=== PATIENT | female | born 1970 | race Hispanic/Latino ===

== ENCOUNTER 2025-07-04 19:08 | Emergency (ER) | payer SELFPAY, OTHER ==
--- OUTSIDE RECORDS SUMMARY | 2025-07-04 19:28 | XMS REPORT | Continuity of Care Document ---
Demographics Address [address] [facility] [address] [place] [address] Mobile Phone Email Address Preferred Language Nepali Marital Status Unknown Rastafari Affiliation Unknown Race Unknown Additional Race(s) Unavailable White Ethnic Group Unknown Author Name Unknown Address [address] [facility] [address] [place] [address] [facility] Address [address] [facility] [address] [place] [address] Care Team Providers Care Denture Waxer Name Role Phone [phone] Primary Care Physician Unavailab Luis Davies Attending Clinician Unavailab le SYSTEM, PROVIDER NOT IN Attending Clinician Unav ailable PHILL OSBORN Attending Clinician Unavailable GRAHAM MELARA Attending Clinician Unavail able PRINCESS GRADY Attending Clinician Un available PERFECTO MELTON Attending Clinician Unavailable VIRGINIA DAVE Attending Clinician Unavailable YUE JACKSON K.HLane Attending Clinician UnavailGil Costello Attending Clinician [phone] Luis Nash Attending Clinician [phone] Tenzin GARCIA, [place] Attending Clinician [phone] BENSON BEAVERS Attending Clinician Unavailable JULIA BENJAMIN Attending Clinician Unavailab le MARITA CALDERON Attending Clinician Unavail able MARITA CALDERON MY Attending Clinician Unavail able Doctor Unassigned, [place] Attending Clinician U navailable NORA CRUZ Attending Clinician Unavailable NORA CRUZ Attending Clinician Unavailable Nora Chawla Attending Clinician [phone] AVELINA GORDON Attending Clinician Unavailable BRIAN WEST Attending Clinician Unavail able HILARIO NELSON Attending Clinician UnavailJELANI Sy Attending Clinician Unavailab keny Melara MD, Sourav Fletcher Attending Clinician UnavailGRAHAM Hatch Attending Clinician Unavail able Kelotn GARCIA, Graham Pascual Attending Clinician [phone] Jelani Olivera MD Attending Clinician [phone] DIMA GUADARRAMA Attending Clinician Unavailable Dima Guadarrama DDS Attending Clinician [phone] [place] Dave MD Attending Clinician [phone] NADYA CRAIG. Attending Clinician Unavailable Nurse, [facility] Attending Clinician Unavailab keny Orosco, [facility] Attending Clinician Unavailabl e Doctor Unassigned, [place] Attending Clinician U navailable Kenroy_Antwan Attending Clinician Unavailable Yue Jackson MD K.HLane Attending Clinician + [phone] EDUARDO SAWYER Attending Clinician Unavailable CHIQUITA EDWARD Attending Clinician UnavailJoseph Wyatt MD Attending Clinician [phone] JOSEPH GARCIA Attending Clinician UnavailJOSEPH Wyatt Attending Clinician Unavailgordon Sierra Attending Clinician Unavailable Chiquita Edward MD Attending Clinician [phone] Deepali Hernandez RN Attending Clinician Unav ailable DONELL, QIANGJUN Attending Clinician Unavailable Mirtha Carrera MD Attending Clinician + [phone] 2, [facility] Attending Clinician Unavailable MIRTHA CARRERA Attending Clinician SONJA Carmen Attending Clinician Unavailable SONJA SINCLAIR Attending Clinician Unavailable KAVON MOREL Attending Clinician Unavailable Talha_Alma Attending Clinician Unavailable EFRAIN MADERA Attending Clinician Un available BILLIE WOOD Attending Clinician Unavailable DALILA BARRETO Attending Clinician Unavailab SANJANA Christie IV Attending Clinician Unavail able HOUSTON URENA Attending Clinician Unavailable IZABELA WALLACE Attending Clinician Unavailabl JAYY Traore Attending Clinician Unavailable NurseJoel Uroghazala Attending Clinician UnavailNIVIA Barraza Attending Clinician Unavail able Nivia Tafoya Attending Clinician [phone] DAMIEN STRONG Attending Clinician Unavailabl sorin Strong GNDamien Manrique Attending Clinician [phone] Clark Garces MD Attending Clinician [phone] Phill Osborn MD Attending Clinician +[phone] Only, [facility] Test Attending Clinician Unavailab le PATHOLOGY Attending Clinician Unavailable Pathology Attending Clinician Unavailable Irma Collins MD Attending Clinician +[phone] Call, [facility] Phone Attending Clinician Unavail able ABBEY Attending Clinician Unavailable Laine Ortega MD Attending Clinician [phone] VERONA NASH Attending Clinician Unavaila GIL Singh Attending Clinician UnavailBILLIE Salomon Attending Clinician Unavailable Perfecto Melton MD Attending Clinician +[phone] IRMA COLLINS Attending Clinician Unavailable Jericho Galaviz MD Attending Clinician +[phone] JERICHO GALAVIZ Attending Clinician Unavailable JORDON SOLANO Attending Clinician Unavail able Nurse, Don Pob Immunization Attending Clinician Unavailable Jordon Solano DO Attending Clinician [phone] Marianne Landis OD Attending Clinician [phone] MARIANNE LANDIS Attending Clinician Unavailable EN ENAMORADO Attending Clinician Unavailable Only, [facility] Test Attending Clinician Unavailable Pob, [facility] Lab Main Attending Clinician UnavailLay Winkler PA-C Attending Clinician [phone] LAY CASTELLANOS Attending Clinician Unavailable Sulma Conrad MD Attending Clinician [phone] HARRIS LEVY Attending Clinician Unavailable HERMINIA LOTT Attending Clinician Unavailable SULMA CONRAD Attending Clinician Unavail able Rebecca Attending Clinician Unavailable REINA JEAN-BAPTISTE Attending Clinician Unavailable Teresa Finley MD Attending Clinician + [phone] Lyle Clark CRNA Attending Clinician + [phone] [facility], [facility] Heart Attending Clinician Unavailab le 1, [facility] Lab Attending Clinician Unavailable Evie Galindo PT Attending Clinician Unavailab Keerthi Humphreys Attending Clinician +[phone] Ramakrishna Boone MD Attending Clinician [phone] Marissa Zambrano MD Attending Clinician +[phone] SEBASTIEN PADILLA Attending Clinician Unavailable MICHELLE MAYA Attending Clinician Unavailabl SHANNA Zarate Attending Clinician Unavailab JUANITA Mcpherson Attending Clinician Unavailable CHINTAN LIMON Attending Clinician Unavailable SIENNA ARBOLEDA Attending Clinician Unavaila ble PHILL OSBORN Admitting Clinician Unavailable GRAHAM MELARA Admitting Clinician Unavail able PERFECTO MELTON Admitting Clinician Unavailable Graham Melara MD Admitting Clinician [phone] Zuniga_F Admitting Clinician Unavailable MARITA CALDERON Admitting Clinician Unavail able Rigo Admitting Clinician Unavailable LUIS NASH Admitting Clinician Unavailab keny Alcantar Admitting Clinician Unavailable EFRAIN MADERA Admitting Clinician Un available Phill Osborn MD Admitting Clinician +[phone] ABBEY Admitting Clinician Unavailable Rebecca Admitting Clinician Unavailable Teresa Finley MD Admitting Clinician + [phone] SIENNA ARBOLEDA Admitting Clinician Unavaila ble Payers Payer Name Policy Type Policy Number Effective Date Expirati on Date Source [facility] STAR [id number] 2020 00:00:00 [employer] COMMUNITY MEDICAID STAR PLUS SSI [id number] [facility]LY [facility] PLAN STAR [id number] 2020 00:00:00 WELLMED/AARP MEDICARE ADVANTAGE HMO/POS [id number] 2024 00:00:00 WELLMED [facility] - DUAL ELIGIBLE (MEDICARE REPLACEMENT/ADVANTA GE - HMO) [id number] [facility] (MEDICAID REPLACEMENT - HMO) [id number] 2022 00:00:00 [place]: [employer] - [facility] [id number] 2021 00:00:00 MEDICARE PART A AND B [id number] 2021 00:00:00 [place] TRADITIONAL ST[place] SSI [id number] 2022 00:00:00 [place] Inspro [id number] 2021 00:00:00 [facility] [place] (MEDICA[place]) [id number] 2022 00:00:00 [facility] - DUAL COMPLETE - DUAL ELIGIBLE - SNP (MEDICARE-MEDICAID REPLACEMENT HMO) [id number] [facility]/ADVANTA GE - HMO) [id number] 2022 00:00:00 [facility] [id number] [id number] [place] - STAR (MEDICAID HMO) [id number] 2016 00:00:00 Problems Condition Name Condition Details Condition Category Status Onset Date Resolution Date Last Treatment Date Treating Clinician Comments Source Mixed hyperlipid emia Mixed Hyperlipid emia Problem Active 05-04 00:00: 00 [facility] Obesity Obesity Problem Active 05-04 00:00: 00 [facility] Overweight Overweight Problem Active 05-04 00:00: 00 [facility] Tobacco user Tobacco User Problem Active 05-04 00:00: 00 [facility] Menorrhagi a Menorrhagi a Problem Active 0 6 [facility] Rosacea Rosacea Problem Active 6 00:00: 00 [facility] Metabolic dysfunctio n-associat ed steatohepa titis Metabolic Dysfunctio n-associat ed Steatohepa titis Problem Active 6 00:00: 00 [facility] Candidiasi s Candidiasi s Problem Active 6 00:00: 00 [facility] Goiter Goiter Problem Active 6 00:00: 00 [facility] Abnormal urine odor Abnormal Urine Odor Problem Active 5 00:00: 00 [facility] Proteus urinary tract infection Proteus Urinary Tract Infection Problem Active 0 2-11 00:00: 00 [facility] Chronic cystitis Chronic Cystitis Problem Active 2-08 00:00: 00 [facility] Vaginal discomfort Vaginal Discomfort Problem Active 2-08 00:00: 00 [facility] Right lower quadrant pain Right Lower Quadrant Pain Problem Active 0 2-08 00:00: 00 [facility] Constipati on Constipati on Problem Active 0 2-06 00:00: 00 [facility] Spasm of back muscles Spasm of Back Muscles Problem Active 0 2-06 00:00: 00 [facility] Acute abdominal pain Acute Abdominal Pain Problem Active 0 2-06 00:00: 00 [facility] Right lower quadrant pain Right Lower Quadrant Pain Problem Active 0 2-06 00:00: 00 [facility] Vulval lesion Vulval lesion Disease Active 2023-11 0-25 00:00: 00 [facility] Lower abdominal pain Lower Abdominal Pain Problem Active 8- 00:00: 00 [facility] Strain of muscle of right groin region Strain of Muscle of Right Groin Region Problem Active 8- 00:00: 00 [facility] S/P laparoscop ic hysterecto my S/P laparoscop ic hysterecto my Disease Active 4-12 00:00: 00 [facility] Type II or unspecifie d type diabetes mellitus with ketoacidos is, uncontroll ed(250.12) Type II or unspecifie d type diabetes mellitus with ketoacidos is, uncontroll ed(250.12) Disease Active - 00:00: 00 [facility] H/O bilateral salpingo-o ophorectom y H/O bilateral salpingo-o ophorectom y Disease Active 01-27 00:00: 00 [facility] History of cholecyste ctomy History of cholecyste ctomy Disease Active 01-27 00:00: 00 [facility] Ocular rosacea Ocular Rosacea Problem Active 01-24 00:00: 00 [facility] Yeast vaginitis Yeast vaginitis Disease Active 2022-11 2- 00:00: 00 [facility] Postmenopa usal bleeding Postmenopa usal bleeding Disease Active 2022-11 2- 00:00: 00 [facility] Candidiasi s of vulva and vagina Candidiasi s of vulva and vagina Disease Active 2022-11 2- 00:00: 00 [facility] Acute urinary tract infection Acute Urinary Tract Infection Problem Active 2022-11- 00:00: 00 [facility] Cough Cough Problem Active 2022-11 00:00: 00 [facility] Dysuria Dysuria Problem Active 2022-11 00:00: 00 [facility] BRCA1 gene mutation positive BRCA1 gene mutation positive Disease Active - 00:00: 00 [facility] Pain pelvic Pain pelvic Disease Active 07-27 00:00: 00 [facility] Dysplasia of cervix, low grade (GEORGETTE 1) Dysplasia of cervix, low grade (GEORGETTE 1) Disease Active 2021-11 0-28 00:00: 00 Overview: Formattin g of this note might be different from the original. Added automatic ally from request for surgery [id number] [facility] Viral syndrome Viral Syndrome Problem Active 03-18 00:00: 00 [facility] Fever Fever Problem Active 03-18 00:00: 00 [facility] Tuberculos is screening Tuberculos is Screening Problem Active 3-29 00:00: 00 [facility] Abnormal vaginal bleeding Abnormal vaginal bleeding Disease Active 06-17 00:00: 00 Overview: Formattin g of this note might be different from the original. Added automatic ally from request for surgery [id number] [facility] Urinary incontinen ce, unspecifie d type Urinary incontinen ce, unspecifie d type Disease Active 06-17 00:00: 00 Overview: Formattin g of this note might be different from the original. Added automatic ally from request for surgery [id number] [facility] Mixed hyperlipid emia Mixed hyperlipid emia Disease Active 04-03 00:00: 00 [facility] Indigestio n Indigestio n Problem Active 06-09 00:00: 00 [facility] Personal history of colonic polyps Personal history of colonic polyps Disease Active 06-09 00:00: 00 Overview: Formattin g of this note might be different from the original. Added automatic ally from request for surgery [id number] [facility] Aaron hematuria Aaron Hematuria Problem Active 04-04 00:00: 00 [facility] Gastroesop hageal reflux disease Gastroesop hageal Reflux Disease Problem Active 12-02 00:00: 00 [facility] Flatulence , eructation and gas pain Flatulence , Eructation and Gas Pain Problem Active 12-02 00:00: 00 [facility] History of anemia History of Anemia Problem Active 12-02 00:00: 00 [facility] History of polyp of colon History of Polyp of Colon Problem Active 12-02 00:00: 00 [facility] Follow-up status Follow-up Status Problem Active 12-02 00:00: 00 [facility] Encounter for colonoscop y due to history of adenomatou s colonic polyps Encounter for colonoscop y due to history of adenomatou s colonic polyps Disease Active 12-02 00:00: 00 Overview: Formattin g of this note might be different from the original. Added automatic ally from request for surgery [id number] [facility] Morbid obesity Morbid Obesity Problem Active 03-08 00:00: 00 [facility] Morbid obesity with body mass index of 40.0-49.9 Morbid obesity with body mass index of 40.0-49.9 Disease Recurre nce 03-08 00:00: 00 [facility] Blood in urine Blood in Urine Problem Active 12-05 00:00: 00 [facility] Type 2 diabetes mellitus without complicati on Type 2 Diabetes Mellitus without Complicati on Problem Active 11-20 00:00: 00 [facility] Uncontroll ed type 2 diabetes mellitus with complicati on, with long-term current use of insulin Uncontroll ed type 2 diabetes mellitus with complicati on, with long-term current use of insulin Disease Active 11-20 00:00: 00 [facility] Type 2 diabetes mellitus Type 2 Diabetes Mellitus Problem Active [facility] Hyperlipid emia Hyperlipid emia Problem Active [facility] Essential hypertensi on Essential Hypertensi on Problem Active [facility] Allergies, Adverse Reactions, Alerts Allergy Name Allergy Type Status Severity Reaction(s) Onset Date Inactive Date Treating Clinician Comments Source DAPAGLIF LOZIN PROPANED IOL DRUG INGREDI Active Other-Cmnt 01-19 00:00: 00 [facility] Dapaglif lozin Propaned iol Drug Allergy Active Other - See comments 01-19 00:00: 00 Saira [facility] DAPAGLIF LOZIN DRUG INGREDI Active 02-18 00:00: 00 MD Fina barreto DAPAGLIF LOZIN DRUG INGREDI Active 02-18 00:00: 00 MD Fina barreto DAPAGLIF LOZIN DRUG INGREDI Active Other 02-18 00:00: 00 MD Fina barreto DAPAGLIF LOZIN DRUG INGREDI Active Other 0 413 00:00: 00 MD Fina barreto DAPAGLIF LOZIN DRUG INGREDI Active Other 0 413 00:00: 00 MD Fina barreto DAPAGLIF LOZIN DRUG INGREDI Active Other 0 413 00:00: 00 MD Fina barreto DAPAGLIF LOZIN DRUG INGREDI Active Other 0 413 00:00: 00 MD Fina barreto DAPAGLIF LOZIN DRUG INGREDI Active Other 0 413 00:00: 00 MD Fina barreto DAPAGLIF LOZIN DRUG INGREDI Active Other 0 413 00:00: 00 MD Fina barreto DAPAGLIF LOZIN DRUG INGREDI Active Other 0 413 00:00: 00 MD Fina barreto DAPAGLIF LOZIN DRUG INGREDI Active Other 0 13 00:00: 00 MD Fina barreto DAPAGLIF LOZIN DRUG INGREDI Active Other 0 13 00:00: 00 MD Fina barreto DAPAGLIF LOZIN DRUG INGREDI Active Other 0 413 00:00: 00 MD Fina barreto DAPAGLIF LOZIN DRUG INGREDI Active Other 0 13 00:00: 00 MD Fina barreto DAPAGLIF LOZIN DRUG INGREDI Active Other 0 413 00:00: 00 MD Fina barreto DAPAGLIF LOZIN DRUG INGREDI Active Other 0 413 00:00: 00 MD Fina barreto DAPAGLIF LOZIN DRUG INGREDI Active Other 0 413 00:00: 00 MD Fina barreto DAPAGLIF LOZIN DRUG INGREDI Active Other 0 413 00:00: 00 MD Fina barreto DAPAGLIF LOZIN DRUG INGREDI Active Other 0 413 00:00: 00 MD Fina barreto DAPAGLIF LOZIN DRUG INGREDI Active Other 0 413 00:00: 00 MD Fina barreto DAPAGLIF LOZIN DRUG INGREDI Active Other 0 413 00:00: 00 MD Fina barreto DAPAGLIF LOZIN DRUG INGREDI Active Other 2022-0 413 00:00: 00 Andemi barreto DAPAGLIF LOZIN DRUG INGREDI Active Other 0 413 00:00: 00 Andemi barreto DAPAGLIF LOZIN DRUG INGREDI Active Other 2022-0 413 00:00: 00 Andemi barreto DAPAGLIF LOZIN DRUG INGREDI Active Other 2022-0 413 00:00: 00 MD Fina barreto DAPAGLIF LOZIN DRUG INGREDI Active Other 2022-0 413 00:00: 00 Andemi barreto DAPAGLIF LOZIN DRUG INGREDI Active Other 0 413 00:00: 00 Andemi barreto DAPAGLIF LOZIN DRUG INGREDI Active Other 0 413 00:00: 00 Andemi barreto DAPAGLIF LOZIN DRUG INGREDI Active Other 0 413 00:00: 00 MD Fina barreto DAPAGLIF LOZIN DRUG INGREDI Active Other 2022-0 413 00:00: 00 MD Fina barreto DAPAGLIF LOZIN DRUG INGREDI Active Other 2022-0 413 00:00: 00 MD Fina barreto DAPAGLIF LOZIN DRUG INGREDI Active Other 0 413 00:00: 00 MD Fina barreto DAPAGLIF LOZIN DRUG INGREDI Active Other 2022-0 413 00:00: 00 MD Fina barreto DAPAGLIF LOZIN DRUG INGREDI Active Other 2022-0 413 00:00: 00 MD Fina barreto DAPAGLIF LOZIN DRUG INGREDI Active Other 2022-0 413 00:00: 00 MD Fina barreto DAPAGLIF LOZIN DRUG INGREDI Active Other 2022-0 413 00:00: 00 MD Fina barreto DAPAGLIF LOZIN DRUG INGREDI Active Other 2022-0 413 00:00: 00 MD Fina barreto DAPAGLIF LOZIN DRUG INGREDI Active Other 2022-0 413 00:00: 00 MD Fina barreto DAPAGLIF LOZIN DRUG INGREDI Active 2022-0 4-13 00:00: 00 MD Fina barreto DAPAGLIF LOZIN DRUG INGREDI Active 3-0 4-13 00:00: 00 MD Fina barreto DAPAGLIF LOZIN DRUG INGREDI Active 2022-0 4-13 00:00: 00 MD Fina barreto DAPAGLIF LOZIN DRUG INGREDI Active 3-0 4-13 00:00: 00 MD Fina barreto DAPAGLIF LOZIN DRUG INGREDI Active 2022-0 4-13 00:00: 00 MD Fina barreto DAPAGLIF LOZIN DRUG INGREDI Active 2022-0 4-13 00:00: 00 MD Fina barreto DAPAGLIF LOZIN DRUG INGREDI Active 2022-0 413 00:00: 00 MD Fina barreto DAPAGLIF LOZIN DRUG INGREDI Active 2022-0 413 00:00: 00 MD Fina barreto DAPAGLIF LOZIN DRUG INGREDI Active 2022-0 413 00:00: 00 MD Fina barreto DAPAGLIF LOZIN DRUG INGREDI Active 2022-0 413 00:00: 00 MD Fina barreto DAPAGLIF LOZIN DRUG INGREDI Active 3-0 413 00:00: 00 MD Fina barreto DAPAGLIF LOZIN DRUG INGREDI Active 2022-0 413 00:00: 00 MD Fina barreto DAPAGLIF LOZIN DRUG INGREDI Active 3-0 4-13 00:00: 00 MD Fina barreto DAPAGLIF LOZIN DRUG INGREDI Active 2022-0 4-13 00:00: 00 MD Fina barreto DAPAGLIF LOZIN DRUG INGREDI Active 3-0 4-13 00:00: 00 MD Fina barreto DAPAGLIF LOZIN DRUG INGREDI Active 3-0 4-13 00:00: 00 MD Fina barreto DAPAGLIF LOZIN DRUG INGREDI Active 3-0 4-13 00:00: 00 MD Fina barreto DAPAGLIF LOZIN DRUG INGREDI Active 3-0 4-13 00:00: 00 MD Fina barreto DAPAGLIF LOZIN DRUG INGREDI Active 2022-0 4-13 00:00: 00 MD Fina barreto DAPAGLIF LOZIN DRUG INGREDI Active Other-Cmnt 02-18 00:00: 00 [facility] Dapaglif lozin Drug Allergy Active Other - See comments 02-18 00:00: 00 Ketoacido sis and build up of yeast [facility] DAPAGLIF LOZIN DRUG INGREDI Active 02-18 00:00: 00 MD Fina barreto DAPAGLIF LOZIN DRUG INGREDI Active 02-18 00:00: 00 MD Fina barreto PIOGLITA ZONE DRUG INGREDI Active 2020-11 00:00: 00 MD Fina barreto PIOGLITA ZONE DRUG INGREDI Active 2020-11 00:00: 00 MD Fina barreto PIOGLITA ZONE DRUG INGREDI Active 2020-11 00:00: 00 MD Fina barreto PIOGLITA ZONE DRUG INGREDI Active 2020-11 00:00: 00 MD Fina barreto PIOGLITA ZONE DRUG INGREDI Active Other 2020-11 00:00: 00 MD Fina barreto PIOGLITA ZONE DRUG INGREDI Active Other 2020-11 00:00: 00 MD Fina barreto PIOGLITA ZONE DRUG INGREDI Active Other 2020-11 00:00: 00 MD Fina barreto PIOGLITA ZONE DRUG INGREDI Active Other 2020-11 00:00: 00 MD Fina barreto PIOGLITA ZONE DRUG INGREDI Active Other 2020-11 00:00: 00 MD Fina barreto PIOGLITA ZONE DRUG INGREDI Active Other 2020-11 00:00: 00 MD Fina barreto Pioglita zone Drug Allergy Active Other - See comments 2020-11 00:00: 00 Bleeding in bladder [facility] PIOGLITA ZONE DRUG INGREDI Active Unknown-Cmnt 2020-11 00:00: 00 [facility] PIOGLITA ZONE DRUG INGREDI Active Other 2020-11 00:00: 00 MD Fina barreto PIOGLITA ZONE DRUG INGREDI Active Other 2020-11 00:00: 00 MD Fina barreto PIOGLITA ZONE DRUG INGREDI Active Other 2020-11 00:00: 00 MD Fina barreto PIOGLITA ZONE DRUG INGREDI Active Other 2020-11 00:00: 00 MD Fina barreto PIOGLITA ZONE DRUG INGREDI Active Other 2020-11 00:00: 00 MD Fina barreto PIOGLITA ZONE DRUG INGREDI Active Other 2020-11 00:00: 00 MD Fina barreto PIOGLITA ZONE DRUG INGREDI Active Other 2020-11 00:00: 00 MD Fina barreto PIOGLITA ZONE DRUG INGREDI Active Other 2020-11 00:00: 00 MD Fina barreto PIOGLITA ZONE DRUG INGREDI Active Other 2020-11 00:00: 00 MD Fina barreto PIOGLITA ZONE DRUG INGREDI Active Other 2020-11 00:00: 00 MD Fina barreto PIOGLITA ZONE DRUG INGREDI Active Other 2020-11 00:00: 00 MD Fina barreto PIOGLITA ZONE DRUG INGREDI Active Other 2020-11 00:00: 00 MD Fina barreto PIOGLITA ZONE DRUG INGREDI Active Other 2020-11 00:00: 00 MD Fina barreto PIOGLITA ZONE DRUG INGREDI Active Other 2020-11 00:00: 00 MD Fina barreto PIOGLITA ZONE DRUG INGREDI Active Other 2020-11 00:00: 00 MD Fina barreto PIOGLITA ZONE DRUG INGREDI Active Other 2020-11 00:00: 00 MD Fina barreto PIOGLITA ZONE DRUG INGREDI Active Other 2020-11 00:00: 00 MD Fina barreto PIOGLITA ZONE DRUG INGREDI Active Other 2020-11 00:00: 00 MD Fina barreto PIOGLITA ZONE DRUG INGREDI Active Other 2020-11 00:00: 00 MD Fina barreto PIOGLITA ZONE DRUG INGREDI Active Other 2020-11 00:00: 00 MD Fina barreto PIOGLITA ZONE DRUG INGREDI Active Other 2020-11 00:00: 00 MD Fina barreto PIOGLITA ZONE DRUG INGREDI Active Other 2020-11 00:00: 00 MD Fina barreto PIOGLITA ZONE DRUG INGREDI Active Other 2020-11 00:00: 00 MD Fina barreto PIOGLITA ZONE DRUG INGREDI Active Other 2020-11 00:00: 00 MD Fina barreto PIOGLITA ZONE DRUG INGREDI Active Other 2020-11 00:00: 00 MD Fina barreto PIOGLITA ZONE DRUG INGREDI Active Other 2020-11 00:00: 00 MD Fina barreto PIOGLITA ZONE DRUG INGREDI Active Other 2020-11 00:00: 00 MD Fina barreto PIOGLITA ZONE DRUG INGREDI Active Other 2020-11 00:00: 00 MD Fina barreto PIOGLITA ZONE DRUG INGREDI Active Other 2020-11 00:00: 00 MD Fina barreto PIOGLITA ZONE DRUG INGREDI Active Other 2020-11 00:00: 00 MD Fina barreto PIOGLITA ZONE DRUG INGREDI Active 2020-11 00:00: 00 MD Fina barreto PIOGLITA ZONE DRUG INGREDI Active 2020-11 00:00: 00 MD Fina barreto PIOGLITA ZONE DRUG INGREDI Active 2020-11 00:00: 00 MD Fina barreto PIOGLITA ZONE DRUG INGREDI Active 2020-11 00:00: 00 MD Fina barreto [facility] Active 2020-11 00:00: 00 MD Fina barreto [facility] Active 2020-11 00:00: 00 MD Fina barreto [facility] Active 2020-11 00:00: 00 MD Fina barreto [facility] Active 2020-11 00:00: 00 MD Fina barreto [facility] Active 2020-11 00:00: 00 MD Fina barreto [facility] Active 2020-11 00:00: 00 MD Fina barreto [facility] Active 2020-11 00:00: 00 MD Fina barreto [facility] Active 2020-11 00:00: 00 MD Fina barreto [facility] Active 2020-11 00:00: 00 MD Fina barreto [facility] Active 2020-11 00:00: 00 MD Fina barreto [facility] Active 2020-11 00:00: 00 MD Fina barreto [facility] Active 2020-11 00:00: 00 MD Fina barreto [facility] Active 2020-11 00:00: 00 MD Fina barreto [facility] Active 2020-11 00:00: 00 MD Fina barreto [facility] Active 2020-11 00:00: 00 MD Fina barreto [place] [facility] INGREDI Active Low Rash 2018-11 00:00: 00 [facility] Lisinopr il Propensi ty to adverse reaction s Active Rash 2018-11 00:00: 00 [facility] [place] [facility] INGR[facility]I Active Low Rash 2018-11 00:00: 00 MD Fina barreto [facility] [place] [facility] Active Low Rash 2018-11 00:00: 00 MD Fina barreto [facility] [place] [facility] Active Low Rash 2018-11 00:00: 00 MD Fina barreto [facility] [place] [facility] Active Low Rash 2018-11 00:00: 00 MD Fina barreto [facility] [place] [facility] Active Low Rash 2018-11 00:00: 00 MD Fina barreto [facility] [place] [facility] Active Low Rash 2018-11 00:00: 00 MD Fina barreto [facility] [place] [facility] Active Low Rash 2018-11 00:00: 00 MD Fina barreto [facility] [place] [facility] Active Low Rash 2018-11 00:00: 00 MD Fina barreto [facility] [place] [facility] Active Low Rash 2018-11 00:00: 00 MD Fina barreto [facility] [place] [facility] Active Low Rash 2018-11 00:00: 00 MD Fina barreto [facility] [place] [facility] Active Low Rash 2018-11 00:00: 00 MD Fina barreto [facility] [place] [facility] Active Low Rash 2018-11 00:00: 00 MD Fina barreto [facility] [place] [facility] Active Low Rash 2018-11 00:00: 00 MD Fina barreto [facility] [place] [facility] Active Low Rash 2018-11 00:00: 00 MD Fina barreto [facility] [place] [facility] Active Low Rash 2018-11 00:00: 00 MD Fina barreto [facility] [place] [facility] Active Low Rash 2018-11 00:00: 00 MD Fina barreto [facility] [place] [facility] Active Low Rash 2018-11 00:00: 00 MD Fina barreto [facility] [place] [facility] Active Low Rash 2018-11 00:00: 00 MD Fina barreto [facility] [place] [facility] Active Low Rash 2018-11 00:00: 00 MD Fina barreto [facility] [place] [facility] Active Low Rash 2018-11 00:00: 00 MD Fina barreto [facility] [place] [facility] Active Low Rash 2018-11 00:00: 00 MD Fina barreto [facility] [place] [facility] Active Low Rash 2018-11 00:00: 00 MD Fina barreto [facility] [place] [facility] Active Low Rash 2018-11 00:00: 00 MD Fina barreto [facility] [place] [facility] Active Low Rash 2018-11 00:00: 00 MD Fina barreto [facility] [place] [facility] Active Low Rash 2018-11 00:00: 00 MD Fina brareto [facility] [place] [facility] Active Low Rash 2018-11 00:00: 00 MD Fina barreto [facility] [place] [facility] Active Low Rash 2018-11 00:00: 00 MD Fina barreto [facility] [place] [facility] Active Low Rash 2018-11 00:00: 00 MD Fina barreto [facility] [place] [facility] Active Low Rash 2018-11 00:00: 00 MD Fina barreto [facility] [place] [facility] Active Low Rash 2018-11 00:00: 00 MD Fina barreto [facility] [place] [facility] Active Low Rash 2018-11 00:00: 00 MD Fina barreto [facility] [place] [facility] Active Low Rash 2018-11 00:00: 00 MD Fina barreto [facility] [place] [facility] Active Low Rash 2018-11 00:00: 00 MD Fina barreto [facility] [place] [facility] Active Low Rash 2018-11 00:00: 00 MD Fina barreto [facility] [place] [facility] Active Low Rash 2018-11 00:00: 00 MD Fina barreto [facility] [place] [facility] Active Low Rash 2018-11 00:00: 00 MD Fina barreto [facility] [place] [facility] Active Low Rash 2018-11 00:00: 00 MD Fina barreto [place] [place] [facility] Active Low Rash 2018-11 00:00: 00 MD Fina barreto [facility] [place] [facility] Active Low Rash 2018-11 00:00: 00 MD Fina barreto [facility] [place] [facility] Active Low Rash 2018-11 00:00: 00 MD Fina barreto [facility] [place] [facility] Active Low Rash 2018-11 00:00: 00 MD Fina barreto [facility] [place] [facility] Active Low Rash 2018-11 00:00: 00 MD Fina barreto [facility] [place] [facility] Active Low Rash 2018-11 00:00: 00 MD Fina barreto [facility] [place] [facility] Active Low Rash 2018-11 00:00: 00 MD Fina barreto [facility] [place] [facility] Active Low Rash 2018-11 00:00: 00 MD Fina barreto [facility] [place] [facility] Active Low Rash 2018-11 00:00: 00 MD Fina barreto [facility] [place] [facility] Active Low Rash 2018-11 00:00: 00 MD Fina barreto [facility] [place] [facility] Active Low Rash 2018-11 00:00: 00 MD Fina barreto [facility] [place] [facility] Active Low Rash 2018-11 00:00: 00 MD Fina barreto [facility] [place] [facility] Active Low Rash 2018-11 00:00: 00 MD Fina barreto [facility] [place] [facility] Active Low Rash 2018-11 00:00: 00 MD Fina barreto [facility] [place] [facility] Active Low Rash 2018-11 00:00: 00 MD Fina barreto [facility] [place] [facility] Active Low Rash 2018-11 00:00: 00 MD Fina barreto [facility] [place] [facility] Active Low Rash 2018-11 00:00: 00 MD Fina barreto [facility] [place] [facility] Active Low Rash 2018-11 00:00: 00 MD Fina barreto [facility] [place] [facility] Active Low Rash 2018-11 00:00: 00 MD Fina barreto [facility] [place] [facility] Active Low Rash 2018-11 00:00: 00 MD Fina barreto [facility] [place] [facility] Active Low Rash 2018-11 00:00: 00 MD Fina barreto [facility] [place] [facility] Active Low Rash 2018-11 00:00: 00 MD Fina barreto Farxicheryl Allergy to substanc e Active [facility] Actos Allergy to substanc e Active [facility] Social History Social Habit Start Date Stop Date Quantity Comments Source History of tobacco use Cigarette Smoker [facility] Gender identity [facility] Sexual orientation [facility] ASSERTION Not [facility] Alcoholic beverage intake 2025-06-25 00:00:00 2025-06-25 00:00:00 0 /d [facility] History of Social function 2025-01-09 00:00:00 2025-01-09 00:00:00 [facility] Cigarettes smoked current (pack per day) - Reported 2024-09-01 00:00:00 2024-09-01 00:00:00 [facility] Cigarette pack-years 2024-09-01 00:00:00 2024-09-01 00:00:00 [facility] Tobacco use and exposure 2024-09-01 00:00:00 2024-09-01 00:00:00 Smokeless tobacco non-user [facility] Alcohol intake 2024-02-22 00:00:00 2024-02-22 00:00:00 0 /d [facility] Exposure to SARS-CoV-2 (event) 2022-11-15 00:00:00 2022-11-25 13:14:00 Not sure [facility] Tobacco Comment 2022-05-18 00:00:00 2022-05-18 00:00:00 Quit 2012 [facility] Sex assigned at 1970 00:00:00 1970 00:00:00 [facility] Smoking Status Start Date Stop Date Source Ex-smoker 2024-09-01 00:00:00 2024-09-01 00:00:00 [facility] Medications Ordered Medication Name Filled Medication Name Start Date Stop Date Current Medication? Ordering Clinician Indication Dosage Frequency Signature (SIG) Comments Components Source amoxicillin -pot clavulanate (AUGMENTIN) 500-125 mg tablet 07-04 00:00: 00 Yes [id number] 500mg Take 1 tablet by mouth in the morning and 1 tablet in the evening. [facility] amoxicillin -pot clavulanate (AUGMENTIN) 500-125 mg tablet 06-28 00:00: 00 07-04 00:00 :00 No [id number] 500mg Take 1 tablet by mouth in the morning and 1 tablet in the evening. [facility] amitriptyli ne 10 mg tablet 06-25 00:00: 00 Yes [id number] 10mg Take 1 tablet by mouth at bedtime. [facility] estradioL 0.01 % (0.1 mg/gram) vaginal cream 06-25 00:00: 00 Yes [id number] Apply 1g (pea sized) with finger vaginally qhs for 2 weeks, then apply 1g (pea sized) with finger vaginally twice weekly at night indefinite ly [facility] gabapentin 100 mg capsule 06-25 00:00: 06-25 00:00 :00 No [id number] 100mg Take 1 capsule by mouth in the morning and 1 capsule at noon and 1 capsule in the evening. [facility] mupirocin 2 % ointment 3-14 00:00: 00 Yes [id number] Apply to Surgical Site Three Times Daily [facility] solifenacin 10 mg tablet 2023-11 2 00:00: 00 Yes [id number] 10mg TAKE 1 TABLET BY MOUTH IN THE MORNING [facility] ketoconazol e 2 % cream 2023-11 00:00: 00 Yes [id number] Apply to area(s) daily. [facility] hydrocortis one 2.5 % cream 2023-11 00:00: 00 Yes [id number] Apply to affected area(s) 2 (two) times daily. Safe for the face. [facility] doxycycline monohydrate 100 mg capsule 2023-11 00:00: 00 Yes [id number] 100mg Take 1 capsule by mouth in the morning and 1 capsule in the evening. [facility] metroNIDAZO LE 0.75 % cream 2023-11 00:00: 00 Yes [id number] Apply to area(s) every morning. [facility] clotrimazol e 1 % topical cream 2023-11 0 00:00: 00 Yes [id number] Apply to area(s) 2 (two) times daily. [facility] nystatin 100,000 unit/gram powder 2023-11 0 00:00: 00 Yes [id number] Apply to area(s) 2 (two) times daily. [facility] SOLIFENACIN 10 mg tablet 2023-11 0-19 00:00: 00 10-12 00:00 :00 No [id number] 10mg TAKE 1 TABLET BY MOUTH IN THE MORNING [facility] sulfamethox azole-trime thoprim 800-160 mg per tablet 4-16 00:00: 00 03-24 04:59 :00 No [id number] 1{tbl} Take 1 tablet by mouth in the morning for 30 days. Start after finishing the Bactrim DS x 10 days [facility] solifenacin (VESICARE) 10 mg tablet 02-21 00:00: 00 03-24 04:59 :00 No [id number] 10mg Take 1 tablet by mouth in the morning for 30 days. [facility] cephALEXin 250 mg capsule 02-20 00:00: 00 02-21 00:00 :00 No [id number] 250mg Take 1 capsule by mouth 4 (four) times daily. [facility] insulin glargine (LANTUS U-100) injection 40 Units 02-04 02:00: 00 Yes 40U 40 Units, Subcutaneo us, QHS, First dose on Wed02/04/24 at 2100, Until Discontinu ed, Routine [facility] insulin regular human (HUMULIN R) injection 40 Units 02-03 17:00: 00 Yes 40U 40 Units, Subcutaneo us, QNOON, First dose on Wed02/04/24 at 1200, Until Discontinu ed, Routine
Indicatio n for insulin: Hyperglyce odilia [facility] insulin regular hum U-500 conc (HUMULIN R U-500, CONC, KWIKPEN) 500 unit/mL (3 mL) InPn 02-03 15:18: 27 Yes 65 units daily, 40 units at noon, 65 units at qPM [facility] glipiZIDE 5 mg tablet 02-03 15:18: 27 Yes 5mg Take 1 tablet by mouth 2 times daily before breakfast and dinner. [facility] traMADoL 50 mg tablet 02-03 15:18: 27 Yes [id number] 50mg Take 1 tablet by mouth every 6 hours as needed. [facility] gabapentin 100 mg capsule 02-03 15:18: 27 Yes [id number] 100mg Take 1 capsule by mouth as needed for Pain (scale 4-6). [facility] semaglutide (OZEMPIC) 0.25 mg or 0.5 mg (2 mg/3 mL) PnIj 02-03 15:18: 27 Yes [id number] .25mg Inject 0.25 mg under the skin weekly. [facility] tamsulosin 0.4 mg 24 hr capsule 02-03 15:18: 27 Yes [facility] lisinopriL (PRINIVIL,Z ESTRIL) tablet 5 mg 02-03 14:00: 00 Yes 5mg 5 mg, Oral, DAILY, First dose on Wed02/04/24 at 0900, Until Discontinu ed, Routine [facility] sennosides (SENOKOT) tablet 8.6 mg 02-03 14:00: 00 Yes 8.6mg 8.6 mg, Oral, DAILY, First dose on Wed02/04/24 at 0900, Until Discontinu ed, Routine [facility] insulin regular human (HUMULIN R) injection 65 Units 02-03 12:30: 00 Yes 65U 65 Units, Subcutaneo us, BIDAC, First dose on Wed02/04/24 at 0730, Until Discontinu ed, Routine
Indicatio n for insulin: Hyperglyce odilia [facility] glipiZIDE (GLUCOTROL) tablet 5 mg 02-03 12:30: 00 Yes 5mg 5 mg, Oral, BIDAC, First dose on Wed02/04/24 at 0730, Until Discontinu ed, Routine [facility] phenoL (SORE THROAT (PHENOL)) 1.4 % spray bottle 1 [place] 02-03 09:33: 00 Yes 1{spray } 1 [place], Oral, PRN, Starting on Wed02/04/24 at 0433, Until Discontinu ed, Routine, Sore throat [facility] ibuprofen (IBU) tablet 600 mg 02-03 05:15: 00 Yes 600mg 600 mg, Oral, Q6H, First dose (after last modificati on) on Wed02/04/24 at 0015, Until Discontinu ed, Routine [facility] acetaminoph en (TYLENOL) tablet 650 mg 02-03 05:00: 00 Yes 650mg 650 mg, Oral, Q6H, First dose on Wed02/04/24 at 0000, Until Discontinu ed, Routine [facility] insulin glargine (LANTUS U-100) injection 20 Units 02-03 05:00: 00 02-03 05:22 :00 No 20U 20 Units, Subcutaneo us, ONCE, 1 dose, On Wed02/04/24 at 0000, [facility]APRESOLINE ) tablet 10 mg 02-03 04:04: 53 Yes 10mg 10 mg, Oral, Q6HPRN, Starting on Wed02/03/24 at 2304, Until Discontinu ed, Routine, SBP>160, DBP>100 [facility] artificial tears(hypro mellose) (ISOPTO-TEA RS) 0.5 % ophthalmic drops 1 Drop 02-03 03:17: 03 Yes 1[drp] 1 Drop, Both Eyes, PRN, Starting on Wed02/03/24 at 2217, Until Discontinu ed, Routine, Dry eyes [facility] simethicone (GAS RELIEF (SIMETHICON E)) chewable tablet 160 mg 02-03 02:00: 00 Yes 160mg 160 mg, Oral, PC+HS, First dose on Wed02/03/24 at 2100, Until Discontinu ed, Routine [facility] docusate (COLACE) capsule 100 mg 02-03 01:00: 00 Yes 100mg 100 mg, Oral, Q12H, First dose on Wed02/03/24 at 2000, Until Discontinu ed, Routine [facility] lactated ringers IV infusion 1,000 mL 02-03 00:00: 00 Yes 1000mL at 75 mL/hr, 1,000 mL, IV Infusion, CONTINUOUS , Starting on Wed02/03/24 at 1900, Until Discontinu ed, Routine, PACU [facility] HYDROcodone -acetaminop hen (NORCO 5) 5-325 mg tablet 1 tablet 02-03 00:00: 00 02-03 00:40 :00 No 1{tbl} 1 tablet, Oral, ONCE, 1 dose, On [place] 02/03/24 at 1900, Routine, PACU [facility] FENTanyl PF (SUBLIMAZE (PF)) injection 25 mcg 02-02 23:52: 27 02-03 02:42 :40 No 25ug 25 mcg, Slow IV Push, Q5MIN PRN, 4 doses, Starting on [place] 02/03/24 at 185, Until [place] 02/03/24 at 2142, Routine, Pain (scale 4-6), PACU [facility] ondansetron (ZOFRAN (PF)) injection 4 mg 02-02 23:52: 27 02-03 02:11 :00 No 4mg 4 mg, Slow IV Push, PRN, 1 dose, Starting on [place] 02/03/24 at 1852, Until Discontinu ed, Routine, Nausea and Vomiting (N/V), PACU [facility] bupivacaine (preserv free) (SENSORCAIN E MPF) 0.25 % (2.5 mg/mL) injection 02-02 23:49: 00 02-02 23:52 :15 No PRN, Starting on Wed02/03/24 at 1849, Until [place] 02/03/24 at 185, Routine, Intra-op [facility] oxyCODONE immediate release tablet 5 mg 02-02 23:32: 30 Yes 5mg 5 mg, Oral, Q6HPRN, Starting on Wed02/03/24 at 1832, Until Discontinu ed, Routine, Pain (scale 7-10)
F aculty member approving Restricted medication : GRAHAM MELARA [facility] ondansetron (ZOFRAN (PF)) injection 4 mg 02-02 23:32: 29 Yes 4mg 4 mg, Slow IV Push, Q4HPRN, Starting on [place] 02/03/24 at 1832, Until Discontinu ed, Routine, Nausea and Vomiting (N/V) [facility] diphenhydrA MINE (BENADRYL) injection 25 mg 02-02 23:32: 29 Yes 25mg 25 mg, Slow IV Push, Q6HPRN, Starting on Wed02/03/24 at 1832, Until Discontinu ed, Routine, Itching [facility] Sliding Scale Insulin - Lispro (HumaLOG) 02-02 22:00: 00 Yes Subcutaneo us, TID MEALS+HS, First dose on Wed02/03/24 at 1700, Until Discontinu ed, Routine [facility] glucagon (GLUCAGEN DIAGNOSTIC KIT) injection 1 mg 02-02 21:43: 32 Yes 1mg 1 mg, Intramuscu lar, PRN, Starting on Wed02/03/24 at 1643, Until Discontinu ed, HUSSEIN, Blood Glucose < or = 70 mg/dL and patient is NPO, unable to swallow or has mental changes. [facility] dextrose 50 % in water (D50W) injection 25 mL 02-02 21:43: 32 Yes 25mL 25 mL, Slow IV Push, PRN, Starting on Wed02/03/24 at 1643, Until Discontinu ed, HUSSEIN, Blood Glucose < or = 70 mg/dL and patient is NPO, unable to swallow or has mental status changes. [facility] metroNIDAZO LE in NaCl (iso-os) (FLAGYL I.V.) RTU IV infusion 500 mg 02-02 16:41: 24 02-02 16:40 :24 No 500mg 500 mg, IV Piggyback, O.R. HOLDING ONCE, Starting on Wed02/03/24 at 1141, Until Wed02/02/25 at 1140, Administer over 75 Minutes, 100 mL
Reas on for Anti-Infec tive: Surgical Prophylaxi s
Streeter rgical Prophylaxi s: LEATHER COLORER
Duration of therapy: within 24 hours of surgery [facility] phenazopyri dine (PYRIDIUM) tablet 200 mg 02-02 16:41: 23 02-02 16:40 :23 No 200mg 200 mg, Oral, O.R. HOLDING ONCE, Starting on Wed02/03/24 at 1141, Until Wed02/02/25 at 1140, Routine, Surgery/Pr ocedure [facility] ceFAZolin (ANCEF) 2,000 mg in NaCl 0.9% (NS) 100 mL MINI-BAG 02-02 16:41: 23 02-02 16:40 :23 No 2000mg 2,000 mg, IV Piggyback, O.R. HOLDING ONCE, Starting on Wed02/03/24 at 1141, Until Wed02/02/25 at 1140, Administer over 30 Minutes, 100 mL
Reas on for Anti-Infec tive: Surgical Prophylaxi s
Surgi pelon Prophylaxi s: LEATHER COLORER
Duration of therapy: within 24 hours of surgery [facility] gentamicin injection 160 mg 02-01 17:15: 00 02-01 16:21 :00 [facility] [id number] [facility] 0.4 mg 24 hr capsule 01-27 11:13: 46 Yes [facility] scopolamine transdermal (TRANSDERM- SCOP) 1 mg over 3 days patch 01-27 00:00: 00 Yes [id number] 1.5mg Apply 1 Patch to area(s) every 72 (seventy-t wo) hours. [facility] chlorhexidi ne 4 % external liquid 01-27 00:00: 00 Yes [id number] Apply to area(s) once daily as needed for Wound care. [facility] docusate (COLACE) 100 mg capsule 01-27 00:00: 00 Yes [id number] 100mg Take 1 capsule by mouth in the morning and 1 capsule at noon and 1 capsule in the evening. [facility] ondansetron (ZOFRAN) 4 mg tablet 01-27 00:00: 00 Yes [id number] 4mg Take 1 tablet by mouth every 8 (eight) hours as needed for Nausea and Vomiting (N/V) or N/V unresponsi ve to Promethazi ne. [facility] HYDROcodone -acetaminop hen 5-325 mg tablet 01-27 00:00: 00 Yes [id number] 1{tbl} Take 1-2 tablets by mouth every 6 (six) hours as needed for Pain (scale 4-6). Indication s: acute pain [facility] ibuprofen 800 mg tablet 01-27 00:00: 00 Yes [id number] 800mg Take 1 tablet by mouth every 6 (six) hours as needed for Pain (scale 4-6). [facility] metroNIDAZO LE 500 mg tablet 01-27 00:00: 00 06-28 00:00 :00 No [id number] 500mg Take 1 tablet by mouth in the morning and 1 tablet in the evening. [facility] gentamicin injection 160 mg 01-11 18:15: 00 01-11 17:17 :00 No [id number] 160mg [facility] gentamicin injection 160 mg 12-29 17:30: 00 12-29 16:32 :00 No [id number] 160mg [facility] gentamicin injection 160 mg 12-22 17:15: 00 12-22 16:20 :00 No [id number] 160mg [facility] gentamicin injection 160 mg 12-15 18:00: 00 12-15 17:14 :00 No [id number] 160mg [facility] sulfamethox azole-trime thoprim (BACTRIM DS) 800-160 mg per tablet 12-09 00:00: 00 12-15 05:59 :00 No [id number] 1{tbl} Take 1 tablet by mouth in the morning and 1 tablet in the evening. Do all this for 5 days. [facility] gentamicin injection 160 mg - 17:30: 00 12-08 16:58 :00 No [id number] 160mg [facility] tamsulosin 0.4 mg 24 hr capsule 11-30 11:07: 23 Yes [facility] sulfur hexafluorid e microsphr (LUMASON) injection 5 mL 2022-11 20:30: 00 11-03 20:30 :00 No [id number] 5mL 5 mL, Intravenou s, ONCE, 1 dose, On Wed11/03/23 at 1430, Routine
catering staff member approving Restricted medication : YUE JACKSON [facility] traMADoL 50 mg tablet 2022-11 13:12: 50 Yes [id number] 50mg Take 1 tablet by mouth every 6 (six) hours as needed. [facility] gabapentin 100 mg capsule 2022-11 13:12: 50 Yes [id number] 100mg Take 1 capsule by mouth as needed for Pain (scale 4-6). [facility] semaglutide (OZEMPIC) 0.25 mg or 0.5 mg (2 mg/3 mL) PnIj 2022-11 13:12: 50 Yes [id number] .25mg inject 0.25 mg under the skin weekly. [facility] lisinopriL 2.5 mg tablet 2022-11 00:00: 00 Yes [id number] 5mg 2 tablets in the morning. [facility] gadobenate dimeglumine (MULTIHANCE -20 mL) injection 0.2 mL/kg 2022-11 19:00: 00 08-19 19:02 :00 No [id number] .2mL/kg 0.2 mL/kg, Intravenou s, ONCE, 1 dose, On Wed08/19/23 at 1400, Routine [facility] fluconazole (DIFLUCAN) 150 mg tablet - 00:00: 00 Yes [id number] 150mg Take 1 tablet by mouth every other day. [facility] SOLIFENACIN 10 mg tablet 9-08 00:00: 00 08-26 00:00 :00 No [id number] 10mg TAKE 1 TABLET BY MOUTH IN THE MORNING [facility] SOLIFENACIN 10 mg tablet 8-14 00:00: 00 07-22 04:59 :00 No [id number] 10mg TAKE 1 TABLET BY MOUTH IN THE MORNING FOR 30 DAYS [facility] gentamicin injection 240 mg 11-25 21:00: 00 11-25 20:07 :00 No [id number] 240mg [facility] fluconazole (DIFLUCAN) 150 mg tablet 11-25 00:00: 00 11-26 05:59 :00 No [id number] 150mg Take 1 tablet by mouth once now for 1 dose. [facility] gentamicin injection 240 mg 11-18 16:00: 00 11-18 15:18 :00 No [id number] 240mg [facility] gentamicin injection 240 mg 11-16 16:15: 00 11-16 15:23 :00 No [id number] 240mg [facility] sulfamethox azole-trime thoprim (BACTRIM DS) 800-160 mg per tablet 11-13 00:00: 00 12-14 05:59 :00 No [id number] 1{tbl} Take 1 tablet by mouth in the morning and 1 tablet in the evening. Do all this for 30 days. START THERAPEUTI C TWICE A DAY FOR 10 DAYS THEN ONCE A DAY AT BEDTIME FOR 8 WEEKS [facility] gentamicin injection 240 mg 11-11 16:15: 00 11-11 15:34 :00 No [id number] 240mg [facility] gentamicin injection 240 mg 11-09 16:00: 00 11-09 16:15 :00 No [id number] 240mg [facility] insulin regular hum U-500 conc (HUMULIN R U-500, CONC, KWIKPEN) 500 unit/mL (3 mL) In 11-09 10:21: 11 Yes Humulin R U-500 (Conc) Insulin Kwikpen 500 unit/mL (3 mL) subcutaneo us INJECT 85 UNITS SUBCUTANEO USLY WITH BREAKFAST 40 UNITS WITH LUNCH AND 65 UNITS WITH DINNER ADJUST UP TO 200 UNITS PER DAY [facility] glipiZIDE 5 mg tablet 11-09 10:21: 11 Yes glipizide 5 mg tablet [facility] traMADoL 50 mg tablet 2021-11 13:22: 48 09-21 00:00 :00 No tramadol 50 mg tablet Take 1 tablet every 8 hours by oral route as needed for 30 days. [facility] polyethylen e glycol 3350 (MIRALAX) 17 gram/dose powder 2021-11 00:00: 00 Yes [id number] 17g Take 17 g by mouth in the morning. [facility] oxyCODONE 5 mg immediate release tablet 2021-11 00:00: 00 09-23 05:59 :00 No [id number] 5mg Take 1 tablet by mouth every 6 (six) hours as needed for Pain (scale 7-10) for up to 1 day. Indication s: acute pain, post op pain [facility] HYDROcodone -acetaminop hen (NORCO 5) 5-325 mg tablet 1 tablet 2021-11 22:59: 27 Yes 1{tbl} 1 tablet, Oral, PRN, 1 dose, Starting on Wed09/18/22 at 1659, Until Discontinu ed, Routine, Pain (scale 7-10), DSU Recovery [facility] ibuprofen (IBU) tablet 800 mg 2021-11 22:59: 27 Yes 800mg 800 mg, Oral, PRN, 1 dose, Starting on Wed09/18/22 at 1659, Until Discontinu ed, Routine, Pain (scale 4-6), DSU Recovery [facility] acetaminoph en (TYLENOL) tablet 650 mg 2021-11 22:59: 27 Yes 650mg 650 mg, Oral, PRN, 1 dose, Starting on Wed09/18/22 at 1659, Until Discontinu ed, Routine, Pain (scale 1-3), DSU Recovery [facility] ferric subsulfate (MONSEL'S SOLUTION) solution 2021-11 20:55: 00 Yes PRN, Starting on Wed09/18/22 at 1455, Until Discontinu ed, Routine, Intra-op [facility] lactated ringers IV infusion 500 mL 2021-11 20:45: 00 Yes 500mL at 20 mL/hr, 500 mL, IV Infusion, CONTINUOUS , Starting on Wed09/18/22 at 1445, Until Discontinu ed, Routine, PACU [facility] FENTanyl PF (SUBLIMAZE (PF)) injection 25 mcg 2021-11 20:40: 57 Yes 25ug 25 mcg, Slow IV Push, Q5MIN PRN, 4 doses, Starting on Wed09/18/22 at 1440, Until Discontinu ed, Routine, Pain (scale 4-6), PACU [facility] ondansetron (ZOFRAN (PF)) injection 4 mg 2021-11 20:40: 57 Yes 4mg 4 mg, Slow IV Push, PRN, 1 dose, Starting on Wed09/18/22 at 1440, Until Discontinu ed, Routine, Nausea and Vomiting (N/V), PACU [facility] insulin regular hum U-500 conc (HUMULIN R U-500, CONC, KWIKPEN) 500 unit/mL (3 mL) InPn 2021-11 17:00: 10 Yes Humulin R U-500 (Conc) Insulin Kwikpen 500 unit/mL (3 mL) subcutaneo us INJECT 85 UNITS SUBCUTANEO USLY WITH BREAKFAST 40 UNITS WITH LUNCH AND 65 UNITS WITH DINNER ADJUST UP TO 200 UNITS PER DAY [facility] glipiZIDE 5 mg tablet 2021-11 17:00: 10 Yes glipizide 5 mg tablet [facility] traMADoL 50 mg tablet 2021-11 17:00: 10 Yes tramadol 50 mg tablet Take 1 tablet every 8 hours by oral route as needed for 30 days. [facility] HYDROcodone -acetaminop hen 5-325 mg tablet 2021-11 00:00: 00 09-21 00:00 :00 No [id number] 1{tbl} Take 1 tablet by mouth every 6 (six) hours as needed for Pain (scale 7-10). Indication s: acute pain [facility] insulin regular hum U-500 conc (HUMULIN R U-500, CONC, KWIKPEN) 500 unit/mL (3 mL) In 2021-11 13:38: 28 Yes Humulin R U-500 (Conc) Insulin Kwikpen 500 unit/mL (3 mL) subcutaneo us INJECT 85 UNITS SUBCUTANEO USLY WITH BREAKFAST 40 UNITS WITH LUNCH AND 65 UNITS WITH DINNER ADJUST UP TO 200 UNITS PER DAY [facility] glipiZIDE 5 mg tablet 2021-11 13:38: 28 Yes glipizide 5 mg tablet [facility] gadobenate dimeglumine (MULTIHANCE -20 mL) injection 18.4 mL 2021-11 15:00: 00 09-02 14:45 :00 No [id number] .2mL/kg 18.4 mL (0.2 mL/kg ?92 kg), Intravenou s, ONCE, 1 dose, On Wed09/02/22 at 1000, Routine [facility] solifenacin (VESICARE) 10 mg tablet 2021-11 00:00: 00 10-01 05:59 :00 No [id number] 10mg Take 1 tablet by mouth in the morning for 30 days. [facility] gadobenate dimeglumine (MULTIHANCE -20 mL) injection 0.2 mL/kg 2021-11 19:00: 00 08-29 18:59 :00 No [id number] .2mL/kg 0.2 mL/kg, Intravenou s, ONCE, 1 dose, On 08/29/22 at 1400, Routine [facility] insulin regular hum U-500 conc (HUMULIN R U-500, CONC, KWIKPEN) 500 unit/mL (3 mL) In 2021-11 14:32: 24 Yes Humulin R U-500 (Conc) Insulin Kwikpen 500 unit/mL (3 mL) subcutaneo us INJECT 85 UNITS SUBCUTANEO USLY WITH BREAKFAST 40 UNITS WITH LUNCH AND 65 UNITS WITH DINNER ADJUST UP TO 200 UNITS PER DAY [facility] glipiZIDE 5 mg tablet 2021-11 14:32: 24 Yes glipizide 5 mg tablet [facility] traMADoL 50 mg tablet 2021-11 0 14:32: 24 Yes tramadol 50 mg tablet Take 1 tablet every 8 hours by oral route as needed for 30 days. [facility] metFORMIN 1,000 mg tablet 2021-11 00:00: 00 Yes [facility] lisinopriL 2.5 mg tablet 2021-11 00:00: 00 10-06 00:00 :00 No 5mg 5 mg. [facility] ibuprofen 800 mg tablet 08-06 00:00: 00 Yes [id number] 800mg Take 1 tablet by mouth every 8 (eight) hours as needed for Pain (scale 4-6). [facility] LANTUS SOLOSTAR U-100 INSULIN 100 unit/mL (3 mL) injection 08-06 00:00: 00 Yes 40U Inject 40 units under the skin at bedtime. [facility] NaCl 0.9% (NS) IV infusion 1,000 mL 08-04 13:15: 00 Yes 1000mL at 75 mL/hr, IV Infusion, CONTINUOUS , Starting on Wed08/04/22 at 0815, Until Discontinu ed, Routine, PACU [facility] FENTanyl PF (SUBLIMAZE (PF)) injection 25 mcg 08-04 13:13: 03 Yes 25ug 25 mcg, Slow IV Push, Q5MIN PRN, 4 doses, Starting on Wed08/04/22 at 0813, Until Discontinu ed, Routine, Pain (scale 7-10), PACU [facility] morpHINE (2 mg/mL) injection 2 mg 08-04 13:13: 03 Yes 2mg 2 mg, Slow IV Push, Q5MIN PRN, 5 doses, Starting on Wed08/04/22 at 0813, Until Discontinu ed, Routine, Pain (scale 4-6), PACU [facility] ondansetron (ZOFRAN (PF)) injection 4 mg 08-04 13:13: 03 Yes 4mg 4 mg, Slow IV Push, PRN, 1 dose, Starting on Wed08/04/22 at 0813, Until Discontinu ed, Routine, Nausea and Vomiting (N/V), PACU [facility] ibuprofen (IBU) tablet 800 mg 08-04 13:11: 19 08-04 13:21 :00 No 800mg 800 mg, Oral, PRN, 1 dose, Starting on Wed08/04/22 at 0811, Until Discontinu ed, Routine, Pain (scale 4-6), [facility] acetaminoph en (TYLENOL) tablet 650 mg 08-04 13:11: 19 08-04 13:21 :00 No 650mg 650 mg, Oral, PRN, 1 dose, Starting on Wed08/04/22 at 0811, Until Discontinu ed, Routine, Pain (scale 1-3), [facility] ferric subsulfate (MONSEL'S) solution 08-04 12:45: 00 08-04 13:05 :10 No PRN, Starting on Wed08/04/22 at 0745, Until Wed08/04/22 at 0805, Routine, Intra-op [facility] lactulose 10 gram/15 mL (15 mL) Soln 08-04 09:12: 03 08-04 00:00 :00 No 15mL Take 15 mL by mouth as needed. [facility] Insulin Glargine (LANTUS SOLOSTAR U-100 INSULIN) 100 unit/mL (3 mL) injection 08-04 09:12: 03 08-04 00:00 :00 No Lantus Solostar U-100 Insulin 100 unit/mL (3 mL) subcutaneo us pen [facility] No known medications 08-04 07:00: 30 No No known medication s [facility] ibuprofen 800 mg tablet 08-04 00:00: 00 08-06 00:00 :00 No [id number] 800mg Take 1 tablet by mouth every 6 (six) hours as needed for Pain (scale 4-6) for up to 20 doses. [facility] glipiZIDE 5 mg tablet 04-04 00:00: 08-04 00:00 :00 No [facility] HUMULIN R U-500, CONC, KWIKPEN 500 unit/mL (3 mL) [facility] 2- 00:00: 00 08-04 00:00 :00 No [id number] INJECT 85 UNITS SUBCUTANEO USLY WITH BREAKFAST, 30 UNITS WITH LUNCH, AND 65 UNITS WITH DINNER ADJUST UP TO 200 UNITS PER DAY [facility] lactulose 10 gram/15 mL (15 mL) Soln 2020-11 11:45: 19 Yes 15mL Take 15 mL by mouth as needed. [facility] FENOFIBRATE 145 mg tablet 2020-11 00:00: 00 08-04 00:00 :00 No [id number] Take 1 tablet by mouth once daily [facility] Insulin Glargine (LANTUS SOLOSTAR U-100 INSULIN) 100 unit/mL (3 mL) injection 2020-11 1-18 08:45: 05 Yes Lantus Solostar U-100 Insulin 100 unit/mL (3 mL) subcutaneo us pen [facility] insulin regular hum U-500 conc (HUMULIN R U-500, CONC, KWIKPEN) 500 unit/mL (3 mL) [facility] 2020-11 0-05 00:00: 00 12-11 00:00 :00 No [id number] Inject 85 units subcutaneo usly with breakfast, 30 units with lunch, and 65 units with dinner. Adjust up to 200 units per day [facility] Insulin [place], Disposable, (PEN NEEDLE) 32 gauge x 5/32" Ndle 8- 00:00: 00 08-04 00:00 :00 No [id number] Use as directed E11.8 [facility] Insulin [place], Disposable, (PEN NEEDLE) 32 gauge x 5/32" Ndle 8- 00:00: 00 08-04 00:00 :00 No [id number] Use as directed E11.8 [facility] atorvastati n 40 mg tablet 5 00:00: 00 Yes atorvastat in 40 mg tablet TAKE 1 TABLET BY MOUTH AT BEDTIME [facility] lisinopriL 2.5 mg tablet 03-05 00:00: 00 08-04 00:00 :00 No [id number] 2.5mg Take 1 tablet by mouth daily. [facility] metFORMIN 1,000 mg tablet 03-05 00:00: 00 08-04 00:00 :00 No [id number] 1000mg Take 1 tablet by mouth 2 (two) times daily with meals. [facility] atorvastati n 40 mg tablet 03-05 00:00: 00 08-04 00:00 :00 No [id number] 40mg Take 1 tablet by mouth at bedtime. [facility] flash glucose sensor (FREESTYLE ASNDIP 14 DAY SENSOR) Kit 03-05 00:00: 00 08-04 00:00 :00 No [id number] 1{each} 1 Each every 14 (fourteen) days. [facility] flash glucose scanning reader (FREESTYLE SANDIP 14 DAY READER) Misc 03-05 00:00: 00 08-04 00:00 :00 No [id number] 1{each} 1 Each daily. [facility] doxycycline monohydrate 100 mg tablet 01-25 00:00: 00 08-04 00:00 :00 No [id number] 100mg Take 1 tablet by mouth daily. [facility] ketoconazol e 2 % cream 3 00:00: 00 08-04 00:00 :00 No Apply to area(s) daily. [facility] ketoconazol e 2 % shampoo 320 00:00: 00 08-04 00:00 :00 No Apply to area(s) once daily as needed for Itching. Apply daily to scalp and face, leave on for at least 5-10 minutes prior to washing off [facility] methocarbam ol 500 mg tablet 17 00:00: 00 08-04 00:00 :00 No [id number] 500mg Take 1 tablet by mouth 4 (four) times daily as needed for Pain (scale 7-10). [facility] metroNIDAZO LE 0.75 % cream 05-09 00:00: 00 08-04 00:00 :00 No [id number] Apply to area(s) 2 (two) times daily. [facility] phenazopyri dine (PYRIDIUM) 100 mg tablet 03-30 00:00: 00 08-04 00:00 :00 No 200mg Take 2 tablets by mouth 3 (three) times daily. [facility] gabapentin 100 mg capsule 03-30 00:00: 00 08-04 00:00 :00 No 100mg Take 1 capsule by mouth 3 (three) times daily as needed for Pain (scale 4-6). [facility] lisinopril (PRINIVIL,Z ESTRIL) 2.5 mg tablet 03-07 10:58: 15 03-07 00:00 :00 No [id number] 5mg Take 5 mg by mouth daily. [facility] metFORMIN 1,000 mg tablet 2017-11 0 00:00: 00 12-02 00:00 :00 No 1000mg Take 1 tablet by mouth 2 (two) times daily with meals. [facility] insulin lispro (HUMALOG KWIKPEN) 100 unit/mL pen injector 24 00:00: 00 03-29 00:00 :00 No 15U inject 15 Units under the skin 3 (three) times daily before meals. [facility] ELMIRON 100 mg capsule 3-14 00:00: 00 09-06 00:00 :00 No TAKE ONE CAPSULE BY MOUTH THREE TIMES DAILY BEFORE MEAL(S) [facility] ranitidine 150 mg tablet 1 00:00: 00 03-05 00:00 :00 No 150mg Take 1 tablet by mouth 2 (two) times daily as needed for Heartburn. [facility] atorvastati n 40 mg tablet 2016-11 00:00: 00 02-22 00:00 :00 No 40mg Take 1 tablet by mouth at bedtime. [facility] solifenacin 10 mg tablet 02-02 00:00: 00 08-04 00:00 :00 No 10mg Take 1 tablet by mouth daily. [facility] Mth-Me Blue-Sod Phos-PhSal- Hyo (URO-MP) 118-10-40.8 -36 mg capsule 2015-11 00:00: 00 08-04 00:00 :00 No 1{capsu le} Take 1 capsule by mouth 3 (three) times daily. [facility] insulin glargine (LANTUS) 100 unit/mL injection 05-06 00:00: 03-07 00:00 :00 No 40U inject 40 Units under the skin 2 (two) times daily. [facility] meloxicam 15 mg tablet TAKE 1 TABLET BY MOUTH ONCE DAILY NEEDED FOR MIGRAINE HEADACHE meloxicam 15 mg tablet TAKE 1 TABLET BY MOUTH ONCE DAILY NEEDED FOR MIGRAINE HEADACHE No meloxicam 15 mg tablet TAKE 1 TABLET BY MOUTH ONCE DAILY NEEDED FOR MIGRAINE HEADACHE [facility] albuterol sulfate HFA 90 mcg/actuati on aerosol inhaler INHALE 2 PUFFS BY MOUTH EVERY 4 TO 6 HOURS NEEDED albuterol sulfate HFA 90 mcg/actuati on aerosol inhaler INHALE 2 PUFFS BY MOUTH EVERY 4 TO 6 HOURS NEEDED No 2puff(s ) Q5H albuterol sulfate HFA 90 mcg/actuat ion aerosol inhaler INHALE 2 PUFFS BY MOUTH EVERY 4 TO 6 HOURS NEEDED [facility] Ozempic 2 mg/dose (8 mg/3 mL) subcutaneou s pen injector INJECT 2 MG SUBCUTANEOU SLY ONCE A WEEK Ozempic 2 mg/dose (8 mg/3 mL) subcutaneou s pen injector INJECT 2 MG SUBCUTANEOU SLY ONCE A WEEK No 2mg Q1W Ozempic 2 mg/dose (8 mg/3 mL) subcutaneo us pen injector INJECT 2 MG SUBCUTANEO USLY ONCE A WEEK [facility] Miralax 17 gram/dose oral powder Take 17 g every day by oral route as needed for 30 days. Miralax 17 gram/dose oral powder Take 17 g every day by oral route as needed for 30 days. No 17g Q1D Miralax 17 gram/dose oral powder Take 17 g every day by oral route as needed for 30 days. [facility] fluconazole 150 mg tablet Take 1 tablet every 72 hours by oral route for 10 days. fluconazole 150 mg tablet Take 1 tablet every 72 hours by oral route for 10 days. No 1 fluconazol e 150 mg tablet Take 1 tablet every 72 hours by oral route for 10 days. [facility] nitrofurant oin monohydrate /macrocryst als 100 mg capsule Take 1 capsule every 12 hours by oral route as directed for 10 days. nitrofurant oin monohydrate /macrocryst als 100 mg capsule Take 1 capsule every 12 hours by oral route as directed for 10 days. No 1capsul e(s) Q12H nitrofuran toin monohydrat e/macrocry stals 100 mg capsule Take 1 capsule every 12 hours by oral route as directed for 10 days. [facility] Immunizations Ordered Immunization Name Filled Immunization Name Date Status Comments Source Influenza Virus Vaccine 2023-07-07 00:00:00 Completed Influenza Virus Vaccine 2022-10-31 00:00:00 Completed SARS-COV-2 COVID-19 MODERNA 0.25ML BOOSTER VACCINE 2021-09-25 00:00:00 [facility] SARS-COV-2 COVID-19 MODERNA 0.25ML BOOSTER VACCINE 2021-09-25 00:00:00 Completed [facility] SARS-COV-2 COVID-19 MODERNA 0.25ML BOOSTER VACCINE 2021-09-25 00:00:00 Completed [facility] SARS-COV-2 COVID-19 MODERNA 0.25ML BOOSTER VACCINE 2021-09-25 00:00:00 Completed [facility] SARS-COV-2 COVID-19 MODERNA 0.25ML BOOSTER VACCINE 2021-09-25 00:00:00 Completed [facility] SARS-COV-2 COVID-19 MODERNA 0.25ML BOOSTER VACCINE 2021-09-25 00:00:00 Completed [facility] SARS-COV-2 COVID-19 MODERNA 0.25ML BOOSTER VACCINE 2021-09-25 00:00:00 Completed [facility] SARS-COV-2 COVID-19 MODERNA 0.25ML BOOSTER VACCINE 2021-09-25 00:00:00 Completed [facility] SARS-COV-2 COVID-19 MODERNA 0.25ML BOOSTER VACCINE 2021-09-25 00:00:00 Completed [facility] SARS-COV-2 COVID-19 MODERNA 0.25ML BOOSTER VACCINE 2021-09-25 00:00:00 Completed [facility] SARS-COV-2 COVID-19 MODERNA 0.25ML BOOSTER VACCINE 2021-09-25 00:00:00 Completed [facility] SARS-COV-2 COVID-19 MODERNA 0.25ML BOOSTER VACCINE 2021-09-25 00:00:00 Completed [facility] SARS-COV-2 COVID-19 MODERNA 0.25ML BOOSTER VACCINE 2021-09-25 00:00:00 Completed [facility] SARS-COV-2 COVID-19 MODERNA 0.25ML BOOSTER VACCINE 2021-09-25 00:00:00 Completed [facility] SARS-COV-2 COVID-19 MODERNA 0.25ML BOOSTER VACCINE 2021-09-25 00:00:00 Completed [facility] SARS-COV-2 COVID-19 MODERNA 0.25ML BOOSTER VACCINE 2021-09-25 00:00:00 Completed [facility] SARS-COV-2 COVID-19 MODERNA 0.25ML BOOSTER VACCINE 2021-09-25 00:00:00 Completed [facility] SARS-COV-2 COVID-19 MODERNA 0.25ML BOOSTER VACCINE 2021-09-25 00:00:00 Completed [facility] SARS-COV-2 COVID-19 MODERNA 0.25ML BOOSTER VACCINE 2021-09-25 00:00:00 Completed [facility] SARS-COV-2 COVID-19 MODERNA 0.25ML BOOSTER VACCINE 2021-09-25 00:00:00 Completed [facility] SARS-COV-2 COVID-19 MODERNA 0.25ML BOOSTER VACCINE 2021-09-25 00:00:00 Completed [facility] SARS-COV-2 COVID-19 MODERNA 0.25ML BOOSTER VACCINE 2021-09-25 00:00:00 Completed [facility] SARS-COV-2 COVID-19 MODERNA 0.25ML BOOSTER VACCINE 2021-09-25 00:00:00 Completed [facility] SARS-COV-2 COVID-19 MODERNA 0.25ML BOOSTER VACCINE 2021-09-25 00:00:00 Completed [facility] SARS-COV-2 COVID-19 MODERNA 0.25ML BOOSTER VACCINE 2021-09-25 00:00:00 Completed [facility] SARS-COV-2 COVID-19 MODERNA 0.25ML BOOSTER VACCINE 2021-09-25 00:00:00 Completed [facility] SARS-COV-2 COVID-19 MODERNA 0.25ML BOOSTER VACCINE 2021-09-25 00:00:00 Completed [facility] SARS-COV-2 COVID-19 MODERNA 0.25ML BOOSTER VACCINE 2021-09-25 00:00:00 Completed [facility] SARS-COV-2 COVID-19 MODERNA 0.25ML BOOSTER VACCINE 2021-09-25 00:00:00 Completed [facility] SARS-COV-2 COVID-19 MODERNA 0.25ML BOOSTER VACCINE 2021-09-25 00:00:00 Completed [facility] SARS-COV-2 COVID-19 MODERNA 0.25ML BOOSTER VACCINE 2021-09-25 00:00:00 Completed [facility] SARS-COV-2 COVID-19 MODERNA 0.25ML BOOSTER VACCINE 2021-09-25 00:00:00 Completed [facility] SARS-COV-2 COVID-19 MODERNA 0.25ML BOOSTER VACCINE 2021-09-25 00:00:00 Completed [facility] SARS-COV-2 COVID-19 MODERNA 0.25ML BOOSTER VACCINE 2021-09-25 00:00:00 Completed [facility] SARS-COV-2 COVID-19 MODERNA 0.25ML BOOSTER VACCINE 2021-09-25 00:00:00 Completed [facility] SARS-COV-2 COVID-19 MODERNA 0.25ML BOOSTER VACCINE 2021-09-25 00:00:00 Completed [facility] SARS-COV-2 COVID-19 MODERNA 0.25ML BOOSTER VACCINE 2021-09-25 00:00:00 Completed [facility] SARS-COV-2 COVID-19 MODERNA 0.25ML BOOSTER VACCINE 2021-09-25 00:00:00 Completed [facility] SARS-COV-2 COVID-19 MODERNA 0.25ML BOOSTER VACCINE 2021-09-25 00:00:00 Completed [facility] SARS-COV-2 COVID-19 MODERNA 0.25ML BOOSTER VACCINE 2021-09-25 00:00:00 Completed [facility] SARS-COV-2 COVID-19 MODERNA 0.25ML BOOSTER VACCINE 2021-09-25 00:00:00 Completed [facility] SARS-COV-2 COVID-19 MODERNA 0.25ML BOOSTER VACCINE 2021-09-25 00:00:00 Completed [facility] SARS-COV-2 COVID-19 MODERNA 0.25ML BOOSTER VACCINE 2021-09-25 00:00:00 Completed [facility] SARS-COV-2 COVID-19 MODERNA 0.25ML BOOSTER VACCINE 2021-09-25 00:00:00 Completed [facility] SARS-COV-2 COVID-19 MODERNA 0.25ML BOOSTER VACCINE 2021-09-25 00:00:00 Completed [facility] SARS-COV-2 COVID-19 MODERNA 0.25ML BOOSTER VACCINE 2021-09-25 00:00:00 Completed [facility] SARS-COV-2 COVID-19 MODERNA 0.25ML BOOSTER VACCINE 2021-09-25 00:00:00 Completed [facility] SARS-COV-2 COVID-19 MODERNA 0.25ML BOOSTER VACCINE 2021-09-25 00:00:00 Completed [facility] SARS-COV-2 COVID-19 MODERNA 0.25ML BOOSTER VACCINE 2021-09-25 00:00:00 Completed [facility] SARS-COV-2 COVID-19 MODERNA 0.25ML BOOSTER VACCINE 2021-09-25 00:00:00 Completed [facility] SARS-COV-2 COVID-19 MODERNA VACCINE 2020-12-12 00:00:00 Completed [facility] SARS-COV-2 COVID-19 MODERNA VACCINE 2020-12-12 00:00:00 Completed [facility] SARS-COV-2 COVID-19 MODERNA 12+ YRS VACCINE 2020-12-12 00:00:00 Completed [facility] SARS-COV-2 COVID-19 MODERNA 12+ YRS VACCINE 2020-12-12 00:00:00 Completed [facility] SARS-COV-2 COVID-19 MODERNA 12+ YRS VACCINE 2020-12-12 00:00:00 Completed [facility] SARS-COV-2 COVID-19 MODERNA 12+ YRS VACCINE 2020-12-12 00:00:00 Completed [facility] SARS-COV-2 COVID-19 MODERNA 12+ YRS VACCINE 2020-12-12 00:00:00 Completed [facility] SARS-COV-2 COVID-19 MODERNA 12+ YRS VACCINE 2020-12-12 00:00:00 Completed [facility] SARS-COV-2 COVID-19 MODERNA 12+ YRS VACCINE 2020-12-12 00:00:00 Completed [facility] SARS-COV-2 COVID-19 MODERNA 12+ YRS VACCINE 2020-12-12 00:00:00 Completed [facility] SARS-COV-2 COVID-19 MODERNA 12+ YRS VACCINE 2020-12-12 00:00:00 Completed [facility] SARS-COV-2 COVID-19 MODERNA 12+ YRS VACCINE 2020-12-12 00:00:00 Completed [facility] SARS-COV-2 COVID-19 MODERNA 12+ YRS VACCINE 2020-12-12 00:00:00 Completed [facility] SARS-COV-2 COVID-19 MODERNA 12+ YRS VACCINE 2020-12-12 00:00:00 Completed [facility] SARS-COV-2 COVID-19 MODERNA 12+ YRS VACCINE 2020-12-12 00:00:00 Completed [facility] SARS-COV-2 COVID-19 MODERNA 12+ YRS VACCINE 2020-12-12 00:00:00 Completed [facility] SARS-COV-2 COVID-19 MODERNA 12+ YRS VACCINE 2020-12-12 00:00:00 Completed [facility] SARS-COV-2 COVID-19 MODERNA 12+ YRS VACCINE 2020-12-12 00:00:00 Completed [facility] SARS-COV-2 COVID-19 MODERNA 12+ YRS VACCINE 2020-12-12 00:00:00 Completed [facility] SARS-COV-2 COVID-19 MODERNA 12+ YRS VACCINE 2020-12-12 00:00:00 Completed [facility] SARS-COV-2 COVID-19 MODERNA 12+ YRS VACCINE 2020-12-12 00:00:00 Completed [facility] SARS-COV-2 COVID-19 MODERNA 12+ YRS VACCINE 2020-12-12 00:00:00 Completed [facility] SARS-COV-2 COVID-19 MODERNA 12+ YRS VACCINE 2020-12-12 00:00:00 Completed [facility] SARS-COV-2 COVID-19 MODERNA 12+ YRS VACCINE 2020-12-12 00:00:00 Completed [facility] SARS-COV-2 COVID-19 MODERNA 12+ YRS VACCINE 2020-12-12 00:00:00 Completed [facility] SARS-COV-2 COVID-19 MODERNA 12+ YRS VACCINE 2020-12-12 00:00:00 Completed [facility] SARS-COV-2 COVID-19 MODERNA 12+ YRS VACCINE 2020-12-12 00:00:00 Completed [facility] SARS-COV-2 COVID-19 MODERNA 12+ YRS VACCINE 2020-12-12 00:00:00 Completed [facility] SARS-COV-2 COVID-19 MODERNA 12+ YRS VACCINE 2020-12-12 00:00:00 Completed [facility] SARS-COV-2 COVID-19 MODERNA 12+ YRS VACCINE 2020-12-12 00:00:00 Completed [facility] SARS-COV-2 COVID-19 MODERNA 12+ YRS VACCINE 2020-12-12 00:00:00 Completed [facility] SARS-COV-2 COVID-19 MODERNA 12+ YRS VACCINE 2020-12-12 00:00:00 Completed [facility] SARS-COV-2 COVID-19 MODERNA 12+ YRS VACCINE 2020-12-12 00:00:00 Completed [facility] SARS-COV-2 COVID-19 MODERNA 12+ YRS VACCINE 2020-12-12 00:00:00 Completed [facility] SARS-COV-2 COVID-19 MODERNA 12+ YRS VACCINE 2020-12-12 00:00:00 Completed [facility] SARS-COV-2 COVID-19 MODERNA 12+ YRS VACCINE 2020-12-12 00:00:00 Completed [facility] SARS-COV-2 COVID-19 MODERNA 12+ YRS VACCINE 2020-12-12 00:00:00 Completed [facility] SARS-COV-2 COVID-19 MODERNA 12+ YRS VACCINE 2020-12-12 00:00:00 Completed [facility] SARS-COV-2 COVID-19 MODERNA 12+ YRS VACCINE 2020-12-12 00:00:00 Completed [facility] SARS-COV-2 COVID-19 MODERNA 12+ YRS VACCINE 2020-12-12 00:00:00 Completed [facility] SARS-COV-2 COVID-19 MODERNA 12+ YRS VACCINE 2020-12-12 00:00:00 Completed [facility] SARS-COV-2 COVID-19 MODERNA 12+ YRS VACCINE 2020-12-12 00:00:00 Completed [facility] SARS-COV-2 COVID-19 MODERNA 12+ YRS VACCINE 2020-12-12 00:00:00 Completed [facility] SARS-COV-2 COVID-19 MODERNA 12+ YRS VACCINE 2020-12-12 00:00:00 Completed [facility] SARS-COV-2 COVID-19 MODERNA 12+ YRS VACCINE 2020-12-12 00:00:00 Completed [facility] SARS-COV-2 COVID-19 MODERNA 12+ YRS VACCINE 2020-12-12 00:00:00 Completed [facility] SARS-COV-2 COVID-19 MODERNA 12+ YRS VACCINE 2020-12-12 00:00:00 Completed [facility] SARS-COV-2 COVID-19 MODERNA 12+ YRS VACCINE 2020-12-12 00:00:00 Completed [facility] SARS-COV-2 COVID-19 MODERNA 12+ YRS VACCINE 2020-12-12 00:00:00 Completed [facility] SARS-COV-2 COVID-19 MODERNA 12+ YRS VACCINE 2020-12-12 00:00:00 Completed SARS-COV-2 COVID-19 MODERNA VACCINE 2020-11-14 00:00:00 Completed [facility] SARS-COV-2 COVID-19 MODERNA VACCINE 2020-11-14 00:00:00 Completed [facility] SARS-COV-2 COVID-19 MODERNA 12+ YRS VACCINE 2020-11-14 00:00:00 Completed [facility] SARS-COV-2 COVID-19 MODERNA 12+ YRS VACCINE 2020-11-14 00:00:00 Completed [facility] SARS-COV-2 COVID-19 MODERNA 12+ YRS VACCINE 2020-11-14 00:00:00 Completed [facility] SARS-COV-2 COVID-19 MODERNA 12+ YRS VACCINE 2020-11-14 00:00:00 Completed [facility] SARS-COV-2 COVID-19 MODERNA 12+ YRS VACCINE 2020-11-14 00:00:00 Completed [facility] SARS-COV-2 COVID-19 MODERNA 12+ YRS VACCINE 2020-11-14 00:00:00 Completed [facility] SARS-COV-2 COVID-19 MODERNA 12+ YRS VACCINE 2020-11-14 00:00:00 Completed [facility] SARS-COV-2 COVID-19 MODERNA 12+ YRS VACCINE 2020-11-14 00:00:00 Completed [facility] SARS-COV-2 COVID-19 MODERNA 12+ YRS VACCINE 2020-11-14 00:00:00 Completed [facility] SARS-COV-2 COVID-19 MODERNA 12+ YRS VACCINE 2020-11-14 00:00:00 Completed [facility] SARS-COV-2 COVID-19 MODERNA 12+ YRS VACCINE 2020-11-14 00:00:00 Completed [facility] SARS-COV-2 COVID-19 MODERNA 12+ YRS VACCINE 2020-11-14 00:00:00 Completed [facility] SARS-COV-2 COVID-19 MODERNA 12+ YRS VACCINE 2020-11-14 00:00:00 Completed [facility] SARS-COV-2 COVID-19 MODERNA 12+ YRS VACCINE 2020-11-14 00:00:00 Completed [facility] SARS-COV-2 COVID-19 MODERNA 12+ YRS VACCINE 2020-11-14 00:00:00 Completed [facility] SARS-COV-2 COVID-19 MODERNA 12+ YRS VACCINE 2020-11-14 00:00:00 Completed [facility] SARS-COV-2 COVID-19 MODERNA 12+ YRS VACCINE 2020-11-14 00:00:00 Completed [facility] SARS-COV-2 COVID-19 MODERNA 12+ YRS VACCINE 2020-11-14 00:00:00 [facility] SARS-COV-2 COVID-19 MODERNA 12+ YRS VACCINE 2020-11-14 00:00:00 [facility] SARS-COV-2 COVID-19 MODERNA 12+ YRS VACCINE 2020-11-14 00:00:00 Completed [facility] SARS-COV-2 COVID-19 MODERNA 12+ YRS VACCINE 2020-11-14 00:00:00 Completed [facility] SARS-COV-2 COVID-19 MODERNA 12+ YRS VACCINE 2020-11-14 00:00:00 Completed [facility] SARS-COV-2 COVID-19 MODERNA 12+ YRS VACCINE 2020-11-14 00:00:00 Completed [facility] SARS-COV-2 COVID-19 MODERNA 12+ YRS VACCINE 2020-11-14 00:00:00 Completed [facility] SARS-COV-2 COVID-19 MODERNA 12+ YRS VACCINE 2020-11-14 00:00:00 Completed [facility] SARS-COV-2 COVID-19 MODERNA 12+ YRS VACCINE 2020-11-14 00:00:00 Completed [facility] SARS-COV-2 COVID-19 MODERNA 12+ YRS VACCINE 2020-11-14 00:00:00 Completed [facility] SARS-COV-2 COVID-19 MODERNA 12+ YRS VACCINE 2020-11-14 00:00:00 Completed [facility] SARS-COV-2 COVID-19 MODERNA 12+ YRS VACCINE 2020-11-14 00:00:00 Completed [facility] SARS-COV-2 COVID-19 MODERNA 12+ YRS VACCINE 2020-11-14 00:00:00 Completed [facility] SARS-COV-2 COVID-19 MODERNA 12+ YRS VACCINE 2020-11-14 00:00:00 Completed [facility] SARS-COV-2 COVID-19 MODERNA 12+ YRS VACCINE 2020-11-14 00:00:00 Completed [facility] SARS-COV-2 COVID-19 MODERNA 12+ YRS VACCINE 2020-11-14 00:00:00 Completed [facility] SARS-COV-2 COVID-19 MODERNA 12+ YRS VACCINE 2020-11-14 00:00:00 Completed [facility] SARS-COV-2 COVID-19 MODERNA 12+ YRS VACCINE 2020-11-14 00:00:00 Completed [facility] SARS-COV-2 COVID-19 MODERNA 12+ YRS VACCINE 2020-11-14 00:00:00 Completed [facility] SARS-COV-2 COVID-19 MODERNA 12+ YRS VACCINE 2020-11-14 00:00:00 Completed [facility] SARS-COV-2 COVID-19 MODERNA 12+ YRS VACCINE 2020-11-14 00:00:00 Completed [facility] SARS-COV-2 COVID-19 MODERNA 12+ YRS VACCINE 2020-11-14 00:00:00 Completed [facility] SARS-COV-2 COVID-19 MODERNA 12+ YRS VACCINE 2020-11-14 00:00:00 Completed [facility] SARS-COV-2 COVID-19 MODERNA 12+ YRS VACCINE 2020-11-14 00:00:00 Completed [facility] SARS-COV-2 COVID-19 MODERNA 12+ YRS VACCINE 2020-11-14 00:00:00 Completed [facility] SARS-COV-2 COVID-19 MODERNA 12+ YRS VACCINE 2020-11-14 00:00:00 Completed [facility] SARS-COV-2 COVID-19 MODERNA 12+ YRS VACCINE 2020-11-14 00:00:00 Completed [facility] SARS-COV-2 COVID-19 MODERNA 12+ YRS VACCINE 2020-11-14 00:00:00 Completed [facility] SARS-COV-2 COVID-19 MODERNA 12+ YRS VACCINE 2020-11-14 00:00:00 Completed [facility] SARS-COV-2 COVID-19 MODERNA 12+ YRS VACCINE 2020-11-14 00:00:00 Completed [facility] SARS-COV-2 COVID-19 MODERNA 12+ YRS VACCINE 2020-11-14 00:00:00 Completed [facility] Influenza Virus Vaccine 2019-09-06 00:00:00 [facility]pleted [facility] Influenza Virus Vaccine 2019-09-06 00:00:00 [facility]pleted [facility] Influenza Virus Vaccine 2019-09-06 00:00:00 [facility]pleted [facility] Influenza Virus Vaccine 2019-09-06 00:00:00 [facility]pleted [facility] Influenza Virus Vaccine 2019-09-06 00:00:00 [facility]pleted [facility] Influenza Virus Vaccine 2019-09-06 00:00:00 [facility]pleted [facility] Influenza Virus Vaccine 2019-09-06 00:00:00 [facility]pleted [facility] Influenza Virus Vaccine 2019-09-06 00:00:00 Completed [facility] Influenza Virus Vaccine 2019-09-06 00:00:00 [facility]pleted [facility] Influenza Virus Vaccine 2019-09-06 00:00:00 Completed [facility] Influenza Virus Vaccine 2019-09-06 00:00:00 Completed [facility] Influenza Virus Vaccine 2019-09-06 00:00:00 [facility]pleted [facility] Influenza Virus Vaccine 2019-09-06 00:00:00 [facility]pleted [facility] Influenza Virus Vaccine 2019-09-06 00:00:00 [facility]pleted [facility] Influenza Virus Vaccine 2019-09-06 00:00:00 [facility]pleted [facility] Influenza Virus Vaccine 2019-09-06 00:00:00 [facility]pleted [facility] Influenza Virus Vaccine 2019-09-06 00:00:00 [facility]pleted [facility] Influenza Virus Vaccine 2019-09-06 00:00:00 [facility] Influenza Virus Vaccine 2019-09-06 00:00:00 [facility] Influenza Virus Vaccine 2019-09-06 00:00:00 [facility] Influenza Virus Vaccine 2019-09-06 00:00:00 [facility]pleted [facility] Influenza Virus Vaccine 2019-09-06 00:00:00 [facility]pleted [facility] Influenza Virus Vaccine 2019-09-06 00:00:00 [facility] Influenza Virus Vaccine 2019-09-06 00:00:00 [facility] Influenza Virus Vaccine 2019-09-06 00:00:00 [facility]pleted [facility] Influenza Virus Vaccine 2019-09-06 00:00:00 [facility]pleted [facility] Influenza Virus Vaccine 2019-09-06 00:00:00 [facility] Influenza Virus Vaccine 2019-09-06 00:00:00 [facility] Influenza Virus Vaccine 2019-09-06 00:00:00 [facility]pleted [facility] Influenza Virus Vaccine 2019-09-06 00:00:00 [facility] Influenza Virus Vaccine 2019-09-06 00:00:00 [facility] Influenza Virus Vaccine 2019-09-06 00:00:00 [facility] Influenza Virus Vaccine 2019-09-06 00:00:00 [facility] Influenza Virus Vaccine 2019-09-06 00:00:00 [facility]pleted [facility] Influenza Virus Vaccine 2019-09-06 00:00:00 Completed [facility] Influenza Virus Vaccine 2019-09-06 00:00:00 Completed [facility] Influenza Virus Vaccine 2019-09-06 00:00:00 Completed [facility] Influenza Virus Vaccine 2019-09-06 00:00:00 [facility]pleted [facility] Influenza Virus Vaccine 2019-09-06 00:00:00 Completed [facility] Influenza Virus Vaccine 2019-09-06 00:00:00 Completed [facility] Influenza Virus Vaccine 2019-09-06 00:00:00 [facility]pleted [facility] Influenza Virus Vaccine 2019-09-06 00:00:00 Completed [facility] Influenza Virus Vaccine 2019-09-06 00:00:00 Completed [facility] Influenza Virus Vaccine 2019-09-06 00:00:00 Completed [facility] Influenza Virus Vaccine 2019-09-06 00:00:00 Completed [facility] Influenza Virus Vaccine 2019-09-06 00:00:00 Completed [facility] Influenza Virus Vaccine 2019-09-06 00:00:00 [facility]pleted [facility] Influenza Virus Vaccine 2019-09-06 00:00:00 Completed [facility] Influenza Virus Vaccine 2019-09-06 00:00:00 Completed [facility] Influenza Virus Vaccine 2019-09-06 00:00:00 Completed [facility] Influenza Virus Vaccine 2018-10-05 00:00:00 Completed [facility] Influenza Virus Vaccine 2018-10-05 00:00:00 Completed [facility] Influenza Virus Vaccine 2018-10-05 00:00:00 [facility]pleted [facility] Influenza Virus Vaccine 2018-10-05 00:00:00 [facility]pleted [facility] Influenza Virus Vaccine 2018-10-05 00:00:00 [facility]pleted [facility] Influenza Virus Vaccine 2018-10-05 00:00:00 [facility] Influenza Virus Vaccine 2018-10-05 00:00:00 [facility] Influenza Virus Vaccine 2018-10-05 00:00:00 [facility] Influenza Virus Vaccine 2018-10-05 00:00:00 [facility] Influenza Virus Vaccine 2018-10-05 00:00:00 Completed [facility] Influenza Virus Vaccine 2018-10-05 00:00:00 Completed [facility] Influenza Virus Vaccine 2018-10-05 00:00:00 Completed [facility] Influenza Virus Vaccine 2018-10-05 00:00:00 [facility] Influenza Virus Vaccine 2018-10-05 00:00:00 [facility] Influenza Virus Vaccine 2018-10-05 00:00:00 [facility] Influenza Virus Vaccine 2018-10-05 00:00:00 [facility] Influenza Virus Vaccine 2018-10-05 00:00:00 [facility] Influenza Virus Vaccine 2018-10-05 00:00:00 Completed [facility] Influenza Virus Vaccine 2018-10-05 00:00:00 Completed [facility] Influenza Virus Vaccine 2018-10-05 00:00:00 Completed [facility] Influenza Virus Vaccine 2018-10-05 00:00:00 Completed [facility] Influenza Virus Vaccine 2018-10-05 00:00:00 Completed [facility] Influenza Virus Vaccine 2018-10-05 00:00:00 Completed [facility] Influenza Virus Vaccine 2018-10-05 00:00:00 Completed [facility] Influenza Virus Vaccine 2018-10-05 00:00:00 Completed [facility] Influenza Virus Vaccine 2018-10-05 00:00:00 [facility] Influenza Virus Vaccine 2018-10-05 00:00:00 [facility] Influenza Virus Vaccine 2018-10-05 00:00:00 [facility] Influenza Virus Vaccine 2018-10-05 00:00:00 [facility] Influenza Virus Vaccine 2018-10-05 00:00:00 [facility] Influenza Virus Vaccine 2018-10-05 00:00:00 Completed [facility] Influenza Virus Vaccine 2018-10-05 00:00:00 [facility] Influenza Virus Vaccine 2018-10-05 00:00:00 Completed [facility] Influenza Virus Vaccine 2018-10-05 00:00:00 Completed [facility] Influenza Virus Vaccine 2018-10-05 00:00:00 Completed [facility] Influenza Virus Vaccine 2018-10-05 00:00:00 Completed [facility] Influenza Virus Vaccine 2018-10-05 00:00:00 Completed [facility] Influenza Virus Vaccine 2018-10-05 00:00:00 Completed [facility] Influenza Virus Vaccine 2018-10-05 00:00:00 Completed [facility] Influenza Virus Vaccine 2018-10-05 00:00:00 Completed [facility] Influenza Virus Vaccine 2018-10-05 00:00:00 Completed [facility] Influenza Virus Vaccine 2018-10-05 00:00:00 Completed [facility] Influenza Virus Vaccine 2018-10-05 00:00:00 Completed [facility] Influenza Virus Vaccine 2018-10-05 00:00:00 [facility] Influenza Virus Vaccine 2018-10-05 00:00:00 [facility] Influenza Virus Vaccine 2018-10-05 00:00:00 [facility] Influenza Virus Vaccine 2018-10-05 00:00:00 [facility] Influenza Virus Vaccine 2018-10-05 00:00:00 [facility] Influenza Virus Vaccine 2018-10-05 00:00:00 [facility] Influenza Virus Vaccine 2018-10-05 00:00:00 Completed Influenza Virus Vaccine 2018-08-10 00:00:00 [facility] Influenza Virus Vaccine 2018-08-10 00:00:00 [facility] Influenza Virus Vaccine 2018-08-10 00:00:00 [facility] Influenza Virus Vaccine 2018-08-10 00:00:00 [facility] Influenza Virus Vaccine 2018-08-10 00:00:00 [facility] Influenza Virus Vaccine 2018-08-10 00:00:00 [facility] Influenza Virus Vaccine 2018-08-10 00:00:00 [facility] Influenza Virus Vaccine 2018-08-10 00:00:00 [facility] Influenza Virus Vaccine 2018-08-10 00:00:00 [facility] Influenza Virus Vaccine 2018-08-10 00:00:00 [facility] Influenza Virus Vaccine 2018-08-10 00:00:00 [facility] Influenza Virus Vaccine 2018-08-10 00:00:00 [facility] Influenza Virus Vaccine 2018-08-10 00:00:00 Completed [facility] Influenza Virus Vaccine 2018-08-10 00:00:00 Completed [facility] Influenza Virus Vaccine 2018-08-10 00:00:00 Completed [facility] Influenza Virus Vaccine 2018-08-10 00:00:00 [facility] Influenza Virus Vaccine 2018-08-10 00:00:00 Completed [facility] Influenza Virus Vaccine 2018-08-10 00:00:00 [facility] Influenza Virus Vaccine 2018-08-10 00:00:00 [facility] Influenza Virus Vaccine 2018-08-10 00:00:00 Completed [facility] Influenza Virus Vaccine 2018-08-10 00:00:00 Completed [facility] Influenza Virus Vaccine 2018-08-10 00:00:00 Completed [facility] Influenza Virus Vaccine 2018-08-10 00:00:00 Completed [facility] Influenza Virus Vaccine 2018-08-10 00:00:00 Completed [facility] Influenza Virus Vaccine 2018-08-10 00:00:00 Completed [facility] Influenza Virus Vaccine 2018-08-10 00:00:00 Completed [facility] Influenza Virus Vaccine 2018-08-10 00:00:00 Completed [facility] Influenza Virus Vaccine 2018-08-10 00:00:00 Completed [facility] Influenza Virus Vaccine 2018-08-10 00:00:00 [facility] Influenza Virus Vaccine 2018-08-10 00:00:00 [facility] Influenza Virus Vaccine 2018-08-10 00:00:00 [facility] Influenza Virus Vaccine 2018-08-10 00:00:00 [facility] Influenza Virus Vaccine 2018-08-10 00:00:00 Completed [facility] Influenza Virus Vaccine 2018-08-10 00:00:00 Completed [facility] Influenza Virus Vaccine 2018-08-10 00:00:00 Completed [facility] Influenza Virus Vaccine 2018-08-10 00:00:00 Completed [facility] Influenza Virus Vaccine 2018-08-10 00:00:00 Completed [facility] Influenza Virus Vaccine 2018-08-10 00:00:00 Completed [facility] Influenza Virus Vaccine 2018-08-10 00:00:00 Completed [facility] Influenza Virus Vaccine 2018-08-10 00:00:00 Completed [facility] Influenza Virus Vaccine 2018-08-10 00:00:00 Completed [facility] Influenza Virus Vaccine 2018-08-10 00:00:00 Completed [facility] Influenza Virus Vaccine 2018-08-10 00:00:00 Completed [facility] Influenza Virus Vaccine 2018-08-10 00:00:00 Completed [facility] Influenza Virus Vaccine 2018-08-10 00:00:00 Completed [facility] Influenza Virus Vaccine 2018-08-10 00:00:00 Completed [facility] Influenza Virus Vaccine 2018-08-10 00:00:00 [facility] Influenza Virus Vaccine 2018-08-10 00:00:00 [facility]pleted [facility] Influenza Virus Vaccine 2018-08-10 00:00:00 [facility]pleted [facility] Influenza Virus Vaccine 2018-08-10 00:00:00 Completed [facility] Influenza Virus Vaccine Recomb Quad IM, Preserv and ABX Free 18-64 YRS 2018-08-10 00:00:00 Completed [facility] (hep a/hep b) 2018-05-04 00:00:00 [facility]pleted [facility] (hep a/hep b) 2018-05-04 00:00:00 Completed [facility] (hep a/hep b) 2018-05-04 00:00:00 Completed [facility] (hep a/hep b) 2018-05-04 00:00:00 Completed [facility] (hep a/hep b) 2018-05-04 00:00:00 Completed [facility] (hep a/hep b) 2018-05-04 00:00:00 Completed [facility] (hep a/hep b) 2018-05-04 00:00:00 Completed [facility] (hep a/hep b) 2018-05-04 00:00:00 Completed [facility] (hep a/hep b) 2018-05-04 00:00:00 Completed [facility] (hep a/hep b) 2018-05-04 00:00:00 Completed [facility] (hep a/hep b) 2018-05-04 00:00:00 Completed [facility] (hep a/hep b) 2018-05-04 00:00:00 Completed [facility] (hep a/hep b) 2018-05-04 00:00:00 Completed [facility] (hep a/hep b) 2018-05-04 00:00:00 Completed [facility] (hep a/hep b) 2018-05-04 00:00:00 Completed [facility] (hep a/hep b) 2018-05-04 00:00:00 Completed [facility] (hep a/hep b) 2018-05-04 00:00:00 Completed [facility] (hep a/hep b) 2018-05-04 00:00:00 Completed [facility] (hep a/hep b) 2018-05-04 00:00:00 Completed [facility] (hep a/hep b) 2018-05-04 00:00:00 Completed [facility] (hep a/hep b) 2018-05-04 00:00:00 Completed [facility] (hep a/hep b) 2018-05-04 00:00:00 Completed [facility] (hep a/hep b) 2018-05-04 00:00:00 Completed [facility] (hep a/hep b) 2018-05-04 00:00:00 Completed [facility] (hep a/hep b) 2018-05-04 00:00:00 Completed [facility] (hep a/hep b) 2018-05-04 00:00:00 Completed [facility] (hep a/hep b) 2018-05-04 00:00:00 Completed [facility] (hep a/hep b) 2018-05-04 00:00:00 Completed [facility] (hep a/hep b) 2018-05-04 00:00:00 Completed [facility] (hep a/hep b) 2018-05-04 00:00:00 Completed [facility] (hep a/hep b) 2018-05-04 00:00:00 Completed [facility] (hep a/hep b) 2018-05-04 00:00:00 Completed [facility] (hep a/hep b) 2018-05-04 00:00:00 Completed [facility] (hep a/hep b) 2018-05-04 00:00:00 Completed [facility] (hep a/hep b) 2018-05-04 00:00:00 Completed [facility] (hep a/hep b) 2018-05-04 00:00:00 Completed [facility] (hep a/hep b) 2018-05-04 00:00:00 Completed [facility] (hep a/hep b) 2018-05-04 00:00:00 Completed [facility] (hep a/hep b) 2018-05-04 00:00:00 Completed [facility] (hep a/hep b) 2018-05-04 00:00:00 Completed [facility] (hep a/hep b) 2018-05-04 00:00:00 Completed [facility] (hep a/hep b) 2018-05-04 00:00:00 Completed [facility] (hep a/hep b) 2018-05-04 00:00:00 Completed [facility] (hep a/hep b) 2018-05-04 00:00:00 Completed [facility] (hep a/hep b) 2018-05-04 00:00:00 Completed [facility] (hep a/hep b) 2018-05-04 00:00:00 Completed [facility] (hep a/hep b) 2018-05-04 00:00:00 Completed [facility] (hep a/hep b) 2018-05-04 00:00:00 Completed [facility] (hep a/hep b) 2018-05-04 00:00:00 Completed [facility] (hep a/hep b) 2018-05-04 00:00:00 Completed Influenza Virus Vaccine (3+ yrs) 2016-09-16 00:00:00 Completed [facility] Influenza Virus Vaccine (3+ yrs) 2016-09-16 00:00:00 Completed [facility] Influenza Virus Vaccine (3+ yrs) 2016-09-16 00:00:00 Completed [facility] Influenza Virus Vaccine (3+ yrs) 2016-09-16 00:00:00 Completed [facility] Influenza Virus Vaccine (3+ yrs) 2016-09-16 00:00:00 Completed [facility] Influenza Virus Vaccine (3+ yrs) 2016-09-16 00:00:00 Completed [facility] Influenza Virus Vaccine (3+ yrs) 2016-09-16 00:00:00 Completed [facility] Influenza Virus Vaccine (3+ yrs) 2016-09-16 00:00:00 Completed [facility] Influenza Virus Vaccine (3+ yrs) 2016-09-16 00:00:00 Completed [facility] Influenza Virus Vaccine (3+ yrs) 2016-09-16 00:00:00 Completed [facility] Influenza Virus Vaccine (3+ yrs) 2016-09-16 00:00:00 Completed [facility] Influenza Virus Vaccine (3+ yrs) 2016-09-16 00:00:00 Completed [facility] Influenza Virus Vaccine (3+ yrs) 2016-09-16 00:00:00 Completed [facility] Influenza Virus Vaccine (3+ yrs) 2016-09-16 00:00:00 Completed [facility] Influenza Virus Vaccine (3+ yrs) 2016-09-16 00:00:00 Completed [facility] Influenza Virus Vaccine (3+ yrs) 2016-09-16 00:00:00 Completed [facility] Influenza Virus Vaccine (3+ yrs) 2016-09-16 00:00:00 Completed [facility] Influenza Virus Vaccine (3+ yrs) 2016-09-16 00:00:00 Completed [facility] Influenza Virus Vaccine (3+ yrs) 2016-09-16 00:00:00 Completed [facility] Influenza Virus Vaccine (3+ yrs) 2016-09-16 00:00:00 Completed [facility] Influenza Virus Vaccine (3+ yrs) 2016-09-16 00:00:00 Completed [facility] Influenza Virus Vaccine (3+ yrs) 2016-09-16 00:00:00 Com[facility] Influenza Virus Vaccine (3+ yrs) 2016-09-16 00:00:00 Com[facility] Influenza Virus Vaccine (3+ yrs) 2016-09-16 00:00:00 Com[facility] Influenza Virus Vaccine (3+ yrs) 2016-09-16 00:00:00 Com[facility] Influenza Virus Vaccine (3+ yrs) 2016-09-16 00:00:00 Com[facility] Influenza Virus Vaccine (3+ yrs) 2016-09-16 00:00:00 Com[facility] Influenza Virus Vaccine (3+ yrs) 2016-09-16 00:00:00 Com[facility] Influenza Virus Vaccine (3+ yrs) 2016-09-16 00:00:00 Com[facility] Influenza Virus Vaccine (3+ yrs) 2016-09-16 00:00:00 Com[facility] Influenza Virus Vaccine (3+ yrs) 2016-09-16 00:00:00 Com[facility] Influenza Virus Vaccine (3+ yrs) 2016-09-16 00:00:00 Com[facility] Influenza Virus Vaccine (3+ yrs) 2016-09-16 00:00:00 Com[facility] Influenza Virus Vaccine (3+ yrs) 2016-09-16 00:00:00 Com[facility] Influenza Virus Vaccine (3+ yrs) 2016-09-16 00:00:00 Com[facility] Influenza Virus Vaccine (3+ yrs) 2016-09-16 00:00:00 [facility] Influenza Virus Vaccine (3+ yrs) 2016-09-16 00:00:00 Com[facility] Influenza Virus Vaccine (3+ yrs) 2016-09-16 00:00:00 Com[facility] Influenza Virus Vaccine (3+ yrs) 2016-09-16 00:00:00 Com[facility] Influenza Virus Vaccine (3+ yrs) 2016-09-16 00:00:00 Com[facility] Influenza Virus Vaccine (3+ yrs) 2016-09-16 00:00:00 Com[facility] Influenza Virus Vaccine (3+ yrs) 2016-09-16 00:00:00 [facility] Influenza Virus Vaccine (3+ yrs) 2016-09-16 00:00:00 [facility] Influenza Virus Vaccine (3+ yrs) 2016-09-16 00:00:00 [facility] Influ[facility] Virus Vaccine (3+ yrs) 2016-09-16 00:00:00 Completed [facility] Influenza Virus Vaccine (3+ yrs) 2016-09-16 00:00:00 Completed [facility] Influenza Virus Vaccine (3+ yrs) 2016-09-16 00:00:00 Completed [facility] Influenza Virus Vaccine (3+ yrs) 2016-09-16 00:00:00 Completed [facility] Influenza Virus Vaccine (3+ yrs) 2016-09-16 00:00:00 Completed [facility] Influenza, split virus, trivalent, preservative (3+ Yrs) (Afluria) 2016-09-16 00:00:00 Completed Pneumococcal Polysaccharide, PPSV23 (PNEUMOVAX) 2016-09-15 00:00:00 Completed [facility] Influenza Virus Vaccine Quad IM 3+ YRS 2016-09-15 00:00:00 Completed [facility] Pneumococcal Polysaccharide, PPSV23 (PNEUMOVAX) 2016-09-15 00:00:00 Completed [facility] Influenza Virus Vaccine Quad IM 3+ YRS 2016-09-15 00:00:00 Completed [facility] Pneumococcal Polysaccharide, PPSV23 (PNEUMOVAX) 2016-09-15 00:00:00 Completed [facility] Influenza Virus Vaccine Quad IM 3+ YRS 2016-09-15 00:00:00 Completed [facility] Pneumococcal Polysaccharide, PPSV23 (PNEUMOVAX) 2016-09-15 00:00:00 Completed [facility] Influenza Virus Vaccine Quad IM 3+ YRS 2016-09-15 00:00:00 Completed [facility] Pneumococcal Polysaccharide, PPSV23 (PNEUMOVAX) 2016-09-15 00:00:00 Completed [facility] Influenza Virus Vaccine Quad IM 3+ YRS 2016-09-15 00:00:00 Completed [facility] Pneumococcal Polysaccharide, PPSV23 (PNEUMOVAX) 2016-09-15 00:00:00 Completed [facility] Influenza Virus Vaccine Quad IM 3+ YRS 2016-09-15 00:00:00 Completed [facility] Pneumococcal Polysaccharide, PPSV23 (PNEUMOVAX) 2016-09-15 00:00:00 Completed [facility] Influenza Virus Vaccine Quad IM 3+ YRS 2016-09-15 00:00:00 Completed [facility] Pneumococcal Polysaccharide, PPSV23 (PNEUMOVAX) 2016-09-15 00:00:00 Completed [facility] Influenza Virus Vaccine Quad IM 3+ YRS 2016-09-15 00:00:00 Completed [facility] Pneumococcal Polysaccharide, PPSV23 (PNEUMOVAX) 2016-09-15 00:00:00 Completed [facility] Influenza Virus Vaccine Quad IM 3+ YRS 2016-09-15 00:00:00 Completed [facility] Pneumococcal Polysaccharide, PPSV23 (PNEUMOVAX) 2016-09-15 00:00:00 Completed [facility] Influenza Virus Vaccine Quad IM 3+ YRS 2016-09-15 00:00:00 Completed [facility] Pneumococcal Polysaccharide, PPSV23 (PNEUMOVAX) 2016-09-15 00:00:00 Completed [facility] Influenza Virus Vaccine Quad IM 3+ YRS 2016-09-15 00:00:00 Completed [facility] Pneumococcal Polysaccharide, PPSV23 (PNEUMOVAX) 2016-09-15 00:00:00 Completed [facility] Influenza Virus Vaccine Quad IM 3+ YRS 2016-09-15 00:00:00 Completed [facility] Pneumococcal Polysaccharide, PPSV23 (PNEUMOVAX) 2016-09-15 00:00:00 Completed [facility] Influenza Virus Vaccine Quad IM 3+ YRS 2016-09-15 00:00:00 Completed [facility] Pneumococcal Polysaccharide, PPSV23 (PNEUMOVAX) 2016-09-15 00:00:00 Completed [facility] Influenza Virus Vaccine Quad IM 3+ YRS 2016-09-15 00:00:00 Completed [facility] Pneumococcal Polysaccharide, PPSV23 (PNEUMOVAX) 2016-09-15 00:00:00 Completed [facility] Influenza Virus Vaccine Quad IM 3+ YRS 2016-09-15 00:00:00 Completed [facility] Pneumococcal Polysaccharide, PPSV23 (PNEUMOVAX) 2016-09-15 00:00:00 Completed [facility] Influenza Virus Vaccine Quad IM 3+ YRS 2016-09-15 00:00:00 Completed [facility] Pneumococcal Polysaccharide, PPSV23 (PNEUMOVAX) 2016-09-15 00:00:00 Completed [facility] Influenza Virus Vaccine Quad IM 3+ YRS 2016-09-15 00:00:00 Completed [facility] Pneumococcal Polysaccharide, PPSV23 (PNEUMOVAX) 2016-09-15 00:00:00 Completed [facility] Influenza Virus Vaccine Quad IM 3+ YRS 2016-09-15 00:00:00 Completed [facility] Pneumococcal Polysaccharide, PPSV23 (PNEUMOVAX) 2016-09-15 00:00:00 Completed [facility] Influenza Virus Vaccine Quad IM 3+ YRS 2016-09-15 00:00:00 Completed [facility] Pneumococcal Polysaccharide, PPSV23 (PNEUMOVAX) 2016-09-15 00:00:00 Completed [facility] Influenza Virus Vaccine Quad IM 3+ YRS 2016-09-15 00:00:00 Completed [facility] Pneumococcal Polysaccharide, PPSV23 (PNEUMOVAX) 2016-09-15 00:00:00 Completed [facility] Influenza Virus Vaccine Quad IM 3+ YRS 2016-09-15 00:00:00 Completed [facility] Pneumococcal Polysaccharide, PPSV23 (PNEUMOVAX) 2016-09-15 00:00:00 Completed [facility] Influenza Virus Vaccine Quad IM 3+ YRS 2016-09-15 00:00:00 Completed [facility] Pneumococcal Polysaccharide, PPSV23 (PNEUMOVAX) 2016-09-15 00:00:00 Completed [facility] Influenza Virus Vaccine Quad IM 3+ YRS 2016-09-15 00:00:00 Completed [facility] Pneumococcal Polysaccharide, PPSV23 (PNEUMOVAX) 2016-09-15 00:00:00 Completed [facility] Influenza Virus Vaccine Quad IM 3+ YRS 2016-09-15 00:00:00 Completed [facility] Pneumococcal Polysaccharide, PPSV23 (PNEUMOVAX) 2016-09-15 00:00:00 Completed [facility] Influenza Virus Vaccine Quad IM 3+ YRS 2016-09-15 00:00:00 Completed [facility] Pneumococcal Polysaccharide, PPSV23 (PNEUMOVAX) 2016-09-15 00:00:00 Completed [facility] Influenza Virus Vaccine Quad IM 3+ YRS 2016-09-15 00:00:00 Completed [facility] Pneumococcal Polysaccharide, PPSV23 (PNEUMOVAX) 2016-09-15 00:00:00 Completed [facility] Influenza Virus Vaccine Quad IM 3+ YRS 2016-09-15 00:00:00 Completed [facility] Pneumococcal Polysaccharide, PPSV23 (PNEUMOVAX) 2016-09-15 00:00:00 Completed [facility] Influenza Virus Vaccine Quad IM 3+ YRS 2016-09-15 00:00:00 Completed [facility] Pneumococcal Polysaccharide, PPSV23 (PNEUMOVAX) 2016-09-15 00:00:00 Completed [facility] Influenza Virus Vaccine Quad IM 3+ YRS 2016-09-15 00:00:00 Completed [facility] Pneumococcal Polysaccharide, PPSV23 (PNEUMOVAX) 2016-09-15 00:00:00 Completed [facility] Influenza Virus Vaccine Quad IM 3+ YRS 2016-09-15 00:00:00 Completed [facility] Pneumococcal Polysaccharide, PPSV23 (PNEUMOVAX) 2016-09-15 00:00:00 Completed [facility] Influenza Virus Vaccine Quad IM 3+ YRS 2016-09-15 00:00:00 Completed [facility] Pneumococcal Polysaccharide, PPSV23 (PNEUMOVAX) 2016-09-15 00:00:00 Completed [facility] Influenza Virus Vaccine Quad IM 3+ YRS 2016-09-15 00:00:00 Completed [facility] Pneumococcal Polysaccharide, PPSV23 (PNEUMOVAX) 2016-09-15 00:00:00 Completed [facility] Influenza Virus Vaccine Quad IM 3+ YRS 2016-09-15 00:00:00 Completed [facility] Pneumococcal Polysaccharide, PPSV23 (PNEUMOVAX) 2016-09-15 00:00:00 Completed [facility] Influenza Virus Vaccine Quad IM 3+ YRS 2016-09-15 00:00:00 Completed [facility] Pneumococcal Polysaccharide, PPSV23 (PNEUMOVAX) 2016-09-15 00:00:00 Completed [facility] Influenza Virus Vaccine Quad IM 3+ YRS 2016-09-15 00:00:00 Completed [facility] Pneumococcal Polysaccharide, PPSV23 (PNEUMOVAX) 2016-09-15 00:00:00 Completed [facility] Influenza Virus Vaccine Quad IM 3+ YRS 2016-09-15 00:00:00 Completed [facility] Pneumococcal Polysaccharide, PPSV23 (PNEUMOVAX) 2016-09-15 00:00:00 Completed [facility] Influenza Virus Vaccine Quad IM 3+ YRS 2016-09-15 00:00:00 Completed [facility] Pneumococcal Polysaccharide, PPSV23 (PNEUMOVAX) 2016-09-15 00:00:00 Completed [facility] Influenza Virus Vaccine Quad IM 3+ YRS 2016-09-15 00:00:00 Completed [facility] Pneumococcal Polysaccharide, PPSV23 (PNEUMOVAX) 2016-09-15 00:00:00 Completed [facility] Influenza Virus Vaccine Quad IM 3+ YRS 2016-09-15 00:00:00 Completed [facility] Pneumococcal Polysaccharide, PPSV23 (PNEUMOVAX) 2016-09-15 00:00:00 Completed [facility] Influenza Virus Vaccine Quad IM 3+ YRS 2016-09-15 00:00:00 Completed [facility] Pneumococcal Polysaccharide, PPSV23 (PNEUMOVAX) 2016-09-15 00:00:00 Completed [facility] Influenza Virus Vaccine Quad IM 3+ YRS 2016-09-15 00:00:00 Completed [facility] Pneumococcal Polysaccharide, PPSV23 (PNEUMOVAX) 2016-09-15 00:00:00 Completed [facility] Influenza Virus Vaccine Quad IM 3+ YRS 2016-09-15 00:00:00 Completed [facility] Pneumococcal Polysaccharide, PPSV23 (PNEUMOVAX) 2016-09-15 00:00:00 Completed [facility] Influenza Virus Vaccine Quad IM 3+ YRS 2016-09-15 00:00:00 Completed [facility] Pneumococcal Polysaccharide, PPSV23 (PNEUMOVAX) 2016-09-15 00:00:00 Completed [facility] Influenza Virus Vaccine Quad IM 3+ YRS 2016-09-15 00:00:00 Completed [facility] Pneumococcal Polysaccharide, PPSV23 (PNEUMOVAX) 2016-09-15 00:00:00 Completed [facility] Influenza Virus Vaccine Quad IM 3+ YRS 2016-09-15 00:00:00 Completed [facility] Pneumococcal Polysaccharide, PPSV23 (PNEUMOVAX) 2016-09-15 00:00:00 Completed [facility] Influenza Virus Vaccine Quad IM 3+ YRS 2016-09-15 00:00:00 Completed [facility] Pneumococcal Polysaccharide, PPSV23 (PNEUMOVAX) 2016-09-15 00:00:00 Completed [facility] Influenza Virus Vaccine Quad IM 3+ YRS 2016-09-15 00:00:00 Completed [facility] Pneumococcal Polysaccharide, PPSV23 (PNEUMOVAX) 2016-09-15 00:00:00 Completed [facility] Influenza Virus Vaccine Quad IM 3+ YRS 2016-09-15 00:00:00 Completed [facility] Pneumococcal Polysaccharide, PPSV23 (PNEUMOVAX) 2016-09-15 00:00:00 Completed [facility] Influenza Virus Vaccine Quad IM 3+ YRS 2016-09-15 00:00:00 Completed [facility] Pneumococcal Polysaccharide, PPSV23 (PNEUMOVAX) 2016-09-15 00:00:00 Completed [facility] Influenza Virus Vaccine Quad IM 3+ YRS 2016-09-15 00:00:00 Completed influenza, recombinant, quadrIvalent,injecta ble, preservative free influenza, recombinant, quadrIvalent,inject able, preservative free Unknown Completed [facility] influenza, unspecified formulation influenza, unspecified formulation Unknown Completed [facility] COVID-19, mRNA, LNP-S, PF, 100 mcg/0.5 mL dose (Moderna) COVID-19, mRNA, LNP-S, PF, 100 mcg/0.5 mL dose (Moderna) Unknown Completed [facility] COVID-19 (SARS-COV-2) vaccine, unspecified COVID-19 (SARS-COV-2) vaccine, unspecified Unknown Completed [facility] Hep A-Hep B Hep A-Hep B Unknown Completed [facility] influenza, seasonal, injectable influenza, seasonal, injectable Unknown Completed [facility] pneumococcal polysaccharide PPV23 pneumococcal polysaccharide PPV23 Unknown Completed [facility] influenza, injectable, quadrivalent, preservative free influenza, injectable, quadrivalent, preservative free Unknown Completed [facility] COVID-19, mRNA, LNP-S, PF, 50 mcg/0.5 mL COVID-19, mRNA, LNP-S, PF, 50 mcg/0.5 mL Unknown Completed [facility] Pneumococcal Polysaccharide, PPSV23 (PNEUMOVAX) Unknown Completed [facility] Influenza Virus Vaccine Quad IM 3+ YRS Unknown Completed [facility] Influenza Virus Vaccine Unknown Completed [facility] Twinrix (hep a/hep b) Unknown Completed [facility] Influenza Virus Vaccine (3+ yrs) Unknown Completed [facility] SARS-COV-2 COVID-19 MODERNA 12+ YRS VACCINE Unknown Completed [facility] SARS-COV-2 COVID-19 MODERNA 0.25ML BOOSTER VACCINE Unknown Completed [facility] Pneumococcal Polysaccharide, PPSV23 (PNEUMOVAX) Unknown Completed [facility] Influenza Virus Vaccine Quad IM 3+ YRS Unknown Completed [facility] Influenza Virus Vaccine Unknown Completed [facility] Twinrix (hep a/hep b) Unknown Completed [facility] Influenza Virus Vaccine (3+ yrs) Unknown Completed [facility] SARS-COV-2 COVID-19 MODERNA 12+ YRS VACCINE Unknown Completed [facility] SARS-COV-2 COVID-19 MODERNA 0.25ML BOOSTER VACCINE Unknown Completed [facility] Pneumococcal Polysaccharide, PPSV23 (PNEUMOVAX) Unknown Completed [facility] Influenza Virus Vaccine Quad IM 3+ YRS Unknown Completed [facility] Influenza Virus Vaccine Unknown Completed [facility] (hep a/hep b) Unknown Completed [facility] Influenza Virus Vaccine (3+ yrs) Unknown Completed [facility] SARS-COV-2 COVID-19 MODERNA 12+ YRS VACCINE Unknown Completed [facility] SARS-COV-2 COVID-19 MODERNA 0.25ML BOOSTER VACCINE Unknown Completed [facility] Pneumococcal Polysaccharide, PPSV23 (PNEUMOVAX) Unknown Completed [facility] Influenza Virus Vaccine Quad IM 3+ YRS Unknown Completed [facility] Influenza Virus Vaccine Unknown Completed [facility] (hep a/hep b) Unknown Completed [facility] Influenza Virus Vaccine (3+ yrs) Unknown Completed [facility] SARS-COV-2 COVID-19 MODERNA 12+ YRS VACCINE Unknown Completed [facility] Pneumococcal Polysaccharide, PPSV23 (PNEUMOVAX) Unknown Completed [facility] Influenza Virus Vaccine Quad IM 3+ YRS Unknown Completed [facility] Influenza Virus Vaccine Unknown Completed [facility] (hep a/hep b) Unknown Completed [facility] Influenza Virus Vaccine (3+ yrs) Unknown Completed [facility] SARS-COV-2 COVID-19 MODERNA 12+ YRS VACCINE Unknown Completed [facility] SARS-COV-2 COVID-19 MODERNA 0.25ML BOOSTER VACCINE Unknown Completed [facility] Pneumococcal Polysaccharide, PPSV23 (PNEUMOVAX) Unknown Completed [facility] Influenza Virus Vaccine Quad IM 3+ YRS Unknown Completed [facility] (hep a/hep b) Unknown Completed [facility] Influenza Virus Vaccine (3+ yrs) Unknown Completed [facility] SARS-COV-2 COVID-19 MODERNA 0.25ML BOOSTER VACCINE Unknown Completed [facility] Influenza Virus Vaccine Recomb Quad IM, Preserv and ABX Free 18-64 YRS Unknown Completed [facility] Influenza Virus Vaccine Unknown Completed [facility] SARS-COV-2 COVID-19 MODERNA 12+ YRS VACCINE Unknown Completed [facility] Pneumococcal Polysaccharide, PPSV23 (PNEUMOVAX) Unknown Completed [facility] Influenza Virus Vaccine Quad IM 3+ YRS Unknown Completed [facility] (hep a/hep b) Unknown Completed [facility] Influenza Virus Vaccine (3+ yrs) Unknown Completed [facility] SARS-COV-2 COVID-19 MODERNA 0.25ML BOOSTER VACCINE Unknown Completed [facility] Influenza Virus Vaccine Recomb Quad IM, Preserv and ABX Free 18-64 YRS Unknown Completed [facility] Influenza Virus Vaccine Unknown Completed [facility] SARS-COV-2 COVID-19 MODERNA 12+ YRS VACCINE Unknown Completed [facility] Pneumococcal Polysaccharide, PPSV23 (PNEUMOVAX) Unknown Completed [facility] Influenza Virus Vaccine Quad IM 3+ YRS Unknown Completed [facility] (hep a/hep b) Unknown Completed [facility] Influenza Virus Vaccine (3+ yrs) Unknown Completed [facility] SARS-COV-2 COVID-19 MODERNA 0.25ML BOOSTER VACCINE Unknown Completed [facility] Influenza Virus Vaccine Recomb Quad IM, Preserv and ABX Free 18-64 YRS Unknown Completed [facility] Influenza Virus Vaccine Unknown Completed [facility] SARS-COV-2 COVID-19 MODERNA 12+ YRS VACCINE Unknown Completed [facility] Pneumococcal Polysaccharide, PPSV23 (PNEUMOVAX) Unknown Completed [facility] Influenza Virus Vaccine Quad IM 3+ YRS Unknown Completed [facility] Influenza Virus Vaccine Unknown Completed [facility] (hep a/hep b) Unknown Completed [facility] Influenza Virus Vaccine (3+ yrs) Unknown Completed [facility] SARS-COV-2 COVID-19 MODERNA 12+ YRS VACCINE Unknown Completed [facility] SARS-COV-2 COVID-19 MODERNA 0.25ML BOOSTER VACCINE Unknown Completed [facility] Influenza Virus Vaccine Recomb Quad IM, Preserv and ABX Free 18-64 YRS Unknown Completed [facility] Pneumococcal Polysaccharide, PPSV23 (PNEUMOVAX) Unknown Completed [facility] Influenza Virus Vaccine Quad IM 3+ YRS Unknown Completed [facility] Influenza Virus Vaccine Unknown Completed [facility] (hep a/hep b) Unknown Completed [facility] Influenza Virus Vaccine (3+ yrs) Unknown Completed [facility] SARS-COV-2 COVID-19 MODERNA 12+ YRS VACCINE Unknown Completed [facility] SARS-COV-2 COVID-19 MODERNA 0.25ML BOOSTER VACCINE Unknown Completed [facility] Influenza Virus Vaccine Recomb Quad IM, Preserv and ABX Free 18-64 YRS Unknown Completed [facility] Pneumococcal Polysaccharide, PPSV23 (PNEUMOVAX) Unknown Completed [facility] Influenza Virus Vaccine Quad IM 3+ YRS Unknown Completed [facility] Influenza Virus Vaccine Unknown Completed [facility] (hep a/hep b) Unknown Completed [facility] Influenza Virus Vaccine (3+ yrs) Unknown Completed [facility] SARS-COV-2 COVID-19 MODERNA 12+ YRS VACCINE Unknown Completed [facility] SARS-COV-2 COVID-19 MODERNA 0.25ML BOOSTER VACCINE Unknown Completed [facility] Influenza Virus Vaccine Recomb Quad IM, Preserv and ABX Free 18-64 YRS Unknown Completed [facility] Pneumococcal Polysaccharide, PPSV23 (PNEUMOVAX) Unknown Completed [facility] Influenza Virus Vaccine Quad IM 3+ YRS Unknown Completed [facility] (hep a/hep b) Unknown Completed [facility] Influenza Virus Vaccine (3+ yrs) Unknown Completed [facility] SARS-COV-2 COVID-19 MODERNA 0.25ML BOOSTER VACCINE Unknown Completed [facility] Influenza Virus Vaccine Recomb Quad IM, Preserv and ABX Free 18-64 YRS Unknown Completed [facility] Influenza Virus Vaccine Unknown Completed [facility] SARS-COV-2 COVID-19 MODERNA 12+ YRS VACCINE Unknown Completed [facility] Pneumococcal Polysaccharide, PPSV23 (PNEUMOVAX) Unknown Completed [facility] Influenza Virus Vaccine Quad IM 3+ YRS Unknown Completed [facility] Influenza Virus Vaccine Unknown Completed [facility] (hep a/hep b) Unknown Completed [facility] Influenza Virus Vaccine (3+ yrs) Unknown Completed [facility] SARS-COV-2 COVID-19 MODERNA 12+ YRS VACCINE Unknown Completed [facility] SARS-COV-2 COVID-19 MODERNA 0.25ML BOOSTER VACCINE Unknown Completed [facility] Influenza Virus Vaccine Recomb Quad IM, Preserv and ABX Free 18-64 YRS Unknown Completed [facility] Pneumococcal Polysaccharide, PPSV23 (PNEUMOVAX) Unknown Completed [facility] Influenza Virus Vaccine Quad IM 3+ YRS Unknown Completed [facility] Influenza Virus Vaccine Unknown Completed [facility] (hep a/hep b) Unknown Completed [facility] Influenza Virus Vaccine (3+ yrs) Unknown Completed [facility] SARS-COV-2 COVID-19 MODERNA 12+ YRS VACCINE Unknown Completed [facility] SARS-COV-2 COVID-19 MODERNA 0.25ML BOOSTER VACCINE Unknown Completed [facility] Influenza Virus Vaccine Recomb Quad IM, Preserv and ABX Free 18-64 YRS Unknown Completed [facility] Pneumococcal Polysaccharide, PPSV23 (PNEUMOVAX) Unknown Completed [facility] Influenza Virus Vaccine Quad IM 3+ YRS Unknown Completed [facility] Influenza Virus Vaccine Unknown Completed [facility] (hep a/hep b) Unknown Completed [facility] Influenza Virus Vaccine (3+ yrs) Unknown Completed [facility] SARS-COV-2 COVID-19 MODERNA 12+ YRS VACCINE Unknown Completed [facility] SARS-COV-2 COVID-19 MODERNA 0.25ML BOOSTER VACCINE Unknown Completed [facility] Influenza Virus Vaccine Recomb Quad IM, Preserv and ABX Free 18-64 YRS Unknown Completed [facility] Pneumococcal Polysaccharide, PPSV23 (PNEUMOVAX) Unknown Completed [facility] Influenza Virus Vaccine Quad IM 3+ YRS Unknown Completed [facility] Influenza Virus Vaccine Unknown Completed [facility] (hep a/hep b) Unknown Completed [facility] Influenza Virus Vaccine (3+ yrs) Unknown Completed [facility] SARS-COV-2 COVID-19 MODERNA 12+ YRS VACCINE Unknown Completed [facility] SARS-COV-2 COVID-19 MODERNA 0.25ML BOOSTER VACCINE Unknown Completed [facility] Influenza Virus Vaccine Recomb Quad IM, Preserv and ABX Free 18-64 YRS Unknown Completed [facility] Pneumococcal Polysaccharide, PPSV23 (PNEUMOVAX) Unknown Completed [facility] Influenza Virus Vaccine Quad IM 3+ YRS Unknown Completed [facility] Influenza Virus Vaccine Unknown Completed [facility] (hep a/hep b) Unknown Completed [facility] Influenza Virus Vaccine (3+ yrs) Unknown Completed [facility] SARS-COV-2 COVID-19 MODERNA 12+ YRS VACCINE Unknown Completed [facility] SARS-COV-2 COVID-19 MODERNA 0.25ML BOOSTER VACCINE Unknown Completed [facility] Influenza Virus Vaccine Recomb Quad IM, Preserv and ABX Free 18-64 YRS Unknown Completed [facility] Pneumococcal Polysaccharide, PPSV23 (PNEUMOVAX) Unknown Completed [facility] Influenza Virus Vaccine Quad IM 3+ YRS Unknown Completed [facility] Influenza Virus Vaccine Unknown Completed [facility] (hep a/hep b) Unknown Completed [facility] Influenza Virus Vaccine (3+ yrs) Unknown Completed [facility] SARS-COV-2 COVID-19 MODERNA 12+ YRS VACCINE Unknown Completed [facility] SARS-COV-2 COVID-19 MODERNA 0.25ML BOOSTER VACCINE Unknown Completed [facility] Influenza Virus Vaccine Recomb Quad IM, Preserv and ABX Free 18-64 YRS Unknown Completed [facility] Pneumococcal Polysaccharide, PPSV23 (PNEUMOVAX) Unknown Completed [facility] Influenza Virus Vaccine Quad IM 3+ YRS Unknown Completed [facility] Influenza Virus Vaccine Unknown Completed [facility] Twin[facility] (hep a/hep b) Unknown Completed [facility] Influenza Virus Vaccine (3+ yrs) Unknown Completed [facility] SARS-COV-2 COVID-19 MODERNA 12+ YRS VACCINE Unknown Completed [facility] SARS-COV-2 COVID-19 MODERNA 0.25ML BOOSTER VACCINE Unknown Completed [facility] Influenza Virus Vaccine Recomb Quad IM, Preserv and ABX Free 18-64 YRS Unknown Completed [facility] Pneumococcal Polysaccharide, PPSV23 (PNEUMOVAX) Unknown Completed [facility] Influenza Virus Vaccine Quad IM 3+ YRS Unknown Completed [facility] (hep a/hep b) Unknown Completed [facility] Influenza Virus Vaccine (3+ yrs) Unknown Completed [facility] SARS-COV-2 COVID-19 MODERNA 0.25ML BOOSTER VACCINE Unknown Completed [facility] Influenza Virus Vaccine Recomb Quad IM, Preserv and ABX Free 18-64 YRS Unknown Completed [facility] Influenza Virus Vaccine Unknown Completed [facility] SARS-COV-2 COVID-19 MODERNA 12+ YRS VACCINE Unknown Completed [facility] Pneumococcal Polysaccharide, PPSV23 (PNEUMOVAX) Unknown Completed [facility] Influenza Virus Vaccine Quad IM 3+ YRS Unknown Completed [facility] Influenza Virus Vaccine Unknown Completed [facility] (hep a/hep b) Unknown Completed [facility] Influenza Virus Vaccine (3+ yrs) Unknown Completed [facility] SARS-COV-2 COVID-19 MODERNA 12+ YRS VACCINE Unknown Completed [facility] SARS-COV-2 COVID-19 MODERNA 0.25ML BOOSTER VACCINE Unknown Completed [facility] Influenza Virus Vaccine Recomb Quad IM, Preserv and ABX Free 18-64 YRS Unknown Completed [facility] Pneumococcal Polysaccharide, PPSV23 (PNEUMOVAX) Unknown Completed [facility] Influenza Virus Vaccine Quad IM 3+ YRS Unknown Completed [facility] Influenza Virus Vaccine Unknown Completed [facility] Twinrix (hep a/hep b) Unknown Completed [facility] Influenza Virus Vaccine (3+ yrs) Unknown Completed [facility] SARS-COV-2 COVID-19 MODERNA 12+ YRS VACCINE Unknown Completed [facility] SARS-COV-2 COVID-19 MODERNA 0.25ML BOOSTER VACCINE Unknown Completed [facility] Influenza Virus Vaccine Recomb Quad IM, Preserv and ABX Free 18-64 YRS Unknown Completed [facility] Pneumococcal Polysaccharide, PPSV23 (PNEUMOVAX) Unknown Completed [facility] Influenza Virus Vaccine Quad IM 3+ YRS Unknown Completed [facility] Influenza Virus Vaccine Unknown Completed [facility] Twinrix (hep a/hep b) Unknown Completed [facility] Influenza Virus Vaccine (3+ yrs) Unknown Completed [facility] SARS-COV-2 COVID-19 MODERNA 12+ YRS VACCINE Unknown Completed [facility] SARS-COV-2 COVID-19 MODERNA 0.25ML BOOSTER VACCINE Unknown Completed [facility] Influenza Virus Vaccine Recomb Quad IM, Preserv and ABX Free 18-64 YRS Unknown Completed [facility] Pneumococcal Polysaccharide, PPSV23 (PNEUMOVAX) Unknown Completed [facility] Influenza Virus Vaccine Quad IM 3+ YRS Unknown Completed [facility] Influenza Virus Vaccine Unknown Completed [facility] Twinrix (hep a/hep b) Unknown Completed [facility] Influenza Virus Vaccine (3+ yrs) Unknown Completed [facility] SARS-COV-2 COVID-19 MODERNA 12+ YRS VACCINE Unknown Completed [facility] SARS-COV-2 COVID-19 MODERNA 0.25ML BOOSTER VACCINE Unknown Completed [facility] Influenza Virus Vaccine Recomb Quad IM, Preserv and ABX Free 18-64 YRS Unknown Completed [facility] Pneumococcal Polysaccharide, PPSV23 (PNEUMOVAX) Unknown Completed [facility] Influenza Virus Vaccine Quad IM 3+ YRS Unknown Completed [facility] Influenza Virus Vaccine Unknown Completed [facility] Twinrix (hep a/hep b) Unknown Completed [facility] Influenza Virus Vaccine (3+ yrs) Unknown Completed [facility] SARS-COV-2 COVID-19 MODERNA 12+ YRS VACCINE Unknown Completed [facility] SARS-COV-2 COVID-19 MODERNA 0.25ML BOOSTER VACCINE Unknown Completed [facility] Influenza Virus Vaccine Recomb Quad IM, Preserv and ABX Free 18-64 YRS Unknown Completed [facility] Pneumococcal Polysaccharide, PPSV23 (PNEUMOVAX) Unknown Completed [facility] Influenza Virus Vaccine Quad IM 3+ YRS Unknown Completed [facility] Influenza Virus Vaccine Unknown Completed [facility] Twinrix (hep a/hep b) Unknown Completed [facility] Influenza Virus Vaccine (3+ yrs) Unknown Completed [facility] SARS-COV-2 COVID-19 MODERNA 12+ YRS VACCINE Unknown Completed [facility] SARS-COV-2 COVID-19 MODERNA 0.25ML BOOSTER VACCINE Unknown Completed [facility] Influenza Virus Vaccine Recomb Quad IM, Preserv and ABX Free 18-64 YRS Unknown Completed [facility] Pneumococcal Polysaccharide, PPSV23 (PNEUMOVAX) Unknown Completed [facility] Influenza Virus Vaccine Quad IM 3+ YRS Unknown Completed [facility] Influenza Virus Vaccine Unknown Completed [facility] Twinrix (hep a/hep b) Unknown Completed [facility] Influenza Virus Vaccine (3+ yrs) Unknown Completed [facility] SARS-COV-2 COVID-19 MODERNA 12+ YRS VACCINE Unknown Completed [facility] SARS-COV-2 COVID-19 MODERNA 0.25ML BOOSTER VACCINE Unknown Completed [facility] Influenza Virus Vaccine Recomb Quad IM, Preserv and ABX Free 18-64 YRS Unknown Completed [facility] Pneumococcal Polysaccharide, PPSV23 (PNEUMOVAX) Unknown Completed [facility] Influenza Virus Vaccine Quad IM 3+ YRS Unknown Completed [facility] Influenza Virus Vaccine Unknown Completed [facility] Twinrix (hep a/hep b) Unknown Completed [facility] Influenza Virus Vaccine (3+ yrs) Unknown Completed [facility] SARS-COV-2 COVID-19 MODERNA 12+ YRS VACCINE Unknown Completed [facility] SARS-COV-2 COVID-19 MODERNA 0.25ML BOOSTER VACCINE Unknown Completed [facility] Influenza Virus Vaccine Recomb Quad IM, Preserv and ABX Free 18-64 YRS Unknown Completed [facility] Pneumococcal Polysaccharide, PPSV23 (PNEUMOVAX) Unknown Completed [facility] Influenza Virus Vaccine Quad IM 3+ YRS Unknown Completed [facility] Influenza Virus Vaccine Unknown Completed [facility] Twinrix (hep a/hep b) Unknown Completed [facility] Influenza Virus Vaccine (3+ yrs) Unknown Completed [facility] SARS-COV-2 COVID-19 MODERNA 12+ YRS VACCINE Unknown Completed [facility] SARS-COV-2 COVID-19 MODERNA 0.25ML BOOSTER VACCINE Unknown Completed [facility] Influenza Virus Vaccine Recomb Quad IM, Preserv and ABX Free 18-64 YRS Unknown Completed [facility] Pneumococcal Polysaccharide, PPSV23 (PNEUMOVAX) Unknown Completed [facility] Influenza Virus Vaccine Quad IM 3+ YRS Unknown Completed [facility] Influenza Virus Vaccine Unknown Completed [facility] Twinrix (hep a/hep b) Unknown Completed [facility] Influenza Virus Vaccine (3+ yrs) Unknown Completed [facility] SARS-COV-2 COVID-19 MODERNA 12+ YRS VACCINE Unknown Completed [facility] SARS-COV-2 COVID-19 MODERNA 0.25ML BOOSTER VACCINE Unknown Completed [facility] Influenza Virus Vaccine Recomb Quad IM, Preserv and ABX Free 18-64 YRS Unknown Completed [facility] Pneumococcal Polysaccharide, PPSV23 (PNEUMOVAX) Unknown Completed [facility] Influenza Virus Vaccine Quad IM 3+ YRS Unknown Completed [facility] Influenza Virus Vaccine Unknown Completed [facility] Twinrix (hep a/hep b) Unknown Completed [facility] Influenza Virus Vaccine (3+ yrs) Unknown Completed [facility] SARS-COV-2 COVID-19 MODERNA 12+ YRS VACCINE Unknown Completed [facility] SARS-COV-2 COVID-19 MODERNA 0.25ML BOOSTER VACCINE Unknown Completed [facility] Influenza Virus Vaccine Recomb Quad IM, Preserv and ABX Free 18-64 YRS Unknown Completed [facility] Pneumococcal Polysaccharide, PPSV23 (PNEUMOVAX) Unknown Completed [facility] Influenza Virus Vaccine Quad IM 3+ YRS Unknown Completed [facility] Influenza Virus Vaccine Unknown Completed [facility] Twinrix (hep a/hep b) Unknown Completed [facility] Influenza Virus Vaccine (3+ yrs) Unknown Completed [facility] SARS-COV-2 COVID-19 MODERNA 12+ YRS VACCINE Unknown Completed [facility] SARS-COV-2 COVID-19 MODERNA 0.25ML BOOSTER VACCINE Unknown Completed [facility] Influenza Virus Vaccine Recomb Quad IM, Preserv and ABX Free 18-64 YRS Unknown Completed [facility] Pneumococcal Polysaccharide, PPSV23 (PNEUMOVAX) Unknown Completed [facility] Influenza Virus Vaccine Quad IM 3+ YRS Unknown Completed [facility] Influenza Virus Vaccine Unknown Completed [facility] Twinrix (hep a/hep b) Unknown Completed [facility] Influenza Virus Vaccine (3+ yrs) Unknown Completed [facility] SARS-COV-2 COVID-19 MODERNA 12+ YRS VACCINE Unknown Completed [facility] SARS-COV-2 COVID-19 MODERNA 0.25ML BOOSTER VACCINE Unknown Completed [facility] Influenza Virus Vaccine Recomb Quad IM, Preserv and ABX Free 18-64 YRS Unknown Completed [facility] Pneumococcal Polysaccharide, PPSV23 (PNEUMOVAX) Unknown Completed [facility] Influenza Virus Vaccine Quad IM 3+ YRS Unknown Completed [facility] Influenza Virus Vaccine Unknown Completed [facility] Twinrix (hep a/hep b) Unknown Completed [facility] Influenza Virus Vaccine (3+ yrs) Unknown Completed [facility] SARS-COV-2 COVID-19 MODERNA 12+ YRS VACCINE Unknown Completed [facility] SARS-COV-2 COVID-19 MODERNA 0.25ML BOOSTER VACCINE Unknown Completed [facility] Influenza Virus Vaccine Recomb Quad IM, Preserv and ABX Free 18-64 YRS Unknown Completed [facility] Pneumococcal Polysaccharide, PPSV23 (PNEUMOVAX) Unknown Completed [facility] Influenza Virus Vaccine Quad IM 3+ YRS Unknown Completed [facility] Twinrix (hep a/hep b) Unknown Completed [facility] Influenza Virus Vaccine (3+ yrs) Unknown Completed [facility] SARS-COV-2 COVID-19 MODERNA 0.25ML BOOSTER VACCINE Unknown Completed [facility] Influenza Virus Vaccine Recomb Quad IM, Preserv and ABX Free 18-64 YRS Unknown Completed [facility] Influenza Virus Vaccine Unknown Completed [facility] SARS-COV-2 COVID-19 MODERNA 12+ YRS VACCINE Unknown Completed [facility] Pneumococcal Polysaccharide, PPSV23 (PNEUMOVAX) Unknown Completed [facility] Influenza Virus Vaccine Quad IM 3+ YRS Unknown Completed [facility] Influenza Virus Vaccine Unknown Completed [facility] Twinrix (hep a/hep b) Unknown Completed [facility] Influenza Virus Vaccine (3+ yrs) Unknown Completed [facility] SARS-COV-2 COVID-19 MODERNA 12+ YRS VACCINE Unknown Completed [facility] SARS-COV-2 COVID-19 MODERNA 0.25ML BOOSTER VACCINE Unknown Completed [facility] Influenza Virus Vaccine Recomb Quad IM, Preserv and ABX Free 18-64 YRS Unknown Completed [facility] Pneumococcal Polysaccharide, PPSV23 (PNEUMOVAX) Unknown Completed [facility] Influenza Virus Vaccine Quad IM 3+ YRS Unknown Completed [facility] Influenza Virus Vaccine Unknown Completed [facility] Twinrix (hep a/hep b) Unknown Completed [facility] Influenza Virus Vaccine (3+ yrs) Unknown Completed [facility] SARS-COV-2 COVID-19 MODERNA 12+ YRS VACCINE Unknown Completed [facility] SARS-COV-2 COVID-19 MODERNA 0.25ML BOOSTER VACCINE Unknown Completed [facility] Influenza Virus Vaccine Recomb Quad IM, Preserv and ABX Free 18-64 YRS Unknown Completed [facility] Pneumococcal Polysaccharide, PPSV23 (PNEUMOVAX) Unknown Completed [facility] Influenza Virus Vaccine Quad IM 3+ YRS Unknown Completed [facility] Twinrix (hep a/hep b) Unknown Completed [facility] Influenza Virus Vaccine (3+ yrs) Unknown Completed [facility] SARS-COV-2 COVID-19 MODERNA 0.25ML BOOSTER VACCINE Unknown Completed [facility] Influenza Virus Vaccine Recomb Quad IM, Preserv and ABX Free 18-64 YRS Unknown Completed [facility] Influenza Virus Vaccine Unknown Completed [facility] SARS-COV-2 COVID-19 MODERNA 12+ YRS VACCINE Unknown Completed [facility] Pneumococcal Polysaccharide, PPSV23 (PNEUMOVAX) Unknown Completed [facility] Influenza Virus Vaccine Quad IM 3+ YRS Unknown Completed [facility] Influenza Virus Vaccine Unknown Completed [facility] Twinrix (hep a/hep b) Unknown Completed [facility] Influenza Virus Vaccine (3+ yrs) Unknown Completed [facility] SARS-COV-2 COVID-19 MODERNA 12+ YRS VACCINE Unknown Completed [facility] SARS-COV-2 COVID-19 MODERNA 0.25ML BOOSTER VACCINE Unknown Completed [facility] Influenza Virus Vaccine Recomb Quad IM, Preserv and ABX Free 18-64 YRS Unknown Completed [facility] Pneumococcal Polysaccharide, PPSV23 (PNEUMOVAX) Unknown Completed [facility] Influenza Virus Vaccine Quad IM 3+ YRS Unknown Completed [facility] Influenza Virus Vaccine Unknown Completed [facility] Twinrix (hep a/hep b) Unknown Completed [facility] Influenza Virus Vaccine (3+ yrs) Unknown Completed [facility] SARS-COV-2 COVID-19 MODERNA 12+ YRS VACCINE Unknown Completed [facility] SARS-COV-2 COVID-19 MODERNA 0.25ML BOOSTER VACCINE Unknown Completed [facility] Influenza Virus Vaccine Recomb Quad IM, Preserv and ABX Free 18-64 YRS Unknown Completed [facility] Pneumococcal Polysaccharide, PPSV23 (PNEUMOVAX) Unknown Completed [facility] Influenza Virus Vaccine Quad IM 3+ YRS Unknown Completed [facility] Influenza Virus Vaccine Unknown Completed [facility] Twinrix (hep a/hep b) Unknown Completed [facility] Influenza Virus Vaccine (3+ yrs) Unknown Completed [facility] SARS-COV-2 COVID-19 MODERNA 12+ YRS VACCINE Unknown Completed [facility] SARS-COV-2 COVID-19 MODERNA 0.25ML BOOSTER VACCINE Unknown Completed [facility] Influenza Virus Vaccine Recomb Quad IM, Preserv and ABX Free 18-64 YRS Unknown Completed [facility] Pneumococcal Polysaccharide, PPSV23 (PNEUMOVAX) Unknown Completed [facility] Influenza Virus Vaccine Quad IM 3+ YRS Unknown Completed [facility] Twinrix (hep a/hep b) Unknown Completed [facility] Influenza Virus Vaccine (3+ yrs) Unknown Completed [facility] SARS-COV-2 COVID-19 MODERNA 0.25ML BOOSTER VACCINE Unknown Completed [facility] Influenza Virus Vaccine Recomb Quad IM, Preserv and ABX Free 18-64 YRS Unknown Completed [facility] Influenza Virus Vaccine Unknown Completed [facility] SARS-COV-2 COVID-19 MODERNA 12+ YRS VACCINE Unknown Completed [facility] Pneumococcal Polysaccharide, PPSV23 (PNEUMOVAX) Unknown Completed [facility] Influenza Virus Vaccine Quad IM 3+ YRS Unknown Completed [facility] Influenza Virus Vaccine Unknown Completed [facility] Twinrix (hep a/hep b) Unknown Completed [facility] Influenza Virus Vaccine (3+ yrs) Unknown Completed [facility] SARS-COV-2 COVID-19 MODERNA 12+ YRS VACCINE Unknown Completed [facility] SARS-COV-2 COVID-19 MODERNA 0.25ML BOOSTER VACCINE Unknown Completed [facility] Influenza Virus Vaccine Recomb Quad IM, Preserv and ABX Free 18-64 YRS Unknown Completed [facility] Vital Signs Vital Name Observation Time Observation Value Comments S ource Systolic blood pressure 2025-06-25 20:52:00 139 mm[Hg] [facility] Diastolic blood pressure 2025-06-25 20:52:00 83 mm[Hg] [facility] Heart rate 2025-06-25 20:50:00 90 /min [facility] Body temperature 2025-06-25 20:50:00 36.61 [facility] Respiratory rate 2025-06-25 20:50:00 16 /min [facility] Body height 2025-06-25 20:50:00 149.9 cm [facility] Body weight 2025-06-25 20:50:00 91.808 kg [facility] BMI 2025-06-25 20:50:00 40.88 kg/m2 [facility] Oxygen saturation in Arterial blood by Pulse oximetry 2025-06-25 20:50:00 95 /min [facility] BP Diastolic 2025-05-08 00:00:00 92 mm[Hg] [facility] Body Weight 2025-05-08 00:00:00 3360 [oz_av] [facility] BP Systolic 2025-05-08 00:00:00 123 mm[Hg] [facility] Height 2025-05-08 00:00:00 60 [in_i] [facility] BMI (Body Mass Index) 2025-05-08 00:00:00 41 kg/m2 [facility] Body Weight 2025-05-02 00:00:00 3248 [oz_av] [facility] BMI (Body Mass Index) 2025-05-02 00:00:00 39.6 kg/m2 [facility] Height 2025-05-02 00:00:00 60 [in_i] [facility] BP Systolic 2025-05-02 00:00:00 132 mm[Hg] [facility] BP Diastolic 2025-05-02 00:00:00 82 mm[Hg] [facility] BMI (Body Mass Index) 2025-04-24 00:00:00 39.2 kg/m2 [facility] Body Weight 2025-04-24 00:00:00 3209.6 [oz_av] [facility] Height 2025-04-24 00:00:00 60 [in_i] [facility] BP Systolic 2025-04-24 00:00:00 132 mm[Hg] [facility] BP Diastolic 2025-04-24 00:00:00 83 mm[Hg] [facility] Height 2025-04-07 00:00:00 60 [in_i] [facility] BMI (Body Mass Index) 2025-04-07 00:00:00 39.3 kg/m2 [facility] BP Diastolic 2025-04-07 00:00:00 78 mm[Hg] [facility] Body Weight 2025-04-07 00:00:00 3222.4 [oz_av] [facility] BP Systolic 2025-04-07 00:00:00 132 mm[Hg] [facility] BMI (Body Mass Index) 2025-03-01 00:00:00 40.1 kg/m2 [facility] Body Weight 2025-03-01 00:00:00 3284 [oz_av] [facility] Height 2025-03-01 00:00:00 60 [in_i] [facility] BP Diastolic 2025-03-01 00:00:00 79 mm[Hg] [facility] BP Systolic 2025-03-01 00:00:00 137 mm[Hg] [facility] Height 2025-02-05 00:00:00 60 [in_i] [facility] BMI (Body Mass Index) 2025-02-05 00:00:00 39.8 kg/m2 [facility] BP Diastolic 2025-02-05 00:00:00 82 mm[Hg] [facility] Body Weight 2025-02-05 00:00:00 3264 [oz_av] [facility] BP Systolic 2025-02-05 00:00:00 138 mm[Hg] [facility] BMI (Body Mass Index) 2025-01-25 00:00:00 39.8 kg/m2 [facility] Body Weight 2025-01-25 00:00:00 3264 [oz_av] [facility] Height 2025-01-25 00:00:00 60 [in_i] [facility] BP Diastolic 2025-01-25 00:00:00 80 mm[Hg] [facility] BP Systolic 2025-01-25 00:00:00 129 mm[Hg] [facility] Body Weight 2025-01-15 00:00:00 3225 [oz_av] [facility] BMI (Body Mass Index) 2025-01-15 00:00:00 39.4 kg/m2 [facility] BP Systolic 2025-01-15 00:00:00 128 mm[Hg] [facility] BP Diastolic 2025-01-15 00:00:00 79 mm[Hg] [facility] Height 2025-01-15 00:00:00 60 [in_i] [facility] Height 2025-01-04 00:00:00 60 [in_i] [facility] BMI (Body Mass Index) 2025-01-04 00:00:00 39.1 kg/m2 [facility] Body Weight 2025-01-04 00:00:00 3200 [oz_av] [facility] BP Diastolic 2025-01-04 00:00:00 83 mm[Hg] [facility] BP Systolic 2025-01-04 00:00:00 132 mm[Hg] [facility] BP Systolic 2024-12-26 00:00:00 120 mm[Hg] [facility] Height 2024-12-26 00:00:00 60 [in_i] [facility] BP Diastolic 2024-12-26 00:00:00 80 mm[Hg] [facility] BMI (Body Mass Index) 2024-12-26 00:00:00 39.6 kg/m2 [facility] Body Weight 2024-12-26 00:00:00 3248 [oz_av] [facility] BP Diastolic 2024-12-19 00:00:00 84 mm[Hg] [facility] BMI (Body Mass Index) 2024-12-19 00:00:00 39.7 kg/m2 [facility] Height 2024-12-19 00:00:00 60 [in_i] [facility] BP Systolic 2024-12-19 00:00:00 145 mm[Hg] [facility] Body Weight 2024-12-19 00:00:00 3249.6 [oz_av] [facility] BP Systolic 2024-12-16 00:00:00 144 mm[Hg] [facility] Body Weight 2024-12-16 00:00:00 3280 [oz_av] [facility] BMI (Body Mass Index) 2024-12-16 00:00:00 40 kg/m2 [facility] Height 2024-12-16 00:00:00 60 [in_i] [facility] BP Diastolic 2024-12-16 00:00:00 84 mm[Hg] [facility] BMI (Body Mass Index) 2024-12-14 00:00:00 39.4 kg/m2 [facility] BP Systolic 2024-12-14 00:00:00 128 mm[Hg] [facility] BP Diastolic 2024-12-14 00:00:00 70 mm[Hg] [facility] Height 2024-12-14 00:00:00 60 [in_i] [facility] Body Weight 2024-12-14 00:00:00 3230.4 [oz_av] [facility] BMI (Body Mass Index) 2024-11-23 00:00:00 40.6 kg/m2 [facility] Body Weight 2024-11-23 00:00:00 3328 [oz_av] [facility] BP Diastolic 2024-11-23 00:00:00 79 mm[Hg] [facility] Height 2024-11-23 00:00:00 60 [in_i] [facility] BP Systolic 2024-11-23 00:00:00 132 mm[Hg] [facility] Height 2024-10-26 00:00:00 60 [in_i] [facility] BP Systolic 2024-10-26 00:00:00 117 mm[Hg] [facility] Body Weight 2024-10-26 00:00:00 3303 [oz_av] [facility] BMI (Body Mass Index) 2024-10-26 00:00:00 40.3 kg/m2 [facility] BP Diastolic 2024-10-26 00:00:00 76 mm[Hg] [facility] Systolic blood pressure 2024-09-29 21:09:00 118 mm[Hg] [facility] Diastolic blood pressure 2024-09-29 21:09:00 75 mm[Hg] [facility] Heart rate 2024-09-29 21:09:00 83 /min [facility] Body weight 2024-09-29 21:09:00 92.08 kg [facility] BMI 2024-09-29 21:09:00 41.00 kg/m2 [facility] BP Systolic 2024-09-28 00:00:00 146 mm[Hg] [facility] BP Diastolic 2024-09-28 00:00:00 84 mm[Hg] [facility] Height 2024-09-28 00:00:00 60 [in_i] [facility] BMI (Body Mass Index) 2024-09-28 00:00:00 40.8 kg/m2 [facility] Body Weight 2024-09-28 00:00:00 3345 [oz_av] [facility] Systolic blood pressure 2024-09-01 18:14:00 121 mm[Hg] [facility] Diastolic blood pressure 2024-09-01 18:14:00 71 mm[Hg] [facility] Heart rate 2024-09-01 18:14:00 77 /min [facility] Body height 2024-09-01 18:14:00 149.9 cm [facility] Body weight 2024-09-01 18:14:00 94.348 kg [facility] BMI 2024-09-01 18:14:00 42.01 kg/m2 [facility] Body Weight 2024-08-28 00:00:00 3264 [oz_av] [facility] 2024-08-28 00:00:00 39.8 kg/m2 [facility] BP Systolic 2024-08-28 00:00:00 143 mm[Hg] [facility] BP Diastolic 2024-08-28 00:00:00 81 mm[Hg] [facility] Height 2024-08-28 00:00:00 60 [in_i] [facility] Systolic blood pressure 2024-08-25 19:33:00 130 mm[Hg] [facility] Diastolic blood pressure 2024-08-25 19:33:00 70 mm[Hg] [facility] Heart rate 2024-08-25 19:33:00 86 /min [facility] Body temperature 2024-08-25 19:33:00 36.11 [facility] Body height 2024-08-25 19:33:00 149.9 cm [facility] Body weight 2024-08-25 19:33:00 92.579 kg [facility] BMI 2024-08-25 19:33:00 41.22 kg/m2 [facility] Height 2024-07-08 00:00:00 60 [in_i] [facility] BP Systolic 2024-07-08 00:00:00 108 mm[Hg] [facility] Body Weight 2024-07-08 00:00:00 3280 [oz_av] [facility] BMI (Body Mass Index) 2024-07-08 00:00:00 40 kg/m2 [facility] BP Diastolic 2024-07-08 00:00:00 75 mm[Hg] [facility] Body Weight 2024-05-18 00:00:00 3255 [oz_av] [facility] BMI (Body Mass Index) 2024-05-18 00:00:00 39.7 kg/m2 [facility] BP Systolic 2024-05-18 00:00:00 117 mm[Hg] [facility] Height 2024-05-18 00:00:00 60 [in_i] [facility] BP Diastolic 2024-05-18 00:00:00 76 mm[Hg] [facility] Body Weight 2024-04-25 00:00:00 3408 [oz_av] [facility] BMI (Body Mass Index) 2024-04-25 00:00:00 41.6 kg/m2 [facility] BP Systolic 2024-04-25 00:00:00 132 mm[Hg] [facility] BP Diastolic 2024-04-25 00:00:00 84 mm[Hg] [facility] Height 2024-04-25 00:00:00 60 [in_i] [facility] Systolic blood pressure 2024-02-22 15:28:00 118 mm[Hg] [facility] Diastolic blood pressure 2024-02-22 15:28:00 77 mm[Hg] [facility] Heart rate 2024-02-22 15:28:00 82 /min [facility] Body height 2024-02-22 15:28:00 149.9 cm [facility] Body weight 2024-02-22 15:28:00 90.719 kg [facility] BMI 2024-02-22 15:28:00 40.40 kg/m2 [facility] Oxygen saturation in Arterial blood by Pulse oximetry 2024-02-22 15:28:00 98 /min [facility] Systolic blood pressure 2024-02-18 16:09:00 114 mm[Hg] [facility] Diastolic blood pressure 2024-02-18 16:09:00 77 mm[Hg] [facility] Heart rate 2024-02-18 16:09:00 80 /min [facility] Body weight 2024-02-18 16:09:00 91.173 kg [facility] BMI 2024-02-18 16:09:00 42.25 kg/m2 [facility] Systolic blood pressure 2024-02-04 17:23:00 117 mm[Hg] [facility] Diastolic blood pressure 2024-02-04 17:23:00 58 mm[Hg] [facility] Heart rate 2024-02-04 17:23:00 92 /min [facility] Body temperature 2024-02-04 17:23:00 36.11 [facility] Respiratory rate 2024-02-04 17:23:00 16 /min [facility] Oxygen saturation in Arterial blood by Pulse oximetry 2024-02-04 17:23:00 94 /min [facility] Body weight 2024-02-04 17:00:00 92.1 kg [facility] BMI 2024-02-04 17:00:00 42.68 kg/m2 [facility] Body height 2024-02-04 06:25:00 146.9 cm [facility] Systolic blood pressure 2024-02-03 23:50:00 111 mm[Hg] [facility] Diastolic blood pressure 2024-02-03 23:50:00 60 mm[Hg] [facility] Heart rate 2024-02-03 23:50:00 103 /min [facility] Body temperature 2024-02-03 23:50:00 36.5 [facility] Respiratory rate 2024-02-03 23:50:00 16 /min [facility] Oxygen saturation in Arterial blood by Pulse oximetry 2024-02-03 23:50:00 95 /min [facility] Body height 2024-02-03 17:50:00 149.9 cm [facility] Body weight 2024-02-03 17:50:00 92.1 kg [facility] BMI 2024-02-03 17:50:00 42.68 kg/m2 [facility] Systolic blood pressure 2024-01-28 16:12:00 119 mm[Hg] [facility] Diastolic blood pressure 2024-01-28 16:12:00 74 mm[Hg] [facility] Heart rate 2024-01-28 16:12:00 82 /min [facility] Body weight 2024-01-28 16:09:00 91.627 kg [facility] BMI 2024-01-28 16:09:00 40.80 kg/m2 [facility] Height 2024-01-24 00:00:00 60 [in_i] [facility] BMI (Body Mass Index) 2024-01-24 00:00:00 40.3 kg/m2 [facility] BP Systolic 2024-01-24 00:00:00 140 mm[Hg] [facility] BP Diastolic 2024-01-24 00:00:00 88 mm[Hg] [facility] Body Weight 2024-01-24 00:00:00 3300 [oz_av] [facility] Body weight 2024-01-12 17:15:00 91.627 kg [facility] BMI 2024-01-12 17:15:00 40.80 kg/m2 [facility] Systolic blood pressure 2024-01-10 15:44:00 126 mm[Hg] [facility] Diastolic blood pressure 2024-01-10 15:44:00 71 mm[Hg] [facility] Heart rate 2024-01-10 15:44:00 75 /min [facility] Body temperature 2024-01-10 15:44:00 36.89 [facility] Respiratory rate 2024-01-10 15:44:00 18 /min [facility] Body height 2024-01-10 15:44:00 149.9 cm [facility] Body weight 2024-01-10 15:44:00 91.944 kg [facility] BMI 2024-01-10 15:44:00 40.94 kg/m2 [facility] Oxygen saturation in Arterial blood by Pulse oximetry 2024-01-10 15:44:00 96 /min [facility] Respiratory rate 2023-12-29 15:51:00 12 /min [facility] Body height 2023-12-29 15:51:00 149.9 cm [facility] Body weight 2023-12-29 15:51:00 92.987 kg [facility] BMI 2023-12-29 15:51:00 41.40 kg/m2 [facility] Body Weight 2023-12-22 00:00:00 3254 [oz_av] [facility] BP Diastolic 2023-12-22 00:00:00 68 mm[Hg] [facility] BP Systolic 2023-12-22 00:00:00 113 mm[Hg] [facility] BMI (Body Mass Index) 2023-12-22 00:00:00 39.7 kg/m2 [facility] Height 2023-12-22 00:00:00 60 [in_i] [facility] Body weight 2023-12-15 17:12:00 92.987 kg [facility] BMI 2023-12-15 17:12:00 41.40 kg/m2 [facility] Body height 2023-12-08 16:49:00 149.9 cm [facility] Body weight 2023-12-08 16:49:00 92.987 kg [facility] BMI 2023-12-08 16:49:00 41.40 kg/m2 [facility] Systolic blood pressure 2023-11-30 17:08:00 138 mm[Hg] bp meds not taken per pt [facility] Diastolic blood pressure 2023-11-30 17:08:00 83 mm[Hg] bp meds not taken per pt [facility] Heart rate 2023-11-30 17:08:00 87 /min [facility] Body temperature 2023-11-30 17:08:00 36.72 [facility] Body height 2023-11-30 17:08:00 149.9 cm [facility] Body weight 2023-11-30 17:08:00 93.123 kg [facility] BMI 2023-11-30 17:08:00 41.47 kg/m2 [facility] Oxygen saturation in Arterial blood by Pulse oximetry 2023-11-30 17:08:00 96 /min [facility] Systolic blood pressure 2023-11-03 20:39:00 130 mm[Hg] [facility] Diastolic blood pressure 2023-11-03 20:39:00 79 mm[Hg] [facility] Heart rate 2023-11-03 20:39:00 82 /min [facility] Respiratory rate 2023-11-03 20:39:00 20 /min [facility] Body height 2023-11-03 20:39:00 149.9 cm [facility] Body weight 2023-11-03 20:39:00 91.627 kg [facility] BMI 2023-11-03 20:39:00 40.80 kg/m2 [facility] Oxygen saturation in Arterial blood by Pulse oximetry 2023-11-03 20:39:00 99 /min [facility] Systolic blood pressure 2023-10-21 15:18:00 126 mm[Hg] [facility] Diastolic blood pressure 2023-10-21 15:18:00 83 mm[Hg] [facility] Heart rate 2023-10-21 15:18:00 80 /min [facility] Body height 2023-10-21 15:18:00 149.9 cm [facility] Body weight 2023-10-21 15:18:00 92.035 kg [facility] BMI 2023-10-21 15:18:00 40.98 kg/m2 [facility] Systolic blood pressure 2023-10-08 19:49:00 132 mm[Hg] [facility] Diastolic blood pressure 2023-10-08 19:49:00 68 mm[Hg] [facility] Heart rate 2023-10-08 19:49:00 87 /min [facility] Body temperature 2023-10-08 19:49:00 36.78 [facility] Respiratory rate 2023-10-08 19:49:00 18 /min [facility] Body height 2023-10-08 19:49:00 149.9 cm [facility] Body weight 2023-10-08 19:49:00 93.033 kg [facility] BMI 2023-10-08 19:49:00 41.43 kg/m2 [facility] Oxygen saturation in Arterial blood by Pulse oximetry 2023-10-08 19:49:00 96 /min [facility] Systolic blood pressure 2023-10-06 19:16:00 141 mm[Hg] [facility] Diastolic blood pressure 2023-10-06 19:16:00 77 mm[Hg] [facility] Heart rate 2023-10-06 19:05:00 78 /min [facility] Respiratory rate 2023-10-06 19:05:00 20 /min [facility] Body height 2023-10-06 19:05:00 149.9 cm [facility] Body weight 2023-10-06 19:05:00 94.076 kg [facility] BMI 2023-10-06 19:05:00 41.89 kg/m2 [facility] Oxygen saturation in Arterial blood by Pulse oximetry 2023-10-06 19:05:00 95 /min [facility] BP Systolic 2023-10-04 00:00:00 116 mm[Hg] [facility] BP Diastolic 2023-10-04 00:00:00 74 mm[Hg] [facility] Body Weight 2023-10-04 00:00:00 3298 [oz_av] [facility] BMI (Body Mass Index) 2023-10-04 00:00:00 40.3 kg/m2 [facility] Height 2023-10-04 00:00:00 60 [in_i] [facility] Height 2023-09-16 00:00:00 60 [in_i] [facility] BP Diastolic 2023-09-16 00:00:00 71 mm[Hg] [facility] BP Systolic 2023-09-16 00:00:00 129 mm[Hg] [facility] Body Weight 2023-09-16 00:00:00 3384 [oz_av] [facility] BMI (Body Mass Index) 2023-09-16 00:00:00 41.3 kg/m2 [facility] Systolic blood pressure 2023-07-27 15:59:00 124 mm[Hg] [facility] Diastolic blood pressure 2023-07-27 15:59:00 73 mm[Hg] [facility] Heart rate 2023-07-27 15:59:00 84 /min [facility] Respiratory rate 2023-07-27 15:59:00 18 /min [facility] Body height 2023-07-27 15:59:00 149.9 cm [facility] Body weight 2023-07-27 15:59:00 92.806 kg [facility] BMI 2023-07-27 15:59:00 41.32 kg/m2 [facility] Oxygen saturation in Arterial blood by Pulse oximetry 2023-07-27 15:59:00 98 /min [facility] Systolic blood pressure 2023-07-26 16:53:00 118 mm[Hg] [facility] Diastolic blood pressure 2023-07-26 16:53:00 76 mm[Hg] [facility] Heart rate 2023-07-26 16:53:00 84 /min [facility] Body temperature 2023-07-26 16:53:00 36.67 [facility] Respiratory rate 2023-07-26 16:53:00 18 /min [facility] Body height 2023-07-26 16:53:00 149.9 cm [facility] Body weight 2023-07-26 16:53:00 93.622 kg [facility] BMI 2023-07-26 16:53:00 41.69 kg/m2 [facility] Height 2023-07-14 00:00:00 60 [in_i] [facility] BP Diastolic 2023-07-14 00:00:00 84 mm[Hg] [facility] BP Systolic 2023-07-14 00:00:00 127 mm[Hg] [facility] BMI (Body Mass Index) 2023-07-14 00:00:00 39.6 kg/m2 [facility] Body Weight 2023-07-14 00:00:00 3248 [oz_av] [facility] BP Diastolic 2023-06-16 00:00:00 84 mm[Hg] [facility] BP Systolic 2023-06-16 00:00:00 129 mm[Hg] [facility] Height 2023-06-16 00:00:00 60 [in_i] [facility] Body Weight 2023-06-16 00:00:00 3331 [oz_av] [facility] BMI (Body Mass Index) 2023-06-16 00:00:00 40.7 kg/m2 [facility] BP Diastolic 2023-06-07 00:00:00 78 mm[Hg] [facility] Height 2023-06-07 00:00:00 60 [in_i] [facility] BMI (Body Mass Index) 2023-06-07 00:00:00 40.4 kg/m2 [facility] BP Systolic 2023-06-07 00:00:00 119 mm[Hg] [facility] Body Weight 2023-06-07 00:00:00 3312 [oz_av] [facility] Systolic blood pressure 2023-06-04 16:57:00 123 mm[Hg] [facility] Diastolic blood pressure 2023-06-04 16:57:00 75 mm[Hg] [facility] Heart rate 2023-06-04 16:57:00 81 /min [facility] Body temperature 2023-06-04 16:57:00 35.89 [facility] Respiratory rate 2023-06-04 16:57:00 16 /min [facility] Body height 2023-06-04 16:57:00 149.9 cm [facility] Body weight 2023-06-04 16:57:00 93.486 kg [facility] BMI 2023-06-04 16:57:00 41.63 kg/m2 [facility] Oxygen saturation in Arterial blood by Pulse oximetry 2023-06-04 16:57:00 96 /min [facility] BP Diastolic 2023-05-06 00:00:00 85 mm[Hg] [facility] Height 2023-05-06 00:00:00 60 [in_i] [facility] BMI (Body Mass Index) 2023-05-06 00:00:00 40 kg/m2 [facility] BP Systolic 2023-05-06 00:00:00 134 mm[Hg] [facility] Body Weight 2023-05-06 00:00:00 3280 [oz_av] [facility] BP Diastolic 2023-02-23 00:00:00 84 mm[Hg] [facility] Height 2023-02-23 00:00:00 60 [in_i] [facility] BMI (Body Mass Index) 2023-02-23 00:00:00 38.9 kg/m2 [facility] BP Systolic 2023-02-23 00:00:00 144 mm[Hg] [facility] Body Weight 2023-02-23 00:00:00 3191 [oz_av] [facility] BP Diastolic 2023-02-02 00:00:00 84 mm[Hg] [facility] Height 2023-02-02 00:00:00 60 [in_i] [facility] BMI (Body Mass Index) 2023-02-02 00:00:00 39.1 kg/m2 [facility] BP Systolic 2023-02-02 00:00:00 126 mm[Hg] [facility] Body Weight 2023-02-02 00:00:00 3200 [oz_av] [facility] Height 2022-12-30 00:00:00 60 [in_i] [facility] BMI (Body Mass Index) 2022-12-30 00:00:00 40.8 kg/m2 [facility] Body Weight 2022-12-30 00:00:00 3344 [oz_av] [facility] BP Diastolic 2022-12-29 00:00:00 93 mm[Hg] [facility] Height 2022-12-29 00:00:00 60 [in_i] [facility] BMI (Body Mass Index) 2022-12-29 00:00:00 40.8 kg/m2 [facility] BP Systolic 2022-12-29 00:00:00 143 mm[Hg] [facility] Body Weight 2022-12-29 00:00:00 3344 [oz_av] [facility] BP Diastolic 2022-12-21 00:00:00 93 mm[Hg] [facility] Height 2022-12-21 00:00:00 60 [in_i] [facility] BMI (Body Mass Index) 2022-12-21 00:00:00 40.8 kg/m2 [facility] BP Systolic 2022-12-21 00:00:00 147 mm[Hg] [facility] Body Weight 2022-12-21 00:00:00 3344 [oz_av] [facility] BP Diastolic 2022-12-09 00:00:00 68 mm[Hg] [facility] Height 2022-12-09 00:00:00 60 [in_i] [facility] BMI (Body Mass Index) 2022-12-09 00:00:00 40.8 kg/m2 [facility] BP Systolic 2022-12-09 00:00:00 118 mm[Hg] [facility] Body Weight 2022-12-09 00:00:00 3345 [oz_av] [facility] Systolic blood pressure 2022-11-25 19:20:00 121 mm[Hg] [facility] Diastolic blood pressure 2022-11-25 19:20:00 79 mm[Hg] [facility] Heart rate 2022-11-25 19:20:00 86 /min [facility] Body temperature 2022-11-25 19:20:00 36.78 [facility] Respiratory rate 2022-11-25 19:20:00 18 /min [facility] Body height 2022-11-25 19:20:00 149.9 cm [facility] Body weight 2022-11-25 19:20:00 92.715 kg [facility] BMI 2022-11-25 19:20:00 41.28 kg/m2 [facility] Oxygen saturation in Arterial blood by Pulse oximetry 2022-11-25 19:20:00 96 /min [facility] Systolic blood pressure 2022-11-19 16:07:00 121 mm[Hg] [facility] Diastolic blood pressure 2022-11-19 16:07:00 77 mm[Hg] [facility] Heart rate 2022-11-19 16:07:00 85 /min [facility] Body temperature 2022-11-19 16:07:00 36.44 [facility] Respiratory rate 2022-11-19 16:07:00 18 /min [facility] Body height 2022-11-19 16:07:00 155.5 cm Verified height and weight with nurse [facility] Body weight 2022-11-19 16:07:00 91.808 kg Verified height and weight with nurse [facility] BMI 2022-11-19 16:07:00 37.97 kg/m2 [facility] Oxygen saturation in Arterial blood by Pulse oximetry 2022-11-19 16:07:00 98 /min [facility] Systolic blood pressure 2022-11-18 14:32:00 131 mm[Hg] [facility] Diastolic blood pressure 2022-11-18 14:32:00 85 mm[Hg] [facility] Heart rate 2022-11-18 14:32:00 84 /min [facility] Body temperature 2022-11-18 14:32:00 36.83 [facility] Respiratory rate 2022-11-18 14:32:00 18 /min [facility] Body height 2022-11-18 14:32:00 149.9 cm [facility] Body weight 2022-11-18 14:32:00 93.849 kg [facility] BMI 2022-11-18 14:32:00 41.79 kg/m2 [facility] Oxygen saturation in Arterial blood by Pulse oximetry 2022-11-18 14:32:00 96 /min [facility] Systolic blood pressure 2022-11-16 14:46:00 127 mm[Hg] [facility] Diastolic blood pressure 2022-11-16 14:46:00 76 mm[Hg] [facility] Heart rate 2022-11-16 14:46:00 88 /min [facility] Respiratory rate 2022-11-16 14:46:00 18 /min [facility] Body height 2022-11-16 14:46:00 149.9 cm [facility] Body weight 2022-11-16 14:46:00 93.26 kg [facility] BMI 2022-11-16 14:46:00 41.53 kg/m2 [facility] Oxygen saturation in Arterial blood by Pulse oximetry 2022-11-16 14:46:00 94 /min [facility] Systolic blood pressure 2022-11-13 15:13:00 105 mm[Hg] [facility] Diastolic blood pressure 2022-11-13 15:13:00 71 mm[Hg] [facility] Heart rate 2022-11-13 15:13:00 73 /min [facility] Body temperature 2022-11-13 15:13:00 36.78 [facility] Respiratory rate 2022-11-13 15:13:00 18 /min [facility] Body height 2022-11-13 15:13:00 149.9 cm [facility] Body weight 2022-11-13 15:13:00 93.078 kg [facility] BMI 2022-11-13 15:13:00 41.45 kg/m2 [facility] Oxygen saturation in Arterial blood by Pulse oximetry 2022-11-13 15:13:00 98 /min [facility] Systolic blood pressure 2022-11-11 14:58:00 115 mm[Hg] [facility] Diastolic blood pressure 2022-11-11 14:58:00 79 mm[Hg] [facility] Heart rate 2022-11-11 14:58:00 74 /min [facility] Body temperature 2022-11-11 14:58:00 36.72 [facility] Respiratory rate 2022-11-11 14:58:00 18 /min [facility] Body height 2022-11-11 14:58:00 149.9 cm [facility] Body weight 2022-11-11 14:58:00 93.622 kg [facility] BMI 2022-11-11 14:58:00 41.69 kg/m2 [facility] Oxygen saturation in Arterial blood by Pulse oximetry 2022-11-11 14:58:00 97 /min [facility] Systolic blood pressure 2022-11-09 16:13:00 123 mm[Hg] [facility] Diastolic blood pressure 2022-11-09 16:13:00 75 mm[Hg] [facility] Heart rate 2022-11-09 16:13:00 74 /min [facility] Body temperature 2022-11-09 16:13:00 36.94 [facility] Respiratory rate 2022-11-09 16:13:00 16 /min [facility] Body height 2022-11-09 16:13:00 149.9 cm [facility] Body weight 2022-11-09 16:13:00 92.08 kg [facility] BMI 2022-11-09 16:13:00 41.00 kg/m2 [facility] Oxygen saturation in Arterial blood by Pulse oximetry 2022-11-09 16:13:00 98 /min [facility] Systolic blood pressure 2022-10-14 19:54:00 127 mm[Hg] [facility] Diastolic blood pressure 2022-10-14 19:54:00 79 mm[Hg] [facility] Heart rate 2022-10-14 19:54:00 89 /min [facility] Body temperature 2022-10-14 19:54:00 36.78 [facility] Respiratory rate 2022-10-14 19:54:00 18 /min [facility] Body height 2022-10-14 19:54:00 149.9 cm [facility] Body weight 2022-10-14 19:54:00 93.895 kg [facility] BMI 2022-10-14 19:54:00 41.81 kg/m2 [facility] Oxygen saturation in Arterial blood by Pulse oximetry 2022-10-14 19:54:00 95 /min [facility] BP Diastolic 2022-10-13 00:00:00 86 mm[Hg] [facility] Height 2022-10-13 00:00:00 60 [in_i] [facility] BMI (Body Mass Index) 2022-10-13 00:00:00 40.8 kg/m2 [facility] BP Systolic 2022-10-13 00:00:00 149 mm[Hg] [facility] Body Weight 2022-10-13 00:00:00 3346 [oz_av] [facility] Systolic blood pressure 2022-09-28 16:12:00 137 mm[Hg] [facility] Diastolic blood pressure 2022-09-28 16:12:00 73 mm[Hg] [facility] Heart rate 2022-09-28 16:12:00 88 /min [facility] Body temperature 2022-09-28 16:12:00 37.11 [facility] Body height 2022-09-28 16:12:00 149.9 cm [facility] Body weight 2022-09-28 16:12:00 92.761 kg [facility] BMI 2022-09-28 16:12:00 41.30 kg/m2 [facility] Oxygen saturation in Arterial blood by Pulse oximetry 2022-09-28 16:12:00 95 /min [facility] BP Diastolic 2022-09-26 00:00:00 69 mm[Hg] [facility] Height 2022-09-26 00:00:00 60 [in_i] [facility] BMI (Body Mass Index) 2022-09-26 00:00:00 39.8 kg/m2 [facility] BP Systolic 2022-09-26 00:00:00 104 mm[Hg] [facility] Body Weight 2022-09-26 00:00:00 3264 [oz_av] [facility] Systolic blood pressure 2022-09-18 21:45:00 112 mm[Hg] [facility] Diastolic blood pressure 2022-09-18 21:45:00 69 mm[Hg] [facility] Respiratory rate 2022-09-18 21:45:00 20 /min [facility] Oxygen saturation in Arterial blood by Pulse oximetry 2022-09-18 21:45:00 92 /min [facility] Heart rate 2022-09-18 20:50:00 91 /min [facility] Body temperature 2022-09-18 20:50:00 36 [facility] Body height 2022-09-18 15:22:00 149.9 cm [facility] Body weight 2022-09-18 15:22:00 92.2 kg [facility] BMI 2022-09-18 15:22:00 41.05 kg/m2 [facility] Systolic blood pressure 2022-09-18 15:22:00 122 mm[Hg] [facility] Diastolic blood pressure 2022-09-18 15:22:00 63 mm[Hg] [facility] Heart rate 2022-09-18 15:22:00 86 /min [facility] Body temperature 2022-09-18 15:22:00 36.44 Sonya Temp rechecked orally [facility] Respiratory rate 2022-09-18 15:22:00 18 /min [facility] Body height 2022-09-18 15:22:00 149.9 cm [facility] Body weight 2022-09-18 15:22:00 92.2 kg [facility] BMI 2022-09-18 15:22:00 41.05 kg/m2 [facility] Oxygen saturation in Arterial blood by Pulse oximetry 2022-09-18 15:22:00 93 /min [facility] Systolic blood pressure 2022-09-03 16:37:00 138 mm[Hg] [facility] Diastolic blood pressure 2022-09-03 16:37:00 84 mm[Hg] [facility] Heart rate 2022-09-03 16:37:00 77 /min [facility] Oxygen saturation in Arterial blood by Pulse oximetry 2022-09-03 16:37:00 96 /min [facility] Body temperature 2022-09-03 16:36:00 36.67 [facility] Respiratory rate 2022-09-03 16:36:00 17 /min [facility] Body height 2022-09-03 16:36:00 149.9 cm [facility] Body weight 2022-09-03 16:36:00 92.035 kg [facility] BMI 2022-09-03 16:36:00 40.98 kg/m2 [facility] Systolic blood pressure 2022-08-31 15:54:00 116 mm[Hg] [facility] Diastolic blood pressure 2022-08-31 15:54:00 71 mm[Hg] [facility] Heart rate 2022-08-31 15:54:00 76 /min [facility] Body temperature 2022-08-31 15:54:00 36.94 [facility] Respiratory rate 2022-08-31 15:54:00 12 /min [facility] Body height 2022-08-31 15:54:00 149.9 cm [facility] Body weight 2022-08-31 15:54:00 92.035 kg [facility] BMI 2022-08-31 15:54:00 40.98 kg/m2 [facility] Oxygen saturation in Arterial blood by Pulse oximetry 2022-08-31 15:54:00 98 /min [facility] Systolic blood pressure 2022-08-17 19:28:00 130 mm[Hg] [facility] Diastolic blood pressure 2022-08-17 19:28:00 85 mm[Hg] [facility] Heart rate 2022-08-17 19:28:00 81 /min [facility] Body temperature 2022-08-17 19:28:00 36.83 [facility] Body height 2022-08-17 19:28:00 149.9 cm [facility] Body weight 2022-08-17 19:28:00 90.81 kg [facility] BMI 2022-08-17 19:28:00 40.44 kg/m2 [facility] Oxygen saturation in Arterial blood by Pulse oximetry 2022-08-17 19:28:00 96 /min [facility] Oxygen saturation in Arterial blood by Pulse oximetry 2022-08-04 13:50:00 96 /min [facility] Heart rate 2022-08-04 13:00:00 82 /min [facility] Body temperature 2022-08-04 13:00:00 36.72 [facility] Respiratory rate 2022-08-04 13:00:00 22 /min [facility] Systolic blood pressure 2022-08-04 10:50:00 130 mm[Hg] [facility] Diastolic blood pressure 2022-08-04 10:50:00 75 mm[Hg] [facility] Body height 2022-08-04 10:50:00 149.9 cm [facility] Body weight 2022-08-04 10:50:00 91 kg [facility] BMI 2022-08-04 10:50:00 40.52 kg/m2 [facility] Oxygen saturation in Arterial blood by Pulse oximetry 2022-08-04 13:50:00 96 /min [facility] Heart rate 2022-08-04 13:00:00 82 /min [facility] Body temperature 2022-08-04 13:00:00 36.72 [facility] Respiratory rate 2022-08-04 13:00:00 22 /min [facility] Systolic blood pressure 2022-08-04 10:50:00 130 mm[Hg] [facility] Diastolic blood pressure 2022-08-04 10:50:00 75 mm[Hg] [facility] Body height 2022-08-04 10:50:00 149.9 cm [facility] Body weight 2022-08-04 10:50:00 91 kg [facility] BMI 2022-08-04 10:50:00 40.52 kg/m2 [facility] Body height 2022-07-31 18:46:00 149.9 cm [facility] Body weight 2022-07-31 18:46:00 91.8 kg [facility] BMI 2022-07-31 18:46:00 40.88 kg/m2 [facility] Systolic blood pressure 2022-05-18 13:29:00 111 mm[Hg] [facility] Diastolic blood pressure 2022-05-18 13:29:00 68 mm[Hg] [facility] Heart rate 2022-05-18 13:29:00 78 /min [facility] Body temperature 2022-05-18 13:29:00 37.22 [facility] Respiratory rate 2022-05-18 13:29:00 18 /min [facility] Body height 2022-05-18 13:29:00 149.9 cm [facility] Body weight 2022-05-18 13:29:00 91.763 kg [facility] BMI 2022-05-18 13:29:00 40.86 kg/m2 [facility] Oxygen saturation in Arterial blood by Pulse oximetry 2022-05-18 13:29:00 95 /min [facility] Systolic blood pressure 2022-05-18 13:29:00 111 mm[Hg] [facility] Diastolic blood pressure 2022-05-18 13:29:00 68 mm[Hg] [facility] Heart rate 2022-05-18 13:29:00 78 /min [facility] Body temperature 2022-05-18 13:29:00 37.22 [facility] Respiratory rate 2022-05-18 13:29:00 18 /min [facility] Body height 2022-05-18 13:29:00 149.9 cm [facility] Body weight 2022-05-18 13:29:00 91.763 kg [facility] BMI 2022-05-18 13:29:00 40.86 kg/m2 [facility] Oxygen saturation in Arterial blood by Pulse oximetry 2022-05-18 13:29:00 95 /min [facility] Body height 2021-11-20 16:40:00 149.9 cm [facility] Body weight 2021-11-20 16:40:00 92.08 kg [facility] BMI 2021-11-20 16:40:00 41.00 kg/m2 [facility] Procedures Procedure Date / Time Performed Performing Clinician Source AMANDA,POST-VOID RES,US,NON-IMAGING 2025-06-25 20:52:00 [facility] unlisted imaging order 2025-05-02 00:00:[address] [facility] [address], abdomen + pelvis, w/ contrast 2024-12-16 00:00:00 [facility] REFERRAL- REQUEST/RESPONSE 2024-04-26 00:09:07 D octor Unassigned, [facility] AMANDA,POST-VOID RES,US,NON-IMAGING 2024-02-22 15:38:00 [facility] Hysterectomy 2024-02-21 00:00:00 [facility] URINE CULTURE 2024-02-18 16:51:00 [facility] POCT GLUCOSE (AUTOMATED) 2024-02-04 17:25:00 [facility]) 2024-02-04 17:25:00 MelaraVaishali sheldon [facility] POCT GLUCOSE (AUTOMATED) 2024-02-04 13:40:00 MelaraVaishali sheldon [facility] POCT GLUCOSE (AUTOMATED) 2024-02-04 13:40:00 Vaishali Melara [facility] CBC WITH DIFF 2024-02-04 10:04:00 [facility] CBC WITH DIFF 2024-02-04 10:04:00 Nina Moyer [facility] POCT GLUCOSE (AUTOMATED) 2024-02-04 03:22:00 MelaraVaishali sheldon [facility] POCT GLUCOSE (AUTOMATED) 2024-02-04 03:22:00 Vaishali Melara [facility] POCT GLUCOSE (AUTOMATED) 2024-02-03 23:55:00 Vaishali Melara [facility] POCT GLUCOSE (AUTOMATED) 2024-02-03 23:55:00 Vaishali Melara [facility] LAPAROSCOPIC TOTAL ABDOMINAL HYSTERECTOMY 2024-02-03 20:24:00 [facility]ST[facility]RETHROSCOPY 2024-02-03 20:24:00 Graham Melara [facility] LAPAROSCOPIC TOTAL ABDOMINAL HYSTERECTOMY 2024-02-03 20:24:00 [facility]ST[facility]THROS[facility] 2024-02-03 20:24:00 [facility] HB ABO GROUPING 2024-02-03 18:17:00 Graham Melara [facility] HB ABO GROUPING 2024-02-03 18:17:00 Graham Melara [facility] POCT GLUCOSE (AUTOMATED) 2024-02-03 17:59:00 Kelton Vaishali [facility] POCT GLUCOSE (AUTOMATED) 2024-02-03 17:59:00 Vaishali Mel[facility] POCT TEST 2024-02-03 17:53:00 Graham Melara [facility] POCT TEST 2024-02-03 17:53:00 Graham Melara [facility] Procedure on Uterus 2024-02-03 00:00:00 M sultana Sanabria [facility] DISCLOSURE AND CONSENT, MEDICAL AND SURGICAL PROCEDURES 2024-01-28 05:01:00 Doctor Unassigned, [facility] REFERRAL- REQUEST/RESPONSE 2023-12-22 06:01:00 D octor Unassigned, [facility] XR, foot 2023-12-22 00:00:00 [facility] AMANDA,POST-VOID RES,US,NON-IMAGING 2023-11-30 17:19:00 [facility] BI AXILLARY ULTRASOUND LEFT 2023-11-05 19:29:25 [facility] XR SHOULDER <2 VW LEFT 2023-10-21 15:26:07 Theron [facility] REFERRAL- REQUEST/RESPONSE 2023-10-21 06:01:00 D octor Unassigned, [facility] MR ABDOMEN W WO CONTRAST MRCP 2023-08-19 19:10:00 Marita [facility] POCT URINALYSIS W/O SPECIFIC GRAVITY 2023-07-26 00:00:00 Sonja [facility] EXTERNAL PROVIDER RECORDS 2023-07-22 05:01:00 Do ctor Unassigned, [facility] MRI, brain + pituitary, w/wo contrast 2023-05-06 00:00:00 [facility] AUTHORIZATION FOR RELEASE OF PHI 2023-02-22 05:01:00 Doctor Unassigned, [facility] AUTHORIZATION FOR RELEASE OF PHI 2022-12-11 06:01:00 Doctor Unassigned, [facility] URINE CULTURE 2022-11-09 16:23:00 [place] [facility] NM, gastric emptying scan 2022-09-26 00:00:00 [facility] RF, upper gastrointestinal tract, w/ contrast PO 2022-09-26 00:00:00 [facility] POCT GLUCOSE (AUTOMATED) 2022-09-18 20:52:00 [facility] POCT GLUCOSE (AUTOMATED) 2022-09-18 20:52:00 Alli [facility] SURGICAL PATHOLOGY EXAM 2022-09-18 20:31:00 Shan [facility] EXAM UNDER ANESTHESIA 2022-09-18 19:23:00 Garima [facility] VAGINAL BIOPSY 2022-09-18 19:23:00 [facility] 2022-09-18 15:49:00 [facility] POCT GLUCOSE (AUTOMATED) 2022-09-18 15:49:00 [facility] ASSIGNMENT OF BENEFITS 2022-09-18 15:13:30 Docto r Unassigned, [facility] DISCLOSURE AND CONSENT, MEDICAL AND SURGICAL PROCEDURES 2022-09-03 05:01:00 Doctor Unassigned, [facility] MR ABDOMEN W WO CONTRAST 2022-09-02 14:49:41 [facility] ASSIGNMENT OF BENEFITS 2022-08-17 19:02:34 Docto r Unassigned, [facility] DILATION AND CURETTAGE 2022-08-04 12:00:00 Aretha [facility] EXAM UNDER ANESTHESIA 2022-08-04 12:00:00 Garima [facility] BASIC METABOLIC PANEL (NA, K, CL, CO2, GLUCOSE, BUN, CREATININE, CA) 2022-08-04 11:40:00 Bebo [facility] BASIC METABOLIC PANEL (NA, K, CL, CO2, GLUCOSE, BUN, CREATININE, CA) 2022-08-04 11:40:00 Rob [facility] HB ABO GROUPING 2022-08-04 11:38:00 Bebo [facility] HB ABO GROUPING 2022-08-04 11:38:00 [place] [facility] ASSIGNMENT OF BENEFITS 2022-08-04 10:20:13 Docto r Unassigned, [facility] POCT TEST 2022-08-04 00:00:00 Do, [facility] PO[facility] TEST 2022-08-04 00:00:00 Do, Clark U [facility] CT, chest, w/ contrast 2022-02-14 00:00:00 [facility] US, spleen 2021-09-15 00:00:00 [facility] US, kidney 2021-09-15 00:00:00 [facility] XR, ankle 2021-08-02 00:00:00 [facility] XR, foot 2021-01-08 00:00:00 [facility] XR, knee, 3 view 2019-05-01 00:00:00 [facility] Colonoscopy 2013-11-08 00:00:00 [facility] Cystourethroscopy [facility] Colonoscopy Thru Stoma Spx [facility] Egd [facility] Delivery [facility] Lap Cholecystectomy [facility] Laparoscopy Appendectomy [facility] Other [facility] Removal of Ovary(s) [facility] Remove Tonsils and Adenoids [facility] Procedure on Cervix [facility] Plan of Care Planned Activity Planned Date Details Comments Source Encounters Start Date/Time End Date/Time Encounter Type Admission Type Attending Clinicians Care Facility Care Department Encounter ID Source 2023-06-07 11:00:00 Inpatient Luis Maxwell [facility] [id number] [facility] 2023-05-14 09:00:00 Inpatient Luis Maxwell [facility] [id number] [facility] 2023-01-08 11:08:05 Outpatient SYSTEM, PROVIDER ZION DONOVAN [id number] MD Fina barreto 2022-10-20 10:30:00 Inpatient LUIS MAXWELL [facility] [id number] [facility] 2022-10-15 08:00:00 Inpatient Luis Maxwell [facility] [id number] [facility] 2022-10-09 12:21:05 Outpatient SYSTEM, PROVIDER ZION DONOVAN [id number] MD Fina barreto 2022-05-19 12:37:30 Outpatient R PHILL OSBORN [facility] TRAFFIC INVESTIGATOR [id number] [facility] 2022-01-06 17:06:26 Outpatient ZION DONOVAN [id number] MD Fina barreto 2021-12-11 17:52:22 Outpatient ZION DONOVAN [id number] MD Fina barreto 2021-12-03 13:08:05 Outpatient STLMLC STLMLC [id number] [facility] 2021-12-03 13:07:46 Outpatient STLMLC STLMLC [id number] [facility] 2021-12-03 12:38:27 Outpatient STLMLC STLMLC [id number] [facility] 2021-11-17 08:18:54 Outpatient R GRAHAM MELARA [facility] TRAFFIC INVESTIGATOR [id number] [facility] 2021-11-14 11:36:06 Outpatient R GRAHAM MELARA [facility] TRAFFIC INVESTIGATOR [id number] [facility] 2021-10-23 15:45:02 Outpatient JAMIE GRADY [facility] [id number] [facility] 2021-09-08 14:45:12 Outpatient R PERFECTO MELTON [facility] TRAFFIC INVESTIGATOR [id number] [facility] 2026-01-22 11:00:00 2026-01-22 11:00:00 Outpatient David DAVE [place] [facility] [id number] [facility] 2025-07-05 00:00:00 2025-07-05 00:00:00 Outpatient David [facility] [id number] [facility] 2025-07-03 00:00:00 2025-07-04 09:24:04 Patient Secure Gil Cartwright [facility] ([facility]) 1.2.840.114 350.1.13.10 4.2.7.2.686 [id number] [facility] 2025-06-28 00:00:00 2025-06-28 10:21:24 Patient Secure Gil Cartwright [facility] ([facility]) 1.2.840.114 350.1.13.10 4.2.7.2.686 [id number] [facility] 2025-06-27 00:00:00 2025-06-27 09:03:48 Letter (Out) Luis Nash [facility] ([facility]) 1.2.840.114 350.1.13.10 4.2.7.2.686 [id number] [facility] 2025-06-25 16:00:00 2025-06-25 16:15:00 Office Visit Virginia Koo [facility] 1.2.840.114 350.1.13.10 4.2.7.2.686 [id number] [facility] 2025-06-19 11:56:00 2025-06-19 11:56:00 Outpatient LUIS MAXWELL [facility] [id number] [facility] 2025-06-18 13:57:00 2025-06-18 13:57:00 Outpatient CR JonesNASH, LUIS [facility] [id number] [facility] 2025-05-30 11:00:00 2025-05-30 11:00:00 Outpatient BENSON RIGGINS [facility] [id number] [facility] 2025-05-28 07:36:00 2025-05-28 07:36:00 Outpatient JULIA RMAESH [facility] [id number] [facility] 2025-04-18 00:00:00 2025-05-19 18:31:19 Patient Secure Msg Doctor Unassigned, [place] Doctor Unassigned, [place] [facility] 1.2.840.114 350.1.13.10 4.2.7.2.686 [id number] [facility] 2025-05-08 00:00:00 2025-05-08 00:00:00 Luis Nash MD: [address] [address] , Ph. [facility] Satellite/F [facility] Practice [address] [facility] 2025-05-02 00:00:00 2025-05-02 00:00:00 Julia Benjamin, COMPLIANCE ADVISOR: [address], [address], [place] [address] , [address] [facility] 25 [facility] 2025-04-27 11:20:00 2025-04-27 11:20:00 Outpatient BENSON RIGGINS [facility] [id number] [facility] 2025-04-24 00:00:00 2025-04-24 00:00:00 Julia Benjamin, COMPLIANCE ADVISOR: [address], [address], [place] [address] , Ph. [facility] 06[address] [facility] 2025-04-23 11:30:00 2025-04-23 11:30:00 Outpatient VIRGINIA KOO [facility] [id number] [facility] 2025-04-20 00:00:00 2025-04-20 00:00:00 Outpatient MARITA GUPTA MARITA [facility] [id number] [facility] 2025-04-20 00:00:00 2025-04-20 00:00:00 Outpatient David CALDERON MARITA SEJAL MARITA [facility] [id number] [facility] 2025-04-07 00:00:00 2025-04-07 00:00:00 Julia Benjamin, COMPLIANCE ADVISOR: [address], [address], [place] [address] , [address] [facility] 05[address] [facility] 2025-03-27 11:00:00 2025-03-27 11:00:00 Outpatient NORA MARTIN IRENE [facility] [id number] [facility] 2025-03-26 16:15:00 2025-03-26 16:15:00 Outpatient VIRGINIA KOO [facility] [id number] [facility] 2025-03-21 13:00:00 2025-03-21 13:00:00 Outpatient David CALDERON MARITAELISABETH CALDERON MARITA [facility] [id number] [facility] 2025-03-06 13:13:00 2025-03-06 13:13:00 Outpatient LUIS MAXWELL [facility] [id number] [facility] 2025-03-05 16:30:00 2025-03-05 16:30:00 Outpatient VIRGINIA KOO [facility] [id number] [facility] 2025-03-01 00:00:00 2025-03-01 00:00:00 Luis Nash MD: [place] [address] , Ph. [facility] Sat[facility]F amily Practice 04[address] [facility] 2025-02-19 00:00:00 2025-02-23 13:32:10 Telephone Bill Nora MOE [facility] 1.2.840.114 350.1.13.10 4.2.7.2.686 [id number] [facility] 2025-02-17 00:00:00 2025-02-17 00:00:00 Outpatient MARITA GUPTA NABIHA [facility] [id number] [facility] 2025-02-05 00:00:00 2025-02-05 00:00:00 Luis Nash MD: [place] [address] , [facility]. [facility] [address] [facility] 2025-02-02 13:30:00 2025-02-02 13:30:00 Outpatient AVELINA VANESSA [facility] [id number] [facility] 2025-01-25 00:00:00 2025-01-25 00:00:00 Luis Nash MD: [place] [address] , [facility]. [facility] 0320 [facility] 2025-01-23 14:15:00 2025-01-23 14:15:00 Outpatient BRIAN LOPEZ [facility] [id number] [facility] 2025-01-22 08:00:00 2025-01-22 08:40:38 Outpatient David VIRGINIA DAVE [facility] [id number] [facility] 2025-01-19 12:40:56 2025-01-19 23:59:00 Outpatient R MARITA CALDERON NABIHA [facility] [id number] [facility] 2025-01-16 09:15:00 2025-01-16 10:51:47 Outpatient AVELINA VANESSA [facility] [id number] [facility] 2025-01-15 00:00:00 2025-01-15 00:00:00 SAVANA GalarzaC: [address], [address], [place] [address] , Ph. [facility] 0310 [facility] 2025-01-09 16:00:00 2025-01-09 16:00:00 Outpatient David DAVE [place] [facility] [id number] [facility] 2025-01-04 15:53:00 2025-01-04 15:53:00 Outpatient JULIA RMAESH [facility] [id number] [facility] 2025-01-04 10:30:00 2025-01-04 10:30:00 Outpatient HILARIO DANGELO [facility] [id number] [facility] 2025-01-04 00:00:00 2025-01-04 00:00:00 Julia Benjamin, COMPLIANCE ADVISOR: [address], [address], [place] [address] , [address] [facility] 0[address] [facility] 2024-12-27 13:45:00 2024-12-27 13:45:00 Outpatient JELANI REY [facility] [id number] [facility] 2024-12-26 14:14:00 2024-12-26 14:14:00 Outpatient JULIA RAMESH [facility] [id number] [facility] 2024-12-26 00:00:00 2024-12-26 00:00:00 Julia Poonkins, COMPLIANCE ADVISOR: [address], [place] [address] , [address] [facility] 217 [facility] 2024-04-25 00:00:00 2024-12-23 07:30:20 Orders Only Doctor Unassigned, [place] Doctor Unassigned, [place] [facility] 1.2.840.114 350.1.13.10 4.2.7.2.686 [id number] [facility] 2018-08-24 00:00:00 2024-12-23 03:14:14 Orders Only Sourav Melara [facility] ([facility]) 1.2.840.114 350.1.13.10 4.2.7.2.686 [id number] [facility] 2024-12-21 00:00:00 2024-12-21 00:00:00 Julia Hornsorin Benjamin, COMPLIANCE ADVISOR: [address], [place] [address] , Ph. [facility] 212 [facility] 2024-12-19 14:15:00 2024-12-19 14:15:00 Outpatient JELANI REY [facility] [id number] [facility] 2024-12-19 00:00:00 2024-12-19 00:00:00 Julia Corea William, COMPLIANCE ADVISOR: [address], [place] [address] , Ph. [facility] 02[address] [facility] 2024-12-18 13:07:00 2024-12-18 13:07:00 Outpatient JULIA LUNA [facility] [id number] [facility] 2024-12-16 17:21:00 2024-12-16 17:21:00 Outpatient JULIA LUNA [facility] [id number] [facility] 2024-12-16 00:00:00 2024-12-16 00:00:00 Julia Nahomy William, COMPLIANCE ADVISOR: [address], [address], [place] [address] , [address] [facility] 207 [facility] 2024-12-14 00:00:00 2024-12-14 00:00:00 Julia Benjamin, COMPLIANCE ADVISOR: [address], [place] [id number] , Ph[address] [facility] 205 [facility] 2024-11-28 10:30:00 2024-11-28 10:30:00 Outpatient JELANI REY [facility] [id number] [facility] 2024-11-23 00:00:00 2024-11-23 00:00:00 Luis Nash MD: [place] [address] , [facility]. [facility] [address] [facility] 2024-10-26 00:00:00 2024-10-26 00:00:00 Luis Nash MD: Rambo Mccauley, [place] [address] , Ph. [facility] [address] [facility] 2024-09-22 00:00:00 2024-10-12 16:22:09 Virginia Isabel [facility] MED[facility] BUILDING 1.2.840.114 350.1.13.10 4.2.7.2.686 [id number] [facility] 2024-09-29 14:40:00 2024-09-29 15:59:30 Outpatient R GRAHAM MELARA STVEENSON [facility] [id number] [facility] 2024-09-29 14:40:00 2024-09-29 15:59:30 [facility] 1.2.840.114 350.1.13.10 4.2.7.2.686 [id number] [facility] 2024-09-28 00:00:00 2024-09-28 00:00:00 Luis Nash MD: [address] [place] [address] , Ph. [facility] [place] - Satellite/F amily Practice [address] [facility] 2024-09-26 08:49:00 2024-09-26 08:49:00 Outpatient LUIS MAXWELL [facility] [id number] [facility] 2024-09-18 10:15:00 2024-09-18 10:40:21 Outpatient R JELANI OLIVERA [facility] [id number] [facility] 2024-09-18 10:15:00 2024-09-18 10:40:21 Office Visit Jelani Olivera [facility] ([facility]) 1.2.840.114 350.1.13.10 4.2.7.2.686 [id number] [facility] 2024-09-01 13:00:00 2024-09-01 14:46:03 Outpatient R GRAHAM MELARA TRUONG [facility] [id number] [facility] 2024-09-01 13:00:00 2024-09-01 14:46:03 Office Visit Graham Melara [facility] MEDICAL OFFICE BUILDING 1.2.840.114 350.1.13.10 4.2.7.2.686 [id number] [facility] 2024-08-28 16:16:00 2024-08-28 16:16:00 Outpatient LUIS MAXWELL [facility] [id number] [facility] 2024-08-28 00:00:00 2024-08-28 00:00:00 Luis Nash MD: [address] [place] [address] , Ph. G [facility] Satellite/F [facility] Practice [id number] 10[address] [facility] 2024-08-26 00:00:00 2024-08-26 15:24:02 Janineill Tenzin [place] [facility] MEDICAL OFFICE BUILDING 1.2.840.114 350.1.13.10 4.2.7.2.686 [id number] [facility] 2024-08-25 14:30:00 2024-08-25 14:58:37 Outpatient R CHIARA LANI [facility] [id number] [facility] 2024-08-25 14:30:00 2024-08-25 14:58:37 Office Visit Chiara Dima [facility] ([facility]) 1.2.840.114 350.1.13.10 4.2.7.2.686 [id number] [facility] 2024-07-18 00:00:00 2024-08-19 18:19:55 Patient Secure Msg Doctor Unassigned, [place] Doctor Unassigned, [place] [facility] OFFICE BUILDING 1.2.840.114 350.1.13.10 4.2.7.2.686 [id number] [facility] 2024-07-08 12:19:00 2024-07-08 12:19:00 Outpatient JULIA RAMESH [facility] [id number] [facility] 2024-07-08 00:00:00 2024-07-08 00:00:00 Julia Benjamin, COMPLIANCE ADVISOR: [address], [place] [id number] , Ph. [facility] 8[address] [facility] 2024-06-09 09:20:00 2024-06-09 09:20:00 Outpatient MARITA GUPTA NABIHA [facility] [id number] [facility] 2024-05-18 00:00:00 2024-05-18 00:00:00 ALYSHA TejedaC: [address], [address], [place] [id number] , Ph. [facility] 11 [facility] 2024-04-25 00:00:00 2024-04-25 00:00:00 Luis Nash MD: [address] [place] [address] , Ph. [facility] Satellite/F [facility] Practice 18 [facility] 2024-04-07 11:40:00 2024-04-07 11:40:00 Outpatient GRAHAM HILL [facility] [id number] [facility] 2024-03-31 10:40:00 2024-03-31 10:40:00 Outpatient R GRAHAM MELARA [facility] [id number] [facility] 2024-02-22 10:15:00 2024-02-22 10:49:31 [facility] [id number] [facility] 2024-02-22 10:15:00 2024-02-22 10:49:31 [facility] 1.2.840.114 350.1.13.10 4.2.7.2.686 [id number] [facility] 2024-02-22 00:00:00 2024-02-22 00:00:00 Telephone MelaraGraham sheldon [facility] 1.2.840.114 350.1.13.10 4.2.7.2.686 [id number] [facility] 2024-02-18 10:40:00 2024-02-18 11:25:57 Outpatient R GRAHAM MELARA [facility] [id number] [facility] 2024-02-18 10:40:00 2024-02-18 11:25:57 Office Visit Graham Melara [facility] MEDICAL OFFICE BUILDING 1.2.840.114 350.1.13.10 4.2.7.2.686 [id number] [facility] 2024-02-09 09:30:00 2024-02-09 09:30:00 Outpatient R NADYA CRAIG [facility] [id number] [facility] 2024-02-03 11:41:00 2024-02-04 15:00:00 Outpatient R MELARA, GRAHAM [facility] TRAFFIC INVESTIGATOR [id number] [facility] 2024-02-03 11:41:00 2024-02-04 15:00:00 [facility] 1.2.840.114 350.1.13.10 4.2.7.2.686 [id number] [facility] 2024-02-03 14:32:00 2024-02-03 18:52:00 Surgery Melara, [facility] ([facility]) 1.2.840.114 350.1.13.10 4.2.7.2.686 [id number] [facility] 2024-02-02 10:00:00 2024-02-02 10:30:00 Nurse Visit Nurse, [facility] MEDICAL OFFICE BUILDING 1.2.840.114 350.1.13.10 4.2.7.2.686 [id number] [facility] 2024-02-02 10:00:00 2024-02-02 10:00:00 Outpatient R [facility] [id number] [facility] 2024-01-28 12:45:00 2024-01-28 13:00:00 Office Copy Selector Visit Draw, [facility] 1.2.840.114 350.1.13.10 4.2.7.2.686 [id number] [facility] 2024-01-28 12:45:00 2024-01-28 12:45:00 Outpatient R KELTON [facility] [id number] [facility] 2024-01-28 11:00:00 2024-01-28 12:00:00 Office Visit Kelton [facility] MEDICAL OFFICE BUILDING 1.2.840.114 350.1.13.10 4.2.7.2.686 [id number] [facility] 2024-01-28 00:00:00 2024-01-28 00:00:00 Orders Only Doctor Unassigned, [place] [facility] 1.2.840.114 350.1.13.10 4.2.7.2.686 [id number] [facility] 2024-01-26 10:00:00 2024-01-26 10:00:00 Outpatient R [facility] [id number] [facility] 2024-01-26 00:00:00 2024-01-26 00:00:00 Telephone Nurse, Ya Urology [facility] MEDICAL OFFICE BUILDING 1.2.840.114 350.1.13.10 4.2.7.2.686 [id number] [facility] 2024-01-24 00:00:00 2024-01-24 00:00:00 Luis Nash MD: [address] [place] [address] , Ph. [facility] Satellite/F [facility] Practice [id number] [facility] 2024-01-19 10:00:00 2024-01-19 10:00:00 Outpatient R [facility] [id number] [facility] 2024-01-12 10:00:00 2024-01-12 10:30:00 Nurse Visit Nurse, [facility] MEDICAL OFFICE BUILDING 1.2.840.114 350.1.13.10 4.2.7.2.686 [id number] [facility] 2024-01-12 10:00:00 2024-01-12 10:00:00 [facility] [id number] [facility] 2024-01-10 10:00:00 2024-01-10 10:40:18 Outpatient R YUE JACKSON [facility] [id number] [facility] 2024-01-10 10:00:00 2024-01-10 10:40:18 Office Visit Yue Jackson [facility] MARISOL [facility] NAL BUILDING 1.2.840.114 350.1.13.10 4.2.7.2.686 [id number] [facility] 2024-01-04 14:52:00 2024-01-04 14:52:00 Outpatient LUIS MAXWELL [facility] [id number] [facility] 2024-01-03 10:00:00 2024-01-03 10:00:00 Outpatient R [facility] [id number] [facility] 2023-12-29 10:00:00 2023-12-29 10:30:00 Nurse Visit Nurse, Ya Urology [facility] OFFICE BUILDING 1.2.840.114 350.1.13.10 4.2.7.2.686 [id number] [facility] 2023-12-29 10:00:00 2023-12-29 10:00:00 Outpatient R [facility] [id number] [facility] 2023-12-22 09:30:00 2023-12-22 10:00:00 Nurse Visit Nurse, Ya Urology [facility] MEDICAL OFFICE BUILDING 1.2.840.114 350.1.13.10 4.2.7.2.686 [id number] [facility] 2023-12-22 09:30:00 2023-12-22 09:30:00 Outpatient R [facility] [id number] [facility] 2023-12-22 00:00:00 2023-12-22 00:00:00 [facility] 1.2.840.114 350.1.13.10 4.2.7.2.686 [id number] [facility] 2023-12-22 00:00:00 2023-12-22 00:00:00 Orders Only Doctor Unassigned, [place] [facility] 1.2840.114 350.1.13.10 4.2.7.2.686 [id number] [facility] 2023-12-22 00:00:00 2023-12-22 00:00:00 Luis Nash MD: [address], [place] [address] , Ph. [facility] - Satellite/F [facility] Practice [id number] [facility] 2023-12-21 13:00:00 2023-12-21 13:00:00 Outpatient YUE LYNN [facility] [id number] [facility] 2023-12-17 16:00:00 2023-12-17 16:00:00 Outpatient GRAHAM HILL [facility] [id number] [facility] 2023-12-17 00:00:00 2023-12-17 00:00:00 Telephone Graham Melara [facility] BUILDING 1.2840.114 350.1.13.10 4.2.7.2.686 [id number] 095 [id number] [facility] 2023-12-15 11:45:00 2023-12-15 12:00:00 Office Copy Selector Visit Draw, Ya-Bls Lab [facility] BUILDING 1.2.840.114 350.1.13.10 4.2.7.2.686 [id number] [facility] 2023-12-15 10:30:00 2023-12-15 11:00:00 Nurse Visit Nurse, Ya Urology [facility] BUILDING 1.2.840.114 350.1.13.10 4.2.7.2.686 [id number] [facility] 2023-12-15 10:30:00 2023-12-15 10:30:00 Outpatient R [facility] [id number] [facility] 2023-12-15 00:00:00 2023-12-15 00:00:00 Case [facility] 1.2.840.114 350.1.13.10 4.2.7.2.686 [id number] [facility] 2023-12-09 00:00:00 2023-12-09 00:00:00 Case Management [facility] 1.2.840.114 350.1.13.10 4.2.7.2.686 [id number] [facility] 2023-12-08 09:30:00 2023-12-08 10:00:00 Nurse Visit Nurse, Clc Urology Tenzin [facility] MEDICAL OFFICE BUILDING 1.2.840.114 350.1.13.10 4.2.7.2.686 [id number] [facility] 2023-12-08 09:30:00 2023-12-08 09:30:00 Outpatient R [facility] [id number] [facility] 2023-11-30 11:45:00 2023-11-30 12:00:00 Office Visit Tenzin [facility] MEDICAL OFFICE BUILDING 1.2.840.114 350.1.13.10 4.2.7.2.686 [id number] [facility] 2023-11-30 11:45:00 2023-11-30 11:45:00 Outpatient R [facility] [id number] [facility] 2023-11-17 14:00:00 2023-11-17 14:00:00 Outpatient YUE LYNN [facility] [id number] [facility] 2023-11-17 00:00:00 2023-11-17 00:00:00 Telephone Yue Jackson [facility] BUILDING 1.2.840.114 350.1.13.10 4.2.7.2.686 [id number] [facility] 2023-11-09 14:45:00 2023-11-09 14:45:00 Outpatient R CHIQUITA EDWARD [facility] [id number] [facility] 2023-11-09 00:00:00 2023-11-09 00:00:00 Telephone Yue Jackson [facility] 1.2.840.114 350.1.13.10 4.2.7.2.686 [id number] [facility] 2023-11-05 12:34:29 2023-11-05 23:59:00 Outpatient R MARITA CALDERON [facility] [id number] [facility] 2023-11-05 12:34:29 2023-11-05 23:59:00 Hospital Encounter Marita Calderon [facility] 1.2.840.114 350.1.13.10 4.2.7.2.686 [id number] [facility] 2023-11-03 13:06:57 2023-11-03 23:59:00 Hospital Encounter Yue Jackson [facility] 1.2.840.114 350.1.13.10 4.2.7.2.686 [id number] [facility] 2023-11-03 13:00:00 2023-11-03 13:05:00 Outpatient R YUE JACKSON [facility] [id number] [facility] 2023-11-03 13:00:00 2023-11-03 13:05:00 Hospital Encounter Yue Jackson [facility] BUILDING 1.840.114 350.1.13.10 4.2.7.2.686 [id number] [facility] 2023-10-29 00:00:00 2023-10-29 00:00:00 Patient Secure Msg Doctor Unassigned, [place] [facility] 1..114 350.1.13.10 4.2.7.2.686 [id number] [facility] 2023-10-28 00:00:00 2023-10-28 00:00:00 Telephone Yue Jackson [facility] BUILDING 1.84.114 350.1.13.10 4.2.7.2.686 [id number] [facility] 2023-10-26 08:45:00 2023-10-26 08:45:00 Outpatient R CHIQUITA EDWARD [facility] [id number] [facility] 2023-10-21 09:18:29 2023-10-21 23:59:00 Hospital Encounter Joseph Garcia [facility] MEDICAL OFFICE BUILDING 1..840.114 350.1.13.10 4.2.7.2.686 [id number] [facility] 2023-10-21 09:30:00 2023-10-21 09:41:43 Outpatient R JOSEPH GARCIA CRAIG [facility] [id number] [facility] 2023-10-21 09:30:00 2023-10-21 09:41:43 Office Visit Joseph Garcia [facility] MEDICAL OFFICE BUILDING 1..840.114 350.1.13.10 4.2.7.2.686 [id number] [facility] 2023-10-21 00:00:00 2023-10-21 00:00:00 Orders Only Doctor Unassigned, [place] [facility] 1.2840.114 350.1.13.10 4.2.7.2.686 [id number] [facility] 2023-10-13 00:00:00 2023-10-13 00:00:00 Telephone Chiquita Edward [facility] 1.20.114 350.1.13.10 4.2.7.2.686 [id number] [facility] 2023-10-08 14:20:00 2023-10-08 15:01:46 Outpatient R GRAHAM MELARA [facility] [id number] [facility] 2023-10-08 14:20:00 2023-10-08 15:00:00 Office Visit Graham Melara [facility] OFFICE BUILDING 1.84.114 350.1.13.10 4.2.7.2.686 [id number] [facility] 2023-10-08 00:00:00 2023-10-08 00:00:00 Patient Secure Msg Doctor Unassigned, [place] [facility] 1.2840.114 350.1.13.10 4.2.7.2.686 [id number] [facility] 2023-10-06 13:00:00 2023-10-06 13:49:13 Outpatient R YUE JACKSON [facility] [id number] [facility] 2023-10-06 13:00:00 2023-10-06 13:49:13 [facility] 1.2.840.114 350.1.13.10 4.2.7.2.686 [id number] [facility] 2023-10-04 00:00:00 2023-10-04 00:00:00 Julia Benjamin, COMPLIANCE ADVISOR: [address], [address], [place] [address] , [address] [facility] [id number] [facility] 2023-09-16 00:00:00 2023-09-16 00:00:00 Luis Nash MD: [address] [place] [address] , Ph. [facility] Satellite/[facility] [id number] [facility] 2023-09-08 00:00:00 2023-09-08 00:00:00 Telephone Deepali Hernandez 1..840.114 350.1.13.10 4.2.7.2.686 [id number] [facility] 2023-09-01 14:20:00 2023-09-01 14:20:00 Outpatient R DONELLWATSON [facility] [id number] [facility] 2023-08-19 12:29:34 2023-08-19 23:59:00 Outpatient R MARITA CALDERON [facility] [id number] [facility] 2023-08-19 12:29:34 2023-08-19 23:59:00 Hospital Encounter Marita Calderon [facility] 1..840.114 350.1.13.10 4.2.7.2.686 [id number] [facility] 2023-08-12 12:00:00 2023-08-12 12:00:00 Outpatient MARITA GUPTA [facility] [id number] [facility] 2023-07-29 00:00:00 2023-07-29 00:00:00 Case Management Mirtha Hancock [facility] BUILDING 1.2840.114 350.1.13.10 4.2.7.2.686 [id number] [facility] 2023-07-27 11:30:00 2023-07-27 11:45:00 Office Copy Selector Visit 2, Adc Lab Amanda-Dayron sRaziaMirtha [facility] BUILDING 1.2840.114 350.1.13.10 4.2.7.2.686 [id number] [facility] 2023-07-27 10:00:00 2023-07-27 11:19:15 Outpatient R CUTLER-DAYRON S, MIRTHA CUTLER-DAYRON S, MIRTHA [facility] [id number] [facility] 2023-07-27 10:00:00 2023-07-27 11:19:15 Office Visit Fang s Mirtha [facility] 1.2840.114 350.1.13.10 4.2.7.2.686 [id number] [facility] 2023-07-26 11:30:00 2023-07-26 12:07:34 Outpatient [facility] [id number] [facility] 2023-07-26 11:30:00 2023-07-26 12:07:34 Office Visit Yahir Sonja [facility] 1.2840.114 350.1.13.10 4.2.7.2.686 [id number] [facility] 2023-07-22 00:00:00 2023-07-22 00:00:00 Orders Only Doctor Unassigned, [place] [facility] 1.2840.114 350.1.13.10 4.2.7.2.686 [id number] [facility] 2023-07-21 00:00:00 2023-07-21 00:00:00 Elizabeth Dave [facility] MEDICAL OFFICE BUILDING 1.2.840.114 350.1.13.10 4.2.7.2.686 [id number] [facility] 2023-07-16 09:30:00 2023-07-16 09:30:00 Outpatient R YAHIR, SONJA SINCLAIR, SONJA [facility] [id number] [facility] 2023-07-16 00:00:00 2023-07-16 00:00:00 Refmalu Dave [facility] MEDICAL OFFICE BUILDING 1.2.840.114 350.1.13.10 4.2.7.2.686 [id number] [facility] 2023-07-14 00:00:00 2023-07-14 00:00:00 Luis Nash MD: [address], [address] [address] , Ph. [facility] Practice [id number] [facility] 2023-06-23 03:58:00 2023-06-26 12:39:00 Inpatient ER LUIS [facility] [id number] [facility] 2023-06-22 21:42:00 2023-06-22 21:42:00 Emergency ER KAVON MOREL [facility] [id number] [facility] 2023-06-18 00:00:00 2023-06-18 00:00:00 Elizabeth Dave [facility] MEDICAL OFFICE BUILDING 1.2.840.114 350.1.13.10 4.2.7.2.686 [id number] [facility] 2023-06-16 00:00:00 2023-06-16 00:00:00 Luis Nash MD: [address], [address], [place] [address] , Ph. [facility] [id number] [facility] 2023-06-11 10:21:00 2023-06-11 10:21:00 Outpatient LUIS MAXWELL [facility] [id number] [facility] 2023-06-07 00:00:00 2023-06-07 00:00:00 Billie Palencia PA-C: [address], [address], [place] [address] , Ph[address] [facility] [id number] [facility] 2023-06-04 11:20:00 2023-06-04 12:27:58 Outpatient R MARITA CALDERON [facility] [id number] [facility] 2023-06-04 11:20:00 2023-06-04 12:27:58 Office Visit Marita Calderon [facility] 1.2.840.114 350.1.13.10 4.2.7.2.686 [id number] [facility] 2023-05-06 00:00:00 2023-05-06 00:00:00 Luis Nash MD: [address], [address], [place] [address] , Ph. [facility] [id number] [facility] 2023-03-09 10:25:00 2023-03-09 14:06:00 Outpatient EFRAIN CORONA MDA Jen/Hep/Nu t [id number] MD Fina barreto 2023-03-08 12:35:06 2023-03-08 23:59:00 Outpatient BILLIE SAXENA MDA, MDA [id number] MD Fina barreto 2023-03-08 13:38:06 2023-03-08 14:35:47 Outpatient BILLIE SAXENA MDA MDA [id number] MD Fina barreto 2023-03-08 11:20:45 2023-03-08 12:35:14 Outpatient BILLIE SAXENA MDA MDA [id number] MD Fina barreto 2023-03-08 06:59:42 2023-03-08 06:59:42 Outpatient BILLIE SAXENA MDA MDA [id number] MD Fina barreto 2023-02-25 06:57:38 2023-02-25 06:57:38 Outpatient DALILA MACHUCA MDA MDA [id number] MD Fina barreto 2023-02-24 19:08:03 2023-02-24 19:08:03 Outpatient DALILA MACHUCA MDA MDA [id number] MD Fina barreto 2023-02-24 17:40:32 2023-02-24 17:40:32 Outpatient DALILA MACHUCA MDA MDA [id number] MD Fina barreto 2023-02-23 00:00:00 2023-02-23 00:00:00 Luis Nash MD: [address] [place] [address], [address], [place] [address] , Ph[address] [facility] [id number] [facility] 2023-02-22 00:00:00 2023-02-22 00:00:00 Orders Only Doctor Unassigned, [place] [facility] 1.2.840.114 350.1.13.10 4.2.7.2.686 [id number] [facility] 2023-02-19 07:59:26 2023-02-19 09:39:46 Outpatient SANJANA VALLEJO IV MDA MDA [id number] MD Fina barreto 2023-02-18 10:25:29 2023-02-18 12:49:53 Outpatient EFRAIN CORONA MDA MDA [id number] MD Fina barreto 2023-02-17 15:02:00 2023-02-17 15:02:00 Outpatient DYLAN MAXWELLIO [facility] [id number] [facility] 2023-02-09 11:50:47 2023-02-09 12:13:20 Outpatient CR ANDREWSEFRAIN HARDING MDA MDA [id number] MD Fina barreto 2023-02-09 08:18:00 2023-02-09 11:45:00 Outpatient CR MUNGUIA EFRAIN MESSER MDA Jen/Hep/Nu t [id number] MD Fina barreto 2023-02-08 08:07:25 2023-02-08 08:07:25 Outpatient CR DALILA BARRETO MDA MDA [id number] MD Fina barreto 2023-02-02 00:00:00 2023-02-02 00:00:00 Luis Nash MD: [address] [place] [address], [address], [place] [address] , Ph. [facility] [id number] [facility] 2023-01-29 10:29:00 2023-01-29 10:29:00 Outpatient LUIS MAXWELL [facility] [id number] [facility] 2023-01-25 08:45:00 2023-01-25 08:45:00 Outpatient David VIRGINIA DAVE [facility] [id number] [facility] 2023-01-23 00:00:00 2023-01-23 00:00:00 [facility] 1.2.840.114 350.1.13.10 4.2.7.2.686 [id number] [facility] 2023-01-08 13:25:46 2023-01-08 13:25:46 Outpatient CR HOUSTON URENA MDA MDA [id number] MD Fina barreto 2023-01-08 10:24:34 2023-01-08 12:57:25 Outpatient IZABELA EVANGELISTA MDA MDA [id number] MD Fina barreto 2023-01-08 12:14:47 2023-01-08 12:14:47 Outpatient DALILA MACHUCA MDA MDA [id number] MD Fina barreto 2023-01-08 12:14:44 2023-01-08 12:14:44 Outpatient DALILA MACHUCA MDA MDA [id number] MD Fina barreto 2023-01-08 12:14:40 2023-01-08 12:14:40 Outpatient DALILA MACHUCA MDA MDA [id number] MD Harden n 2023-01-08 12:14:37 2023-01-08 12:14:37 Outpatient DALILA MACHUCA MDA MDA [id number] MD Fina barreto 2023-01-08 12:14:33 2023-01-08 12:14:33 Outpatient DALILA MACHUCA MDA MDA [id number] MD Fina barreto 2023-01-08 12:14:30 2023-01-08 12:14:30 Outpatient DALILA MACHUCA MDA MDA [id number] MD Harden n 2023-01-08 12:14:26 2023-01-08 12:14:26 Outpatient DALILA MACHUCA MDA MDA [id number] MD Fina barreto 2023-01-08 12:14:21 2023-01-08 12:14:21 Outpatient DALILA MACHUCA MDA MDA [id number] MD Fina barreto 2023-01-08 09:54:21 2023-01-08 09:54:55 Outpatient IZABELA EVANGELISTA MDA MDA [id number] MD Fina barreto 2022-12-30 00:00:00 2022-12-30 00:00:00 NICKY Tejeda-C: [address] [place] [address] , Ph[address] [facility] [id number] [facility] 2022-12-29 00:00:00 2022-12-29 00:00:00 Billie Palencia PA-C: [address], [place] [address] , [address] [facility] [id number] [facility] 2022-12-28 00:00:00 2022-12-28 00:00:00 Patient Secure Msg Doctor Unassigned, [place] [facility] BUILDING 1.2.840.114 350.1.13.10 4.2.7.2.686 [id number] [facility] 2022-12-23 14:30:00 2022-12-23 14:30:00 Outpatient VIRGINIA KOO [facility] [id number] [facility] 2022-12-21 00:00:00 2022-12-21 00:00:00 Luis Nash MD: [address], [place] [address] , [address] [facility] [id number] [facility] 2022-12-17 13:33:00 2022-12-17 16:28:00 emergency [id number] 2022-12-17 13:33:00 2022-12-17 16:28:00 Emergency ER JAYY VUNOG [facility] [id number] [facility] 2022-12-11 00:00:00 2022-12-11 00:00:00 Orders Only Doctor Unassigned, [place] [facility] 1.2.840.114 350.1.13.10 4.2.7.2.686 [id number] [facility] 2022-12-09 00:00:00 2022-12-09 00:00:00 Luis Nash MD: [address] [place] [address] [address], [place] [address] , Ph. [facility] Practice [id number] [facility] 2022-11-25 13:00:00 2022-11-25 14:04:25 [facility] [id number] [facility] 2022-11-25 13:00:00 2022-11-25 14:04:25 Nurse Visit NurseJoel [facility] MEDICAL OFFICE BUILDING 1.2.840.114 350.1.13.10 4.2.7.2.686 [id number] [facility] 2022-11-19 10:20:00 2022-11-19 11:19:18 Outpatient R MARITA CALDERON [facility] [id number] [facility] 2022-11-19 10:20:00 2022-11-19 11:19:18 Office Visit Marita Calderon [facility] BUILDING 1.2.840.114 350.1.13.10 4.2.7.2.686 [id number] [facility] 2022-11-18 09:00:00 2022-11-18 09:04:01 Outpatient NIVIA NESS [facility] [id number] [facility] 2022-11-18 09:00:00 2022-11-18 09:04:01 Nurse Visit NurseJoel Ricshonda N [facility] MEDICAL OFFICE BUILDING 1.2.840.114 350.1.13.10 4.2.7.2.686 [id number] [facility] 2022-11-16 09:00:00 2022-11-16 10:19:46 Outpatient NIVIA NESS [facility] [id number] [facility] 2022-11-16 09:00:00 2022-11-16 09:30:00 Nurse Visit Nurse, Joel Nick Nivia Long [facility] 1.2.840.114 350.1.13.10 4.2.7.2.686 [id number] [facility] 2022-11-13 09:00:00 2022-11-13 09:58:30 Outpatient NIVIA NESS [facility] [id number] [facility] 2022-11-13 09:00:00 2022-11-13 09:58:30 Nurse Visit Nurse, Joel Nick Nivia Long [facility] 1.2.840.114 350.1.13.10 4.2.7.2.686 [id number] [facility] 2022-11-13 00:00:00 2022-11-13 00:00:00 Telephone [facility] 1.2.840.114 350.1.13.10 4.2.7.2.686 [id number] [facility] 2022-11-13 00:00:00 2022-11-13 00:00:00 Telephone [facility] OFFICE BUILDING 1.2.840.114 350.1.13.10 4.2.7.2.686 [id number] [facility] 2022-11-13 00:00:00 2022-11-13 00:00:00 Telephone [facility] OFFICE BUILDING 1.2.840.114 350.1.13.10 4.2.7.2.686 [id number] [facility] 2022-11-11 09:00:00 2022-11-11 14:22:33 Outpatient DAMIEN CARO [facility] [id number] [facility] 2022-11-11 09:00:00 2022-11-11 09:30:00 Nurse Visit Nurse, Damien Lewis [facility] 1.2840.114 350.1.13.10 4.2.7.2.686 [id number] [facility] 2022-11-09 09:00:00 2022-11-09 10:33:16 [facility] [id number] [facility] 2022-11-09 09:00:00 2022-11-09 10:33:16 Nurse Visit Nurse, Nivia Lundberg [facility] 1.2840.114 350.1.13.10 4.2.7.2.686 [id number] [facility] 2022-10-23 00:00:00 2022-10-23 00:00:00 Patient Secure Msg Doctor Unassigned, [place] [facility] 1.0.114 350.1.13.10 4.2.7.2.686 [id number] [facility] 2022-10-22 00:00:00 2022-10-22 00:00:00 Multidisci plinary Conference Do, [place] [facility] 1.20.114 350.1.13.10 4.2.7.2.686 [id number] [facility] 2022-10-14 13:30:00 2022-10-14 14:30:26 Outpatient R [facility] [id number] [facility] 2022-10-14 13:30:00 2022-10-14 14:30:26 Office Visit [facility] MEDICAL OFFICE BUILDING 1.2.114 350.1.13.10 4.2.7.2.686 [id number] [facility] 2022-10-13 00:00:00 2022-10-13 00:00:00 Luis Nash MD: [address], [place] [address] , [address] [facility] [id number] [facility] 2022-09-28 10:30:00 2022-09-28 12:02:03 [facility] [id number] 2022-09-28 10:30:00 2022-09-28 12:02:03 Office Visit [facility] OFF[facility] BUILDING 1.2.840.114 350.1.13.10 4.2.7.2.686 [id number] [facility] [facility] 2022-09-26 00:00:00 2022-09-26 00:00:00 Luis Nash MD: [address], [place] [address] , Ph[address] 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 [id number] [facility] 2022-09-18 09:14:00 2022-09-18 17:00:00 Hospital Encounter [facility] 1.2.840.114 350.1.13.10 4.2.7.2.686 [id number] [facility] 2022-09-18 11:02:00 2022-09-18 13:12:00 Surgery Anurag, [facility] 1.2840.114 350.1.13.10 4.2.7.2.686 [id number] [facility] 2022-09-18 00:00:00 2022-09-18 00:00:00 Orders Only Doctor Unassigned, [place] [facility] 1.2840.114 350.1.13.10 4.2.7.2.686 [id number] [facility] 2022-09-15 11:00:00 2022-09-15 11:15:00 Laboratory Only Only, Clc Bls Test [facility] MEDICAL OFFICE BUILDING 1..840.114 350.1.13.10 4.2.7.2.686 [id number] [facility] 2022-09-15 11:00:00 2022-09-15 11:00:00 Outpatient R ANURAG [facility] [id number] [facility] 2022-09-09 10:00:00 2022-09-09 11:06:20 Outpatient R PATHOLOGY [facility] [id number] [facility] 2022-09-09 10:00:00 2022-09-09 10:15:00 Office Copy Selector Visit Draw, Clc-Bls Lab Pathology [facility] MEDICAL OFFICE BUILDING 1..840.114 350.1.13.10 4.2.7.2.686 [id number] [facility] 2022-09-03 09:30:00 2022-09-03 15:36:52 Outpatient R ANURAG [facility] [id number] [facility] 2022-09-03 09:30:00 2022-09-03 15:36:52 Office Visit Anurag [facility] MEDICAL OFFICE BUILDING 1.2.840.114 350.1.13.10 4.2.7.2.686 [id number] [facility] 2022-09-03 00:00:00 2022-09-03 00:00:00 Orders Only Doctor Unassigned, [place] [facility] 1.2840.114 350.1.13.10 4.2.7.2.686 [id number] [facility] 2022-09-02 09:00:00 2022-09-02 23:59:00 Outpatient R ANURAG [facility] [id number] [facility] 2022-09-02 08:32:06 2022-09-02 23:59:00 [facility] 1.2840.114 350.1.13.10 4.2.7.2.686 [id number] [facility] 2022-08-31 11:15:00 2022-08-31 11:55:21 Outpatient R [facility] [id number] [facility] 2022-08-31 11:15:00 2022-08-31 11:55:21 Office Visit Tenzin [facility] MEDICAL OFFICE BUILDING 1.2840.114 350.1.13.10 4.2.7.2.686 [id number] [facility] 2022-08-29 13:45:00 2022-08-29 23:59:00 Outpatient R ANURAG [facility] [id number] [facility] 2022-08-29 11:57:45 2022-08-29 23:59:00 Hospital Encounter [facility] ([facility] 1.2.840.114 350.1.13.10 4.2.7.2.686 [id number] [facility] 2022-08-29 11:57:20 2022-08-29 23:59:00 Hospital Encounter [facility] ([facility]) 1.2.840.114 350.1.13.10 4.2.7.2.686 [id number] [facility] 2022-08-17 15:45:00 2022-08-17 16:00:00 Office Copy Selector Visit Draw, Clc-Bls Lab [facility] MEDICAL OFFICE BUILDING 1.2840.114 350.1.13.10 4.2.7.2.686 [id number] [facility] 2022-08-17 15:00:00 2022-08-17 15:24:[address] [facility] [id number] [facility] 2022-08-17 15:00:00 2022-08-17 15:24:25 Office Visit [facility] MEDICAL OFFICE BUILDING 1.2840.114 350.1.13.10 4.2.7.2.686 [id number] [facility] 2022-08-17 00:00:00 2022-08-17 00:00:00 Orders Only Doctor Unassigned, [place] [facility] 1.2.840.114 350.1.13.10 4.2.7.2.686 [id number] [facility] 2022-08-05 00:00:00 2022-08-05 00:00:00 Refill Irma Collins [facility] 1.2840.114 350.1.13.10 4.2.7.2.686 [id number] [facility] 2022-08-05 00:00:00 2022-08-05 00:00:00 Telephone [facility] MEDICAL OFFICE BUILDING 1.2840.114 350.1.13.10 4.2.7.2.686 [id number] [facility] 2022-08-04 07:00:00 2022-08-04 09:05:00 Surgery Anurag [facility] ([facility]) 1.2.840.114 350.1.13.10 4.2.7.2.686 [id number] [facility] 2022-08-04 05:21:00 2022-08-04 08:59:00 Outpatient R [facility] 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 ApaTEVIZZ Phone [facility] ([facility]) 1.2.840.114 350.1.13.10 4.2.7.2.686 [id number] [facility] 2022-07-31 13:45:00 2022-07-31 13:50:00 Pre-Anesth esia Evaluation Call, [facility] ApaTEVIZZ Phone [facility] ([facility]) 1.2.840.114 350.1.13.10 4.2.7.2.686 [id number] [facility] 2022-07-31 10:53:00 2022-07-31 10:53:00 Outpatient LUIS MAXWELL [facility] [id number] [facility] 2022-06-04 00:00:00 2022-06-04 00:00:00 Telephone Alli Osbornkhan [facility] MEDICAL OFFICE BUILDING 1.2.840.114 350.1.13.10 4.2.7.2.686 [id number] [facility] 2022-05-18 10:30:00 2022-05-18 10:45:00 Office Copy Selector Visit Draw, Clc-Bls Lab Pathology [facility] MEDICAL OFFICE BUILDING 1.84.114 350.1.13.10 4.2.7.2.686 [id number] [facility] 2022-05-18 09:00:00 2022-05-18 10:08:51 Outpatient R ANURAG [facility] [id number] [facility] 2022-05-18 09:00:00 2022-05-18 10:08:51 Office Visit Anurag [facility] MEDICAL OFFICE BUILDING 1.2.840.114 350.1.13.10 4.2.7.2.686 [id number] [facility] 2022-05-18 09:00:00 2022-05-18 10:08:51 Outpatient R ANURAG [facility] [id number] [facility] 2022-05-18 09:00:00 2022-05-18 10:08:51 Office Visit Anurag [facility] MEDICAL OFFICE BUILDING 1.2.840.114 350.1.13.10 4.2.7.2.686 [id number] [facility] 2022-05-18 00:00:00 2022-05-18 00:00:00 Prep For Surgery Laine Ortega [facility] MEDICAL OFFICE BUILDING 1.284.114 350.1.13.10 4.2.7.2.686 [id number] [facility] 2022-05-18 00:00:00 2022-05-18 00:00:00 Orders Only Doctor Unassigned, [place] [facility] 1.2.840.114 350.1.13.10 4.2.7.2.686 [id number] [facility] 2022-05-18 00:00:00 2022-05-18 00:00:00 Prep For Surgery Laine Ortega [facility] MEDICAL OFFICE BUILDING 1.2840.114 350.1.13.10 4.2.7.2.686 [id number] [facility] 2022-05-01 16:36:00 2022-05-01 20:45:00 Emergency ER KAVON MOREL [facility] [id number] [facility] 2022-04-30 10:13:43 2022-04-30 23:59:00 Hospital Encounter [facility] ([facility]) 1.2.840.114 350.1.13.10 4.2.7.2.686 [id number] [facility] 2022-04-30 10:13:22 2022-04-30 23:59:00 Outpatient R [facility] [id number] [facility] 2022-04-30 10:13:22 2022-04-30 23:59:00 Hospital Encounter [facility] ([facility]) 1.2.840.114 350.1.13.10 4.2.7.2.686 [id number] [facility] 2022-04-27 08:30:00 2022-04-27 09:56:[address] [facility] [id number] [facility] 2022-04-27 08:30:00 2022-04-27 09:56:43 [facility] 1.2.840.114 350.1.13.10 4.2.7.2.686 [id number] [facility] 2022-04-27 08:30:00 2022-04-27 09:56:43 Outpatient R ANURAG [facility] [id number] [facility] 2022-04-27 08:30:00 2022-04-27 09:56:43 Outpatient R ANURAG [facility] [id number] [facility] 2022-04-27 00:00:00 2022-04-27 00:00:00 Orders Only Doctor Unassigned, [place] [facility] 1.2.840.114 350.1.13.10 4.2.7.2.686 [id number] [facility] 2022-04-22 16:30:00 2022-04-22 16:45:00 Office Copy Selector Visit Draw, Clc-Bls Lab [facility] MEDICAL OFFICE BUILDING 1.2.840.114 350.1.13.10 4.2.7.2.686 [id number] [facility] 2022-04-22 16:30:00 2022-04-22 16:30:00 Outpatient R [facility] [id number] [facility] 2022-04-22 16:00:00 2022-04-22 16:27:53 Outpatient R [facility] [id number] [facility] 2022-04-22 16:00:00 2022-04-22 16:15:00 Office Visit Tenzin [facility] MEDICAL OFFICE BUILDING 1.2.840.114 350.1.13.10 4.2.7.2.686 [id number] [facility] 2022-04-22 16:00:00 2022-04-22 16:00:00 Outpatient VIRGINIA KOO [facility] [id number] [facility] 2022-02-14 12:05:00 2022-02-14 12:05:00 Outpatient JULIA LUNA [facility] [id number] [facility] 2022-02-05 00:00:00 2022-02-05 00:00:00 Refill Irma Collins [facility] 1..840.114 350.1.13.10 4.2.7.2.686 [id number] [facility] 2022-02-02 13:26:00 2022-02-02 13:26:00 Outpatient CR VERONA NASH [facility] [id number] [facility] 2022-01-30 11:30:00 2022-01-30 11:30:00 Outpatient David GIL SILVA [facility] [id number] [facility] 2022-01-13 00:00:00 2022-01-13 00:00:00 Orders Only Doctor Unassigned, [place] [facility] 1..840.114 350.1.13.10 4.2.7.2.686 [id number] [facility] 2022-01-08 10:06:00 2022-01-08 10:06:00 Outpatient LUIS MAXWELL [facility] [id number] [facility] 2021-12-22 12:22:00 2021-12-22 12:22:00 Outpatient BILLIE SZYMANSKI [facility] [id number] [facility] 2021-12-17 00:00:00 2021-12-17 00:00:00 Orders Only Doctor Unassigned, [place] [facility] 1..840.114 350.1.13.10 4.2.7.2.686 [id number] [facility] 2021-12-10 00:00:00 2021-12-10 00:00:00 [facility] 1.2.840.114 350.1.13.10 4.2.7.2.686 [id number] [facility] 2021-11-20 10:40:00 2021-11-20 10:45:00 Pre-Anesth esia Evaluation Call, [facility] Phone [facility] ([facility]) 1.2.840.114 350.1.13.10 4.2.7.2.686 [id number] [facility] 2021-11-19 00:00:00 2021-11-19 00:00:00 Telephone Perfecto Melton [facility] BUILDING 1.2.840.114 350.1.13.10 4.2.7.2.686 [id number] [facility] 2021-11-14 09:37:00 2021-11-14 09:37:00 Outpatient LUIS MAXWELL [facility] [id number] [facility] 2021-11-13 10:30:00 2021-11-13 11:28:04 Office Visit Perfecto Melton [facility] 1.2.840.114 350.1.13.10 4.2.7.2.686 [id number] [facility] 2021-11-13 10:30:00 2021-11-13 11:28:04 Outpatient PERFECTO KING [facility] [id number] [facility] 2021-11-13 10:30:00 2021-11-13 10:30:00 Outpatient PERFECTO KING [facility] [id number] [facility] 2021-11-04 11:00:00 2021-11-04 13:31:18 Outpatient R VIRGINIA DAVE [facility] [id number] [facility] 2021-11-04 11:00:00 2021-11-04 13:31:18 Office Visit Virginia Dave [facility] 1.2.840.114 350.1.13.10 4.2.7.2.686 [id number] [facility] 2021-11-04 11:00:00 2021-11-04 13:31:18 Outpatient R [facility] [id number] [facility] 2021-11-04 00:00:00 2021-11-04 00:00:00 Orders Only Doctor Unassigned, [place] [facility] 1..840.114 350.1.13.10 4.2.7.2.686 [id number] [facility] 2021-11-03 11:00:00 2021-11-03 11:50:43 Outpatient R [facility] [id number] [facility] 2021-11-03 11:00:00 2021-11-03 11:50:43 [facility] 1.2.840.114 350.1.13.10 4.2.7.2.686 [id number] [facility] 2021-10-28 15:30:00 2021-10-28 15:30:00 Outpatient R [facility] [id number] [facility] 2021-10-27 00:00:00 2021-10-27 00:00:00 [facility]ill [facility] 1..840.114 350.1.13.10 4.2.7.2.686 [id number] [facility] 2021-10-21 11:00:00 2021-10-21 11:00:00 Outpatient R IRMA COLLINS [facility] [id number] [facility] 2021-10-06 13:34:43 2021-10-06 14:36:56 Office Visit Jericho Galaviz [facility] BUILD[facility] 1.2.840.114 350.1.13.10 4.2.7.2.686 [id number] [facility] 2021-10-06 13:15:00 2021-10-06 14:36:56 Outpatient R ANASTACIA [facility] [id number] [facility] 2021-10-06 13:15:00 2021-10-06 14:36:56 [facility] [id number] [facility] 2021-09-26 00:00:00 2021-09-26 00:00:00 Case Management Perfecto Melton [facility] 1..840.114 350.1.13.10 4.2.7.2.686 [id number] [facility] 2021-09-25 10:10:00 2021-09-25 10:10:00 Outpatient R JORDON SOLANO [facility] [id number] [facility] 2021-09-25 09:29:56 2021-09-25 09:30:05 Imm/Inj Visit Nurse, Don Meza Immunizatio Jordon Vazquez [facility] BUILD[facility] 1..840.114 350.1.13.10 4.2.7.2.686 [id number] [facility] 2021-09-25 08:30:00 2021-09-25 09:22:46 Outpatient R PERFECTO MELTON [facility] [id number] [facility] 2021-09-25 08:15:46 2021-09-25 09:22:46 Office Visit Perfecto Melton [facility] BUILDING 1..840.114 350.1.13.10 4.2.7.2.686 [id number] [facility] 2021-09-25 08:30:00 2021-09-25 08:30:00 Outpatient David PERFECTO MELTON [facility] [id number] [facility] 2021-09-15 15:34:00 2021-09-15 15:34:00 Outpatient JULIA RAMESH [facility] [id number] [facility] 2021-08-28 15:00:00 2021-08-28 15:00:00 Outpatient PERFECTO KING [facility] [id number] [facility] 2021-08-28 00:00:00 2021-08-28 00:00:00 Patient Secure Msg Doctor Unassigned, [place] [facility] 1.84.114 350.1.13.10 4.2.7.2.686 [id number] [facility] 2021-08-27 09:37:45 2021-08-27 11:25:50 Office Visit Marianne Landis [facility] [employer]. 1..840.114 350.1.13.10 4.2.7.2.686 [id number] [facility] 2021-08-27 10:15:00 2021-08-27 10:15:00 Outpatient MARIANNE DUNCAN [facility] [id number] [facility] 2021-08-07 12:42:00 2021-08-07 12:42:00 Outpatient LUIS MAXWELL [facility] [id number] [facility] 2021-08-05 00:00:00 2021-08-05 00:00:00 Refill Irma Collins [facility] Building 1.840.114 350.1.13.10 4.2.7.2.686 [id number] [facility] 2021-07-02 11:00:00 2021-07-02 11:00:00 Outpatient R EN ENAMORADO [facility] [id number] Wiliam whitlock [facility] 2021-07-01 00:00:00 2021-07-01 00:00:00 Refmalu Yahir [facility] 1..114 350.1.13.10 4.2.7.2.686 [id number] [facility] 2021-07-01 00:00:00 2021-07-01 00:00:00 Refmalu Sinclair [facility] 1.114 350.1.13.10 4.2.7.2.686 [id number] [facility] 2021-06-27 12:39:50 2021-06-27 12:54:50 Laboratory Only Only, Adc Test Perfecto Melton [facility] 1.114 350.1.13.10 4.2.7.2.686 [id number] [facility] 2021-06-27 12:39:28 2021-06-27 12:54:28 Office Copy Selector Visit Pob, Adc Lab Main Perfecto Melton [facility] 1.114 350.1.13.10 4.2.7.2.686 [id number] [facility] 2021-06-27 08:45:00 2021-06-27 08:45:00 Outpatient R [facility] [id number] [facility] 2021-06-27 00:00:00 2021-06-27 00:00:00 Orders Only Doctor Unassigned, [place] [facility] 1.114 350.1.13.10 4.2.7.2.686 [id number] [facility] 2021-06-19 00:00:00 2021-06-19 00:00:00 Orders Only Doctor Unassigned, [place] [facility] 1.2.840.114 350.1.13.10 4.2.7.2.686 [id number] [facility] 2021-06-19 00:00:00 2021-06-19 00:00:00 Orders Only Doctor Unassigned, [place] [facility] 1.2.840.114 350.1.13.10 4.2.7.2.686 [id number] [facility] 2021-06-17 16:30:00 2021-06-17 16:30:00 Outpatient R [facility] [id number] [facility] 2021-06-17 14:49:46 2021-06-17 15:04:46 Office Copy Selector Visit 2, Adc Lab Dennis [facility] 1.2.840.114 350.1.13.10 4.2.7.2.686 [id number] [facility] 2021-06-17 12:55:41 2021-06-17 14:01:40 Office Visit Dennis [facility] 1.2.840.114 350.1.13.10 4.2.7.2.686 [id number] [facility] 2021-06-16 08:21:41 2021-06-16 09:41:53 Office Visit Perfecto Melton [facility] 1.2.840.114 350.1.13.10 4.2.7.2.686 [id number] [facility] 2021-06-16 08:30:00 2021-06-16 08:30:00 Outpatient R PERFECTO MELTON [facility] [id number] [facility] 2021-06-16 00:00:00 2021-06-16 00:00:00 Prep For Surgery Sonja Sinclair [facility] 1.2.840.114 350.1.13.10 4.2.7.2.686 [id number] [facility] 2021-06-16 00:00:00 2021-06-16 00:00:00 Prep For Surgery [facility] 1.2.840.114 350.1.13.10 4.2.7.2.686 [id number] [facility] 2021-06-12 15:03:08 2021-06-12 15:44:26 Office Visit Perfecto Melton [facility] 1.2.840.114 350.1.13.10 4.2.7.2.686 [id number] [facility] 2021-06-12 15:00:00 2021-06-12 15:00:00 Outpatient R PERFECTO MELTON [facility] [id number] [facility] 2021-06-10 00:00:00 2021-06-10 00:00:00 Case Management Lay Castellanos [facility] 1.2.840.114 350.1.13.10 4.2.7.2.686 [id number] [facility] 2021-06-06 13:28:31 2021-06-06 23:59:00 Hospital Encounter Lay Castellanos [facility] 1.2.84.114 350.1.13.10 4.2.7.2.686 [id number] [facility] 2021-06-06 10:30:00 2021-06-06 10:30:00 Outpatient R YAHIR SONJA [facility] [id number] [facility] 2021-06-06 00:00:00 2021-06-06 00:00:00 Orders Only Doctor Unassigned, [place] [facility] 1.2.840.114 350.1.13.10 4.2.7.2.686 [id number] [facility] 2021-05-29 13:27:11 2021-05-29 15:10:41 Office Visit Jasmin Lay [facility] 1.2840.114 350.1.13.10 4.2.7.2.686 [id number] [facility] 2021-05-29 10:15:00 2021-05-29 10:15:00 Outpatient R JASMIN [facility] [id number] [facility] 2021-03-28 00:00:00 2021-03-28 00:00:00 Orders Only Doctor Unassigned, [place] [facility] 1.2840.114 350.1.13.10 4.2.7.2.686 [id number] [facility] 2021-03-26 10:52:00 2021-03-26 10:52:00 Outpatient LUIS MAXWELL [facility] [id number] [facility] 2021-03-05 14:08:25 2021-03-05 14:23:25 Office Copy Selector Visit 2, [facility] 1.2.840.114 350.1.13.10 4.2.7.2.686 [id number] [facility] 2021-03-05 13:14:58 2021-03-05 14:02:55 Office Visit Dennis [facility] 1.2.840.114 350.1.13.10 4.2.7.2.686 [id number] [facility] 2021-03-05 13:00:00 2021-03-05 13:00:00 Outpatient IRMA SHERMAN [facility] [id number] [facility] 2021-02-05 00:00:00 2021-02-05 00:00:00 Sulma Link [facility] 1..114 350.1.13.10 4.2.7.2.686 [id number] [facility] 2021-01-16 00:00:00 2021-01-16 00:00:00 Orders Only Doctor Unassigned, [place] [facility] 1..114 350.1.13.10 4.2.7.2.686 [id number] [facility] 2021-01-15 00:00:00 2021-01-15 00:00:00 [facility] 1..114 350.1.13.10 4.2.7.2.686 [id number] [facility] 2020-12-12 10:10:00 2020-12-12 10:10:00 Outpatient HARRIS LISA [facility] [id number] [facility] 2020-11-26 16:00:00 2020-11-26 16:00:00 Outpatient IRMA SHERMAN [facility] [id number] [facility] 2020-11-14 10:40:00 2020-11-14 10:40:00 Outpatient HARRIS LISA [facility] [id number] [facility] 2020-09-06 00:00:00 2020-09-06 00:00:00 Sulma Link [facility] 1..114 350.1.13.10 4.2.7.2.686 [id number] [facility] 2020-08-26 12:22:00 2020-08-26 15:58:00 Emergency ER HERMINIA LOTT [facility] [id number] [facility] 2020-08-21 09:16:00 2020-08-21 09:16:00 Outpatient LUIS MAXWELL [facility] [id number] [facility] 2020-08-20 00:00:00 2020-08-20 [facility]00[facility] 1.2.840.114 350.1.13.10 4.2.7.2.686 [id number] 2020-08-20 00:00:00 2020-08-20 00:00[facility].114 350.1.13.10 4.2.7.2.686 [id number] [facility] 2020-04-17 09:30:00 2020-04-17 09:30:00 Outpatient R [facility] [id number] [facility] 2020-04-10 14:45:00 2020-04-10 14:45:00 Outpatient R VIRGINIA DAVE [facility] [id number] [facility] 2020-03-18 11:10:00 2020-03-18 11:10:00 Outpatient R SULMA CONRAD [facility] [id number] [facility] 2020-03-18 08:44:41 2020-03-18 08:59:41 Telemedici ne Visit Sulma Conrad [facility] 1.840.114 350.1.13.10 4.2.7.2.686 [id number] [facility] 2020-03-18 08:44:41 2020-03-18 08:59:41 Telemedici ne Visit Sulma Conrad [facility] 1.2.840.114 350.1.13.10 4.2.7.2.686 [id number] 2020-02-07 14:30:00 2020-02-07 14:30:00 Outpatient R [place] DAVE [facility] [id number] [facility] 2020-01-09 14:05:25 2020-01-29 22:41:13 [facility] 1.2.840.114 350.1.13.10 4.2.7.2.686 [id number] [facility] 2020-01-09 14:05:25 2020-01-29 22:41:13 [facility] 1.2.840.114 350.1.13.10 4.2.7.2.686 [id number] 2020-01-25 00:00:00 2020-01-25 00:00:00 Telephone Sulma Conrad [facility] 1.2.840.114 350.1.13.10 4.2.7.2.686 [id number] [facility] 2020-01-09 14:00:00 2020-01-09 14:00:00 Outpatient R [facility] [id number] [facility] 2020-01-01 00:00:00 2020-01-01 00:00:00 Refill [facility] 1.2.840.114 350.1.13.10 4.2.7.2.686 [id number] [facility] 2019-11-28 00:00:00 2019-11-28 00:00:00 Refill [facility] 1.2.840.114 350.1.13.10 4.2.7.2.686 [id number] [facility] 2019-10-17 13:44:00 2019-10-17 13:44:00 Outpatient REINA PHILIPPE [facility] [id number] [facility] 2019-10-04 14:11:00 2019-10-04 14:11:00 Outpatient REINA PHILIPPE [facility] [id number] [facility] 2019-09-27 11:15:00 2019-09-27 11:15:00 Outpatient REINA PHILIPPE [facility] [id number] [facility] 2019-06-19 09:45:00 2019-06-19 13:40:00 Hospital Encounter Teresa Finley [facility] 1.2.840.114 350.1.13.10 4.2.7.2.686 [id number] [facility] 2019-06-16 15:25:00 2019-06-16 23:59:00 Hospital Encounter Lyle Clark, [facility] 1.2.840.114 350.1.13.10 4.2.7.2.686 [id number] [facility] 2019-06-16 15:25:26 2019-06-16 15:40:26 Office Copy Selector Visit 1, Adc Lab Lyle Clark David [facility] 1.2.840.114 350.1.13.10 4.2.7.2.686 [id number] [facility] 2019-06-12 13:05:32 2019-06-12 17:10:40 Ancillary Visit Evie Galindo Craig L [facility] 1.2.840.114 350.1.13.10 4.2.7.2.686 [id number] [facility] 2019-06-09 00:00:00 2019-06-09 00:00:00 Prep For Surgery Keerthi Miller [facility] 1.2.840.114 350.1.13.10 4.2.7.2.686 [id number] [facility] 2019-06-09 00:00:00 2019-06-09 00:00:00 Case Management Keerthi Miller [facility] 1.2.840.114 350.1.13.10 4.2.7.2.686 [id number] [facility] 2019-06-08 12:24:19 2019-06-08 12:39:19 Office Copy Selector Visit 1, Adc Lab Paolo Ramakrishna Moore [facility] 1.2.840.114 350.1.13.10 4.2.7.2.686 [id number] [facility] 2019-06-08 10:59:31 2019-06-08 12:10:52 Office Visit Teresa Finley [facility] 1.2.840.114 350.1.13.10 4.2.7.2.686 [id number] [facility] 2019-06-08 00:00:00 2019-06-08 00:00:00 Orders Only Doctor Unassigned, [place] [facility] 1.2.840.114 350.1.13.10 4.2.7.2.686 [id number] [facility] 2019-06-08 00:00:00 2019-06-08 00:00:00 Telephone Marissa Zambrano [facility] 1.2.840.114 350.1.13.10 4.2.7.2.686 [id number] [facility] 2019-01-05 16:07:00 2019-01-05 16:07:00 Outpatient REINA PHILIPPE [facility] [id number] [facility] 2018-11-19 09:07:00 2018-11-19 14:05:00 Emergency ER HERMINIA LOTT [facility] [id number] [facility] 2018-08-22 08:13:00 2018-08-22 08:13:00 Outpatient REINA PHILIPPE [facility] [id number] [facility] 2018-06-15 22:58:00 2018-06-16 01:04:00 Emergency ER SEBASTIEN PADILLA [facility] [id number] [facility] 2017-06-01 09:48:00 2017-06-01 09:48:00 Outpatient REINA PHILIPPE [facility] [id number] [facility] 2017-01-21 15:08:00 2017-01-21 15:08:00 Outpatient REINA PHILIPPE [facility] [id number] [facility] 2016-10-15 07:53:00 2016-10-15 07:53:00 Outpatient REINA PHILIPPE [facility] [id number] [facility] 2016-04-02 16:56:00 2016-04-02 16:56:00 Outpatient MICHELLE GRAY [facility] [id number] [facility] 2016-03-31 09:45:00 2016-03-31 09:45:00 Outpatient REINA PHILIPPE [facility] [id number] [facility] 2014-12-12 16:37:00 2014-12-12 16:37:00 Outpatient MICHELLE GRAY [facility] [id number] [facility] 2014-11-21 09:42:00 2014-11-21 13:40:00 Emergency ER SARIKA VAIBHAVMORALES [facility] [id number] [facility] 2014-07-05 07:01:00 2014-07-05 07:01:00 Outpatient JUANITA DE LEON [facility] [id number] [facility] 2009-11-26 11:28:00 2009-11-26 11:28:00 Outpatient CHINTAN SWENSON [facility] [id number] [facility] 2006-09-07 13:59:00 2006-09-07 17:30:00 Emergency ER SHANNA BAUM [facility] [id number] [facility] 2006-03-21 03:45:00 2006-03-23 11:27:00 Inpatient ER SIENNA ARBOLEDA [facility] MS [id number] [facility] Results Test Description Test Time Test Comments Results Result [facility] [id number]:00:00* Test Item Value Reference Range Interpretation Comme nts acinetobacter baumannii (augustus t code = acinetobacter baumannii) 0 ppm 19.961-24.689 atopobium vaginae (test code = atopobium vaginae) 0 ppm 19.961-24.689 bvab 2,3 (bacterial vaginosi s associated bacteria 2, 3); mobiluncus spp (test code = bvab 2,3 (bacterial vaginosis associated bacteria 2, 3); mobiluncus spp) 0 ppm 19.961-24.689 isaias albicans, parapsilos is, tropicalis (test code = isaias albicans, parapsilosis, tropicalis) 0 ppm 19.961-30.770 isaias glabrata (nakaseomyc es glabratus) (test code = isaias glabrata (nakaseomyces glabratus)) 21.966 ppm 23.000-32.138 A isaias krusei (pichia kudriavzevii) (test code = isaias krusei (pichia kudriavzevii)) 0 ppm 23.000-32.271 chlamydia trachomatis (test code = chlamydia trachomatis) 0 ppm 23.000-31.467 citrobacter freundii (test c ode = citrobacter freundii) 0 ppm 23.000-31.881 enterobacter aerogenes, cloa (test code = enterobacter aerogenes, cloacae) 0 ppm 23.000-31.535 enterococcus faecalis, faeci um (test code = enterococcus faecalis, faecium) 21.976 ppm 26.000-31.575 A escherichia coli (test code = escherichia coli) 27.347 ppm 23.000-28.500 A gardnerella vaginalis (test code = gardnerella vaginalis) 0 ppm 19.961-24.689 klebsiella pneumoniae, oxyto ca (test code = klebsiella pneumoniae, oxytoca) 28.918 ppm 23.000-30.500 A megasphaera (types 1, 2) (te st code = megasphaera (types 1, 2)) 0 ppm 19.961-24.689 morganella morganii (test co de = morganella morganii) 0 ppm 19.961-24.689 neisseria gonorrhoeae (test code = neisseria gonorrhoeae) 0 ppm 23.000-32.117 proteus mirabilis, vulgaris (test code = proteus mirabilis, vulgaris) 0 ppm 23.000-28.500 pseudomonas aeruginosa (test code = pseudomonas aeruginosa) 0 ppm 23.000-28.500 serratia marcescens (test co de = serratia marcescens) 0 ppm 23.000-31.204 staphylococcus aureus (test code = staphylococcus aureus) 0 ppm 26.000-30.902 streptococcus agalactiae (gr oup B strep) (test code = streptococcus agalactiae (group B strep)) 0 ppm 26.000-32.222 streptococcus pyogenes (grou p A strep) (test code = streptococcus pyogenes (group A strep)) 0 ppm 19.961-24.689 trichomonas vaginalis (test code = trichomonas vaginalis) 0 ppm 23.000-32.119 ermb, C; mefa (test code = e rmb, C; mefa) 18.837 ppm 23.000-27.611 A tet B, tet M (test code = te t B, tet M) 21.758 ppm 23.000-27.778 A staphylococcus epidermidis, haemolyticus, lugdunensis (test code = staphylococcus epidermidis, haemolyticus, lugdunensis) 0 ppm 19.961-24.689 staphylococcus saprophyticus (test code = staphylococcus saprophyticus) 0 ppm 19.961-24.689 mycoplasma genitalium (test code = mycoplasma genitalium) 0 ppm 19.961-24.689 mycoplasma hominis (test cod e = mycoplasma hominis) 0 ppm 19.961-24.689 ureaplasma parvum (test code = ureaplasma parvum) 0 ppm 19.961-24.689 ureaplasma urealyticum (test code = ureaplasma urealyticum) 0 ppm 19.961-24.689 [facility] [id number] 12:05:08* Test Item Value Reference Range Interpretation Comme nts Leukocytes (test code = Leukocytes) Trace Nitrite (test code = Nitrite) positive Urobilinogen (test code = Urobilinogen) .2 Protein (test code = Protein) 30 pH (test code = pH) 5.5 Blood (test code = Blood) Hemolyzed: Trace Specific Raymond (test code = Specific Raymond) 1.015 Ketone (test code = Ketone) Trace Bilirubin (test code = Bilirubin) Negative Glucose (test code = Glucose) 1000 Appearance (test code = Appearance) Cloudy Color (test code = Color) Yellow [facility] [id number] 00:00:00* Test Item Value Reference Range Interpretation Comme nts acinetobacter baumannii (augustus t code = acinetobacter baumannii) 0 ppm 19.961-24.689 atopobium vaginae (test code = atopobium vaginae) 0 ppm 19.961-24.689 bvab 2,3 (bacterial vaginosi s associated bacteria 2, 3); mobiluncus spp (test code = bvab 2,3 (bacterial vaginosis associated bacteria 2, 3); mobiluncus spp) 0 ppm 19.961-24.689 isaias albicans, parapsilos is, tropicalis (test code = isaias albicans, parapsilosis, tropicalis) 0 ppm 19.961-30.770 isaias glabrata (nakaseomyc es glabratus) (test code = isaias glabrata (nakaseomyces glabratus)) 0 ppm 23.000-32.138 isaias krusei (pichia kudriavzevii) (test code = isaias krusei (pichia kudriavzevii)) 0 ppm 23.000-32.271 chlamydia trachomatis (test code = chlamydia trachomatis) 0 ppm 23.000-31.467 citrobacter freundii (test c ode = citrobacter freundii) 0 ppm 23.000-31.881 enterobacter aerogenes, cloa (test code = enterobacter aerogenes, cloacae) 0 ppm 23.000-31.535 enterococcus faecalis, faeci um (test code = enterococcus faecalis, faecium) 20.386 ppm 26.000-31.575 A escherichia coli (test code = escherichia coli) 23.66 ppm 23.000-28.500 A gardnerella vaginalis (test code = gardnerella vaginalis) 0 ppm 19.961-24.689 klebsiella pneumoniae, oxyto ca (test code = klebsiella pneumoniae, oxytoca) 22.631 ppm 23.000-30.500 A megasphaera (types 1, 2) (te st code = megasphaera (types 1, 2)) 0 ppm 19.961-24.689 morganella morganii (test co de = morganella morganii) 0 ppm 19.961-24.689 neisseria gonorrhoeae (test code = neisseria gonorrhoeae) 0 ppm 23.000-32.117 proteus mirabilis, vulgaris (test code = proteus mirabilis, vulgaris) 0 ppm 23.000-28.500 pseudomonas aeruginosa (test code = pseudomonas aeruginosa) 0 ppm 23.000-28.500 serratia marcescens (test co de = serratia marcescens) 0 ppm 23.000-31.204 staphylococcus aureus (test code = staphylococcus aureus) 0 ppm 26.000-30.902 streptococcus agalactiae (gr oup B strep) (test code = streptococcus agalactiae (group B strep)) 0 ppm 26.000-32.222 streptococcus pyogenes (grou p A strep) (test code = streptococcus pyogenes (group A strep)) 0 ppm 19.961-24.689 trichomonas vaginalis (test code = trichomonas vaginalis) 0 ppm 23.000-32.119 ermb, C; mefa (test code = e rmb, C; mefa) 14.755 ppm 23.000-27.611 A tet B, tet M (test code = te t B, tet M) 18.543 ppm 23.000-27.778 A staphylococcus epidermidis, haemolyticus, lugdunensis (test code = staphylococcus epidermidis, haemolyticus, lugdunensis) 0 ppm 19.961-24.689 staphylococcus saprophyticus (test code = staphylococcus saprophyticus) 0 ppm 19.961-24.689 mycoplasma genitalium (test code = mycoplasma genitalium) 0 ppm 19.961-24.689 mycoplasma hominis (test cod e = mycoplasma hominis) 0 ppm 19.961-24.689 ureaplasma parvum (test code = ureaplasma parvum) 0 ppm 19.961-24.689 ureaplasma urealyticum (test code = ureaplasma urealyticum) 0 ppm 19.961-24.689 [facility], [id number] 14:55:00* Test Item Value Reference Range Interpretation Comme nts Leukocytes (test code = Leukocytes) Negative Nitrite (test code = Nitrite) positive Urobilinogen (test code = Urobilinogen) .2 Protein (test code = Protein) 30 pH (test code = pH) 6.0 Blood (test code = Blood) Negative Specific Raymond (test code = Specific Raymond) 1.020 Ketone (test code = Ketone) Trace Bilirubin (test code = Bilirubin) Negative Glucose (test code = Glucose) 500 Appearance (test code = Appearance) Clear Color (test code = Color) Yellow [facility] [id number] 00:00:00* Test Item Value Reference Range Interpretation Comme nts acinetobacter baumannii (augustus t code = acinetobacter baumannii) 0.000 ppm 19.961-24.689 atopobium vaginae (test code = atopobium vaginae) 0.000 ppm 19.961-24.689 bvab 2,3 (bacterial vaginosi s associated bacteria 2, 3); mobiluncus spp (test code = bvab 2,3 (bacterial vaginosis associated bacteria 2, 3); mobiluncus spp) 0.000 ppm 19.961-24.689 isaias albicans, parapsilos is, tropicalis (test code = isaias albicans, parapsilosis, tropicalis) 0.000 ppm 19.961-30.770 isaias glabrata (nakaseomyc es glabratus) (test code = isaias glabrata (nakaseomyces glabratus)) 0.000 ppm 23.000-32.138 isaias krusei (pichia kudriavzevii) (test code = isaias krusei (pichia kudriavzevii)) 0.000 ppm 23.000-32.271 chlamydia trachomatis (test code = chlamydia trachomatis) 0.000 ppm 23.000-31.467 citrobacter freundii (test c ode = citrobacter freundii) 0.000 ppm 23.000-31.881 enterobacter aerogenes, cloa (test code = enterobacter aerogenes, cloacae) 0.000 ppm 23.000-31.535 enterococcus faecalis, faeci um (test code = enterococcus faecalis, faecium) 26.348 ppm 26.000-31.575 A escherichia coli (test code = escherichia coli) 0.000 ppm 23.000-28.500 gardnerella vaginalis (test code = gardnerella vaginalis) 0.000 ppm 19.961-24.689 klebsiella pneumoniae, oxyto ca (test code = klebsiella pneumoniae, oxytoca) 0.000 ppm 23.000-30.500 megasphaera (types 1, 2) (te st code = megasphaera (types 1, 2)) 0.000 ppm 19.961-24.689 morganella morganii (test co de = morganella morganii) 0.000 ppm 19.961-24.689 neisseria gonorrhoeae (test code = neisseria gonorrhoeae) 0.000 ppm 23.000-32.117 proteus mirabilis, vulgaris (test code = proteus mirabilis, vulgaris) 0.000 ppm 23.000-28.500 pseudomonas aeruginosa (test code = pseudomonas aeruginosa) 0.000 ppm 23.000-28.500 serratia marcescens (test co de = serratia marcescens) 0.000 ppm 23.000-31.204 staphylococcus aureus (test code = staphylococcus aureus) 0.000 ppm 26.000-30.902 streptococcus agalactiae (gr oup B strep) (test code = streptococcus agalactiae (group B strep)) 0.000 ppm 26.000-32.222 streptococcus pyogenes (grou p A strep) (test code = streptococcus pyogenes (group A strep)) 0.000 ppm 19.961-24.689 trichomonas vaginalis (test code = trichomonas vaginalis) 0.000 ppm 23.000-32.119 ermb, C; mefa (test code = e rmb, C; mefa) 26.134 ppm 23.000-27.611 A tet B, tet M (test code = te t B, tet M) 20.098 ppm 23.000-27.778 A staphylococcus epidermidis, haemolyticus, lugdunensis (test code = staphylococcus epidermidis, haemolyticus, lugdunensis) 0.000 ppm 19.961-24.689 staphylococcus saprophyticus (test code = staphylococcus saprophyticus) 0.000 ppm 19.961-24.689 mycoplasma genitalium (test code = mycoplasma genitalium) 0.000 ppm 19.961-24.689 mycoplasma hominis (test cod e = mycoplasma hominis) 0.000 ppm 19.961-24.689 ureaplasma parvum (test code = ureaplasma parvum) 0.000 ppm 19.961-24.689 ureaplasma urealyticum (test code = ureaplasma urealyticum) 0.000 ppm 19.961-24.689 [facility], [id number] 11:39:18* Test Item Value Reference Range Interpretation Comme nts Leukocytes (test code = Leukocytes) Trace Nitrite (test code = Nitrite) negative Urobilinogen (test code = Urobilinogen) .2 Protein (test code = Protein) 100 pH (test code = pH) 7.0 Blood (test code = Blood) Negative Specific Raymond (test code = Specific Raymond) 1.020 Ketone (test code = Ketone) Negative Bilirubin (test code = Bilirubin) Negative Glucose (test code = Glucose) Negative Appearance (test code = Appearance) Clear Color (test code = Color) Yellow [facility], urine + [id number] 07:45:00* Test Item Value Reference Range Interpretation Comme nts culture,urine (test code = culture,urine) MIXED SKIN HARSHIL PRESENT. PATHOGEN NOT PRESENT AT 2 DAYS. [facility], [id number] 15:43:34* Test Item Value Reference Range Interpretation Comme nts Leukocytes (test code = Leukocytes) Small Nitrite (test code = Nitrite) negative Urobilinogen (test code = Urobilinogen) .2 Protein (test code = Protein) 100 pH (test code = pH) 6.0 Blood (test code = Blood) Hemolyzed: Trace Specific Raymond (test code = Specific Raymond) 1.030 Ketone (test code = Ketone) Trace Bilirubin (test code = Bilirubin) Negative Glucose (test code = Glucose) 500 Appearance (test code = Appearance) Cloudy Color (test code = Color) Yellow [facility], urine + [id number] 10:32:00* Test Item Value Reference Range Interpretation Comme nts culture,urine (test code = culture,urine) SCANT SKIN HARSHIL PRESENT. NO PATHOGEN PRESENT AT 2 DAYS. [facility], [id number] 09:25:34* Test Item Value Reference Range Interpretation Comme nts Leukocytes (test code = Leukocytes) Negative Nitrite (test code = Nitrite) positive Urobilinogen (test code = Urobilinogen) .2 Protein (test code = Protein) 30 pH (test code = pH) 6.0 Blood (test code = Blood) Negative Specific Raymond (test code = Specific Raymond) 1.030 Ketone (test code = Ketone) Negative Bilirubin (test code = Bilirubin) Negative Glucose (test code = Glucose) 500 Appearance (test code = Appearance) Clear Color (test code = Color) Yellow [facility] [id number] 00:00:00 [id number] 00:00:00* Test Item Value Reference Range Interpretation Comme nts gentamicin (test code = gentamicin) <=2 ampicillin (test code = ampicillin) <=4 trimethoprim/sulfamethoxazol e (test code = trimethoprim/sulfamethoxazole) <=0.5/9.5 tetracycline (test code = tetracycline) >8 amoxacillin/clavulanate (augustus t code = amoxacillin/clavulanate) <=4/2 tobramycin (test code = tobramycin) <=2 nitrofurantoin (test code = nitrofurantoin) >64 cefoxitin (test code = cefoxitin) <=4 levofloxacin (test code = levofloxacin) <=0.5 ceftazidime (test code = ceftazidime) <=2 ceftriaxone (test code = ceftriaxone) <=1 ciprofloxacin (test code = ciprofloxacin) <=0.25 ampicillin/sulbactam (test c ode = ampicillin/sulbactam) <=1/0.5 ceftazidime-avibactam (test code = ceftazidime-avibactam) <=0.25/4 ertapenem (test code = ertapenem) <=0.25 aztreonam (test code = aztreonam) <=2 cefepime (test code = cefepime) <=1 cefuroxime (test code = cefuroxime) <=4 pip/tazo (test code = pip/tazo) <=2/4 [facility] and score panel - Vaginal fluid by JAVIER with probe [id number] 00:00:00* Test Item Value Reference Range Interpretation Comme nts isaias - swab (test code = isaias - swab) Normal gardnerella (test code = gardnerella) Normal trichomonas vaginalis addon - swab (test code = trichomonas vaginalis addon - swab) Normal [facility], [id number] 17:06:00* Test Item Value Reference Range Interpretation Comme nts Leukocytes (test code = Leukocytes) Large Nitrite (test code = Nitrite) negative Urobilinogen (test code = Urobilinogen) .2 Protein (test code = Protein) 300 pH (test code = pH) 8.5 Blood (test code = Blood) Small Specific Raymond (test code = Specific Raymond) 1.025 Ketone (test code = Ketone) Trace Bilirubin (test code = Bilirubin) Small Glucose (test code = Glucose) 100 Appearance (test code = Appearance) Cloudy Color (test code = Color) Dark Yellow [facility] W Auto Differential panel - [id number] 00:00:00 * Test Item Value Reference Range Interpretation Comme nts white blood count (test code = white blood count) 8.8 K/uL 4.0-11.5 red blood count (test code = red blood count) 4.41 M/uL 3.80-5.20 hemoglobin (test code = hemoglobin) 13.2 g/dL 10.5-15.7 hematocrit (test code = hematocrit) 39.8 % 34.0-50.0 mean corpuscular volume (augustus t code = mean corpuscular volume) 90.2 fL 86.0-100.0 mean corpuscular hemoglobin (test code = mean corpuscular hemoglobin) 29.9 pg 26.2-33.4 mean corpuscular HGB conc (t est code = mean corpuscular HGB conc) 33.2 g/dL 30.0-34.0 red cell distribution width (test code = red cell distribution width) 12.0 % 12.0-15.5 platelet count (test code = platelet count) 307 K/uL 165-450 mean platelet volume (test c ode = mean platelet volume) 9.7 fL 9.4-12.6 neutrophils % (test code = neutrophils %) 58.2 % 44.4-80.1 Ig% (test code = Ig%) 0.2 % 0.0-0.4 lymphocyte% (test code = lymphocyte%) 33.9 % 10.0-50.0 mono % (test code = mono %) 4.9 % 3.6-12.0 eos % (test code = eos %) 2.5 % 0.0-5.4 basophil % (test code = baso ernesto %) 0.3 % 0.1-1.2 absolute neutrophil count (t est code = absolute neutrophil count) 5.14 K/uL 1.56-6.13 Ig# (test code = Ig#) 0.02 K/uL 0.00-0.03 lymph # (test code = lymph #) 3.00 K/uL 1.18-3.74 mono # (test code = mono #) 0.43 K/uL 0.24-0.86 eos # (test code = eos #) 0.22 K/uL 0.04-0.36 basophil # (test code = baso ernesto #) 0.03 K/uL 0.01-0.08 NRBC% (test code = NRBC%) 0 /100 WBC 0-0.2 NRBC# (test code = NRBC#) 0 K/uL [facility] 2000 [facility] - Serum or Plasma 2024-12-16 00:00:00* Test Item Value Reference Range Interpretation Comme nts glucose (test code = glucose) 186 mg/dL 74-106 H blood urea nitrogen (test co de = blood urea nitrogen) 12 mg/dL 6-20 osmolality calculated,serum (test code = osmolality calculated,serum) 282 mOsm/kg 280-300 creatinine (test code = creatinine) 0.57 mg/dL 0.50-0.90 glomerular filtration rate ( test code = glomerular filtration rate) > 60.00 BUN/creatinine ratio (test c ode = BUN/creatinine ratio) 21.1 12.0-20.0 H sodium level (test code = so dium level) 139 mmol/L 135-145 potassium level (test code = potassium level) 4.2 mmol/L 3.5-5.2 chloride level (test code = chloride level) 102 mmol/L 98-108 CO2 (test code = CO2) 24 mmol/L 21-32 anion gap (test code = anion gap) 17.2 mEq/L 12.0-20.0 calcium level (test code = calcium level) 9.7 mg/dL 8.6-10.0 total protein (test code = t otal protein) 7.2 g/dL 6.6-8.7 albumin (test code = albumin) 4.0 g/dL 3.5-5.2 globulin (test code = globulin) 3.2 g/dL 1.5-4.5 A/G ratio (test code = A/G ratio) 1.3 >1.0 bilirubin,total (test code = bilirubin,total) < 0.2 0.0-1.2 AST/SGOT (test code = AST/SGOT) 15 U/L 15-32 ALT/SGPT (test code = ALT/SGPT) 16 U/L 0-33 alkaline phosphatase, total (test code = alkaline phosphatase, total) 123 U/L 35-105 H [facility] HealthAmylase [Enzymatic activity/volume] in Serum or Plasma 2024-12-16 00:00:00* Test Item Value Reference Range Interpretation Comme nts amylase level (test code = a mylase level) 49 U/L 28-100 [facility]lipase2025-02-08 00:00:00* Test Item Value Reference Range Interpretation Comme nts lipase (test code = lipase) 36 U/L 13-60 [facility]urinalysis, [id number] 14:47:20* Test Item Value Reference Range Interpretation Comme nts Leukocytes (test code = Leukocytes) Trace Nitrite (test code = Nitrite) negative Urobilinogen (test code = Urobilinogen) .2 Protein (test code = Protein) 100 pH (test code = pH) 8.0 Blood (test code = Blood) Non-Hemolyzed: Trace Specific Raymond (test code = Specific Raymond) 1.020 Ketone (test code = Ketone) Negative Bilirubin (test code = Bilirubin) Negative Glucose (test code = Glucose) 500 Appearance (test code = Appearance) Cloudy Color (test code = Color) Yellow [facility],urine pres id [id number] 09:04:00* Test Item Value Reference Range Interpretation Comme nts culture,urine (test code = culture,urine) >100,000 COL/CC GRAM NEG RODS. [facility] Healthnmic-[id number] 09:04:00* Test Item Value Reference Range Interpretation Comme nts gentamicin (test code = gentamicin) <=2 ampicillin (test code = ampicillin) <=4 trimethoprim/sulfamethoxazol e (test code = trimethoprim/sulfamethoxazole) >2/38 tetracycline (test code = tetracycline) >8 amoxacillin/clavulanate (augustus t code = amoxacillin/clavulanate) 8/4 tobramycin (test code = tobramycin) <=2 nitrofurantoin (test code = nitrofurantoin) 32 cefoxitin (test code = cefoxitin) <=4 levofloxacin (test code = levofloxacin) <=0.5 ceftazidime (test code = ceftazidime) <=2 ceftriaxone (test code = ceftriaxone) <=1 ciprofloxacin (test code = ciprofloxacin) <=0.25 ampicillin/sulbactam (test c ode = ampicillin/sulbactam) 8 ceftazidime-avibactam (test code = ceftazidime-avibactam) <=0.25/4 ertapenem (test code = ertapenem) <=0.25 aztreonam (test code = aztreonam) <=2 cefepime (test code = cefepime) <=1 cefuroxime (test code = cefuroxime) <=4 meropenem (test code = meropenem) <=0.5 pip/tazo (test code = pip/tazo) 02/09 [facility]Com[facility] 2000 panel - Serum or Plasma 2024-09-26 12:21:00* Test Item Value Reference Range Interpretation Comme nts glucose (test code = glucose) 253 mg/dL 74-106 H blood urea nitrogen (test co de = blood urea nitrogen) 11 mg/dL 6-20 osmolality calculated,serum (test code = osmolality calculated,serum) 278 mOsm/kg 280-300 L creatinine (test code = creatinine) 0.52 mg/dL 0.50-0.90 glomerular filtration rate ( test code = glomerular filtration rate) > 60.00 BUN/creatinine ratio (test c ode = BUN/creatinine ratio) 21.2 12.0-20.0 H sodium level (test code = so dium level) 135 mmol/L 135-145 potassium level (test code = potassium level) 4.3 mmol/L 3.5-5.2 chloride level (test code = chloride level) 99 mmol/L 98-108 CO2 (test code = CO2) 23 mmol/L 21-32 anion gap (test code = anion gap) 17.3 mEq/L 12.0-20.0 calcium level (test code = calcium level) 9.2 mg/dL 8.6-10.0 total protein (test code = t otal protein) 7.1 g/dL 6.6-8.7 albumin (test code = albumin) 4.1 g/dL 3.5-5.2 globulin (test code = globulin) 3.0 g/dL 1.5-4.5 A/G ratio (test code = A/G ratio) 1.4 >1.0 bilirubin,total (test code = bilirubin,total) 0.3 mg/dL 0.0-1.2 AST/SGOT (test code = AST/SGOT) 14 U/L 15-32 L ALT/SGPT (test code = ALT/SGPT) 14 U/L 0-33 alkaline phosphatase, total (test code = alkaline phosphatase, total) 129 U/L 35-105 H [facility] Healthlipid panel, [id number] 12:21:00* Test Item Value Reference Range Interpretation Comme nts cholesterol level (test code = cholesterol level) 222 mg/dL 150-200 H triglycerides level (test co de = triglycerides level) 384 mg/dL <150 H HDL cholesterol (test code = HDL cholesterol) 46 mg/dL >65 L LDL cholesterol direct (test code = LDL cholesterol direct) 130 mg/dL <100 H cholesterol risk ratio (test code = cholesterol risk ratio) 4.826 [facility]hemoglobin [id number] 12:20:00* Test Item Value Reference Range Interpretation Comme nts Hemoglobin A1c/Hemoglobin.to yulisa in Blood (test code = 4548-4) 9.9 % 4.0-6.0 H [facility] [id number] 12:08:00* Test Item Value Reference Range Interpretation Comme nts color, urine (test code = color, urine) Yellow appearance, urine (test code = appearance, urine) Cloudy clear A urine glucose (test code = urine glucose) 3+ (200-600 mg/dL) negative A bilirubin, urine (test code = bilirubin, urine) Negative negative ketone, urine (test code = ketone, urine) Negative negative specific gravity,urine (test code = specific gravity,urine) 1.015 1.003-1.030 blood urine (test code = blood urine) Negative negative pH,urine (test code = pH,urine) 5.500 5-9 protein urine (UA) (test code = protein urine (UA)) Trace negative urobilinogen, urine (test code = urobilinogen, urine) 0.2 mg/dL 0.2-1.0 nitrate, urine (test code = nitrate, urine) Negative negative RBC, urine (test code = RBC, urine) 6-10 0-5 A WBC, urine (test code = WBC, urine) 6-10 0-5 A epithelial cell (test code = epithelial cell) 3-5 0-5 casts,urine (test code = casts,urine) 0-2 none detect A urine leukocyte esterase (test code = urine leukocyte esterase) 1+ negative A bacteria, urine (test code = bacteria, urine) FULL FIELD (4+) none detect A urine culture added? (test code = urine culture added?) YES [facility],urine pres id [id number] 08:28:00* Test Item Value Reference Range Interpretation Comme nts culture,urine (test code = culture,urine) >100,000 COL/CC GRAM NEG RODS. [facility]nmic-[id number] 08:28:00* Test Item Value Reference Range Interpretation Comme nts gentamicin (test code = gentamicin) <=2 ampicillin (test code = ampicillin) <=4 trimethoprim/sulfamethoxazol e (test code = trimethoprim/sulfamethoxazole) <=0.5/9.5 tetracycline (test code = tetracycline) >8 amoxacillin/clavulanate (augustus t code = amoxacillin/clavulanate) 8/4 tobramycin (test code = tobramycin) <=2 nitrofurantoin (test code = nitrofurantoin) 32 cefoxitin (test code = cefoxitin) 8 levofloxacin (test code = levofloxacin) <=0.5 ceftazidime (test code = ceftazidime) <=2 ceftriaxone (test code = ceftriaxone) <=1 ciprofloxacin (test code = ciprofloxacin) <=0.25 ampicillin/sulbactam (test c ode = ampicillin/sulbactam) 4/2 ceftazidime-avibactam (test code = ceftazidime-avibactam) <=0.25/4 ertapenem (test code = ertapenem) <=0.25 aztreonam (test code = aztreonam) <=2 cefepime (test code = cefepime) <=1 cefuroxime (test code = cefuroxime) <=4 meropenem (test code = meropenem) <=0.5 pip/tazo (test code = pip/tazo) <=2/4 [facility]urinalysis, [id number] 15:13:00* Test Item Value Reference Range Interpretation Comme nts Leukocytes (test code = Leukocytes) Negative Nitrite (test code = Nitrite) positive Urobilinogen (test code = Urobilinogen) .2 Protein (test code = Protein) Negative pH (test code = pH) 5.5 Blood (test code = Blood) Negative Specific Raymond (test code = Specific Raymond) 1.020 Ketone (test code = Ketone) Negative Bilirubin (test code = Bilirubin) Negative Glucose (test code = Glucose) 500 Appearance (test code = Appearance) Slightly Cloudy Color (test code = Color) Yellow [facility] HealthInfluenza virus A and B and SARS-CoV+SARS-CoV-2 (COVID- 19) Ag panel - Upper respiratory specimen byRapid [id number] 11:09:46 * Test Item Value Reference Range Interpretation Comme nts RAPID SARS COV (test code = RAPID SARS COV) negative RAPID FLU A (test code = RAP ID FLU A) negative RAPID FLU B (test code = RAP ID FLU B) negative [facility]REF[facility]AL- RE[facility]/[id number] 00:09:07Ordered by an unspecified provider.[facility] 2024-02-[facility] 15:38:00* Test Item Value Reference Range Interpretation Comme nts PVR (URINE VOLUME) (test code = 5193) 15ml 0-100 Lab Interpretation (test cod e = 76437-0) Normal [facility] [id number] 15:38:00* Test Item Value Reference Range Interpretation Comme nts PVR (URINE VOLUME) (test code = 5193) 15ml 0-100 Lab Interpretation (test cod e = 08782-9) Normal [facility]2024-02-04 17:27:25* Test Item Value Reference Range Interpretation Comme nts POCT GLU (test code = 4485999770) 287 mg/dL 70-110 H Lab Interpretation (test cod e = 87434-7) Abnormal [facility] GLUCOSE (AUTOMATED)2024-02-04 17:27:25* Test Item Value Reference Range Interpretation Comme nts POCT GLU (test code = 1284869761) 287 mg/dL 70-110 H Lab Interpretation (test cod e = 75589-3) [facility]2024-[facility]-04 13:45:24* Test Item Value Reference Range Interpretation Comme nts POCT GLU (test code = 4362898187) 353 mg/dL 70-110 H Lab Interpretation (test cod e = 06378-2) Abnormal [facility]2024-02-04 13:45:24* Test Item Value Reference Range Interpretation Comme nts POCT GLU (test code = 6058019479) 353 mg/dL 70-110 H Lab Interpretation (test cod e = 64466-7) [facility]normal [facility]2024-02-04 03:24:24* Test Item Value Reference Range Interpretation Comme nts POCT GLU (test code = 1264266423) 283 mg/dL 70-110 H Lab Interpretation (test cod e = 19895-2) Abnormal [facility] GLUCOSE (AUTOMATED)2024-02-04 03:24:24* Test Item Value Reference Range Interpretation Comme nts POCT GLU (test code = 0264557704) 283 mg/dL 70-110 H Lab Interpretation (test cod e = 10823-9) Abnormal [facility] GLUCOSE (AUTOMATED)2024-02-03 23:55:55* Test Item Value Reference Range Interpretation Comme nts POCT GLU (test code = 7391797696) 201 mg/dL 70-110 H Lab Interpretation (test cod e = 02652-2) Abnormal [facility] GLUCOSE (AUTOMATED)2024-02-03 23:55:55* Test Item Value Reference Range Interpretation Comme nts POCT GLU (test code = 3381558496) 201 mg/dL 70-110 H Lab Interpretation (test cod e = 34785-5) [facility]normal [facility] [id number] 18:25:00* Test Item Value Reference Range Interpretation Comme nts ABO & RH (test code = 20) O POSITIVE IAT (test code = 1185) Negative [facility] [id number] 18:25:00* Test Item Value Reference Range Interpretation Comme nts ABO & RH (test code = 20) O POSITIVE IAT (test code = 1185) Negative [facility] GLUCOSE (AUTOMATED)2024-02-03 18:00:56* Test Item Value Reference Range Interpretation Comme nts POCT GLU (test code = 0236623610) 159 mg/dL 70-110 H Lab Interpretation (test cod e = 50028-2) Abnormal [facility] GLUCOSE (AUTOMATED)2024-02-03 18:00:56* Test Item Value Reference Range Interpretation Comme nts POCT GLU (test code = 8158227220) 159 mg/dL 70-110 H Lab Interpretation (test cod e = 93462-8) Abnormal [facility] [id number] 17:56:00* Test Item Value Reference Range Interpretation Comme nts POCT PREG (test code = 1605) Negative On board controls acceptable with C Line (test code = 3574) Yes POCT PREG LOT # (test code = 3575) POCT PREG TEST DATE ( test code = 3576) Lab Interpretation (test cod e = 29071-3) Normal [facility] [id number] 17:56:00* Test Item Value Reference Range Interpretation Comme nts POCT PREG (test code = 1605) Negative On board controls acceptable with C Line (test code = 3574) Yes POCT PREG LOT # (test code = 3575) POCT PREG TEST DATE ( test code = 3576) Lab Interpretation (test cod e = 64823-2) Normal [facility],POST-VOID RES,US,[id number] 17:19:00* Test Item Value Reference Range Interpretation Comme nts PVR (URINE VOLUME) (test cod e = 5193) 161 ml 0-100 A Lab Interpretation (test cod e = 30256-8) Abnormal [facility],POST-VOID RES,US,[id number] 17:19:00* Test Item Value Reference Range Interpretation Comme nts PVR (URINE VOLUME) (test cod e = 5193) 161 ml 0-100 A Lab Interpretation (test cod e = 52633-6) Abnormal [facility] HospitalBI [facility] [id number] 19:49:12 Examination:BI AXILLARY ULTRASOUND LEFT History:Patient is 52 year old and is seen for: ?Hx of brca1 mutation s/p bilateral mastectomy, with some pain and intermittent nodularity of l axillary region. Comparisons : None available Findings: Left: Targeted left axillary ultrasound was obtained. The visualized left level 1 axillary lymph nodes appear unremarkable. Impression: Left: The visualized left level 1 axillary lymph nodes appear unremarkable. The patient is BRCA 1 +, ?and she is status post bilateral mastectomy. ?Of note, the patient states that 2 of her siblings have been diagnosed withovarian cancer, 1 sibling was diagnosed with breast cancer, and her mother from stage IV breast cancer. ? Given the patient's new left axillary discomfort, a breast surgery consultation is recommended for a dedicated clinical breast exam (the patient states this consultation appointment has been scheduled in the next few weeks). Additionally, if clinically indicated, bilateral breast MRI with and without contrast may provide additional information to exclude an underlying occult process. Recommendation:Surgical consultation - LeftClinical follow-up is also recommended, and further management of clinical findings should be based on the results of clinical evaluation. BI-RADS Category:Left 2 - BenignUnUniversity Hospitalrapid strep group A, [id number] 12:03:25* Test Item Value Reference Range Interpretation Comme nts Strep Result (test code = St rep Result) negative [facility] HealthInfluenza virus A and B and SARS-CoV+SARS-CoV-2 (COVID- 19) Ag panel - Upper respiratory specimen byRapid [id number] 12:01:06 * Test Item Value Reference Range Interpretation Comme nts RAPID SARS COV (test code = RAPID SARS COV) negative RAPID FLU A (test code = RAP ID FLU A) negative RAPID FLU B (test code = RAP ID FLU B) negative [facility]AL[facility] W/O SPECIFIC [id number] 17:00:00* Test Item Value Reference Range Interpretation Comme nts POCT PH U (test code = 3254) 7 mg/dl 5-8 POCT U LEUK EST (test code = 3263) Trace Negative - Negative POCT U NIT (test code = 3262) Positive Negative - Negati ve POCT U PROT (test code = 3259) Negative Negative - Negat tristan POCT U GLU (test code = 3256) 250 Negative - Negati ve POCT U KETONE (test code = 3258) ++ Negative - Negative POCT U BLD (test code = 3257) Netgative Negative - Negati ve [facility] W/O SPECIFIC [id number] 17:00:00* Test Item Value Reference Range Interpretation Comme nts POCT PH U (test code = 3254) 7 mg/dl 5-8 POCT U LEUK EST (test code = 3263) Trace Negative - Negative POCT U NIT (test code = 3262) Positive Negative - Negati ve POCT U PROT (test code = 3259) Negative Negative - Negat tristan POCT U GLU (test code = 3256) 250 Negative - Negati ve POCT U KETONE (test code = 3258) ++ Negative - Negative POCT U BLD (test code = 3257) Netgative Negative - Negati ve [facility] URINALYSIS W/O SPECIFIC [id number] 17:00:00* Test Item Value Reference Range Interpretation Comme nts POCT PH U (test code = 3254) 7 mg/dl 5-8 POCT U LEUK EST (test code = 3263) Trace Negative - Negative POCT U NIT (test code = 3262) Positive Negative - Negati ve POCT U PROT (test code = 3259) Negative Negative - Negat tristan POCT U GLU (test code = 3256) 250 Negative - Negati ve POCT U KETONE (test code = 3258) ++ Negative - Negative POCT U BLD (test code = 3257) Netgative Negative - Negati ve [facility]glucose [id number] 07:24:00* Test Item Value Reference Range Interpretation Comme [facility] blood glucose monitoring (te st code = blood glucose monitoring) 244 mg/dL 70.0-110 H [facility] Healthbasi metabolic [id number] 05:51:00* Test Item Value Reference Range Interpretation Comme [facility] glucose (test code = glucose) 242 mg/dL 74-106 H blood urea nitrogen (test co de = blood urea nitrogen) 14 mg/dL 6-20 osmolality calculated,serum (test code = osmolality calculated,serum) 279 mOsm/kg 280-300 L creatinine (test code = creatinine) 0.55 mg/dL 0.50-0.90 glomerular filtration rate ( test code = glomerular filtration rate) > 60.00 BUN/creatinine ratio (test c ode = BUN/creatinine ratio) 25.5 12.0-20.0 H sodium level (test code = so dium level) 135 mmol/L 135-145 potassium level (test code = potassium level) 4.1 mmol/L 3.5-5.2 chloride level (test code = chloride level) 100 mmol/L 98-108 CO2 (test code = CO2) 23 mmol/L 21-32 anion gap (test code = anion gap) 16.1 mEq/L 12.0-20.0 calcium level (test code = calcium level) 9.0 mg/dL 8.6-10.0 [facility] Auto Differential panel - [id number] 05:12:00 * Test Item Value Reference Range Interpretation Comme nts white blood count (test code = white blood count) 5.7 K/uL 4.0-11.5 red blood count (test code = red blood count) 3.48 M/uL 3.80-5.20 L hemoglobin (test code = hemoglobin) 10.5 g/dL 10.5-15.7 hematocrit (test code = hematocrit) 31.6 % 34.0-50.0 L mean corpuscular volume (augustus t code = mean corpuscular volume) 90.8 fL 86.0-100.0 mean corpuscular hemoglobin (test code = mean corpuscular hemoglobin) 30.2 pg 26.2-33.4 mean corpuscular HGB conc (t est code = mean corpuscular HGB conc) 33.2 g/dL 30.0-34.0 red cell distribution width (test code = red cell distribution width) 12.1 % 12.0-15.5 platelet count (test code = platelet count) 212 K/uL 165-450 mean platelet volume (test c ode = mean platelet volume) 10.6 fL 9.4-12.6 neutrophils % (test code = neutrophils %) 52.8 % 44.4-80.1 Ig% (test code = Ig%) 0.4 % 0.0-0.4 lymphocyte% (test code = lymphocyte%) 36.7 % 10.0-50.0 mono % (test code = mono %) 7.0 % 3.6-12.0 eos % (test code = eos %) 2.6 % 0.0-5.4 basophil % (test code = baso ernesto %) 0.5 % 0.1-1.2 absolute neutrophil count (t est code = absolute neutrophil count) 3.00 K/uL 1.56-6.13 Ig# (test code = Ig#) 0.02 K/uL 0.00-0.03 lymph # (test code = lymph #) 2.09 K/uL 1.18-3.74 mono # (test code = mono #) 0.40 K/uL 0.24-0.86 eos # (test code = eos #) 0.15 K/uL 0.04-0.36 basophil # (test code = baso ernesto #) 0.03 K/uL 0.01-0.08 NRBC% (test code = NRBC%) 0 /100 WBC 0-0.2 NRBC# (test code = NRBC#) 0 K/uL [facility] [id number] 00:35:00* Test Item Value Reference Range Interpretation Comme [facility] blood glucose monitoring (te st code = blood glucose monitoring) 287 mg/dL 70.0-110 H [facility] Healthglucose [id number] 17:19:00* Test Item Value Reference Range Interpretation Comme [facility] blood glucose monitoring (te st code = blood glucose monitoring) 252 mg/dL 70.0-110 H [facility] Healthglucose [id number] 10:55:00* Test Item Value Reference Range Interpretation Comme [facility] blood glucose monitoring (te st code = blood glucose monitoring) 299 mg/dL 70.0-110 H [facility] Healthglucose [id number] 07:20:00* Test Item Value Reference Range Interpretation Comme [facility] blood glucose monitoring (te st code = blood glucose monitoring) 237 mg/dL 70.0-110 H [facility] Healthbasic metabolic [id number] 04:31:00* Test Item Value Reference Range Interpretation Comme nts glucose (test code = glucose) 270 mg/dL 74-106 H blood urea nitrogen (test co de = blood urea nitrogen) 12 mg/dL 6-20 osmolality calculated,serum (test code = osmolality calculated,serum) 270 mOsm/kg 280-300 L creatinine (test code = creatinine) 0.52 mg/dL 0.50-0.90 glomerular filtration rate ( test code = glomerular filtration rate) > 60.00 BUN/creatinine ratio (test c ode = BUN/creatinine ratio) 23.1 12.0-20.0 H sodium level (test code = so dium level) 130 mmol/L 135-145 L potassium level (test code = potassium level) 4.2 mmol/L 3.5-5.2 chloride level (test code = chloride level) 97 mmol/L 98-108 L CO2 (test code = CO2) 24 mmol/L 21-32 anion gap (test code = anion gap) 13.2 mEq/L 12.0-20.0 calcium level (test code = calcium level) 8.7 mg/dL 8.6-10.0 [facility] HealthMagnesium [Mass/volume] in Serum or [id number] 04:31:00* Test Item Value Reference Range Interpretation Comme nts magnesium level (test code = magnesium level) 1.9 mg/dL 1.6-2.6 [facility] W Auto Differential panel - [id number] 04:17:00 * Test Item Value Reference Range Interpretation Comme nts white blood count (test code = white blood count) 5.4 K/uL 4.0-11.5 red blood count (test code = red blood count) 3.67 M/uL 3.80-5.20 L hemoglobin (test code = hemoglobin) 11.0 g/dL 10.5-15.7 hematocrit (test code = hematocrit) 33.1 % 34.0-50.0 L mean corpuscular volume (augustus t code = mean corpuscular volume) 90.2 fL 86.0-100.0 mean corpuscular hemoglobin (test code = mean corpuscular hemoglobin) 30.0 pg 26.2-33.4 mean corpuscular HGB conc (t est code = mean corpuscular HGB conc) 33.2 g/dL 30.0-34.0 red cell distribution width (test code = red cell distribution width) 12.2 % 12.0-15.5 platelet count (test code = platelet count) 190 K/uL 165-450 mean platelet volume (test c ode = mean platelet volume) 10.1 fL 9.4-12.6 neutrophils % (test code = neutrophils %) 71.2 % 44.4-80.1 Ig% (test code = Ig%) 0.6 % 0.0-0.4 H lymphocyte% (test code = lymphocyte%) 20.8 % 10.0-50.0 mono % (test code = mono %) 6.1 % 3.6-12.0 eos % (test code = eos %) 0.9 % 0.0-5.4 basophil % (test code = baso ernesto %) 0.4 % 0.1-1.2 absolute neutrophil count (t est code = absolute neutrophil count) 3.87 K/uL 1.56-6.13 Ig# (test code = Ig#) 0.03 K/uL 0.00-0.03 lymph # (test code = lymph #) 1.13 K/uL 1.18-3.74 L mono # (test code = mono #) 0.33 K/uL 0.24-0.86 eos # (test code = eos #) 0.05 K/uL 0.04-0.36 basophil # (test code = baso ernesto #) 0.02 K/uL 0.01-0.08 NRBC% (test code = NRBC%) 0 /100 WBC 0-0.2 NRBC# (test code = NRBC#) 0 K/uL [facility] [id number] 01:53:00* Test Item Value Reference Range Interpretation Comme [facility] blood glucose monitoring (te st code = blood glucose monitoring) 262 mg/dL 70.0-110 H [facility] Healthglucose [id number] 20:41:00* Test Item Value Reference Range Interpretation Comme [facility] blood glucose monitoring (te st code = blood glucose monitoring) 365 mg/dL 70.0-110 H [facility] [id number] 16:07:00* Test Item Value Reference Range Interpretation Comme [facility] blood glucose monitoring (te st code = blood glucose monitoring) 331 mg/dL 70.0-110 H [facility] [id number] 11:14:00* Test Item Value Reference Range Interpretation Comme nts blood glucose monitoring (te st code = blood glucose monitoring) 350 mg/dL 70.0-110 H [facility]glucose [id number] 08:30:00* Test Item Value Reference Range Interpretation Comme nts blood glucose monitoring (te st code = blood glucose monitoring) 262 mg/dL 70.0-110 H [facility] Healthculture,urine pres id [id number] 07:45:00 Culture,urineMatagoCrossRoads Behavioral HealthProcalcitonin [Mass/volume] in Serum or [id number] 07:00:00* Test Item Value Reference Range Interpretation Comme nts procalcitonin (test code = procalcitonin) 0.2 NG/mL 0.0-0.8 [facility] HealthMagnesium [Mass/volume] in Serum or [id number] 06:52:00* Test Item Value Reference Range Interpretation Comme nts magnesium level (test code = magnesium level) 1.4 mg/dL 1.6-2.6 L [facility]basic metabolic [id number] 06:35:00* Test Item Value Reference Range Interpretation Comme nts glucose (test code = glucose) 269 mg/dL 74-106 H blood urea nitrogen (test co de = blood urea nitrogen) 7 mg/dL 6-20 osmolality calculated,serum (test code = osmolality calculated,serum) 270 mOsm/kg 280-300 L creatinine (test code = creatinine) 0.53 mg/dL 0.50-0.90 glomerular filtration rate ( test code = glomerular filtration rate) > 60.00 BUN/creatinine ratio (test c ode = BUN/creatinine ratio) 13.2 12.0-20.0 sodium level (test code = so dium level) 131 mmol/L 135-145 L potassium level (test code = potassium level) 4.3 mmol/L 3.5-5.2 chloride level (test code = chloride level) 96 mmol/L 98-108 L CO2 (test code = CO2) 20 mmol/L 21-32 L anion gap (test code = anion gap) 19.3 mEq/L 12.0-20.0 calcium level (test code = calcium level) 8.5 mg/dL 8.6-10.0 L [facility] Healthlactic [id number] 06:34:00* Test Item Value Reference Range Interpretation Comme nts lactic acid (test code = lac tic acid) 1.15 mmol/L 0.5-2.2 [facility] HealthCB W Auto Differential panel - [id number] 05:56:00 * Test Item Value Reference Range Interpretation Comme nts white blood count (test code = white blood count) 8.5 K/uL 4.0-11.5 red blood count (test code = red blood count) 4.10 M/uL 3.80-5.20 hemoglobin (test code = hemoglobin) 12.2 g/dL 10.5-15.7 hematocrit (test code = hematocrit) 37.6 % 34.0-50.0 mean corpuscular volume (augustus t code = mean corpuscular volume) 91.7 fL 86.0-100.0 mean corpuscular hemoglobin (test code = mean corpuscular hemoglobin) 29.8 pg 26.2-33.4 mean corpuscular HGB conc (t est code = mean corpuscular HGB conc) 32.4 g/dL 30.0-34.0 red cell distribution width (test code = red cell distribution width) 12.5 % 12.0-15.5 platelet count (test code = platelet count) 188 K/uL 165-450 mean platelet volume (test c ode = mean platelet volume) 9.6 fL 9.4-12.6 neutrophils % (test code = neutrophils %) 75.3 % 44.4-80.1 Ig% (test code = Ig%) 0.5 % 0.0-0.4 H lymphocyte% (test code = lymphocyte%) 16.2 % 10.0-50.0 mono % (test code = mono %) 7.6 % 3.6-12.0 eos % (test code = eos %) 0.2 % 0.0-5.4 basophil % (test code = baso ernesto %) 0.2 % 0.1-1.2 absolute neutrophil count (t est code = absolute neutrophil count) 6.37 K/uL 1.56-6.13 H Ig# (test code = Ig#) 0.04 K/uL 0.00-0.03 H lymph # (test code = lymph #) 1.37 K/uL 1.18-3.74 mono # (test code = mono #) 0.64 K/uL 0.24-0.86 eos # (test code = eos #) 0.02 K/uL 0.04-0.36 L basophil # (test code = baso ernesto #) 0.02 K/uL 0.01-0.08 NRBC% (test code = NRBC%) 0 /100 WBC 0-0.2 NRBC# (test code = NRBC#) 0 K/uL [facility] HealthRuysgjyqwtoeeus4097-30-77 23:43:00* Test Item Value Reference Range Interpretation Comme nts color, urine (test code = color, urine) light yellow appearance, urine (test code = appearance, urine) SL cloudy clear A urine glucose (test code = urine glucose) 4+ (1000 mg/dL) negative bilirubin, urine (test code = bilirubin, urine) negative negative ketone, urine (test code = ketone, urine) trace negative specific gravity,urine (test code = specific gravity,urine) 1.009 1.003-1.030 blood urine (test code = blood urine) 1+ (small) negative A pH,urine (test code = pH,urine) 6.500 5-9 protein urine (UA) (test cod e = protein urine (UA)) 2+ (100 mg/dL) negative A urobilinogen, urine (test code = urobilinogen, urine) normal 0.2-1.0 nitrate, urine (test code = nitrate, urine) negative negative urine leukocyte esterase (test code = urine leukocyte esterase) 3+ negative A urine culture added? (test code = urine culture added?) yes [facility] [id number] 20:14:00* Test Item Value Reference Range Interpretation Comme nts blood glucose monitoring (te st code = blood glucose monitoring) 232 mg/dL 70.0-110 H [facility] Healththyroid stimulating hormone [id number] 20:04:00* Test Item Value Reference Range Interpretation Comme nts thyroid stimulating hormone L (test code = thyroid stimulating hormone L) 0.33 uIU/mL 0.36-3.74 L [facility] [id number] 20:04:00* Test Item Value Reference Range Interpretation Comme nts T4 (test code = T4) 5.2 ug/dL 4.5-11.7 [facility]lactic [id number] 19:33:00* Test Item Value Reference Range Interpretation Comme nts lactic acid (test code = lac tic acid) 1.58 mmol/L 0.5-2.2 [facility]blood [id number] 19:33:00* Test Item Value Reference Range Interpretation Comme nts blood culture (test code = blood culture) final report. [facility] [id number] 16:45:00* Test Item Value Reference Range Interpretation Comme nts blood glucose monitoring (te st code = blood glucose monitoring) 262 mg/dL 70.0-110 H [facility] [id number] 12:41:00* Test Item Value Reference Range Interpretation Comme nts blood glucose monitoring (te st code = blood glucose monitoring) 244 mg/dL 70.0-110 H [facility] Healthlactic [id number] 09:57:00* Test Item Value Reference Range Interpretation Comme nts lactic acid (test code = lac tic acid) 1.42 mmol/L 0.5-2.2 [facility] [id number] 08:07:00* Test Item Value Reference Range Interpretation Comme nts blood glucose monitoring (te st code = blood glucose monitoring) 201 mg/dL 70.0-110 H [facility] [id number] 07:38:00* Test Item Value Reference Range Interpretation Comme nts blood glucose monitoring (te st code = blood glucose monitoring) 178 mg/dL 70.0-110 H [facility] Healthhemoglobin [id number] 04:54:00* Test Item Value Reference Range Interpretation Comme nts Hemoglobin A1c/Hemoglobin.to yulisa in Blood (test code = 4548-4) 11.5 % 4.0-6.0 H [facility] Healthcardiac troponin [id number] 01:45:00* Test Item Value Reference Range Interpretation Comme nts cardiac troponin T (test cod e = cardiac troponin T) < 0.011 0.000-0.011 [facility] HealthComprehensive metabolic 2000 panel - Serum or Plasma 2023-06-23 01:43:00* Test Item Value Reference Range Interpretation Comme nts glucose (test code = glucose) 113 mg/dL 74-106 H blood urea nitrogen (test co de = blood urea nitrogen) 12 mg/dL 6-20 osmolality calculated,serum (test code = osmolality calculated,serum) 274 mOsm/kg 280-300 L creatinine (test code = creatinine) 0.61 mg/dL 0.50-0.90 glomerular filtration rate ( test code = glomerular filtration rate) > 60.00 BUN/creatinine ratio (test c ode = BUN/creatinine ratio) 19.7 12.0-20.0 sodium level (test code = so dium level) 137 mmol/L 135-145 potassium level (test code = potassium level) 3.5 mmol/L 3.5-5.2 chloride level (test code = chloride level) 98 mmol/L 98-108 CO2 (test code = CO2) 23 mmol/L 21-32 anion gap (test code = anion gap) 19.5 mEq/L 12.0-20.0 calcium level (test code = calcium level) 10.1 mg/dL 8.6-10.0 H total protein (test code = t otal protein) 7.9 g/dL 6.6-8.7 albumin (test code = albumin) 4.1 g/dL 3.5-5.2 globulin (test code = globulin) 3.8 g/dL 1.5-4.5 A/G ratio (test code = A/G ratio) 1.1 >1.0 bilirubin,total (test code = bilirubin,total) 0.4 mg/dL 0.0-1.2 AST/SGOT (test code = AST/SGOT) 18 U/L 15-32 ALT/SGPT (test code = ALT/SGPT) 19 U/L 0-33 alkaline phosphatase, total (test code = alkaline phosphatase, total) 111 U/L 35-105 H [facility] Healthlipase2023-08-16 01:43:00* Test Item Value Reference Range Interpretation Comme nts lipase (test code = lipase) 30 U/L 13-60 [facility] W Auto Differential panel - [id number] 01:27:00 * Test Item Value Reference Range Interpretation Comme nts white blood count (test code = white blood count) 11.5 K/uL 4.0-11.5 red blood count (test code = red blood count) 4.78 M/uL 3.80-5.20 hemoglobin (test code = hemoglobin) 14.2 g/dL 10.5-15.7 hematocrit (test code = hematocrit) 43.0 % 34.0-50.0 mean corpuscular volume (augustus t code = mean corpuscular volume) 90.0 fL 86.0-100.0 mean corpuscular hemoglobin (test code = mean corpuscular hemoglobin) 29.7 pg 26.2-33.4 mean corpuscular HGB conc (t est code = mean corpuscular HGB conc) 33.0 g/dL 30.0-34.0 red cell distribution width (test code = red cell distribution width) 12.4 % 12.0-15.5 platelet count (test code = platelet count) 250 K/uL 165-450 mean platelet volume (test c ode = mean platelet volume) 9.5 fL 9.4-12.6 neutrophils % (test code = neutrophils %) 74.5 % 44.4-80.1 Ig% (test code = Ig%) 0.4 % 0.0-0.4 lymphocyte% (test code = lymphocyte%) 18.9 % 10.0-50.0 mono % (test code = mono %) 5.5 % 3.6-12.0 eos % (test code = eos %) 0.4 % 0.0-5.4 basophil % (test code = baso ernesto %) 0.3 % 0.1-1.2 absolute neutrophil count (t est code = absolute neutrophil count) 8.59 K/uL 1.56-6.13 H Ig# (test code = Ig#) 0.05 K/uL 0.00-0.03 H lymph # (test code = lymph #) 2.18 K/uL 1.18-3.74 mono # (test code = mono #) 0.64 K/uL 0.24-0.86 eos # (test code = eos #) 0.05 K/uL 0.04-0.36 basophil # (test code = baso ernesto #) 0.03 K/uL 0.01-0.08 NRBC% (test code = NRBC%) 0 /100 WBC 0-0.2 NRBC# (test code = NRBC#) 0 [facility] [id number] 23:02:00* Test Item Value Reference Range Interpretation Comme nts RSV xpress (test code = RSV xpress) RSV negative covid-19 inhouse (test code = covid-19 inhouse) flu A (test code = flu A) flu A negative flu B (test code = flu B) flu B negative [facility] Groupstrep A [id number] 22:49:00* Test Item Value Reference Range Interpretation Comme nts strep A xpress (test code = strep A xpress) strep A not detected [facility] HealthEqeugdhvzjypbck0468-61-64 22:30:00* Test Item Value Reference Range Interpretation Comme nts color, urine (test code = color, urine) lt. yellow appearance, urine (test code = appearance, urine) cloudy clear urine glucose (test code = urine glucose) negative negative bilirubin, urine (test code = bilirubin, urine) negative negative ketone, urine (test code = ketone, urine) negative negative specific gravity,urine (test code = specific gravity,urine) 1.020 1.003-1.030 blood urine (test code = blo od urine) small negative A pH,urine (test code = pH,urine) 6.500 5-9 protein urine (UA) (test cod e = protein urine (UA)) 2+ (100 mg/dL) negative A urobilinogen, urine (test co de = urobilinogen, urine) 0.2 E.U./dL 0.2-1.0 nitrate, urine (test code = nitrate, urine) negative negative urine leukocyte esterase (te st code = urine leukocyte esterase) 1+ small negative A RBC, urine (test code = RBC, urine) none seen 0-5 WBC, urine (test code = WBC, urine) none seen 0-5 epithelial cell (test code = epithelial cell) none seen 0-5 bacteria, urine (test code = bacteria, urine) tntc none detect urine culture added? (test code = urine culture added?) yes [facility] HealthFuqqocudvxgxabz1613-74-74 11:01:00* Test Item Value Reference Range Interpretation Comme nts creatinine (test code = creatinine) 0.54 mg/dL 0.50-0.90 [facility] HealthGlomerular filtration rate/1.73 sq M.predicted [Volume Rate/Area] in Serum, Plasma or [id number] 11:01:00* Test Item Value Reference Range Interpretation Comme nts glomerular filtration rate ( test code = glomerular filtration rate) > 60.00 [facility] Healthrapid strep group A, [id number] 17:00:00* Test Item Value Reference Range Interpretation Comme nts Strep Result (test code = St rep Result) negative [facility] HealthInfluenza virus A and B and SARS-CoV+SARS-CoV-2 (COVID- 19) Ag panel - Upper respiratory specimen byRapid [id number] 17:00:00 * Test Item Value Reference Range Interpretation Comme nts RAPID SARS COV (test code = RAPID SARS COV) negative RAPID FLU A (test code = RAP ID FLU A) negative RAPID FLU B (test code = RAP ID FLU B) negative [facility] HealthUrinalysis macro (dipstick) panel - [id number] 15:41:00* Test Item Value Reference Range Interpretation Comme nts Leukocytes (test code = Leukocytes) Negative Nitrite (test code = Nitrite) negative Urobilinogen (test code = Urobilinogen) .2 Protein (test code = Protein) Negative pH (test code = pH) 5.5 Blood (test code = Blood) Small Specific Raymond (test code = Specific Raymond) 1.020 Ketone (test code = Ketone) Negative Bilirubin (test code = Bilirubin) Negative Glucose (test code = Glucose) 500 Appearance (test code = Appearance) Cloudy Color (test code = Color) Yellow [facility] Healthhepatitis acute panel [id number] 13:22:00* Test Item Value Reference Range Interpretation Comme nts hep B core Ab,IgM (test code = hep B core Ab,IgM) negative negative HCV Ab interpretation (test code = HCV Ab interpretation) See_Comment [Automated [employer]] The system which generated this result transmitted reference range: .. The reference range was not used to interpret this result as normal/abnormal. hepatitis A IgM antibody (test code = hepatitis A IgM antibody) negative negative .hepatitis B surface antigen (test code = .hepatitis B surface antigen) negative negative [facility] HealthRPR2023-04-13 11:55:00* Test Item Value Reference Range Interpretation Comme nts RPR (test code = RPR) nonreactive nonreactive [facility] HealthComprehensive metabolic 2000 panel - Serum or Plasma 2023-01-29 12:29:00* Test Item Value Reference Range Interpretation Comme nts glucose (test code = glucose) 189 mg/dL 74-106 H blood urea nitrogen (test co de = blood urea nitrogen) 14 mg/dL 6-20 osmolality calculated,serum (test code = osmolality calculated,serum) 278 mOsm/kg 280-300 L creatinine (test code = creatinine) 0.52 mg/dL 0.50-0.90 glomerular filtration rate ( test code = glomerular filtration rate) > 60.00 BUN/creatinine ratio (test c ode = BUN/creatinine ratio) 26.9 12.0-20.0 H sodium level (test code = so dium level) 136 mmol/L 135-145 potassium level (test code = potassium level) 4.4 mmol/L 3.5-5.2 chloride level (test code = chloride level) 102 mmol/L 98-108 CO2 (test code = CO2) 22 mmol/L 21-32 anion gap (test code = anion gap) 16.4 mEq/L 12.0-20.0 calcium level (test code = calcium level) 9.6 mg/dL 8.6-10.0 total protein (test code = t otal protein) 7.3 g/dL 6.6-8.7 albumin (test code = albumin) 4.1 g/dL 3.5-5.2 globulin (test code = globulin) 3.2 g/dL 1.5-4.5 A/G ratio (test code = A/G ratio) 1.3 >1.0 bilirubin,total (test code = bilirubin,total) 0.4 mg/dL 0.0-1.2 AST/SGOT (test code = AST/SGOT) 17 U/L 15-32 ALT/SGPT (test code = ALT/SGPT) 16 U/L 0-33 alkaline phosphatase, total (test code = alkaline phosphatase, total) 88 U/L 35-105 [facility]lipid [id number] 12:29:00* Test Item Value Reference Range Interpretation Comme [facility] cholesterol level (test code = cholesterol level) 127 mg/dL 150-200 L triglycerides level (test co de = triglycerides level) 146 mg/dL <150 HDL cholesterol (test code = HDL cholesterol) 55 mg/dL >65 L Cholesterol in LDL [Mass/vol ume] in Serum or Plasma (test code = 2089-1) 45 mg/dL <100 cholesterol risk ratio (test code = cholesterol risk ratio) 2.309 [facility]hemoglobin [id number] 12:16:00* Test Item Value Reference Range Interpretation Comme [facility] Hemoglobin A1c/Hemoglobin.to yulisa in Blood (test code = 4548-4) 8.5 % 4.0-6.0 [facility] Ag [Presence] in Respiratory specimen by Rapid [id number] 09:01:14* Test Item Value Reference Range Interpretation Comme [facility] SARS-CoV - 2 (test code = SA RS-CoV - 2) negative [facility] HealthInfluenza virus A and B and SARS-CoV+SARS-CoV-2 (COVID- 19) Ag panel - Upper respiratory specimen byRapid [id number] 16:49:00 * Test Item Value Reference Range Interpretation Comme [facility] RAPID SARS COV (test code = RAPID SARS COV) negative RAPID FLU A (test code = RAP ID FLU A) negative RAPID FLU B (test code = RAP ID FLU B) negative [facility] [id number] 17:52:15* Test Item Value Reference Range Interpretation Comme [facility] Case Report (test code = 4836264588) Surgical Pathology ?Case: [id number] ? Authorizing Provider: ?Phill Osborn MD ?Collected: ? 09/18/2022 1431 ?Ordering Location: ? ? [facility] OR ? Received: ?09/18/2022 1459 ? Department ? Pathologist: ? Dharmesh Lee MD ?Specimen: ? ?CERVIX, dysplasia of cervix ? Final Diagnosis (test code = 4727143290) d2qhzBRgCKHjg8ftSLKcmK FuZzEwMzNcZnRuYmpcdWMx IHtccnRmMVxlcGljMTAxMD OsNI0kwSarmGy9sLyuZGBh otB4cCWyVZdiu6iyZDF3d1 gmdjhfVIQrOFdpTi1vsGJm sVbdXxAsEVGdWRg1bE91XK JggE5oqWEtFPdcilXeBLuu woMssrXaIpi7TMC1qXzdWZ TvxxysJoR4KKvtSKHwvxif IQp7MFnrUYScdGL0ZZOurL SmA4UwTEJgBW2gnld7ROR9 LFkjMDLeVrX7UBTgnHBjCT FomUikEEbvz889IYK9NkUm CZUbgiVofPpgpR5fTrRgRF yhKHCeOB0dV8SMFhnPGMQI V2cQUMfSVVVROZGBHishIJ KUJ352KXUsnoXsFTJzXT5y PCHLIV4xBSBRQVgTE05BYh wTCZEwRAGSC6HXEKMIFLUV QAIWX3ZEXENffhiwCwLwfW FyXGNmMCBGYXJlZWQgUmFq WGKxHIEPSUIdBS4pGU8vUs abRHQ0QqZhNF9gOZYostag zvZySDEgdl40XWJ8CiOys8 K0MCVjQlPpLHThCF6uyBxh TLOjWV4fTUNvS5mtoG2fle a5HcEtBODfKjA2HVPkjdM3 Rfq2AHHkSSgqg5uhx7CpY2 UdcPIzzUa1u3duXQWxZtF4 gYFxBAdxT2fwdsHipCAbZC NgITy6aSonKhKgTUVoh2he cyBcZmNoYXJzZXQwIENhbG mvuwg7tN66ZAZoqI1ufBRa OCkliyHfLdU3PHayPHEiMy Q6JLCgxETjQBHfR4miMZIm ADyoTNDhPIaygDPlMXV6dB vjp5E7yTBhqFVuuTtaHvJl BgUiRLWPn5BoBTm2eKpeB2 VcBIVePwP8qVXxHWNuACag OUMeJOOlkhI0yM32VBylyt C3eSMej9Qqc52le290lZ9v tQAwISZ5HOZeGRXaaCNrTQ EzIZN2IPXtrOVqV1goPIZh SY8rhbtlQZalBEycNJQbgQ J4BQVfePRnL4MbQYDiSZxx AZNbdxa1UsLxSu4waTHsrP saNQaty2cxt9zyqYXoLcy4 BVIhOqGxGumoAXtzn3Peq2 tyEBApqy2qYLD2iMZzeYlv k9W5gFJfDBNugUPlhaKhTU YlPrB4FMccEE9fpn64MSPa QCN6tp5fdRDolLjnfaNiiV FjGCrtO4OyCPDkl188MLXp R2FzCKAhr1X2hbPwUvLpXO LqmLQ8lsY7NMMfABg5yGYt dxF5iqEuuKPbW2acqZ0vSY YqIC2vwcpga0uqQUskTUud QCSzzOQ7giL3UMGemWFeY4 TugA9zJHLwPNwxKZHbxbx4 YvHlNi4foRYkzJpjSEhqPf twYWdlXHBnbmNvbnRccGdu ZGVjXHBsYWluXHBsYWluXG FoJUGoXeWdsEwwpNvlcQ3t TbWjOhTeFDnbAP9dHOAdJ2 jlfBUkCHErZNUsT1niAqOe pX4xpAvbHNgsOhWwDkObRW xwYXIgSSBoYXZlIHBlcnNv jvBaqHlyflF7gRO7WYLqSS rkYRRxLOMalTCnuu1xiUzd QYVpGD8uWBQgyjTnMNnvfZ enOFlcJKJ1NBRxqFUrqKDd bWFkZSBieSByZXNpZGVudH OgHNDxbFumz7Mkd1SyyZM0 jO8hb3amg7LbODRatCC1AU 62nkF4dG9qQZAtIB5zYLSm EP7dnYAncDSzRPMnr70flL hpcyByZXBvcnQuXHBsYWlu XGYyXGZzMjhcbGFuZzEwMz NcaGljaFxmMlxkYmNoXGYy IVqgI6udAiPnTeCnGIupKS J9fQ== Clinical Information (test code = 7079064321) Dysplasia of cervix, low grade (GEORGETTE 1) [N87.0] Gross Description (test code = 7612651016) r1tizFPcFPJboXELWTQaAP DuYP1sdSaaqMu8cQwoQEGf jqZ5pXXcOIwgd9veVEV0u1 llbiANClxkZWZmMVxwYXBl btskAlO3ZSqmNEEcqslxND o6TFspAEIrpHB7SBXgaYWi Y5QlQPTpEY3lmvq9XIM6ZU lcGCMgGaY8JOIjAsRqVerl HVl6BLNsylG5Wnh4FFXeVG IbpTAyx0K4JCieiaqxMDTc eCQmU506OJtbi3ZheDGxGP pccGFyZCANCntcKlxlcGlj c5WxlZMkRNplMWExGFFeDH vombzvVDd8CFFqJBotdOCs WB8jsVtuIkouaPqcr9PnzE BcXGlkIDUxMDAyIFxcZGIg PC1OVjOgHLIeUERfKWPeYX c8LDw7HM7AAxXxCWPfAGN7 PVquMZBsMCw4HEhmOX1VEN P6KkQ6LtMyEjoxXZTwSYzy VQd1ITXqHMetVLEgaGCrGF gzFmPnSFCqBMmvcMXoUF2z fVxwbGFpblxmczIwIFNQRU KJFSGQQQPleHNqOY2LJMVq XVvkEQYubVXSWSW6JM0dHQ ANClxsdHJwYXJcbGluMFxy aJ9eRN0GEQv5hsJoEWXfWx QeN9UhT3hgOZ8mGNYiszHu ZIPpeQUhLHJeklEue3DdQE srkcUzQWZlrNjtRRS9dKAg WCGcTCLiULJgWY39JLeFBU MgbmFtZSwgVUggbnVtYmVy IGBgIGNlcnZpeFwnQjRcJ0 R7WBUmUBGem79arOZ3mlVc ZiAzIHBpbmstdGFuIGlycm FxhEhbowAvg9S2ARTuw8W3 ZSBmcmFnbWVudHMgKDAuNC 3hFaGbU78pbR9vO2HuWQYj v4RzTRdyMC4hpH0cPZDfXc FvxJRgTlJsnXGrRyGxO52m bL0bBXamnyLfODOcJS4vHR RoZSBpZGVudGlmaWFibGUg eNChK6cehxTaojIqtH2qNQ EhYvtnC7viDJ3eHVHxHWCr sTPycK1dniLkalVrSVNrzX ryz8YiqRvhvjOoDKDyQQAv gmAbqXN5ID0glOirxnBvqX Zpu2MdSnKsYTFdYJXWnMBz t0KnW3bzRD0taDQcQD54iH BcnLpqs7JdfMn1aLMeWEle IEExLUEzICgxIGZyYWdtZW 58CYlhSHHoG5crI5Fhb2N5 dGUpLlxwYXIgDQpccGFyIA 4ZShZvxPMdGHHJmHlcagD5 LCBQQSAoQVNDUClcbGluZS ANClxlcGljTmVzdERvYzBc yxL0IQIkcUCyHPC7WW3sEK BhovshFATnVNAnGTF1RLzi cH07tXRlYGPqVGSswAIveJ vmpHVdurBCXxluhV0vLyId p0zidLq5RUOXXxuaqSUjjo sgmbY8JQOns8ojqCbnh7Bp oCQkIK9ppHvolW8jDxLzAr ANCn0= Disclaimer (test code = [id number]) l7hlmEUaETYdl7gcYWPcdC FuZzEwMzNcZnRuYmpcdWMx DNhrrmGnRRcbf8WgP0QlPy AwMFxhbnNpXGRlZmxhbmcx QDHnZUS8mxUnLZGtKZflAA VqCUnvZl1uqQVjsRjsUqXl RLBex2xvmbTKTPohEzHkW2 67YWItNYenv4psc7EqCHEr pFVbd8M0KNNOgsacqLn1tY ugF69cb4B0IqshY7sbRPJt HOBdX1KvXF8yESWbPmn9EI K1HQL7GNGnPHKjM3VfMH2u DXPxaWTvDLy6y8abhGiqDC YuVPP2y7weTDsqghKdEC2s bi2phFr2r9jehvWdDRHuWZ WcfIQJSFBaT0WynBmfJd3d yUu7yZcpIprkIBJ8Crc1ZN 1uxh40lfx8xYslAWAiuiri TpR5MKjcGCUwyctfEVs9SV tiKXMyeVB2VUIevGYiU5Ee BTGaYK5tqyx7UCS3DWpwVP PiOmX5YLBevCXvLODebVwx VTzyz321JRS6WhOjOE7qE8 Vqm9B0fH3pcIStWUNjyPCl EeIvPPTnmt9zeMXuAHnrj2 RfORW9wjJ1pLZteAJcRKLc IU50Pglig4YdQgqex4JyA5 0onNK4PWvdl0omDJ3pPvB9 bdKxYOhbf7xlxY3yHzC2ET nxUZ1wYC5iTRSpuL5bfvqb XHBnYnJkcmhlYWRccGdicm XpIf7grYnrDIZ6XYfiO2eh sX2eExA8RWpdD5edfT5uVS a3QQyhsNY2RDApeK6aNE5u nmndn7zmYUoxSXnkLQRejj O9dqE5FNHceRQeT5WqnC0b BNMzWS2kurjjt9vmBTG8WK ijZKQmENX4MaUtDVNqq2Wi kce5QdRfd5WeuDTcUZdrT8 4dc049KZOwkrGoB7dadOUf fljqlSCnwcnfHPvrwmI2VE YtkaEao5TwFJLrMRM3GLxc YLyeuEAsBGQquPwse3siT1 RscGFyXHBsYWluXGYxXGZz MjBcbGFuZzEwMzNcaGljaF mpFTkqEkIaVXAxAHgvO2bv GnSjI5FdWWMaHiAwtWKvP1 ggVGhpcyByZXBvcnQgbWF5 MSfzR9j9BXXuhiNifCo9pc TfWcMpRTOwIZI1LZzkgEXl LOXhc6GlkkjxfIVsBm1kgW NiXFAdzD9zKSMxYWNzMVev YP4ftUf9RIAKvLRdtOEtUb IZZHJpBO65uuKkKVVKwkbq w7A7IXtzJVBfv2JadLMeI1 jgc7BdIHOwk18fGI2kr6S1 v0gfCCY3XT1ri9ZlZQUrbJ CrqOSgNHIli7Onmmomj6Mz YGXlpeSer3OqTMRpbpNucE KmPPJcymQati8tjfLrRSOi AOSrS3CyjjilhZmzfgEsCW Hnae1rymNdJFK3SRCMQXDy OWJci4TmkM6baZQDAND0iC Pwmk4hmqKQwCIcGGJalc52 BXMdXU8qF5bcUUMjEJDwqj EqaAGfi3JbPMUtcEV6zQAm WO5TGbAPj57vXDVdENNYvu MgYGYtlLuqoFK1qqZ2tS3u IChGREEpLlx+IFRoZSBGRE EjVC9zqeTla1BcpnWxjTjg WRFeaESdm0KwjBBey1ZbuH ntm7QucIQutYBsHW2sQLLd clxwYXIgVVRNQiBMYWJvcm E1e5CyFOSjHLZrELW0pQhw awg0JZFgfC0xOOWoC2vkdw rtKEuuGKSvt9SiyD4llEHZ jHGgo5UlmREhlJBSlGXdFW 8vrfVoJPkZSVoHZKJ1pgXd UQJvi4GcFXatI6ayF34neL xiuNq4zSD1VKW1aB7fZkw+ IFxwYXJccGFyIEFwcHJvcH LiZNGohKruvyOrW2RmjlDf rP2llRRzbwNoMS0cYG1zN3 Q1bDSuJCIpteMnc9obIMxd dmUgYmVlbiByZXZpZXdlZC Qmw8UuIZhwJAQ6QIrrleMd bmNsdWRpbmcgSCZFLCBTcG KuoZMkREW9DAeqerDbqzTt FA9voK1rzFpvhK7noAAsrI Z5cbvkBJZlSBLzeVuyIZJn UW2yxNWhEOKrjbDBsGkdnW UleL6eT2ZcWQRcZUItdl4i ZXUhxW1vXRopt3DszegwCS YxKNAsCHCuvvQgut3yQJCy pXHRRJ7MLTsqfXJyf2Jbcn WiC7bJULX0OZFlTaHtPjax ENDjdMKioMPnRRGkdz55CA DrjL8unVpqHEHgyT2dqN4v oSoxgZ5wBlCtOcQdFKkuQV 0kQVMpS3koaAEcDIHzUOHb H6udMeOjoU4kaWnnBHmoEa NwLpFhAWckLPB7nZ== Embedded Images (test code = 2729412556) [facility] GLUCOSE (AUTOMATED)2022-09-18 20:54:29* Test Item Value Reference Range Interpretation Comme [facility] POCT GLU (test code = 2950382168) 162 mg/dL 70-110 H Notified Provide r Lab Interpretation (test code = 44257-4) Abnormal [facility] GLUCOSE (AUTOMATED)2022-09-18 20:54:29* Test Item Value Reference Range Interpretation Comme nts POCT GLU (test code = 8465856558) 162 mg/dL 70-110 H Notified Provide r Lab Interpretation (test code = 85158-8) Abnormal [facility] GLUCOSE (AUTOMATED)2022-09-18 15:56:43* Test Item Value Reference Range Interpretation Comme nts POCT GLU (test code = 7448515289) 252 mg/dL 70-110 H Lab Interpretation (test cod e = 27550-8) Abnormal [facility] GLUCOSE (AUTOMATED)2022-09-18 15:56:43* Test Item Value Reference Range Interpretation Comme nts POCT GLU (test code = 9911018536) 252 mg/dL 70-110 H Lab Interpretation (test cod e = 83087-0) Abnormal [facility] [id number] 12:06:01* Test Item Value Reference Range Interpretation Comme nts ABO & RH (test code = 20) O Positive Performed at [facility] Laboratory Services - [facility] Blood [id number] [place], [place] [address]Toll Free: [phone] No. [id number] IAT (test code = 1185) Negative Performed at [facility] Laboratory Services - [facility] Blood [address]Toll Free: [phone] No. [id number] [facility] [id number] 12:06:01* Test Item Value Reference Range Interpretation Comme nts ABO & RH (test code = 20) O Positive Performed at [facility] Laboratory Services - [facility] Blood [address]Toll Free: [phone] No. [id number] IAT (test code = 1185) Negative Performed at [facility] Laboratory Services - [facility] Blood [address]Toll Free: [phone] No. [id number] [facility] (NA, K, CL, CO2, Glucose, BUN, Creatinine, CA)2022-08-04 12:05:24* Test Item Value Reference Range Interpretation Comme nts NA (test code = 7697385006) 141 mmol/L 135-145 K (test code = 4996232034) 3.8 mmol/L 3.5-5 CL (test code = 2650812315) 108 mmol/L 98-108 CO2 TOTAL (test code = 5898031837) 24 mmol/L 23-31 AGAP (test code = 3034815593) 2-16 BUN (test code = 1710859906) 13 mg/dL 7-23 GLUCOSE (test code = 5575577075) 98 mg/dL 70-110 CREATININE (test code = 1333488354) 0.41 mg/dL 0.5-1.04 L CALCIUM (test code = 4419283809) 8.9 mg/dL 8.6-10.6 eGFR (test code = 0662834238) mL/min/1.73m2 ANDREINA (test code = ANDREINA) Association of Glomerular Filtration Rate (GFR) and Staging of Kidney Disease* + --+ --+ ------+| GFR (mL/min/1.73 m2) ?| With Kidney Damage ?| ?Without Kidney Damage+ --------+ --------+ +| ?>90 ?| ?Stage one ?| ? Normal ?+ ---+ ---+ -------+| ?60-89 ?| ?Stage two ?| ? Decreased GFR ? + --+ --+ ------+| ?30-59 ?| ?Stage three ?| ? Stage three ? + --+ --+ ------+| ?15-29 ?| ?Stage four ? | ? Stage four ?+ ---+ ---+ -------+| ?<15 (or dialysis) ? ?| ?Stage five ? | ? Stage five ?+ ---+ ---+ -------+ *Each stage assumes the associated GFR level has been in effect for at least three months. ?Stages 1 to 5, with or without kidney disease, indicate chronic kidney disease. Notes: Determination of stages one and two (with eGFR >59mL/min/1.73 m2) requires estimation of kidney damage for at least three months as defined by structural or functional abnormalities of the kidney, manifested by either:Pathological abnormalities or Markers of kidney damage (including abnormalities in the composition of the blood or urine or abnormalities in imaging tests). Lab Interpretation (test code = 09089-2) Abnormal [facility] Metabolic Panel (NA, K, CL, CO2, Glucose, BUN, Creatinine, CA)2022-08-04 12:05:24* Test Item Value Reference Range Interpretation Comme nts NA (test code = 8604841885) 141 mmol/L 135-145 K (test code = 5200833681) 3.8 mmol/L 3.5-5 CL (test code = 1661922416) 108 mmol/L 98-108 CO2 TOTAL (test code = 1360464816) 24 mmol/L 23-31 AGAP (test code = 1617086384) 2-16 BUN (test code = 5651574364) 13 mg/dL 7-23 GLUCOSE (test code = 3783063833) 98 mg/dL 70-110 CREATININE (test code = 1809333571) 0.41 mg/dL 0.5-1.04 L CALCIUM (test code = 8321073073) 8.9 mg/dL 8.6-10.6 eGFR (test code = 4143748897) mL/min/1.73m2 ANDREINA (test code = ANDREINA) Association of Glomerular Filtration Rate (GFR) and Staging of Kidney Disease* + --+ --+ ------+| GFR (mL/min/1.73 m2) ?| With Kidney Damage ?| ?Without Kidney Damage+ --------+ --------+ +| ?>90 ?| ?Stage one ?| ? Normal ?+ ---+ ---+ -------+| ?60-89 ?| ?Stage two ?| ? Decreased GFR ? + --+ --+ ------+| ?30-59 ?| ?Stage three ?| ? Stage three ? + --+ --+ ------+| ?15-29 ?| ?Stage four ? | ? Stage four ?+ ---+ ---+ -------+| ?<15 (or dialysis) ? ?| ?Stage five ? | ? Stage five ?+ ---+ ---+ -------+ *Each stage assumes the associated GFR level has been in effect for at least three months. ?Stages 1 to 5, with or without kidney disease, indicate chronic kidney disease. Notes: Determination of stages one and two (with eGFR >59mL/min/1.73 m2) requires estimation of kidney damage for at least three months as defined by structural or functional abnormalities of the kidney, manifested by either:Pathological abnormalities or Markers of kidney damage (including abnormalities in the composition of the blood or urine or abnormalities in imaging tests). Lab Interpretation (test code = 21208-2) Abnormal [facility] [id number] 11:00:00* Test Item Value Reference Range Interpretation Comme nts POCT PREG (test code = 1605) Negative On board controls acceptable with C Line (test code = 3574) Yes POCT PREG LOT # (test code = 3575) POCT PREG TEST DATE ( test code = 3576) Lab Interpretation (test cod e = 09530-8) Normal [facility] [id number] 11:00:00* Test Item Value Reference Range Interpretation Comme nts POCT PREG (test code = 1605) Negative On board controls acceptable with C Line (test code = 3574) Yes POCT PREG LOT # (test code = 3575) POCT PREG TEST DATE ( test code = 3576) Lab Interpretation (test cod e = 44989-7) Normal [facility] HospitalInfluenza virus A and B and SARS-CoV+SARS-CoV-2 (COVID-19) Ag panel - Upper respiratory specimen byRapid ncgwygkyehv9755-75-86 13:08:06* Test Item Value Reference Range Interpretation Comme nts RAPID SARS COV (test code = RAPID SARS COV) negative RAPID FLU A (test code = RAP ID FLU A) negative RAPID FLU B (test code = RAP ID FLU B) negative [facility] A, yurirm4444-29-28 13:07:54* Test Item Value Reference Range Interpretation Comme nts Strep Result (test code = St rep Result) negative [facility] A and B and SARS-CoV+SARS-CoV-2 (COVID- 19) Ag panel - Upper respiratory specimen byRapid iqwwhxfhsjc7319-32-62 11:37:23 * Test Item Value Reference Range Interpretation Comme nts RAPID SARS COV (test code = RAPID SARS COV) negative RAPID FLU A (test code = RAP ID FLU A) negative RAPID FLU B (test code = RAP ID FLU B) negative [facility] GroupCreatinine [Mass/volume] in Serum or Trqcxo0648-68-29 10:36:00* Test Item Value Reference Range Interpretation Comme nts creatinine (test code = creatinine) 0.47 mg/dL 0.50-0.90 L [facility] GroupGlomerular filtration rate/1.73 sq M.predicted [Volume Rate/Area] in Serum, Plasma or Eykje9642-29-94 00:00:00* Test Item Value Reference Range Interpretation Comme nts glomerular filtration rate ( test code = glomerular filtration rate) >60.00 [facility] HealthUrinalysis macro (dipstick) panel - [id number] 15:14:55* Test Item Value Reference Range Interpretation Comme nts Leukocytes (test code = Leukocytes) Moderate Nitrite (test code = Nitrite) negative Urobilinogen (test code = Urobilinogen) .2 Protein (test code = Protein) Trace pH (test code = pH) 5.0 Blood (test code = Blood) Small Specific Raymond (test code = Specific Raymond) 1.030 Ketone (test code = Ketone) Negative Bilirubin (test code = Bilirubin) Small Glucose (test code = Glucose) 2000+ Appearance (test code = Appearance) Cloudy Color (test code = Color) Pale Yellow [facility] HealthMycobacterium tuberculosis stimulated gamma interferon [Interpretation] in Blood Mrhgnnuokjg5380-92-07 00:00:00* Test Item Value Reference Range Interpretation Comme nts quantiferon criteria (test code = quantiferon criteria) See_Comment [Automated message] The system which generated this result transmitted reference range: .. The reference range was not used to interpret this result as normal/abnormal. Mycobacterium tuberculosis tuberculin stimulated gamma interferon [Presence] in Blood (test code = 62178-8) 0.02 [IU]/mL See_Comment [Automated message] The system which generated this result transmitted reference range: .. The reference range was not used to interpret this result as normal/abnormal. Interferon gamma [Units/volume] in Serum or Plasma (test code = 91964-9) 0.03 [IU]/mL See_Comment [Automated Estecha ge] The system which generated this result transmitted reference range: .. The reference range was not used to interpret this result as normal/abnormal. quantiferon nil value (test code = quantiferon nil value) 0.03 [IU]/mL See_Comment [Automate d message] The system which generated this result transmitted reference range: .. The reference range was not used to interpret this result as normal/abnormal. quantiferon mitogen leno (test code = quantiferon mitogen leno) >10.00 See_Comment [Automated Estecha ge] The system which generated this result transmitted reference range: .. The reference range was not used to interpret this result as normal/abnormal. quantiferon TB gold plus (test code = quantiferon TB gold plus) negative negative [facility] HealthBacteria identified in Urine by Agxqrnw9631-70-47 09:11:00Bacteria Ur CultCrossroads Behavioral Healthantibiotic sensitivity testing, milefst6436-06-55 09:11:00* Test Item Value Reference Range Interpretation Comme nts Gentamicin [Susceptibility] by Minimum inhibitory concentration (JERAD) (test code = 267-5) <=2 Ampicillin [Susceptibility] by Minimum inhibitory concentration (JERAD) (test code = 28-1) >16 Cefazolin [Susceptibility] b y Minimum inhibitory concentration (JERAD) (test code = 76-0) <=1 Trimethoprim+Sulfamethoxazol e [Susceptibility] by Minimum inhibitory concentration (JERAD) (test code = 516-5) =1/19 Tetracycline [Susceptibility ] by Minimum inhibitory concentration (JERAD) (test code = 496-0) 4 ug/mL Amoxicillin+Clavulanate [Susceptibility] by Minimum inhibitory concentration (JERAD) (test code = 20-8) =8/4 Tobramycin [Susceptibility] by Minimum inhibitory concentration (JERAD) (test code = 508-2) <=2 Nitrofurantoin [Susceptibili ty] by Minimum inhibitory concentration (JERAD) (test code = 363-2) <=16 cefOXitin [Susceptibility] b y Minimum inhibitory concentration (JERAD) (test code = 116-4) <=4 levoFLOXacin [Susceptibility ] by Minimum inhibitory concentration (JERAD) (test code = 54168-5) >4 cefTAZidime [Susceptibility] by Minimum inhibitory concentration (JERAD) (test code = 133-9) <=2 cefTRIAXone [Susceptibility] by Minimum inhibitory concentration (JERAD) (test code = 141-2) <=1 Ciprofloxacin [Susceptibilit y] by Minimum inhibitory concentration (JERAD) (test code = 185-9) >2 Ampicillin+Sulbactam [Suscep tibility] by Minimum inhibitory concentration (JERAD) (test code = 32-3) =16/8 Ertapenem [Susceptibility] b y Minimum inhibitory concentration (JERAD) (test code = 31759-9) <=0.25 Aztreonam [Susceptibility] b y Minimum inhibitory concentration (JERAD) (test code = 44-8) <=2 Cefepime [Susceptibility] by Minimum inhibitory concentration (JERAD) (test code = 6644-9) <=1 Meropenem [Susceptibility] b y Minimum inhibitory concentration (JERAD) (test code = 6652-2) <=0.5 Moxifloxacin [Susceptibility ] by Minimum inhibitory concentration (JERAD) (test code = 89302-2) >4 Amikacin [Susceptibility] by Minimum inhibitory concentration (JERAD) (test code = 12-5) <=8 Piperacillin+Tazobactam [Susceptibility] by Minimum inhibitory concentration (JERAD) (test code = 412-7) =4/4 Ceftaroline [Susceptibility] by Minimum inhibitory concentration (JERAD) (test code = 91907-3) <=0.25 Tigecycline [Susceptibility] by Minimum inhibitory concentration (JERAD) (test code = 95610-7) <=1 [facility] HealthHemoglobin A1c [Mass/volume] in Nygvx5610-97-15 00:00:00 * Test Item Value Reference Range Interpretation Comme nts Hemoglobin A1c [Mass/volume] in Blood (test code = 88494-8) 8.8 % 4.0-6.0 H [facility] 2000 panel - Serum or Ubgxmz0450-30-55 00:00:00* Test Item Value Reference Range Interpretation Comme nts glucose (test code = glucose) 229 mg/dL 74-106 H Urea nitrogen [Mass/volume] in Serum or Plasma (test code = 3094-0) 11 mg/dL 6-20 osmolality calculated,serum (test code = osmolality calculated,serum) 281 mOsm/kg 280-300 creatinine (test code = creatinine) 0.45 mg/dL 0.50-0.90 L glomerular filtration rate ( test code = glomerular filtration rate) >60.00 Urea nitrogen/Creatinine [Ma ss Ratio] in Serum or Plasma (test code = 3097-3) 24.4 12.0-20.0 H sodium level (test code = so dium level) 137 mmol/L 135-145 Potassium [Moles/volume] in Body fluid (test code = 2821-7) 4.1 mmol/L 3.5-5.2 chloride level (test code = chloride level) 102 mmol/L 98-108 CO2 (test code = CO2) 22 mmol/L 21-32 anion gap (test code = anion gap) 17.1 mEq/L 12.0-20.0 calcium level (test code = calcium level) 9.4 mg/dL 8.6-10.0 [facility] HealthUrinalysis macro (dipstick) panel - Rgqsg5094-08-41 14:05:00* Test Item Value Reference Range Interpretation Comme nts Leukocytes (test code = Leukocytes) Large Nitrite (test code = Nitrite) negative Urobilinogen (test code = Urobilinogen) .2 Protein (test code = Protein) 100 pH (test code = pH) 6.0 Blood (test code = Blood) Large Specific Raymond (test code = Specific Raymond) 1.025 Ketone (test code = Ketone) Moderate Bilirubin (test code = Bilirubin) Negative Glucose (test code = Glucose) 100 Appearance (test code = Appearance) Slightly Cloudy Color (test code = Color) Dark Yellow [facility] HealthBacteria identified in Urine by Rujvljn1931-31-30 11:54:00Bacteria Ur [facility], pnttzbi9328-29-50 11:54:00* Test Item Value Reference Range Interpretation Comme nts Gentamicin [Susceptibility] by Minimum inhibitory concentration (JERAD) (test code = 267-5) <=2 Ampicillin [Susceptibility] by Minimum inhibitory concentration (JERAD) (test code = 28-1) <=4 Cefazolin [Susceptibility] b y Minimum inhibitory concentration (JERAD) (test code = 76-0) 8 ug/mL Trimethoprim+Sulfamethoxazol e [Susceptibility] by Minimum inhibitory concentration (JERAD) (test code = 516-5) =0.5 Tetracycline [Susceptibility ] by Minimum inhibitory concentration (JERAD) (test code = 496-0) >8 Amoxicillin+Clavulanate [Susceptibility] by Minimum inhibitory concentration (JERAD) (test code = 20-8) =4/2 Tobramycin [Susceptibility] by Minimum inhibitory concentration (JERAD) (test code = 508-2) <=2 Nitrofurantoin [Susceptibili ty] by Minimum inhibitory concentration (JERAD) (test code = 363-2) >64 cefOXitin [Susceptibility] b y Minimum inhibitory concentration (JERAD) (test code = 116-4) 8 ug/mL levoFLOXacin [Susceptibility ] by Minimum inhibitory concentration (JERAD) (test code = 80792-3) <=0.5 cefTAZidime [Susceptibility] by Minimum inhibitory concentration (JERAD) (test code = 133-9) <=2 cefTRIAXone [Susceptibility] by Minimum inhibitory concentration (JERAD) (test code = 141-2) <=1 Ciprofloxacin [Susceptibilit y] by Minimum inhibitory concentration (JERAD) (test code = 185-9) <=0.25 Ampicillin+Sulbactam [Suscep tibility] by Minimum inhibitory concentration (JERAD) (test code = 32-3) =2/1 Ertapenem [Susceptibility] b y Minimum inhibitory concentration (JERAD) (test code = 60306-8) <=0.25 Aztreonam [Susceptibility] b y Minimum inhibitory concentration (JERAD) (test code = 44-8) <=2 Cefepime [Susceptibility] by Minimum inhibitory concentration (JERAD) (test code = 6644-9) <=1 Moxifloxacin [Susceptibility ] by Minimum inhibitory concentration (JERAD) (test code = 74319-2) <=1 Amikacin [Susceptibility] by Minimum inhibitory concentration (JERAD) (test code = 12-5) <=8 Piperacillin+Tazobactam [Susceptibility] by Minimum inhibitory concentration (JERAD) (test code = 412-7) =2/4 Ceftaroline [Susceptibility] by Minimum inhibitory concentration (JERAD) (test code = 31888-4) <=0.25 [facility] HealthUrinalysis macro (dipstick) panel - [id number] 09:23:00* Test Item Value Reference Range Interpretation Comme nts Leukocytes (test code = Leukocytes) Large Nitrite (test code = Nitrite) positive Urobilinogen (test code = Urobilinogen) .2 Protein (test code = Protein) 100 pH (test code = pH) 8.5 Blood (test code = Blood) Moderate Specific Raymond (test code = Specific Raymond) 1.020 Ketone (test code = Ketone) Negative Bilirubin (test code = Bilirubin) Negative Glucose (test code = Glucose) Negative Appearance (test code = Appearance) Slightly Cloudy Color (test code = Color) Yellow [facility] HealthHemoglobin A1c [Mass/volume] in Qpqhb7844-24-50 08:47:00 * Test Item Value Reference Range Interpretation Comme nts Hemoglobin A1c [Mass/volume] in Blood (test code = 75004-8) 10.1 % 4.0-6.0 H [facility] 1999 panel - Serum or Plasma 2021-11-14 08:47:00* Test Item Value Reference Range Interpretation Comme nts Glucose [Mass/volume] in Ser um or Plasma (test code = 2345-7) 91 mg/dL 74-106 Urea nitrogen [Mass/volume] in Serum or Plasma (test code = 3094-0) 11 mg/dL 6-20 osmolality calculated,serum (test code = osmolality calculated,serum) 271 mOsm/kg 280-300 L creatinine (test code = creatinine) 0.5 mg/dL 0.50-0.90 glomerular filtration rate ( test code = glomerular filtration rate) >60.00 Urea nitrogen/Creatinine [Ma ss Ratio] in Serum or Plasma (test code = 3097-3) 22.0 12-20 H sodium level (test code = so dium level) 136 mmol/L 135-145 potassium level (test code = potassium level) 4.4 mmol/L 3.5-5.2 chloride level (test code = chloride level) 101 mmol/L 98-108 CO2 (test code = CO2) 22 mmol/L 21-32 anion gap (test code = anion gap) 17.4 mEq/L 12-20 calcium level (test code = calcium level) 9.3 mg/dL 8.6-10.0 total protein (test code = t otal protein) 7.6 g/dL 6.6-8.7 albumin (test code = albumin) 4.2 g/dL 3.5-5.2 globulin (test code = globulin) 3.4 gm/dL A/G ratio (test code = A/G ratio) 1.2 >1.0 bilirubin,total (test code = bilirubin,total) <0.3 0.0-1.2 AST/SGOT (test code = AST/SGOT) 16 U/L 15-32 Alanine aminotransferase [Enzymatic activity/volume] in Serum or Plasma (test code = 1742-6) 15 U/L 0-33 Alkaline phosphatase [Enzyma tic activity/volume] in Serum or Plasma (test code = 6768-6) 94 U/L 35-105 [facility] 1995 panel - Serum or Errfnu8391-51-65 08:47:00* Test Item Value Reference Range Interpretation Comme nts cholesterol level (test code = cholesterol level) 178 mg/dL 150-200 triglycerides level (test co de = triglycerides level) 256 mg/dL <150 H HDL cholesterol (test code = HDL cholesterol) 53 mg/dL >65 L LDL cholesterol direct (test code = LDL cholesterol direct) 104 mg/dL <100 H cholesterol risk ratio (test code = cholesterol risk ratio) 3.358 [facility] Ag [Presence] in Respiratory specimen by Rapid tfwpljxjynj7862-20-52 14:16:00* Test Item Value Reference Range Interpretation Comme [facility] SARS-CoV - 2 (test code = SA RS-CoV - 2) negative [facility] influenza virus A + B and SARS CoV + SARS CoV 2 Ag panel, IA, upper respiratory afrcgvfl8894-01-66 09:52:00* Test Item Value Reference Range Interpretation Comme [facility] RAPID SARS COV (test code = RAPID SARS COV) negative RAPID FLU A (test code = RAP ID FLU A) negative RAPID FLU B (test code = RAP ID FLU B) negative [facility] HealthUrinalysis macro (dipstick) panel - [id number] 15:22:02* Test Item Value Reference Range Interpretation Comme nts Leukocytes (test code = Leukocytes) Trace Nitrite (test code = Nitrite) negative Urobilinogen (test code = Urobilinogen) .2 Protein (test code = Protein) Negative pH (test code = pH) 5.5 Blood (test code = Blood) Non-Hemolyzed: Trace Specific Raymond (test code = Specific Raymond) 1.020 Ketone (test code = Ketone) Negative Bilirubin (test code = Bilirubin) Negative Glucose (test code = Glucose) 500 Appearance (test code = Appearance) Clear Color (test code = Color) Yellow [facility] HealthCBC W Auto Differential panel - Eljau1832-36-42 02:44:00 * Test Item Value Reference Range Interpretation Comme nts white blood count (test code = white blood count) 8.5 K/uL 4.0-11.5 red blood count (test code = red blood count) 4.53 M/uL 3.80-5.20 hemoglobin (test code = hemoglobin) 13.6 g/dL 10.5-15.7 hematocrit (test code = hematocrit) 40.4 % 34.0-50.0 MCV [Entitic volume] (test c ode = 92451-4) 89.2 fL 86-100 mean corpuscular hemoglobin (test code = mean corpuscular hemoglobin) 30.0 pg 26.2-33.4 mean corpuscular HGB conc (t est code = mean corpuscular HGB conc) 33.7 g/dL 30-34 red cell distribution width (test code = red cell distribution width) 11.8 % 12.0-15.5 L platelet count (test code = platelet count) 349 K/uL 165-450 mean platelet volume (test c ode = mean platelet volume) 9.9 fL 9.4-12.6 Segmented neutrophils/100 leukocytes in Blood (test code = 61527-1) 57.3 % 44.4-80.1 Immature granulocytes [#/vol ume] in Blood (test code = 34034-8) 0.0 K/uL 0.0-0.03 lymphocyte% (test code = lymphocyte%) 35.6 % 10.0-50.0 mono % (test code = mono %) 4.3 % 3.6-12.0 eos % (test code = eos %) 1.9 % 0.0-5.4 Basophils/100 leukocytes in Unspecified specimen (test code = 83002-5) 0.5 % 0.1-1.2 Band form neutrophils [#/vol ume] in Blood (test code = 82024-7) 4.90 K/uL 1.56-6.13 Lymphocytes [#/volume] in Unspecified specimen by Automated count (test code = 06723-8) 3.0 K/uL 1.18-3.74 mono # (test code = mono #) 0.37 K/uL 0.24-0.86 eos # (test code = eos #) 0.16 K/uL 0.04-0.36 basophil # (test code = baso ernesto #) 0.04 K/uL 0.01-0.08 NRBC% (test code = NRBC%) 0 /100 WBC 0-0.2 NRBC# (test code = NRBC#) 0 K/uL [facility]Com[facility] 2000 panel - Serum or Plasma 2021-09-15 02:44:00* Test Item Value Reference Range Interpretation Comme nts glucose (test code = glucose) 264 mg/dL 74-106 H Urea nitrogen [Mass/volume] in Serum or Plasma (test code = 3094-0) 14 mg/dL 6-20 osmolality calculated,serum (test code = osmolality calculated,serum) 278 mOsm/kg 280-300 L creatinine (test code = creatinine) 0.6 mg/dL 0.50-0.90 glomerular filtration rate ( test code = glomerular filtration rate) >60.00 Urea nitrogen/Creatinine [Ma ss Ratio] in Serum or Plasma (test code = 3097-3) 23.3 12-20 H sodium level (test code = so dium level) 134 mmol/L 135-145 L Potassium [Moles/volume] in Body fluid (test code = 2821-7) 4.2 mmol/L 3.5-5.2 chloride level (test code = chloride level) 98 mmol/L 98-108 CO2 (test code = CO2) 23 mmol/L 21-32 anion gap (test code = anion gap) 17.2 mEq/L 12-20 calcium level (test code = calcium level) 9.7 mg/dL 8.6-10.0 total protein (test code = t otal protein) 8.0 g/dL 6.6-8.7 albumin (test code = albumin) 4.3 g/dL 3.5-5.2 globulin (test code = globulin) 3.7 gm/dL A/G ratio (test code = A/G ratio) 1.2 >1.0 bilirubin,total (test code = bilirubin,total) <0.3 0.0-1.2 AST/SGOT (test code = AST/SGOT) 17 U/L 15-32 Alanine aminotransferase [Enzymatic activity/volume] in Serum or Plasma (test code = 1742-6) 21 U/L 0-33 Alkaline phosphatase [Enzyma tic activity/volume] in Serum or Plasma (test code = 6768-6) 119 U/L 35-105 H [facility] Health[facility] [Enzymatic activity/volume] in Serum or Plasma 2021-09-15 02:44:00* Test Item Value Reference Range Interpretation Comme nts lipase (test code = lipase) 12 U/L 13-60 L [facility] HealthAmylase [Enzymatic activity/volume] in Serum or Plasma 2021-09-15 00:00:00* Test Item Value Reference Range Interpretation Comme nts Amylase [Enzymatic activity/ volume] in Serum or Plasma (test code = 1798-8) 31 U/L 28-100 [facility] HealthAmylase and triacylglycerol lipase panel - Serum or [id number] 00:00:00* Test Item Value Reference Range Interpretation Comme nts Amylase [Enzymatic activity/ volume] in Serum or Plasma (test code = 1798-8) 31 U/L 28-100 [facility] HealthHemoglobin A1c [Mass/volume] in [id number] 10:46:00 * Test Item Value Reference Range Interpretation Comme nts Hemoglobin A1c [Mass/volume] in Blood (test code = 19137-1) 9.7 % 4.0-6.0 H [facility] HealthCBC W Auto Differential panel - [id number] 08:59:00 * Test Item Value Reference Range Interpretation Comme nts white blood count (test code = white blood count) 7.1 K/uL 4.0-11.5 red blood count (test code = red blood count) 4.34 M/uL 3.80-5.20 hemoglobin (test code = hemoglobin) 13.0 g/dL 10.5-15.7 hematocrit (test code = hematocrit) 39.2 % 34.0-50.0 MCV [Entitic volume] (test c ode = 67523-4) 90.3 fL 86-100 mean corpuscular hemoglobin (test code = mean corpuscular hemoglobin) 30.0 pg 26.2-33.4 mean corpuscular HGB conc (t est code = mean corpuscular HGB conc) 33.2 g/dL 30-34 red cell distribution width (test code = red cell distribution width) 12.2 % 12.0-15.5 platelet count (test code = platelet count) 312 K/uL 165-450 mean platelet volume (test c ode = mean platelet volume) 9.5 fL 9.4-12.6 Segmented neutrophils/100 leukocytes in Blood (test code = 56708-1) 51.0 % 44.4-80.1 Immature granulocytes [#/vol ume] in Blood (test code = 01072-3) 0.0 K/uL 0.0-0.03 lymphocyte% (test code = lymphocyte%) 41.9 % 10.0-50.0 mono % (test code = mono %) 3.6 % 3.6-12.0 eos % (test code = eos %) 2.8 % 0.0-5.4 Basophils/100 leukocytes in Unspecified specimen (test code = 30415-2) 0.3 % 0.1-1.2 Band form neutrophils [#/vol ume] in Blood (test code = 08736-7) 3.63 K/uL 1.56-6.13 Lymphocytes [#/volume] in Unspecified specimen by Automated count (test code = 22722-4) 3.0 K/uL 1.18-3.74 mono # (test code = mono #) 0.26 K/uL 0.24-0.86 eos # (test code = eos #) 0.20 K/uL 0.04-0.36 basophil # (test code = baso ernesto #) 0.02 K/uL 0.01-0.08 NRBC% (test code = NRBC%) 0 /100 WBC 0-0.2 NRBC# (test code = NRBC#) 0 K/uL [facility] panel, method unspecified - [id number] 08:59:00NeutrophilsBandLymphocyteAtypical LymphMonocyteEosinophilBasophilMetamyelocyteMyelocytePromyelocyteBlastsNucleated Red Blood CellPlasma CellAbs Neutrophil Count (Man)Abs Lymph Count (Man)Abs MonocyteCount (Man)Abs Eosinophil Count (Man)Abs Basophil Count (Man)Platelet EstimatePlatelet MorphologyHyp ochromasiaPoikilocytosisAnisocytosisMacrocytosisTarget CellsStomatocyteToxic GranulationHypersegmented PolysToxic VacuolationGiant PlateletsMataAlliance HospitalHemoglobin A1c [Mass/volume] in [id number] 08:59:00* Test Item Value Reference Range Interpretation Comme nts Hemoglobin A1c [Mass/volume] in Blood (test code = 18747-2) 10.2 % 4.0-6.0 H [facility]Com[facility] 2000 panel - Serum or Plasma 2021-03-26 08:59:00* Test Item Value Reference Range Interpretation Comme nts glucose (test code = glucose) 263 mg/dL 74-106 H Urea nitrogen [Mass/volume] in Serum or Plasma (test code = 3094-0) 9 mg/dL 6-20 osmolality calculated,serum (test code = osmolality calculated,serum) 282 mOsm/kg 280-300 creatinine (test code = creatinine) 0.5 mg/dL 0.50-0.90 glomerular filtration rate ( test code = glomerular filtration rate) >60.00 Urea nitrogen/Creatinine [Ma ss Ratio] in Serum or Plasma (test code = 3097-3) 18.0 12-20 sodium level (test code = so dium level) 137 mmol/L 135-145 Potassium [Moles/volume] in Body fluid (test code = 2821-7) 4.5 mmol/L 3.5-5.2 chloride level (test code = chloride level) 101 mmol/L 98-108 CO2 (test code = CO2) 23 mmol/L 21-32 anion gap (test code = anion gap) 17.5 mEq/L 12-20 calcium level (test code = calcium level) 9.7 mg/dL 8.6-10.0 total protein (test code = t otal protein) 7.5 g/dL 6.6-8.7 albumin (test code = albumin) 4.2 g/dL 3.5-5.2 globulin (test code = globulin) 3.3 gm/dL A/G ratio (test code = A/G ratio) 1.3 >1.0 bilirubin,total (test code = bilirubin,total) <0.3 0.0-1.2 AST/SGOT (test code = AST/SGOT) 15 U/L 15-32 Alanine aminotransferase [Enzymatic activity/volume] in Serum or Plasma (test code = 1742-6) 23 U/L 0-33 Alkaline phosphatase [Enzyma tic activity/volume] in Serum or Plasma (test code = 6768-6) 110 U/L 35-105 H [facility] HealthThyrotropin [Units/volume] in Serum or [id number] 08:59:00* Test Item Value Reference Range Interpretation Comme nts Thyrotropin [Units/volume] i n Serum or Plasma (test code = 3016-3) 1.44 uIU/mL 0.36-3.74 [facility] GroupUrinalysis complete panel - [id number] 11:00:00* Test Item Value Reference Range Interpretation Comme nts Color of Urine by Auto (test code = 42249-0) yellow Appearance of Urine (test co de = 5767-9) SL cloudy clear Glucose [Mass/volume] in Uri ne (test code = 2350-7) >=1000 negative H bilirubin, urine (test code = bilirubin, urine) negative negative ketone, urine (test code = ketone, urine) small, 15 negative H Specific gravity of Urine by Automated test strip (test code = 83239-0) >=1.030 1.003-1.030 Hemoglobin [Presence] in Uri ne by Test strip (test code = 5794-3) moderate negative H pH of Urine (test code = 2756-5) 5.000 5-9 protein urine (UA) (test cod e = protein urine (UA)) =2+ (100 negative H Urobilinogen [Presence] in U rine (test code = 88936-5) 0.2 E.U./dL 0.2-1.0 Nitrite [Presence] in Urine by Test strip (test code = 5802-4) negative negative urine leukocyte esterase (te st code = urine leukocyte esterase) trace negative H Erythrocytes [Presence] in U rine (test code = 02881-7) =6-10 0-5 WBC, urine (test code = WBC, urine) =5-9 0-5 H bacteria, urine (test code = bacteria, urine) moderate (2 none detect H Casts [#/area] in Urine sedi ment by Automated count (test code = 90115-5) =2-5 none detect urine culture added? (test c ode = urine culture added?) yes squamous epithelial cell uri ne (test code = squamous epithelial cell urine) =0-5 0-5 Yeast [Presence] in Urine sediment by Light microscopy (test code = 16644-8) =3 none detect H [facility] GroupBacteria identified in Urine by [id number] 11:00:00Bacteria [facility] W Auto Differential panel - [id number] 10:50:00* Test Item Value Reference Range Interpretation Comme nts white blood count (test code = white blood count) 7.5 K/uL 4.0-11.5 red blood count (test code = red blood count) 4.40 M/uL 3.80-5.20 hemoglobin (test code = hemoglobin) 13.3 g/dL 10.5-15.7 hematocrit (test code = hematocrit) 39.0 % 34.0-50.0 MCV [Entitic volume] (test c ode = 00109-0) 88.6 fL 86-100 mean corpuscular hemoglobin (test code = mean corpuscular hemoglobin) 30.2 pg 26.2-33.4 mean corpuscular HGB conc (t est code = mean corpuscular HGB conc) 34.1 g/dL 30-34 H red cell distribution width (test code = red cell distribution width) 11.9 % 12.0-15.5 L platelet count (test code = platelet count) 279 K/uL 165-450 mean platelet volume (test c ode = mean platelet volume) 9.6 fL 9.4-12.6 Segmented neutrophils/100 leukocytes in Blood (test code = 88100-8) 48.9 % 44.4-80.1 Immature granulocytes [#/vol ume] in Blood (test code = 78670-1) 0.0 K/uL 0.0-0.03 lymphocyte% (test code = lymphocyte%) 43.7 % 10.0-50.0 mono % (test code = mono %) 4.4 % 3.6-12.0 eos % (test code = eos %) 2.3 % 0.0-5.4 Basophils/100 leukocytes in Unspecified specimen (test code = 16846-9) 0.3 % 0.1-1.2 Band form neutrophils [#/vol ume] in Blood (test code = 40961-8) 3.68 K/uL 1.56-6.13 Lymphocytes [#/volume] in Unspecified specimen by Automated count (test code = 70493-3) 3.3 K/uL 1.18-3.74 mono # (test code = mono #) 0.33 K/uL 0.24-0.86 eos # (test code = eos #) 0.17 K/uL 0.04-0.36 basophil # (test code = baso ernesto #) 0.02 K/uL 0.01-0.08 NRBC% (test code = NRBC%) 0 /100 WBC 0-0.2 NRBC# (test code = NRBC#) 0 K/uL [facility] HealthPT/[id number] 10:50:00* Test Item Value Reference Range Interpretation Comme nts prothrombin time (test code = prothrombin time) 10.9 seconds 10.3-12.3 INR in Blood by Coagulation assay (test code = 31028-3) 1.02 [facility] Healthpartial thromboplastin [id number] 10:50:00* Test Item Value Reference Range Interpretation Comme nts INR in Blood by Coagulation assay (test code = 08768-0) 23.9 seconds 22.5-37.0 [facility]Com[facility] metabolic 2000 panel - Serum or Plasma 2020-08-26 10:50:00* Test Item Value Reference Range Interpretation Comme nts glucose (test code = glucose) 268 mg/dL 74-106 H Urea nitrogen [Mass/volume] in Serum or Plasma (test code = 3094-0) 11 mg/dL 6-20 osmolality calculated,serum (test code = osmolality calculated,serum) 285 mOsm/kg 280-300 creatinine (test code = creatinine) 0.5 mg/dL 0.50-0.90 glomerular filtration rate ( test code = glomerular filtration rate) >60.00 Urea nitrogen/Creatinine [Ma ss Ratio] in Serum or Plasma (test code = 3097-3) 22.0 12-20 H sodium level (test code = so dium level) 138 mmol/L 135-145 Potassium [Moles/volume] in Body fluid (test code = 2821-7) 3.8 mmol/L 3.5-5.2 chloride level (test code = chloride level) 102 mmol/L 98-108 CO2 (test code = CO2) 23 mmol/L 21-32 anion gap (test code = anion gap) 16.8 mEq/L 12-20 calcium level (test code = calcium level) 9.8 mg/dL 8.6-10.0 total protein (test code = t otal protein) 7.5 g/dL 6.6-8.7 albumin (test code = albumin) 4.3 g/dL 3.5-5.2 globulin (test code = globulin) 3.2 gm/dL A/G ratio (test code = A/G ratio) 1.3 >1.0 bilirubin,total (test code = bilirubin,total) <0.3 0.0-1.2 AST/SGOT (test code = AST/SGOT) 14 U/L 15-32 L Alanine aminotransferase [Enzymatic activity/volume] in Serum or Plasma (test code = 1742-6) 17 U/L 0-33 Alkaline phosphatase [Enzyma tic activity/volume] in Serum or Plasma (test code = 6768-6) 108 U/L 35-105 [facility] GroupCreatine kinase [Enzymatic activity/volume] in Serum or [id number] 10:50:00* Test Item Value Reference Range Interpretation Comme [facility] creatine kinase (test code = creatine kinase) 92 U/L 20-180 [facility] HealthNatriuretic peptide.B prohormone N-Terminal [Mass/volume] in Serum or [id number] 10:50:00* Test Item Value Reference Range Interpretation Comme [facility] N-term pro natriuretic pepti de (test code = N-term pro natriuretic peptide) 46 pg/mL 0-125 [facility] HealthTroponin I.cardiac [Mass/volume] in [id number] 10:50:00* Test Item Value Reference Range Interpretation Comme [facility] cardiac troponin I (test cod e = cardiac troponin I) <0.30 0.0-0.5 [facility] HealthCreatine kinase.MB [Mass/volume] in Serum or Plasma 2020-08-26 10:50:00* Test Item Value Reference Range Interpretation Comme [facility] Creatine kinase.MB [Mass/vol ume] in Serum or Plasma by Immunoassay (test code = 47213-1) 1.5 NG/mL 0.0-3.6 [facility] HealthpH of [id number] 00:00:00* Test Item Value Reference Range Interpretation Comme nts pH of Blood (test code = 44645-3) 7.390 7.35-7.45 [facility] Healthacetone [id number] 00:00:00* Test Item Value Reference Range Interpretation Comme nts acetone level (test code = a cetone level) negative negative [facility] HealthHemoglobin A1c [Mass/volume] in [id number] 07:44:00 * Test Item Value Reference Range Interpretation Comme nts Hemoglobin A1c [Mass/volume] in Blood (test code = 63759-9) 9.9 % 4.0-6.0 H [facility]Com[facility] metabolic 2000 panel - Serum or Plasma 2020-08-21 07:44:00* Test Item Value Reference Range Interpretation Comme nts glucose (test code = glucose) 123 mg/dL 74-106 H Urea nitrogen [Mass/volume] in Serum or Plasma (test code = 3094-0) 14 mg/dL 6-20 osmolality calculated,serum (test code = osmolality calculated,serum) 278 mOsm/kg 280-300 L creatinine (test code = creatinine) 0.5 mg/dL 0.50-0.90 glomerular filtration rate ( test code = glomerular filtration rate) >60.00 Urea nitrogen/Creatinine [Ma ss Ratio] in Serum or Plasma (test code = 3097-3) 28.0 12-20 H sodium level (test code = so dium level) 138 mmol/L 135-145 Potassium [Moles/volume] in Body fluid (test code = 2821-7) 4.0 mmol/L 3.5-5.2 chloride level (test code = chloride level) 103 mmol/L 98-108 CO2 (test code = CO2) 23 mmol/L 21-32 anion gap (test code = anion gap) 16.0 mEq/L 12-20 calcium level (test code = calcium level) 9.6 mg/dL 8.6-10.0 total protein (test code = t otal protein) 7.3 g/dL 6.6-8.7 albumin (test code = albumin) 4.2 g/dL 3.5-5.2 globulin (test code = globulin) 3.1 gm/dL A/G ratio (test code = A/G ratio) 1.4 >1.0 bilirubin,total (test code = bilirubin,total) <0.3 0.0-1.2 AST/SGOT (test code = AST/SGOT) 17 U/L 15-32 Alanine aminotransferase [Enzymatic activity/volume] in Serum or Plasma (test code = 1742-6) 20 U/L 0-33 Alkaline phosphatase [Enzyma tic activity/volume] in Serum or Plasma (test code = 6768-6) 104 U/L 35-105 [facility] HealthLipid 1996 panel - Serum or [id number] 07:44:00* Test Item Value Reference Range Interpretation Comme nts cholesterol level (test code = cholesterol level) 215 mg/dL 150-200 H triglycerides level (test co de = triglycerides level) 394 mg/dL <150 H HDL cholesterol (test code = HDL cholesterol) 39 mg/dL >65 L LDL cholesterol direct (test code = LDL cholesterol direct) 126 mg/dL <100 H cholesterol risk ratio (test code = cholesterol risk ratio) 5.512 [facility] HealthMicroalbumin/Creatinine [Ratio] in 24 hour Urine 2020-08-21 07:44:00* Test Item Value Reference Range Interpretation Comme nts creatinine, urine random (te st code = creatinine, urine random) 238.3 mg/dL 28-217 H microalbumin random (test co de = microalbumin random) 191.7 mg/L 0-20 H Microalbumin/Creatinine [Rat io] in Urine (test code = 88331-5) 80.4 mgalb/GC [facility] HealthThyrotropin [Units/volume] in Serum or [id number] 07:44:00* Test Item Value Reference Range Interpretation Comme nts Thyrotropin [Units/volume] i n Serum or Plasma (test code = 3016-3) 1.37 uIU/mL 0.36-3.74 [facility] HealthHemoglobin A1c [Mass/volume] in [id number] 02:30:00 * Test Item Value Reference Range Interpretation Comme nts Hemoglobin A1c [Mass/volume] in Blood (test code = 93143-5) 10.5 % 4.0-6.0 H [facility] HealthMicroalbumin [Mass/volume] in [id number] 02:30:00* Test Item Value Reference Range Interpretation Comme nts microalbumin random (test co de = microalbumin random) 144.8 mg/L 0-20 H [facility]Com[facility] metabolic 2000 panel - Serum or Plasma 2019-10-04 02:30:00* Test Item Value Reference Range Interpretation Comme [facility] glucose (test code = glucose) 142 mg/dL 74-106 H Urea nitrogen [Mass/volume] in Serum or Plasma (test code = 3094-0) 14 mg/dL 6-20 osmolality calculated,serum (test code = osmolality calculated,serum) 281 mOsm/kg 280-300 creatinine (test code = creatinine) 0.4 mg/dL 0.50-0.90 L glomerular filtration rate ( test code = glomerular filtration rate) >60.00 Urea nitrogen/Creatinine [Ma ss Ratio] in Serum or Plasma (test code = 3097-3) 35.0 12-20 H sodium level (test code = so dium level) 139 mmol/L 135-145 Potassium [Moles/volume] in Body fluid (test code = 2821-7) 4.1 mmol/L 3.5-5.2 chloride level (test code = chloride level) 100 mmol/L 98-108 CO2 (test code = CO2) 23 mmol/L 21-32 anion gap (test code = anion gap) 20.1 mEq/L 12-20 H calcium level (test code = calcium level) 10.0 mg/dL 8.6-10.0 total protein (test code = t otal protein) 7.8 g/dL 6.6-8.7 albumin (test code = albumin) 4.2 g/dL 3.5-5.2 globulin (test code = globulin) 3.6 gm/dL A/G ratio (test code = A/G ratio) 1.2 >1.0 bilirubin,total (test code = bilirubin,total) <0.3 0.0-1.2 AST/SGOT (test code = AST/SGOT) 20 U/L 15-32 Alanine aminotransferase [Enzymatic activity/volume] in Serum or Plasma (test code = 1742-6) 17 U/L 0-33 Alkaline phosphatase [Enzyma tic activity/volume] in Serum or Plasma (test code = 6768-6) 103 U/L 35-105 [facility] HealthC reactive protein [Mass/volume] in Serum or Plasma by High sensitivity [id number] 02:30:00* Test Item Value Reference Range Interpretation Comme nts C-reactive protein high sens . (test code = C-reactive protein high sens.) 8.4 mg/L 0.0-5.0 H [facility] HealthLipid 1996 panel - Serum or [id number] 02:30:00* Test Item Value Reference Range Interpretation Comme nts cholesterol level (test code = cholesterol level) 227 mg/dL 150-200 H triglycerides level (test co de = triglycerides level) 551 mg/dL <150 H HDL cholesterol (test code = HDL cholesterol) 41 mg/dL >65 L LDL cholesterol direct (test code = LDL cholesterol direct) 141 mg/dL <100 H cholesterol risk ratio (test code = cholesterol risk ratio) 5.536 [facility] HealthCreatine kinase [Enzymatic activity/volume] in Serum or [id number] 02:30:00* Test Item Value Reference Range Interpretation Comme [facility] creatine kinase (test code = creatine kinase) 429 U/L 20-180 H [facility] HealthThyrotropin [Units/volume] in Serum or [id number] 02:30:00* Test Item Value Reference Range Interpretation Comme nts Thyrotropin [Units/volume] i n Serum or Plasma (test code = 3016-3) 0.96 uIU/mL 0.36-3.74 [facility] HealthErythrocyte sedimentation [id number] 02:30:00* Test Item Value Reference Range Interpretation Comme [facility] erythrocyte sedimentation ra te (test code = erythrocyte sedimentation rate) 24 mm/HR 0.00-20 H [facility] HealthCBC W Auto Differential panel - [id number] 02:30:00 * Test Item Value Reference Range Interpretation Comme nts white blood count (test code = white blood count) 7.5 K/uL 4.0-11.5 red blood count (test code = red blood count) 4.25 M/uL 3.80-5.20 hemoglobin (test code = hemoglobin) 12.9 g/dL 10.5-15.7 hematocrit (test code = hematocrit) 38.2 % 34.0-50.0 Erythrocyte mean corpuscular volume [Entitic volume] (test code = 46532-7) 89.9 fL 86-100 mean corpuscular hemoglobin (test code = mean corpuscular hemoglobin) 30.4 pg 26.2-33.4 mean corpuscular HGB conc (t est code = mean corpuscular HGB conc) 33.8 g/dL 30-34 red cell distribution width (test code = red cell distribution width) 11.9 % 12.0-15.5 L platelet count (test code = platelet count) 352 K/uL 165-450 mean platelet volume (test c ode = mean platelet volume) 10.4 fL 9.4-12.6 Neutrophils.segmented/100 leukocytes in Blood (test code = 39146-9) 55.9 % 44.4-80.1 Granulocytes Immature [#/vol ume] in Blood (test code = 45174-7) 0.0 K/uL 0.0-0.03 lymphocyte% (test code = lymphocyte%) 34.0 % 10.0-50.0 mono % (test code = mono %) 4.7 % 3.6-12.0 eos % (test code = eos %) 4.6 % 0.0-5.4 Basophils/100 leukocytes in Unspecified specimen (test code = 74809-4) 0.4 % 0.1-1.2 Neutrophils.band form [#/vol ume] in Blood (test code = 65195-0) 4.17 K/uL 1.56-6.13 Lymphocytes [#/volume] in Unspecified specimen by Automated count (test code = 25119-0) 2.5 K/uL 1.18-3.74 mono # (test code = mono #) 0.35 K/uL 0.24-0.86 eos # (test code = eos #) 0.34 K/uL 0.04-0.36 basophil # (test code = baso ernesto #) 0.03 K/uL 0.01-0.08 NRBC% (test code = NRBC%) 0 /100 WBC 0-0.2 NRBC# (test code = NRBC#) 0 K/uL [facility] Healthdifferential panel, [id number] 02:30:00 NeutrophilsBandLymphocyteAtypical LymphMonocyteEosinophilBasophilNucleated Red Blood CellPlatelet EstimatePlatelet MorphologyToxic GranulationHypersegmented PolysToxic VacuolationTwo [facility] Medical GroupUrinalysis macro (dipstick) panel - [id number] 10:59:00* Test Item Value Reference Range Interpretation Comme nts Leukocytes (test code = Leukocytes) Large Nitrite (test code = Nitrite) negative Urobilinogen (test code = Urobilinogen) .2 Protein (test code = Protein) 30 pH (test code = pH) 5.5 Blood (test code = Blood) Large Specific Raymond (test code = Specific Raymond) 1.025 Ketone (test code = Ketone) Negative Bilirubin (test code = Bilirubin) Negative Glucose (test code = Glucose) 500 Appearance (test code = Appearance) Cloudy Color (test code = Color) Dark Yellow [facility] HealthBacteria identified in Urine by [id number] 10:18:00Bacteria [facility] Grouppregnancy test, [id number] 08:18:00* Test Item Value Reference Range Interpretation Comme nts Choriogonadotropin (pregnanc y test) [Presence] in Urine (test code = 2106-3) negative neg [facility] GroupUrinalysis complete panel - [id number] 08:18:00* Test Item Value Reference Range Interpretation Comme nts Color of Urine by Auto (test code = 18565-5) yellow Appearance of Urine (test code = 5767-9) cloudy clear A Glucose [Mass/volume] in Urine (test code = 2350-7) =3+ (500 negative H bilirubin, urine (test code = bilirubin, urine) small negative H Bilirubin [Presence] in Urin e by Confirmatory method (test code = 02370-0) weakly positive negative ketone, urine (test code = ketone, urine) negative negative Specific gravity of Urine by Automated test strip (test code = 28877-5) >=1.030 1.003-1.030 Hemoglobin [Presence] in Urine by Test strip (test code = 5794-3) large negative H pH of Urine (test code = 2756-5) 5.500 5-9 protein urine (UA) (test cod e = protein urine (UA)) =3+ (>300 negative H Urobilinogen [Presence] in Urine (test code = 59007-8) 0.2 E.U./dL 0.2-1.0 Nitrite [Presence] in Urine by Test strip (test code = 5802-4) negative negative urine leukocyte esterase (test code = urine leukocyte esterase) trace negative H Erythrocytes [Presence] in Urine (test code = 97807-6) qns 0-5 WBC, urine (test code = WBC, urine) qns 0-5 Epithelial cells [Presence] in Urine sediment by Light microscopy (test code = 14134-0) qns 0-5 bacteria, urine (test code = bacteria, urine) qns none detect Casts [#/area] in Urine sediment by Automated count (test code = 55810-9) qns none detect urine culture added? (test code = urine culture added?) yes [facility] HealthBacteria identified in Urine by [id number] 08:18:00* Test Item Value Reference Range Interpretation Comme nts Bacteria identified in Urine by Culture (test code = 630-4) no growth after 2 days [facility] Consult Notes Date/Time Note Provider Source 2024-02-03 19:23:48 [facility] PCP: Luis Nash Date of Service: 02/03/2024 CHIEF COMPLAINT: Hypertension and Diabetes Mellitus management History of Present Illness Ms Dalton Aranda is a 53-year-old female with a past medical history of hypertension, hyperlipidemia, diabetes mellitus type 2, who underwent total laparoscopic hysterectomy for history of postmenopausal bleeding and history of BRCA gene mutation. Patient underwent successful surgery by gynecology today and was admitted to observation. Medicine was consulted for medical management for patient's medical conditions including hypertension and diabetes mellitus type 2. Medical history/medication list reviewed with patient at bedside. PAST MEDICAL HISTORY Past Medical History: Diagnosis Date Abnormal uterine bleeding Blood dyscrasia BRCA positive DM2 (diabetes mellitus, type 2) Genital herpes Heart murmur Hematuria History of recurrent UTIs Pernicious anemia Right-sided low back pain with sciatica STD (sexually transmitted disease) Chlamydia Urinary incontinence, unspecified type 06/17/2021 Yeast vaginitis 10/08/2023 Past Surgical History: Procedure Laterality Date APPENDECTOMY 2006 BLADDER BIOPSY N/A 05/02/2019 Surgeon: Milo Arboleda MD; [facility] CHOLECYSTECTOMY 2004 COLONOSCOPY 05/2014 COLONOSCOPY N/A 06/19/2019 Surgeon: Teresa Finley MD; Location: [facility] OR Location CYSTOSCOPY DILATION AND CURETTAGE (SHX) N/A 08/04/2022 Surgeon: Phill Osborn MD; Location: [facility] OR LOCATION ESOPHAGOGASTRODUODENOSCOPY N/A 06/19/2019 Surgeon: Teresa Finley MD; Location: [facility] OR Location EXAM UNDER ANESTHESIA Left 08/04/2022 Surgeon: Phill Osborn MD; Location: [facility] OR LOCATION EXAM UNDER ANESTHESIA N/A 09/18/2022 Surgeon: Phill Osborn MD; Location: [facility] OR LOCATION ND MASTECTOMY SIMPLE COMPLETE Bilateral 2010 REMOVAL OF OVARY(S) Bilateral 2010 SALPINGO-OOPHORECTOMY TRANSURETHRAL BLADDER TUMOR RESECTION Bilateral 09/14/2016 Surgeon: Mana Kwon MD; Location: [facility] TRANSURETHRAL BLADDER TUMOR RESECTION Circumfrentially 03/08/2017 Surgeon: Mana Kwon MD; Location: [facility] Location VAGINAL BIOPSY N/A 09/18/2022 Surgeon: Phill Osborn MD; Location: [facility] OR LOCATION Family History Problem Relation Age of Onset Cancer Mother with breast CA at 56 Hypertension Mother High cholesterol Mother Cancer Sister with ovarian CA Cancer Sister with ovarian CA Coronary Heart Disease Father Diabetes Father Arthritis NoFHx Asthma NoFHx defects NoFHx Breast Cancer NoFHx Colon Cancer NoFHx Uterine Cancer NoFHx Ovarian Cancer NoFHx Depression NoFHx Genetic NoFHx Mental retardation NoFHx Neurological NoFHx Osteoporosis NoFHx Psychiatry NoFHx Other - see comments NoFHx ALLERGIES Allergies Allergen Reactions Dapagliflozin Other - See comments Ketoacidosis and build up of yeast Pioglitazone Unknown - See comments and Other - See comments Bleeding in bladder Lisinopril Rash MEDICATIONS No current facility-administered medications on file prior to encounter. Current Outpatient Medications on File Prior to Encounter Medication Sig Dispense Refill gabapentin 100 mg capsule Take 1 capsule by mouth as needed for Pain (scale 4-6). lisinopriL 2.5 mg tablet Take 2 tablets in the morning. semaglutide (OZEMPIC) 0.25 mg or 0.5 mg (2 mg/3 mL) PnIj inject 0.25 mg under the skin weekly. traMADoL 50 mg tablet Take 1 tablet by mouth every 6 (six) hours as needed. fluconazole (DIFLUCAN) 150 mg tablet Take 1 tablet by mouth every other day. 3 tablet 0 SOLIFENACIN 10 mg tablet TAKE 1 TABLET BY MOUTH IN THE MORNING 30 tablet 0 polyethylene glycol 3350 (MIRALAX) 17 gram/dose powder Take 17 g by mouth in the morning. 10 Packet 0 atorvastatin 40 mg tablet atorvastatin 40 mg tablet TAKE 1 TABLET BY MOUTH AT BEDTIME glipiZIDE 5 mg tablet glipizide 5 mg tablet insulin regular hum U-500 conc (HUMULIN R U-500, CONC, KWIKPEN) 500 unit/mL (3 mL) InPn Humulin R U-500 (Conc) Insulin Kwikpen 500 unit/mL (3 mL) subcutaneous INJECT 85 UNITS SUBCUTANEOUSLY WITH BREAKFAST 40 UNITS WITH LUNCH AND 65 UNITS WITH DINNER ADJUST UP TO 200 UNITS PER DAY LANTUS SOLOSTAR U-100 INSULIN 100 unit/mL (3 mL) injection metFORMIN 1,000 mg tablet ibuprofen 800 mg tablet Take 1 tablet by mouth every 8 (eight) hours as needed for Pain (scale 4-6). 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 REVIEW OF SYSTEMS (-)=Negative,(+)=Positive General: (-) fever, (-) chills, (-) fatigue, (-) malaise Skin: (-) rash, (-) lesion HEENT: (-) headache, (-) nasal discharge, (-) sore throat Neck: (-) pain, (-) difficulty swallowing Heme: (-) bleeding disorder Resp: (-) shortness of breath, (-) dyspnea on exertion Cardio: (-) chest pain, (-) palpitations, (-) syncope GI: (-) abdominal pain, (-) nausea, (-) vomiting, (-) diarrhea : (-) dysuria, (-) hematuria, (-) increased frequency Endo: (+) diabetes, (-) renal insufficiency, (-) thyroid disease Neuro: (-) numbness, (-) tingling Back: (-) pain, (-)spasms HINA: (-) muscle pain, (-) joint pain Psych: (-) anxiety, (-) depression PHYSICAL EXAMINATION Vitals: 02/03/24 1855 02/03/24 1900 02/03/24 1905 02/03/24 1910 BP: 94/63 90/48 99/59 123/76 Pulse: 96 93 95 95 Resp: 16 16 16 15 Temp: TempSrc: SpO2: 96% 96% 96% 96% Weight: Height: Pain Scale: Numerical General: alert and oriented x 4 ; no apparent distress HEENT: pupils equal, round, reactive to light; extraocular movements intact; oropharynx clear; moist mucous membranes, normocephalic atraumatic Neck: supple, no lymphadenopathy, no bruits, no JVD, full range of motion Lungs: clear to auscultation bilaterally, no crackles or wheezes Cardio: S1, S2 normal; no murmurs, rubs or gallops, regular rate and rhythm Abdomen: soft; non-tender; non-distended; normoactive bowel sounds Extremities: no clubbing, cyanosis, or edema Skin: no rashes Neuro: cranial nerves II through XII grossly intact; sensation grossly intact; muscle strength 5 out of 5 in all four extremities, no focal deficits LABS - reviewed pertinent labs as below: Recent Results (from the past 24 hour(s)) POCT Test Collection Time: 02/03/24 12:53 PM Result Value Ref Range POCT PREG Negative On board controls acceptable with C Line Yes POCT PREG LOT # POCT PREG TEST DATE POCT GLUCOSE (AUTOMATED) Collection Time: 02/03/24 12:59 PM Result Value Ref Range POCT GLU 159 (H) 70 - 110 mg/dL Type and Screen - ONCE Routine Collection Time: 02/03/24 1:17 PM Result Value Ref Range ABO & RH O POSITIVE IAT Negative POCT GLUCOSE (AUTOMATED) Collection Time: 02/03/24 6:55 PM Result Value Ref Range POCT GLU 201 (H) 70 - 110 mg/dL IMAGING - reviewed, pertinent results as below: No results found for this visit on 02/03/24. ASSESSMENT/PLAN Dalton Aranda is a 53 year old female with PMH as listed above, admitted to the hospital with: # Postmenopausal bleeding # History of BRCA gene mutation S/p total laparoscopic hysterectomy Postop day 0 Pain control CBC on postop day 1 Mendez management per gynecology # Hypertension, controlled Resume home lisinopril # Diabetes mellitus type 2, hemoglobin A1c 8.1 Outpatient med list includes Lantus 40 Units qHS, Humulin R (65 Units daily, 40 Units noon, 65 Units qPM), glipizide, Ozempic Start half dose of Lantus tonight, full dose tomorrow Resume home glipizide and Humulin R tomorrow Add sliding scale insulin Resume Ozempic on discharge # Hyperlipidemia Continue home atorvastatin FENGI diabetic diet Prophylaxis: DVT- SCDs Stress Ulcer: no indication for prophylaxis Code Status: FULL Diagnosis and work up and finding and current plan was discussed with patient in detail and all question were answered and patient verballized understanding. This note was created using a voice-recognition transcribing system. Incorrect words or phrases may have been missed during proofreading. Please interpret accordingly. Harjinder Durham MD 02/03/2024 19:25 Dept. Of Internal Medicine [facility] IM-INTERNAL MEDICINE STAFF [facility] - Health History and Physical Notes Date/Time Note Provider Source 2024-08-25 14:30:00 departmental secretary Clinic Note Chief Complaint: Left soft palate mass HPI Dalton Aranda is a 53 year old female who presents to [facility] departmental secretary clinic regarding soft palate mass that patient noted after having several teeth extracted in [place]. She reports no growth, changes in character of the lesion or pain. Histories MH of BRCA1 carrier, DM, HTN, HLD, Past Medical History: Diagnosis Date Abnormal uterine bleeding Blood dyscrasia BRCA positive DM2 (diabetes mellitus, type 2) Genital herpes Heart murmur Hematuria History of recurrent UTIs Pernicious anemia Right-sided low back pain with sciatica STD (sexually transmitted disease) Chlamydia Urinary incontinence, unspecified type 06/17/2021 Yeast vaginitis 10/08/2023 Past Surgical History: Procedure Laterality Date APPENDECTOMY 2006 BLADDER BIOPSY N/A 05/02/2019 Surgeon: Milo Arboleda MD; [facility] SECTION CHOLECYSTECTOMY 2003 COLONOSCOPY 05/2014 COLONOSCOPY N/A 06/19/2019 Surgeon: Teresa Finley MD; Location: [facility] OR [facility] CYSTOSCOPY CYSTOURETHROSCOPY(SHX) Bilateral 02/03/2024 Surgeon: Graham Melara MD; Location: [facility] OR [facility] DILATION AND CURETTAGE (SHX) N/A 08/04/2022 Surgeon: Phill Osborn MD; Location: [facility] OR LOCATION ESOPHAGOGASTRODUODENOSCOPY N/A 06/19/2019 Surgeon: Teresa Finley MD; Location: [facility] OR [facility] EXAM UNDER ANESTHESIA Left 08/04/2022 Surgeon: Phill Osborn MD; Location: [facility] OR LOCATION EXAM UNDER ANESTHESIA N/A 09/18/2022 Surgeon: Phill Osborn MD; Location: [facility] OR LOCATION LAPAROSCOPIC TOTAL ABDOMINAL HYSTERECTOMY N/A 02/03/2024 Surgeon: Graham Melara MD; Location: [facility] OR LOCATION ND MASTECTOMY SIMPLE COMPLETE Bilateral 2010 REMOVAL OF OVARY(S) Bilateral 2011 SALPINGO-OOPHORECTOMY TRANSURETHRAL BLADDER TUMOR RESECTION Bilateral 09/14/2016 Surgeon: Mana Kwon MD; Location: [facility] Location TRANSURETHRAL BLADDER TUMOR RESECTION Circumfrentially 03/08/2017 Surgeon: Mana Kwon MD; Location: [facility] Location VAGINAL BIOPSY N/A 09/18/2022 Surgeon: Phill Osborn MD; Location: [facility] OR LOCATION Family History Problem Relation Age of Onset Cancer Mother with breast CA at 56 Hypertension Mother High cholesterol Mother Cancer Sister with ovarian CA Cancer Sister with ovarian CA Coronary Heart Disease Father Diabetes Father Arthritis NoFHx Asthma NoFHx defects NoFHx Breast Cancer NoFHx Colon Cancer NoFHx Uterine Cancer NoFHx Ovarian Cancer NoFHx Depression NoFHx Genetic NoFHx Mental retardation NoFHx Neurological NoFHx Osteoporosis NoFHx Psychiatry NoFHx Other - see comments NoFHx Social History Socioeconomic History Marital status: Single Tobacco Use Smoking status: Former Current packs/day: 0.10 Average packs/day: 0.1 packs/day for 20.0 years (2.0 ttl pk-yrs) Types: Cigarettes Smokeless tobacco: Never Tobacco comments: Quit 2012 Vaping Use Vaping status: Never Used Substance and Sexual Activity Alcohol use: No Alcohol/week: 0.0 standard drinks of alcohol Drug use: No Sexual activity: Not Currently Partners: Male Comment: 2014 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 Social Determinants of Health Financial Resource Strain: Patient Declined (02/04/2024) Overall Financial Resource Strain (CARDIA) Difficulty of Paying Living Expenses: Patient declined Food Insecurity: Patient Declined (02/04/2024) Hunger Vital Sign Worried About Running Out of Food in the Last Year: Patient declined Ran Out of Food in the Last Year: Patient declined Transportation Needs: Patient Declined (02/04/2024) PRAPARE - Transportation Lack of Transportation (Medical): Patient declined Lack of Transportation (Non-Medical): Patient declined Physical Activity: Patient Declined (02/04/2024) Exercise Vital Sign Days of Exercise per Week: Patient declined Minutes of Exercise per Session: Patient declined Social Connections: Unknown (02/04/2024) Social Connection and Isolation Panel [NHANES] Frequency of Communication with Friends and Family: More than three times a week Marital Status: Patient unable to answer Housing Stability: Patient Declined (02/04/2024) Housing Stability Vital Sign Unable to Pay for Housing in the Last Year: Patient declined Unstable Housing in the Last Year: Patient declined Review of Systems Constitutional: negative Skin: negative Eyes: negative Ears, nose, mouth, throat: (+) per HPI Cardio: negative Resp: negative GI: negative : negative HINA: negative Neuro: negative Psych: negative Endo: negative Hem/Lymphatic: negative Allergic/Immunologic: negative Physical Exam BP 130/70 (BP Location: Left arm, Patient Position: Sitting, BP CUFF SIZE: Adult Medium) | Pulse 86 | Temp 36.1 ?C (97 ?F) (Tympanic) | Ht 1.499 m (4' 11") | Wt 92.6 kg (204 lb 1.6 oz) | LMP (LMP Unknown) | BMI 41.22 kg/m? General Appearance: NAD, appears stated age Skin: No rashes, pain, abscess, masses Head/Neck: No lymphadenopathy, trachea midline, no thyromegaly TMJ: No clicking or popping on opening, No deviation on opening, Maximum incisal openinmm Eyes: PERRLA, EOM intact, conjunctiva clear, no ptosis Ears: No hearing loss, pain, tinnitus, vertigo Nose: No discharge, epistaxis, rhinorrhea Throat: Normal mucosa, uvula midline and mobile, normal gag reflex Lip: No swelling, no ulcerations, normal mucosa Oral Mucosa: No white lesions, no red lesions, no swelling, no ulcerations. Protrusion of left hamulus of the pterygiod Teeth: Fair repair, no gross caries Tongue/FOM: No swellings, ulcerations, non-tender to palpation, gag reflex present Neurological: Alert and oriented x3, CN II-XII grossly intact Radiology Radiographs brought by patient from referring provider. I independently reviewed and interpreted the imaging, and my findings are: Condyles in fossa b/l Maxillary sinus clear b/l No gross bony pathology Previous dental work visualized Patient has long left hamulus of pterygiod Assessment/Diagnosis: Dalton Aranda is a 53 year old female who presents to [facility] departmental secretary clinic regarding soft palate mass. Patient has an elongated hamulus of the pterygoid on the left side and this is the mass that she is feeling. Counseled the patient about the etiology and the benign nature of the process. No surgical intervention needed. She can follow up PRN. Plan - f/u PRN I personally examined the patient on 08/25/[address] Stanley's resident note as written . I actively participated in the decision-making process. Please see the resident's note for additional details. Dima Guadarrama DDS FACS Head and Neck Oncologic Surgery and Microvascular Reconstruction Department of Surgery | Division of departmental secretary [facility] 2024-02-03 13:27:21 Patient seen and examined, agree with H&P, no interval changes. Patient seen in preop, laparoscopic hysterectomy procedure confirmed, cystoscopy. Source Note - Graham Melara MD - 01/28/2024 11:00 AM CDT Images from the original note were not included. Chief complaint: Chief Complaint Patient presents with Pre-Op Exam HPI Patient is a 53 year old female . No LMP recorded. Patient is perimenopausal. Pt is here to sign preop consent for TLH/cysto Due to postmenopausal bleeding, h/o BRCA 1+ Sp removal of ovaries and cholecystectomy H/o georgette 1 Neg emb at [facility] Histories OB History Para Term AB Living 4 2 2 SAB IAB Ectopic Multiple Live Births 1 1 2 # Outcome Date GA Lbr Eduardo/2nd Weight Sex Delivery Anes PTL Lv 4 3 2 IAB 1 SAB Past Medical History: Diagnosis Date Abnormal uterine bleeding Blood dyscrasia BRCA positive DM2 (diabetes mellitus, type 2) Genital herpes Heart murmur Hematuria History of recurrent UTIs Pernicious anemia Right-sided low back pain with sciatica STD (sexually transmitted disease) Chlamydia Urinary incontinence, unspecified type 06/17/2021 Yeast vaginitis 10/08/2023 Family History Problem Relation Age of Onset Cancer Mother with breast CA at 56 Hypertension Mother High cholesterol Mother Cancer Sister with ovarian CA Cancer Sister with ovarian CA Coronary Heart Disease Father Diabetes Father Arthritis NoFHx Asthma NoFHx defects NoFHx Breast Cancer NoFHx Colon Cancer NoFHx Uterine Cancer NoFHx Ovarian Cancer NoFHx Depression NoFHx Genetic NoFHx Mental retardation NoFHx Neurological NoFHx Osteoporosis NoFHx Psychiatry NoFHx Other - see comments NoFHx Family Status Relation Name Status Mo Sis (Not Specified) Sis (Not Specified) Fa Fa (Not Specified) NoFHx (Not Specified) Past Surgical History: Procedure Laterality Date APPENDECTOMY 2005 BLADDER BIOPSY N/A 05/02/2019 Surgeon: Milo Arboleda MD; [facility] Location SECTION CHOLECYSTECTOMY 2004 COLONOSCOPY 05/2014 COLONOSCOPY N/A 06/19/2019 Surgeon: Teresa Finley MD; Location: [facility] OR Location CYSTOSCOPY DILATION AND CURETTAGE (SHX) N/A 08/04/2022 Surgeon: Phill Osborn MD; Location: [facility] OR LOCATION ESOPHAGOGASTRODUODENOSCOPY N/A 06/19/2019 Surgeon: Teresa Finley MD; Location: [facility] OR Location EXAM UNDER ANESTHESIA Left 08/04/2022 Surgeon: Phill Osborn MD; Location: [facility] OR LOCATION EXAM UNDER ANESTHESIA N/A 09/18/2022 Surgeon: Phill Osborn MD; Location: [facility] OR LOCATION ND MASTECTOMY SIMPLE COMPLETE Bilateral 2010 REMOVAL OF OVARY(S) Bilateral 2011 SALPINGO-OOPHORECTOMY TRANSURETHRAL BLADDER TUMOR RESECTION Bilateral 09/14/2016 Surgeon: Mana Kwon MD; [facility]: [facility] TRANSURETHRAL BLADDER TUMOR RESECTION Circumfrentially 03/08/2017 Surgeon: Mana Kwon MD; Location: [facility] Location VAGINAL BIOPSY N/A 09/18/2022 Surgeon: Phill Osborn MD; Location: [facility] OR LOCATION Social History Socioeconomic History Marital status: Single Tobacco Use Smoking status: Former Packs/day: 0.10 Years: 20.00 Additional pack years: 0.00 Total pack years: 2.00 Types: Cigarettes Smokeless tobacco: Never Tobacco comments: Quit 2012 Vaping Use Vaping Use: Never used Substance and Sexual Activity Alcohol use: No Alcohol/week: 0.0 standard drinks of alcohol Drug use: No Sexual activity: Not Currently Partners: Male Comment: 2014 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 Social History Substance and Sexual Activity Sexual Activity Not Currently Partners: Male Comment: 2014 Labs No new labs Radiology No new radiology. Allergies Dalton is allergic to dapagliflozin, pioglitazone, and lisinopril. Medications Dalton has a current medication list which includes the following prescription(s): chlorhexidine, docusate, hydrocodone-acetaminophen, ibuprofen, metronidazole, ondansetron, scopolamine transdermal, tamsulosin, lisinopril, atorvastatin, gabapentin, ozempic, tramadol, fluconazole, solifenacin, polyethylene glycol 3350, glipizide, humulin r u-500 (conc) kwikpen, lantus solostar u-100 insulin, metformin, and ibuprofen. Review of Systems Constitutional: Negative for chills, fatigue and fever. HENT: Negative for dental problem, facial swelling, nosebleeds, sore throat and trouble swallowing. Respiratory: Negative for cough, chest tightness, shortness of breath and wheezing. Breasts: Negative for discharge, mass and pain. Cardiovascular: Negative for chest pain, palpitations and leg swelling. Gastrointestinal: Negative for abdominal distention, abdominal pain, blood in stool, diarrhea, nausea and vomiting. Genitourinary: Positive for dysuria, vaginal bleeding and menstrual problem. Negative for pelvic pain and dyspareunia. Musculoskeletal: Negative for gait problem, joint swelling, neck pain and neck stiffness. Neurological: Negative for dizziness, seizures, weakness and light-headedness. BP 119/74 | Pulse 82 | Wt 202 lb (91.6 kg) | BMI 40.80 kg/m? Pregravid BMI: Could not be calculated Physical Exam Vitals reviewed. Constitutional: She appears well-developed and well-nourished. Her body habitus is normal. Cardiovascular: Regular rate and rhythm. Pulmonary/Chest: Normal inspiratory effort. Abdominal: No mass palpated. No tenderness present. There is no guarding. External genitalia: Normal external genitalia appropriate for age. Vagina:Normal vagina. Abnormal estrogen effect. Cervix: Normal cervix. Uterus: Normal uterus Adnexa: Normal left adnexa and normal right adnexa Assessment/Plan Postmenopausal bleeding (primary encounter diagnosis) Comment: Plan: scopolamine transdermal (TRANSDERM-SCOP) 1 mg over 3 days patch, chlorhexidine 4 % external liquid, docusate (COLACE) 100 mg capsule, ondansetron (ZOFRAN) 4 mg tablet, HYDROcodone-acetaminophen 5-325 mg tablet, ibuprofen 800 mg tablet, metroNIDAZOLE 500 mg tablet, Type and Screen -, Cbc with Diff, Comp. Metabolic Panel (68273), Glycosylated Hemoglobin (A1C) BRCA1 gene mutation positive Comment: Plan: Dysplasia of cervix, low grade (GEORGETTE 1) Comment: Plan: Type II or unspecified type diabetes mellitus with ketoacidosis, uncontrolled(250.12) Comment: Plan: scopolamine transdermal (TRANSDERM-SCOP) 1 mg over 3 days patch, chlorhexidine 4 % external liquid, docusate (COLACE) 100 mg capsule, ondansetron (ZOFRAN) 4 mg tablet, HYDROcodone-acetaminophen 5-325 mg tablet, ibuprofen 800 mg tablet, metroNIDAZOLE 500 mg tablet, Type and Screen -, Cbc with Diff, Comp. Metabolic Panel (03656), Glycosylated Hemoglobin (A1C) Morbid obesity with body mass index of 40.0-49.9 Comment: Plan: H/O bilateral salpingo-oophorectomy Comment: Plan: History of cholecystectomy Comment: Plan: Surgical counseling visit Comment: Plan: scopolamine transdermal (TRANSDERM-SCOP) 1 mg over 3 days patch, chlorhexidine 4 % external liquid, docusate (COLACE) 100 mg capsule, ondansetron (ZOFRAN) 4 mg tablet, HYDROcodone-acetaminophen 5-325 mg tablet, ibuprofen 800 mg tablet, metroNIDAZOLE 500 mg tablet, Type and Screen -, Cbc with Diff, Comp. Metabolic Panel (09764), Glycosylated Hemoglobin (A1C) H/o bladder resection for benign tumor. Total time evaluating, reviewing labs, and making management plan is 40 minutes. The time spent for patient care includes: PreCharting (eg, review of tests, notes, etc.), Obtaining and/or reviewing separately obtained history (Care Everywhere or paper records), Performing a medically appropriate examination and/or evaluation, Counseling and educating the patient/family/caregiver, Ordering medications, tests, or procedures, Documenting clinical information in the electronic or other health record, and Care coordination (not separately reported). This note was created using a voice-recognition meat cooler system. Incorrect words, phrases, or punctuation may have been missed during proofreading. Please interpret accordingly. For this reason, wording in this document should be considered in the proper context and not strictly verbatim. [facility] 2024-02-03 13:17:20 GYNECOLOGY HISTORY AND PHYSICAL Date of Service: 02/03/2024 CONRAD Aranda is a 53 year old female presenting for total laparoscopic hysterectomy due to postmenopausal bleeding and pelvic pain. Patient denies interval changes in medical history since pre-operative evaluation. No concerns/complaints today. Sexual History: Social History Substance and Sexual Activity Sexual Activity Not Currently Partners: Male Comment: 2014 Current Medications: No current facility-administered medications for this encounter. Current Outpatient Medications Medication Sig Dispense Refill chlorhexidine 4 % external liquid Apply to area(s) once daily as needed for Wound care. 236 mL 1 docusate (COLACE) 100 mg capsule Take 1 capsule by mouth in the morning and 1 capsule at noon and 1 capsule in the evening. 90 capsule 2 HYDROcodone-acetaminophen 5-325 mg tablet Take 1-2 tablets by mouth every 6 (six) hours as needed for Pain (scale 4-6). Indications: acute pain 30 tablet 0 ibuprofen 800 mg tablet Take 1 tablet by mouth every 6 (six) hours as needed for Pain (scale 4-6). 60 tablet 1 metroNIDAZOLE 500 mg tablet Take 1 tablet by mouth in the morning and 1 tablet in the evening. 14 tablet 0 ondansetron (ZOFRAN) 4 mg tablet Take 1 tablet by mouth every 8 (eight) hours as needed for Nausea and Vomiting (N/V) or N/V unresponsive to Promethazine. 20 tablet 1 scopolamine transdermal (TRANSDERM-SCOP) 1 mg over 3 days patch Apply 1 Patch to area(s) every 72 (seventy-two) hours. 2 Patch 0 tamsulosin 0.4 mg 24 hr capsule gabapentin 100 mg capsule Take 1 capsule by mouth as needed for Pain (scale 4-6). lisinopriL 2.5 mg tablet Take 2 tablets in the morning. semaglutide (OZEMPIC) 0.25 mg or 0.5 mg (2 mg/3 mL) PnIj inject 0.25 mg under the skin weekly. traMADoL 50 mg tablet Take 1 tablet by mouth every 6 (six) hours as needed. fluconazole (DIFLUCAN) 150 mg tablet Take 1 tablet by mouth every other day. 3 tablet 0 SOLIFENACIN 10 mg tablet TAKE 1 TABLET BY MOUTH IN THE MORNING 30 tablet 0 polyethylene glycol 3350 (MIRALAX) 17 gram/dose powder Take 17 g by mouth in the morning. 10 Packet 0 atorvastatin 40 mg tablet atorvastatin 40 mg tablet TAKE 1 TABLET BY MOUTH AT BEDTIME glipiZIDE 5 mg tablet glipizide 5 mg tablet insulin regular hum U-500 conc (HUMULIN R U-500, CONC, KWIKPEN) 500 unit/mL (3 mL) InPn Humulin R U-500 (Conc) Insulin Kwikpen 500 unit/mL (3 mL) subcutaneous INJECT 85 UNITS SUBCUTANEOUSLY WITH BREAKFAST 40 UNITS WITH LUNCH AND 65 UNITS WITH DINNER ADJUST UP TO 200 UNITS PER DAY LANTUS SOLOSTAR U-100 INSULIN 100 unit/mL (3 mL) injection metFORMIN 1,000 mg tablet ibuprofen 800 mg tablet Take 1 tablet by mouth every 8 (eight) hours as needed for Pain (scale 4-6). 30 tablet 0 Allergies: Dapagliflozin, Pioglitazone, and Lisinopril History: Past Medical History: Diagnosis Date Abnormal uterine bleeding Blood dyscrasia BRCA positive DM2 (diabetes mellitus, type 2) Genital herpes Heart murmur Hematuria History of recurrent UTIs Pernicious anemia Right-sided low back pain with sciatica STD (sexually transmitted disease) Chlamydia Urinary incontinence, unspecified type 06/17/2021 Yeast vaginitis 10/08/2023 Surgical History: Past Surgical History: Procedure Laterality Date APPENDECTOMY 2006 BLADDER BIOPSY N/A 05/02/2019 Surgeon: Milo Arboleda MD; Location: [facility] SECTION CHOLECYSTECTOMY 2003 COLONOSCOPY 05/2014 COLONOSCOPY N/A 06/19/2019 Surgeon: Teresa Finley MD; Location: [facility] OR [facility] CYSTOSCOPY DILATION AND CURETTAGE (SHX) N/A 08/04/2022 Surgeon: Phill Osborn MD; Location: [facility] OR LOCATION ESOPHAGOGASTRODUODENOSCOPY N/A 06/19/2019 Surgeon: Teresa Finley MD; Location: [facility] OR Location EXAM UNDER ANESTHESIA Left 08/04/2022 Surgeon: Phill Osborn MD; Location: [facility] OR LOCATION EXAM UNDER ANESTHESIA N/A 09/18/2022 Surgeon: Phill Osborn MD; Location: [facility] EHSAN [facility] MASTECTOMY SIMPLE COMPLETE Bilateral 2010 REMOVAL OF OVARY(S) Bilateral 2011 SALPINGO-OOPHORECTOMY TRANSURETHRAL BLADDER TUMOR RESECTION Bilateral 09/14/2016 Surgeon: Mana Kwon MD; Location: [facility] Location TRANSURETHRAL BLADDER TUMOR RESECTION Circumfrentially 03/08/2017 Surgeon: Mana Kwon MD; Location: [facility] Location VAGINAL BIOPSY N/A 09/18/2022 Surgeon: Phill Osborn MD; Location: [facility] LOCATION ROS: General: negative Constitutional: negative Eyes: negative ENT/Mouth: negative Cardiovascular: negative Respiratory: negative Gastrointestinal:negative Genitourinary: negative Musculoskeletal: negative Skin/breast: negative Neurological: negative Psychiatric: negative Endocrine: negative Hemat/Lymph: negative Allergic/Immuno:none Physical Exam: Vitals: Vitals: 02/03/24 1250 BP: 131/79 Pulse: 78 Resp: 18 Temp: 36.4 ?C (97.6 ?F) SpO2: 97% Constitutional: alert, no apparent distress, appearing age appropriate CV: regular rate and rhythm, no murmurs/clicks/rubs Respiratory: Clear to auscultation bilaterally, good inspiratory effort to inspection Abdomen: soft, nontender, nondistended, no rebound/guarding Extremities: no edema or calf tenderness bilaterally Labs: CBC WBC (10*3/?L) Date Value 01/28/2024 9.31 RBC (10*6/?L) Date Value 01/28/2024 4.59 PLT (10*3/?L) Date Value 01/28/2024 337 HGB (g/dL) Date Value 01/28/2024 13.8 HCT (%) Date Value 01/28/2024 39.8 ALT(SGPT) (U/L) Date Value 06/08/2019 21 ALTv (U/L) Date Value 01/28/2024 19 AST(SGOT) (U/L) Date Value 01/28/2024 21 CREATININE (mg/dL) Date Value 01/28/2024 0.37 (L) No results found for: "T4" TSH (mIU/L) Date Value 03/05/2021 1.25 Imagin04/30/2022- PELVIC ULTRASOUND HISTORY: Bleeding from unknown source (urine vs. vaginal), evaluate for endometrial stripe thickening; TECHNIQUE: Transabdominal and transvaginal sonographic evaluation of the uterus and adnexa is performed. COMPARISON: 06/06/2021 FINDINGS: Examination is limited in quality secondary to patient's body habitus and tilt of the uterus to the left. Uterus measures approximately 5.1 x 2.9 cm. The endometrial stripe is not clearly visualized. The urinary bladder is significantly distended. Large amount of floating debris is seen within the bladder. Wall of the urinary bladder is irregularly thickened. CONCLUSION: 1. Very limited evaluation of the uterus secondary to its position and loops of bowel in the pelvis. 2. Large amount of debris within the urinary bladder. Correlate for possibility of cystitis. Assessment/Plan: Dalton Aranda is a 53 year old female presenting for scheduled TLH and cystoscopy due to postmenopausal bleeding. Postmenopausal bleeding - Patient is BRCA+, s/p lap BSO in 2010 - Neg EMB at [facility] - Other abdominal surgeries: , lap magnus, appendectomy - proceed with TLH today - preop Hgb 13.8 - Blood type O pos - Risks/benefits/alternatives discussed, consents signed and in chart - Preop abx: Ancef and Flagyl - DVT ppx: SCDs - Admit to: DSU postop T2DM - A1c 8.1 on 12/15/23 - FSBG on admission 159 - Takes Lantus, humulin and glipizide HTN - takes lisinopril - BP 131/79 Dr. Melara, Faculty, notified of admission. Nina Moyer MD Associated attestation - Graham Melara MD - 02/03/2024 1:36 PM CDT Images from the original note were not included. I evaluated the patient prior to surgery and I agree with the note as written by Dr. Moyer which incorporates the history and physical on her preop clinic visit. She has had no change in her health status since her preop visit. Graham Melara MD [facility]-OBSTETRICS [facility] GYNECOLOGY [facility] - Health Notes Date/Time Note Provider Source 2025-02-23 13:31:06 Upon further review pt is rescheduled for 03/[address] [facility] 2025-02-19 08:41:04 Dalton Aranda is a 54 year old female Pt is calling to reschedule their appt for 02/23 as they are in the hospital currently and unable to make this appt Please advise at [phone] (home) [facility] 2024-08-26 15:23:00 "Assessment Dalton Aranda is a 53 year old female presenting to the clinic for BPS/IC with ongoing bladder pains. Had recent hysterectomy with Dr Melara Completed the intravesical bladder instillations UC + proteus with persistent urgency Plan -start Bactrim DS x 10 days the SS at bedtime x 3 months as prophylactic -Refer to Endocrinology for diabetes management Dr Craig - start vesicare 10 mg reviewed the side effects" DANIELA 02/22/2024 NOV (none) Lloyd Fontanez LVN [facility] 2024-02-23 08:53:35 Spoke with pt who verified name and . Discussed results with pt. Per provider "Please notify patient of results of: +uti, keflex sent to pharmacy qid." Pt reports she was recommended by Dr. Melara to follow up wit urologist. Pt saw Urologist 02/22/24 and per pt she was prescribed Bactrim and was told not to take the Keflex. Pt will be following up with Urologist due to history of recurrent UTI's. No further action needed at this time. Keflex discontinued, pt never picked up medication. Lorena Jacinto RN [facility] 2024-02-23 08:49:55 Pt returning phone call to nurse Moraima Sanford [facility] 2024-02-23 08:37:08 Attempted to call pt, no answer, LVM to call back and check My Chart message about results. Pt had Offive visit with Urology 02/22/24 for Recurrent UTI- prescribed Bactrim. Pt has not read My Chart message yet. [facility] 2024-02-22 09:15:13 Called pt, no answer, left VM. If pt calls back, please have RN speak with pt if she returns call. Please notify patient of results of: +uti, keflex sent to pharmacy qid. Written by Graham Melara MD on 02/21/2024 10:49 PM CDT Khalida Barrett [facility] 2024-02-18 10:40:00 Please notify patient of results of: +uti, keflex sent to pharmacy qid. [facility] 2024-02-18 10:40:00 Addended by: GRAHAM MELARA MD on: 02/21/2024 10:50 PM Modules accepted: Orders [facility] 2024-02-04 04:33:45 Summary: Patient request Patient requested medication for a sore throat. Dr. Juarez was paged and orders received for Phenol throat spray. Lesley Calvillo RN [facility] 2024-02-04 01:52:31 Problem: Bleeding, Risk of Goal: Absence of active bleeding Outcome: Progressing as expected Problem: Infection Risk Goal: Absence of infection Outcome: Progressing as expected T [facility] 2024-02-03 14:15:00 Resting in bed with sister at bedside. Denies any needs at this time. No acute signs or symptoms of distress noted. Continuation of care ongoing. Bed in low/locked position, 1 of 2 side rails up, call cazares in reach. [facility] 2024-02-02 14:00:42 Surgery date: 02/03/2024 [facility] Address: [address] [place] [address]. You will check in on the 3rd floor. Arrival time: 12:30 PM No solid food, no milk/dairy products, no candy or gum after midnight prior to your surgery. You may have clear liquids until: 10:30 AM Examples of clear liquids include water, apple juice, Gatorade, sprite or Jello (without fruit)- No red, blue, or purple colors with any of these liquids. Please bring your picture ID and insurance card to check in. Leave all jewelry and valuables at home. You are allowed to have up to two adult visitors (age 1818 years old and up) in the preop and recovery areas. If you must bring anyone under the age of 1818 years old, an additional adult must be present to wait with them in the lobby. If you wear contact lenses, please wear glasses on your day of surgery. For pediatric patients: a legal guardian must be present with patient as consents will need to be signed prior to surgery. If you have any questions, please call Day Surgery [facility] at [phone] from 5 am to 5 pm. [facility] Carine Andersen RN [facility] 2024-02-02 10:00:00 Addended by: LLOYD FERREIRA LVN on: 02/02/2024 11:22 AM Modules accepted: Orders [facility] 2024-01-28 12:45:00 Images from the original note were not included. Venipuncture collection performed by clean technique on the right anticubitus. Total of 1 attempts were made. Slight pressure and a bandage/dressing were applied to the site(s). The patient experienced no complications. The following specimens were processed according to instructions and sent to [facility] laboratories per lab order on 01/28/2024 : LT BLUE SST 1 RED LAV 2 PPT DK GREEN (LiHep) DK GREEN (SodH) QIU DK BLUE (K2) DK BLUE (S) ACD Blood Culture NIPT/NTD T [facility] 2024-01-28 11:48:01 Patient rescheduled and notified through [facility]. Lloyd Fontanez LVN [facility] 2024-01-26 08:16:32 Copied from [facility] #[id number]. Topic: Appointment - Cancel Appointment >> Jan 26, 2024 8:13 AM Patient Internal Auditor wrote: Pt calling to rs appt with Urology for 6th week bladder Irrigation . Pt states she has to take something for her eyres and not able to see right now. Pt would like to come in 02/01 Please call pt Work Phone Not on file. Delaney Mcdonald V [facility] 2023-12-22 13:21:00 Duplicate encounter L Walker RN [facility] 2023-12-22 13:20:26 Contacted pt and informed her that surgery has been moved to 02/03/24. MD Kelton also aware. L Walker RN [facility] 2023-12-22 11:53:13 Patient called returning clinic nurse's phone call. Patient states earlier this morning nurse confirmed surgery date of 02/03/2024. Advised patient of nurse's note stating there is no availability for 02/03/2024 in the OR. Mentioned to patient clinic nurse will call her back with a new surgery date. Phone confirmed with patient:[phone] [facility] 2023-12-22 10:47:55 Per TE 12/17/2023 " Contacted pt and confirmed surgery date of 02/03/24, but OR has no availability. [place] notified and will wait for new date. " Attempted to call pt, no answer at this time, left vm for pt to call back. L Matos RN [facility] 2023-12-22 09:51:07 Contacted pt and confirmed surgery date of 02/03/24, but OR has no availability. [place] notified and will wait for new date. L Walker RN [facility] 2023-12-22 09:37:33 Patient called to confirm her new surgery date 02/[address] Melara. Please let provider know. She has her pre-op on 3/22. ICAL EDUCATOR Marcelina Foley [facility] 2023-12-22 09:29:16 Dalton Aranda is a 52 year old female Pt returned call to confirm appt for surgery date of 02/03/24. ICAL EDUCATOR George Ng [facility] 2023-12-22 08:46:17 Attempted to call pt, no answer at this time, left vm for pt to call back. If pt calls back, please confirm NEW surgery dates provided by provider for 02/03/24 in [place]. L Matos RN [facility] 2023-12-20 08:14:29 Attempted to call, no answer, LVM to call back. If pt calls back, please confirm NEW surgery dates provided by provider for 02/03/24 in [place]. L Jacinto RN [facility] 2023-12-18 12:03:16 Please move surgery to 02/02, , clc. Thank you. Graham Melara MD 12/18/2023 12:03 PM [facility] 2023-12-17 16:02:03 Offered a sooner Perop appt (12/24/23 @11am) to avoid needing tors her 01/04 surgery, Patient declined an appt on 12/[address] Melara will need get a new surgery date. L Foley [facility] 2023-12-17 12:47:16 Called patient to RS her canceled preop, RS to 01/28/2024 , aware provider schedule is very limited and will notify the nurse and provider she will need a new surgery date. After her scheduled preop CLC 01/27 . Patient aware 01/27 is the 1st available preop slot with all locations. Also offered 01/31/24 in [place] but patient took 01/27 [facility] 2023-12-17 12:16:20 Pt unable to keep today's pre op appt, rescheduled for next avail, requesting to speak to nurse about being worked back in with time for her surgery. Please F/u L Carrasco [facility] 2023-12-15 11:45:00 Images from the original note were not included. Venipuncture collection performed by clean technique on the right anticubitus. Total of 1 attempts were made. Slight pressure and a bandage/dressing were applied to the site(s). The patient experienced no complications. The following specimens were processed according to instructions and sent to [facility] laboratories per lab order on 12/15/2023: LT BLUE SST RED LAV 1 PPT DK GREEN (LiHep) DK GREEN (SodH) QIU DK BLUE (K2) DK BLUE (S) ACD Blood Culture NIPT/NTD [facility] 2023-11-17 15:15:14 Images from the original note were not included. Received preop clearance and anticoagulation guidance request for Ms Duarte from Dr Melara [facility] Institutional Asset Manager. Turn around time for forms is typically 5-7 business days. Once completed will be faxed to the requesting office. DANIELA: 10/06/23 NOV: 12/21/23 Anticoagulation: N/A Date of last echocardiogram: 01/04/23 Date of last stress test: 01/04/23 Date of last EK10/06/23 Yue Jackson MD P Cardiology Nurse Negative stress test. Fair functional capacity. No arrhythmias noted. Follow-up as planned [facility] 2023-11-09 14:22:54 Patient returned call, TTE results shared Verbalized understanding [facility] 2023-11-09 14:09:29 Images from the original note were not included. Attempted to contact patient with results/recommendations. LV for patient to return call to [phone]. If patient returns call please let her know that the heart ultrasound was normal. Follow up as planned 11/17/23 Yue Jackson MD P Cardiology Nurse Echo with in acceptable limits. Preserved LVEF. No significant valve diease noted Follow-up as planned. ICAL EDUCATOR Milady Verma RN [facility] 2023-10-28 15:42:18 Left a voicemail to reschedule patients appointments. L Atkinson [facility] 2023-10-28 14:33:44 Dalton Aranda is a 52 year old female Patient is calling to schedule TTE and Stress test. Thanks ICAL EDUCATOR Claudine Lozano [facility] 2023-07-27 11:30:00 Formatting of this n ote is different from the original. Images from the original note were not included. Venipuncture collection performed by clean technique on the left anticubitus. Total of 1 attempts were made. Slight pressure and a bandage/dressing were applied to the site(s). The patient experienced no complications. The following specimens were processed according to instructions and sent to [facility] laboratories per lab order on 07/27/2023 : LT BLUE SST 3 RED 1 LAV PPT DK GREEN (LiHep) DK GREEN (SodH) QIU DK BLUE (K2) DK BLUE (S) ACD Blood Culture NIPT/NTD [facility] 2023-07-26 11:30:00 Addended by: CHIQUIS GARZA MA on: 07/26/2023 03:59 PM Modules accepted: Orders T [facility] 2023-07-16 13:44:28 Formatting of this n ote is different from the original. DANIELA 10/14/2022 NOV NONE Last Filled 06/21/2023 Qty 30 With 0 refill(s) Please advice if Okay to refill? SOLIFENACIN 10 mg tablet 30 tablet 0 06/21/2023 07/21/2023 No Sig: TAKE 1 TABLET BY MOUTH IN THE MORNING FOR 30 DAYS Sent to pharmacy as: solifenacin 10 mg tablet ([facility]IC[facility]) Class: eRX Route: Oral Order: [id number] Lexy Hinojosa MA [facility]
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
[2025-07-05 05:12] VITALS: BP 128/59; TEMP 98.6; O2SAT 97
== END 2025-07-04 21:20 | disposition home or self-care (01) ==
LOC: ER 19:08
DX: R51.9 Headache, unspecified (principal); M54.2 Cervicalgia; V49.40XA Driver injured in collision with unspecified motor vehicles in traffic accident, initial encounter
CPT/HCPCS: 70450; 72125